=== PATIENT | female | born 1940 | race Caucasian/White ===

== ENCOUNTER → 2017-12-11 10:45 | Outpatient (CLI) | payer MEDICARE, SELFPAY ==
[2017-12-11 11:00] LABS: Prothrombin Time (Protime)PT. 37.8 SECONDS (11.7-14.9)
[2017-12-11 11:49] LABS: International Normalized Ratio 3.8
== END ==
PROVIDERS: Family Provider Family Medicine; PCP Family Medicine; Referring Provider Family Medicine; Visit Provider Family Medicine
DX: I48.0 Paroxysmal atrial fibrillation (principal)
CPT/HCPCS: 85610

== ENCOUNTER → 2018-01-21 10:02 | Outpatient (CLI) | payer MEDICARE, SELFPAY ==
[2018-01-21 10:23] VITALS: BP 171/85; PULSE 59; RESP 16; O2SAT 100; BMI 21.2
== END ==
PROVIDERS: Family Provider Family Medicine; PCP Family Medicine; Referring Provider Internal Medicine Hematology & Oncology; Visit Provider Internal Medicine Hematology & Oncology
DX: C85.90 Non-Hodgkin lymphoma, unspecified, unspecified site (principal); Z45.2 Encounter for adjustment and management of vascular access device
CPT/HCPCS: 36569

== ENCOUNTER 2018-01-29 15:02 | Emergency (ER) | payer MEDICARE, SELFPAY ==
[2018-01-21 10:23] VITALS: BMI 21.2
[2018-01-29 15:04] VITALS: BP 131/76; PULSE 67; RESP 14; TEMP 36.8; O2SAT 100; BMI 21.2
--- NOTE | 2018-01-29 15:27 | EKG12_ITS ---
Test Reason : SYNCOPE Blood Pressure : / mmHG Vent. Rate : 089 BPM Atrial Rate : 089 BPM P-R Int : 160 ms QRS Dur : 078 ms QT Int : 362 ms P-R-T Axes : 026 039 030 degrees QTc Int : 440 ms Normal sinus rhythm Normal ECG Confirmed by DIDI VILLALOBOS MD ([id number]), online content editor CHRISTAL LEE ([id number]) on 02/01/2018 1:34:06 PM Referred By: Confirmed By:DIDI VILLALOBOS MD
--- NOTE | 2018-01-29 15:33 | ED.DCSUM_ITS ---
- ER Visit Summary Date of Service: 01/29/18 Chief Complaint: Syncope History of Present Illness: The patient is a 77 F undergoing chemotherapy for T- cell lymphoma. Her last chemotherapy treatment was on January 22. Patient was sitting on the commode today having diarrhea. She felt lightheaded and sweaty. She had a brief syncopal episode and woke on the floor. Patient reports the episode occurred around noon, 3 hours prior to arrival. She has felt okay since that time. She is been having problems with nausea and diarrhea with her chemotherapy. Family called the oncology office and they wanted her lab work checked. Physical Examination: Vital signs are unremarkable. Patient sitting upright in bed no acute distress. Head neck examination unremarkable. Heart is regular rate and rhythm. Lung sounds are clear benign abdomen is soft nontender. Hypoactive bowel sounds are present. Neuro exam reveals no focal deficits. Test Results: EKG is sinus at 64 with no sign of acute ischemia. CBC was a white count of 0.3, hemoglobin 10.7, platelet count 66,000. Chemistry studies significant only for BUN of 28. INR is 1.7. Emergency Department Course and Treatment: Patient is given IV fluids. She has remained asymptomatic while in the emergency room. I did speak with Dr. Wen, covering for Dr. Castellanos. Because the patient is so neutropenic, he did request coverage with Levaquin for the next 5 days. First doses given here and patient is given a prescription. She is to call the office tomorrow with an update on her symptoms. Treatment Plan: [] Disposition: Discharge Impression: 1. Vasovagal syncope 2. Pancytopenia This note was generated with [employer] dictation software. It may contain incorrect words, spelling, and punctuation that were not noted in review of the chart prior to signing ED Disposition - Plan for ED Patient: Disposition: Home or Assisted Living Chief Complaint: Syncope Instructions: ED Syncope Vasovagal Prescriptions: Levofloxacin [Levaquin] 500 mg PO DAILY #4 tablet Referrals: Denae Castellanos MD [STAFF PHYSICIAN] - As soon as possible
[2018-01-29] MEDS: 0.9% Normal Saline 1,000 ML 150 ML IV (15:55)
[2018-01-29 16:10] LABS: Absolute Lymphocyte Count 0.29 X10^3/ul (0.83-4.51); Eosinophil# 0.04 X10^3/uL; Eosinophils% 11.8 % (0-5); Hematocrit 31.7 % (37-47); Hemoglobin 10.7 g/dl (12.0-15.0); Lymphocyte # 0.29 X10^3/ul (4.0); Lymphocyte % 85.3 % (19-41); Mean Corp Hgb Conc 33.8 g/gl (32-36); Mean Corpuscular Hgb 31.4 pg (27.0-32.0); Mean Platelet Vol. 10.5 fl (6.2-12.0); Monocyte# 0.01 X10^3/uL; Monocyte% 2.9 % (0-10); Platelet Count 66 K/mm3 (150-450); RBC Distribution Width CV 13.1 % (11.6-14.6); RBC Distribution Width SD 44.7 fl (35.1-43.9); Red Blood Count 3.41 M/mm3 (4.2-5.4)
[2018-01-29 16:13] LABS: Differential Indicated SCAN CRITERIA MET; POSITIVE COUNT YES; POSITIVE DIFFERENTIAL YES; POSITIVE MORPHOLOGY YES; White Blood Count 0.3 K/mm3 (4.4-11.0)
--- NOTE | 2018-01-29 16:13 | EKG12_ITS ---
Test Reason : SYNCOPE Blood Pressure : / mmHG Vent. Rate : 064 BPM Atrial Rate : 064 BPM P-R Int : 204 ms QRS Dur : 094 ms QT Int : 500 ms P-R-T Axes : 078 -50 050 degrees QTc Int : 515 ms Sinus rhythm with Premature atrial complexes Incomplete right bundle branch block Left anterior fascicular block Nonspecific ST and T wave abnormality Prolonged QT Abnormal ECG Confirmed by WILFREDO ANDERSON, DIDI ([id number]), editor publications CHRISTAL LEE ([id number]) on 02/01/2018 2:04:04 PM Referred By: Confirmed By:DIDI VILLALOBOS MD
[2018-01-29 16:20] LABS: Anion Gap 7 (5-15); BUN 28 mg/dL (7-18); Calcium,Total 7.9 mg/dL (8.5-10.1); Chloride 103 mmol/L (98-107); EST Glomerular Filtration Rate 74 mL/min (>60); Est Glom Filt Rate - Afr Amer 89 mL/min (>60); Glucose 102 mg/dL (74-106); Sodium Level 137 mmol/L (136-145)
--- NOTE | 2018-01-29 16:41 | ED.RN ---
lab called with critical lab results. WBC 0.3. Dr. Larson made aware. no new orders at this time
--- NOTE | 2018-01-29 16:44 | ED.RN ---
pt takes a dose of dramamine from home with dr. michael permission.
[2018-01-29 16:46] LABS: Differential Comment SCANNED
[2018-01-29 16:54] LABS: International Normalized Ratio 1.7; Prothrombin Time (Protime)PT. 19.9 SECONDS (11.7-14.9)
--- NOTE | 2018-01-29 17:43 | ED.DEP ---
ED Disposition - Plan for ED Patient: Disposition: Home or Assisted Living Chief Complaint: Syncope Instructions: ED Syncope Vasovagal Prescriptions: Levofloxacin [Levaquin] 500 mg PO DAILY #4 tablet Referrals: Denae Castellanos MD [STAFF PHYSICIAN] - As soon as possible
[2018-01-29 18:04] VITALS: BP 147/68; PULSE 71; RESP 16; O2SAT 98
[2018-01-29] MEDS: levoFLOXacin 500 MG Tablet PO (18:04)
[2018-01-29 18:16] VITALS: BP 145/87; PULSE 85; RESP 17; O2SAT 98
[2018-01-30 12:17] LABS: Pathologist Review Reviewed
--- OUTSIDE RECORDS SUMMARY | 2018-05-03 04:57 | XMS RPT_ITS ---
:1940 Author Organization OHIP Care Team Providers Name Role Phone REDD DOLAN Attending Unavailable REDD DOLAN Referring Unavailable SANTIAGO GREER Admitting Unavailable SANTIAGO GREER Attending Unavailable FARRAH WINN Referring Unavailable FARRAH WINN Referring Unavailable [place] FerryHenrique Attending Unavailable CarringtonHenrique Referring Unavailable CarringtonHenrique Primary Care Unavailable Farrah Winn Attending Unavailable Farrah Winn Referring Unavailable CarringtonHenrique Primary Care Unavailable [place] FerryHenrique Primary Care Unavailable Catherine Larson Attending Unavailable REDD DOLAN Referring Unavailable CARRINGTONHENRIQUE Attending Unavailable CARRINGTONHENRIQUE Referring Unavailable CARRINGTONHENRIQUE Referring Unavailable CARRINGTONHENRIQUE Referring Unavailable CARRINGTONHENRIQUE Referring Unavailable CARRINGTONHENRIQUE Referring Unavailable CARRINGTONHENRIQUE Referring Unavailable CARRINGTONHENRIQUE Referring Unavailable CARRINGTONHENRIQUE Attending Unavailable CARRINGTONHENRIQUE Referring Unavailable ANIKA, WILIAM Referring Unavailable ANIKA, WILIAM Attending Unavailable ANIKA, WILIAM Referring Unavailable CARRINGTONHENRIQUE Referring Unavailable CARRINGTONHENRIQUE Referring Unavailable CARRINGTONHENRIQUE Referring Unavailable CARRINGTONHENRIQUE Referring Unavailable CARRINGTONHENRIQUE Referring Unavailable CARRINGTONHENRIQUE Referring Unavailable CARRINGTONHENRIQUE Attending Unavailable CARRINGTONHENRIQUE Referring Unavailable CARRINGTONHENRIQUE Referring Unavailable CARRINGTONHENRIQUE Referring Unavailable CARRINGTONHENRIQUE Referring Unavailable CARRINGOTNHENRIQUE Referring Unavailable CARRINGTON, HENRIQUE J Referring Unavailable PA, LAPMAN Attending Unavailable Laci LIRIANO (KARTHIKC) Referring Unavailable PA, LAPMAN Referring Unavailable PA, LAPMAN Referring Unavailable PA, LAPMAN Admitting Unavailable PA, LAPMAN Attending Unavailable CARRINGTON, HENRIQUE J Referring Unavailable PA, LAPMAN Referring Unavailable CARRINGTON, HENRIQUE J Referring Unavailable CARRINGTON, HENRIQUE J Referring Unavailable PA, LAPMAN Attending Unavailable Laci LIRIANO (KARTHIKC) Referring Unavailable PA, LAPMAN Referring Unavailable PA, LAPMAN Referring Unavailable PA, LAPMAN Referring Unavailable PA, LAPMAN Referring Unavailable PA, LAPMAN Referring Unavailable CARRINGTON, HENRIQUE J Referring Unavailable REDD DOLAN Attending Unavailable REDD DOLAN Referring Unavailable KELSIREDD CRANDALL Referring Unavailable PA, LAPMAN Referring Unavailable KELSIREDD CRANDALL E Referring Unavailable REDD DOLAN Attending Unavailable REDD DOLAN E Referring Unavailable ROS DEL ROSARIO (SIGN BUILDER) Attending Unavailable ROS DEL ROSARIO (SIGN BUILDER) Referring Unavailable PA, LAPMAN Referring Unavailable CARRINGTON, HENRIQUE J Referring Unavailable PA, LAPMAN Referring Unavailable PA, LAPMAN Attending Unavailable PA, LAPMAN Referring Unavailable PA, LAPMAN Referring Unavailable CARRINGTON, HENRIQUE J Referring Unavailable PA, LAPMAN Referring Unavailable PA, LAPMAN Referring Unavailable CARRINGTON, HENRIQUE J Referring Unavailable PA, LAPMAN Referring Unavailable PA, LAPMAN Referring Unavailable PA, LAPMAN Referring Unavailable PA, LAPMAN Referring Unavailable PA, LAPMAN Attending Unavailable PA, LAPMAN Referring Unavailable PA, LAPMAN Referring Unavailable REDD DOLAN Attending Unavailable REDD DOLAN Referring Unavailable REDD DOLAN Attending Unavailable REDD DOLAN Referring Unavailable Henrique Shultz MD Primary Care Unavailable REDD DOLAN Attending Unavailable REDD DOLAN Referring Unavailable Henrique Shultz MD Primary Care Unavailable PROBLEMS PROBLEMS DATE TYPE CONDITION / CODE ATTENDING STATUS SOURCE 01/15/2018 Active Peripheral t-cell NA Active [facility] lymphoma, not Clinic Main classified, lymph [place] nodes of head, face, Repository and neck / C84.41(ICD-10) 01/18/2018 Active Encounter for NA Active [facility] follow-up Clinic Main examination after [place] completed treatment Repository for conditions other than malignant neoplasm / Z09(ICD-10) 12/26/2017 Active Family history of LIZZIE WINNMAN Active [facility] malignant neoplasm Clinic Main of digestive organs [place] / Z80.0(ICD-10) Repository 08/30/2017 Active Chronic kidney NA Active [facility] disease, stage 3 Clinic Other (moderate) / [place] N18.3(ICD-10) Repository 02/21/2011 Active 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, Clinic Other unspecified / [place] D17.9(ICD-10) Repository 12/25/2017 Active Cutaneous T-cell NA Active [facility] lymphoma, Clinic Other unspecified, [place] extranodal and solid Repository organ sites / C84.A9(ICD-10) 12/14/2017 Active Abnormal weight loss NA Active [facility] / R63.4(ICD-10) Clinic Main [place] Repository 12/14/2017 Active Unknown / NA Active [facility] UNK(Unknown) Clinic Main [place] Repository 12/11/2017 Unknown I48.0 - Paroxysmal Henrique Shultz Active [place] atrial fibrillation Community / I48.0(ICD-10) Hospital Repository 12/11/2017 Active Encounter for NA Active [facility] screening mammogram Clinic Main for malignant [place] neoplasm of breast / Repository Z12.31(ICD-10) 09/14/2017 Active Dermatochalasis of LOCASTRO, Active [facility] right upper eyelid / [facility] Other H02.831(ICD-10) [place] Repository 09/14/2017 Active Dermatochalasis of LOCASTRO, Active [place] left upper eyelid / [facility] Other H02.834(ICD-10) [place] Repository 09/04/2017 Active Atherosclerotic ANIKA, 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 / I25.10(ICD-10) 09/04/2017 Active Precordial pain / NA Active [facility] R07.2(ICD-10) Clinic Main [place] Repository 11/03/2013 Active Hypothyroidism, NA Active [facility] unspecified / Clinic Main E03.9(ICD-10) [place] Repository 07/25/2017 Active Diarrhea, NA Active [facility] unspecified / Clinic Main R19.7(ICD-10) [place] Repository 06/29/2017 Active Nonrheumatic mitral KELSI, Active [facility] (valve) [facility] Clinic Other insufficiency / [place] I34.0(ICD-10) Repository 06/29/2017 Active Paroxysmal atrial KELSI, Active [place] fibrillation / [facility] Clinic Other I48.0(ICD-10) [place] Repository 05/28/2017 Admitting Unknown / KELSI, Active [facility] diagnosis UNK(Unknown) [facility] Repository PROCEDURES PROCEDURES No Procedure Records FoundRESULTS RESULTS PROGRESS Observed: 03/04/2018 Status: COMPLETED Source: [place] 4:28 PM [facility] REPOSITORY HNO ID: [id number] Author: Farrah Winn Service: (none) Author Type: Physician Type: Progress Notes Filed: 03/05/2018 7:18 AM Note Text: PATIENT NAME: Martell Nascimento. CLINIC NO: [id number]. ATTENDING PHYSICIAN: Farrah Winn MD. DATE OF SERVICE:. ? 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 PERFORMANCE STATUS:100% ? HPI: 77-year-old female with history of atrial fibrillation presented with a skin lesion appear overnight on her lower chest area 6 weeks ago. ?patient has history of actinic keratosis on the face and nose, she was last seen and have removed all the sleep position in October. She appeared to have a raise (red/purplish) lesion on her lower chest. It is not painful, red or hot, but very itchy. ? 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 patient has no fever, chills or night sweats. She has a 10 pound weight loss over the last 6 months because of frequent diarrhea which started in recur late this summer. She had a colonoscopy last year and recent CT scan of abdomen and pelvis. Patient has no swallowing gland or adenopathy. She has no chest pain, cough or shortness of breath. No unusual bleeding or bruising on Coumadin for atrial fibrillation. ? current treatment: CHOP AND Neulasta ? interim history:?Patient is doing fairly well after her second cycle of chemotherapy for peripheral T-cell lymphoma. She had mild nausea after chemotherapy. She did not have problem with stomatitis on BMX suspension. She has worsening anemia with fatigue and dyspnea and exertion. She started iron last week. ? Patient has no fever, chills or any sign or symptom of infection after chemotherapy. She has no significant weight loss. No neuropathy. She has not noticed any recurrent adenopathy or skin nodules since starting chemotherapy treatment. PICC line site is fine. ? All medications AND allergies updated and reviewed by me. ? REVIEW OF SYSTEMS: ? CONSTITUTIONAL: ?No fevers, chills, nightsweats, unintended weight loss + fatigue HEENT: ?Denies frequent or severe heaches, nasal congestion/sinus symptoms, problematic allergy problems. EYES: ?No diplopia or blurry vision. CARDIOVASCULAR: ?No chest pain, dyspnea, palpitations, orthopnea, PND, ankle edema. PULM: ?No dyspnea, unexplained cough. GI: ?No dysphagia/odynophagia, problematic reflux, constipation, diarrhea, changes in stool habits, hematochezia, melena. : ?No new urinary complaints, including dysuria, gross hematuria or pyuria. NEURO: ?No new balance problems, peripheral weakness/paresthesias or numbness of concern. MUSC-SKEL: ?No new joint pain, swelling, or erythema. PSY: ?No concerns regarding depression, anxiety or panic. INTEGUMENTARY: ?No new skin changes (rash, new or changing mole, new growth) except for the growth on her left lower chest. ? PHYSICAL EXAMINATION: 77-year-old well-nourished well-developed female in no acute distress. Performance status 80% BP 119/72 Pulse 70 Temp (Src) 98.6 (Oral) Wt 140 lb 8 oz (63.7kg) HEENT: Head is normocephalic, atraumatic. Sclerae white, conjunctivae pink. PEERL. EOMs are intact. Oropharynx is benign. LYMPHATICS: There is no palpable adenopathy in the neck, supraclavicular region, axillae, or groin. LUNGS: Lungs are clear to percussion and auscultation. CHEST: well-healed scar in the left lower chest with slight discoloration. HEART: Heart is normal with grade 1/6 systolic?murmurs, no gallops, or rubs. ABDOMEN: Soft and nontender without organomegaly. No masses can be palpated. EXTREMITIES: Are without edema. NEUROLOGIC: Exam is physiologic, no sensory deficit ? LABORATORY DATA: Component Latest Ref Rng AND Units 03/04/2018 WBC, [place] 3.70 - 11.00 k/uL 8.47 RBC, [place] 3.90 - 5.20 m/uL 2.73 (L) Hemoglobin, [place] 11.5 - 15.5 g/dL 8.7 (L) Hematocrit, [place] 36.0 - 46.0 % 26.3 (L) MCV, [place] 80.0 - 100.0 fL 96.3 MCH, [place] 26.0 - 34.0 pg 31.9 MCHC, [place] 30.5 - 36.0 g/dL 33.1 RDW, [place] 11.5 - 15.0 % 14.4 Platelet Cnt, [place] 150 - 400 k/uL 570 (H) MPV, [place] 9.0 - 12.7 fL 8.6 (L) Absol Gran Count 1.45 - 7.50 k/uL 6.80 Component Latest Ref Rng AND Units 03/04/2018 Protein, Total 6.3 - 8.0 g/dL 6.1 (L) Albumin 3.9 - 4.9 g/dL 3.5 (L) Calcium 8.5 - 10.2 mg/dL 8.8 Bilirubin, Total 0.2 - 1.3 mg/dL 0.2 Alkaline Phosphatase 34 - 123 U/L 60 AST 13 - 35 U/L 15 Glucose 74 - 99 mg/dL 104 (H) BUN 7 - 21 mg/dL 15 Creatinine 0.58 - 0.96 mg/dL 0.90 Sodium 136 - 144 mmol/L 131 (L) Potassium 3.7 - 5.1 mmol/L 4.5 Chloride 97 - 105 mmol/L 99 CO2 22 - 30 mmol/L 24 Anion Gap mmol/L 8 ALT 7 - 38 U/L 8 eGFR- >60 eGFR-All Other Races . >60 LD 135 - 214 U/L 200 ASSESSMENT/PLAN: 1. 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 Chemotherapy-induced neutropenia (HCC) - ICD9: 288.03, E933.1, ICD10: D70.1, T45.1X5A 3. Anemia secondary to chemotherapy Plan: - ?Continue cycle 3 of CHOP AND Neulasta this week - Continue Phenergan for nausea AND BMX suspension for stomatitis - ?Rx Zyprexa 5mg daily at bedtime x 5 days after chemotherapy along with prednisone 50mg twice daily. - Repeat BMP and CT chest abdomen and pelvis OV in 2 weeks - If CT scans are normal, then proceed with bone marrow biopsy after her third cycle of chemotherapy for restaging. - Continue iron twice daily for anemia secondary to chemotherapy, and possible repeat 2-D echocardiogram if patient still have dyspnea with activity and tachycardia after chemotherapy with her anemia improving. I spent 25 minutes in the visit, with more than 50% of the total [id number]-rh-kyyn time of the visit in counseling / coordination of care. ? Farrah Winn MD CNOVSP Observed: 03/04/2018 Status: COMPLETED Source: [place] 4:00 PM [facility] REPOSITORY Visit (SP) Office ([place]) MARIA ESTHER NASCIMENTOAREObdulio Wetzel ([id number]) 1940 F Date Time Provider Department 03/04/18 4:00 PM FARRAH WINN During your visit today, we recorded the following information about you: Temperature Pulse Blood pressure Weight 98.6 degrees 70/minute 119/72 63.7 kg Farrah Winn MD 03/05/2018 7:18 AM Signed PATIENT NAME: Martell Nascimento. CLINIC NO: [id number]. ATTENDING PHYSICIAN: Farrah Winn MD. DATE OF SERVICE:. ? 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 PERFORMANCE STATUS:100% ? HPI: 77-year-old female with history of atrial fibrillation presented with a skin lesion appear overnight on her lower chest area 6 weeks ago. ?patient has history of actinic keratosis on the face and nose, she was last seen and have removed all the sleep position in October. She appeared to have a raise (red/purplish) lesion on her lower chest. It is not painful, red or hot, but very itchy. ? 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 patient has no fever, chills or night sweats. She has a 10 pound weight loss over the last 6 months because of frequent diarrhea which started in recur late this summer. She had a colonoscopy last year and recent CT scan of abdomen and pelvis. Patient has no swallowing gland or adenopathy. She has no chest pain, cough or shortness of breath. No unusual bleeding or bruising on Coumadin for atrial fibrillation. ? current treatment: CHOP AND Neulasta ? interim history:?Patient is doing fairly well after her second cycle of chemotherapy for peripheral T-cell lymphoma. She had mild nausea after chemotherapy. She did not have problem with stomatitis on BMX suspension. She has worsening anemia with fatigue and dyspnea and exertion. She started iron last week. ? Patient has no fever, chills or any sign or symptom of infection after chemotherapy. She has no significant weight loss. No neuropathy. She has not noticed any recurrent adenopathy or skin nodules since starting chemotherapy treatment. PICC line site is fine. ? All medications AND allergies updated and reviewed by me. ? REVIEW OF SYSTEMS: ? CONSTITUTIONAL: ?No fevers, chills, nightsweats, unintended weight loss + fatigue HEENT: ?Denies frequent or severe heaches, nasal congestion/sinus symptoms, problematic allergy problems. EYES: ?No diplopia or blurry vision. CARDIOVASCULAR: ?No chest pain, dyspnea, palpitations, orthopnea, PND, ankle edema. PULM: ?No dyspnea, unexplained cough. GI: ?No dysphagia/odynophagia, problematic reflux, constipation, diarrhea, changes in stool habits, hematochezia, melena. : ?No new urinary complaints, including dysuria, gross hematuria or pyuria. NEURO: ?No new balance problems, peripheral weakness/paresthesias or numbness of concern. MUSC-SKEL: ?No new joint pain, swelling, or erythema. PSY: ?No concerns regarding depression, anxiety or panic. INTEGUMENTARY: ?No new skin changes (rash, new or changing mole, new growth) except for the growth on her left lower chest. ? PHYSICAL EXAMINATION: 77-year-old well-nourished well-developed female in no acute distress. Performance status 80% BP 119/72 Pulse 70 Temp (Src) 98.6 (Oral) Wt 140 lb 8 oz (63.7kg) HEENT: Head is normocephalic, atraumatic. Sclerae white, conjunctivae pink. PEERL. EOMs are intact. Oropharynx is benign. LYMPHATICS: There is no palpable adenopathy in the neck, supraclavicular region, axillae, or groin. LUNGS: Lungs are clear to percussion and auscultation. CHEST: well-healed scar in the left lower chest with slight discoloration. HEART: Heart is normal with grade 1/6 systolic?murmurs, no gallops, or rubs. ABDOMEN: Soft and nontender without organomegaly. No masses can be palpated. EXTREMITIES: Are without edema. NEUROLOGIC: Exam is physiologic, no sensory deficit ? LABORATORY DATA: Component Latest Ref Rng AND Units 03/04/2018 WBC, [place] 3.70 - 11.00 k/uL 8.47 RBC, [place] 3.90 - 5.20 m/uL 2.73 (L) Hemoglobin, [place] 11.5 - 15.5 g/dL 8.7 (L) Hematocrit, [place] 36.0 - 46.0 % 26.3 (L) MCV, [place] 80.0 - 100.0 fL 96.3 MCH, [place] 26.0 - 34.0 pg 31.9 MCHC, [place] 30.5 - 36.0 g/dL 33.1 RDW, [place] 11.5 - 15.0 % 14.4 Platelet Cnt, [place] 150 - 400 k/uL 570 (H) MPV, [place] 9.0 - 12.7 fL 8.6 (L) Absol Gran Count 1.45 - 7.50 k/uL 6.80 Component Latest Ref Rng AND Units 03/04/2018 Protein, Total 6.3 - 8.0 g/dL 6.1 (L) Albumin 3.9 - 4.9 g/dL 3.5 (L) Calcium 8.5 - 10.2 mg/dL 8.8 Bilirubin, Total 0.2 - 1.3 mg/dL 0.2 Alkaline Phosphatase 34 - 123 U/L 60 AST 13 - 35 U/L 15 Glucose 74 - 99 mg/dL 104 (H) BUN 7 - 21 mg/dL 15 Creatinine 0.58 - 0.96 mg/dL 0.90 Sodium 136 - 144 mmol/L 131 (L) Potassium 3.7 - 5.1 mmol/L 4.5 Chloride 97 - 105 mmol/L 99 CO2 22 - 30 mmol/L 24 Anion Gap mmol/L 8 ALT 7 - 38 U/L 8 eGFR- >60 eGFR-All Other Races . >60 LD 135 - 214 U/L 200 ASSESSMENT/PLAN: 1. 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 Chemotherapy-induced neutropenia (HCC) - ICD9: 288.03, E933.1, ICD10: D70.1, T45.1X5A 3. Anemia secondary to chemotherapy Plan: - ?Continue cycle 3 of CHOP AND Neulasta this week - Continue Phenergan for nausea AND BMX suspension for stomatitis - ?Rx Zyprexa 5mg daily at bedtime x 5 days after chemotherapy along with prednisone 50mg twice daily. - Repeat BMP and CT chest abdomen and pelvis OV in 2 weeks - If CT scans are normal, then proceed with bone marrow biopsy after her third cycle of chemotherapy for restaging. - Continue iron twice daily for anemia secondary to chemotherapy, and possible repeat 2-D echocardiogram if patient still have dyspnea with activity and tachycardia after chemotherapy with her anemia improving. I spent 25 minutes in the visit, with more than 50% of the total [id number]-rd-[id number] time of the visit in counseling / coordination of care. ? 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 Discontinue saline lock post exam. If Pt. has a central line or IVAD, may access for administration according to line specific nursing protocol. Once exam is complete flush line and de-access according to line specific nursing protocol in the CT contrast administration guidelines link.Disp: 1 EachRfl: 0 enteric contrast (will be provided with radiology test)For CT CHESTABD/PEL W IVCON Routine order Administer, As Directed One Time Only, via Oral, Rectal, both Oral and Rectal, Enteric Tube, Stoma or Indwelling Catheter, Enteric Contrast as designated per enteric contrast guidelinesDisp: 1 EachRfl: 0 Level of Service: EST PATIENT VISIT LEVEL 4 [[id number]] Disposition: Return in about 2 weeks (around 03/18/2018). LOS history recorded Follow-up and Disposition History Recorded Prescriptions as of 03/04/2018 Sig: POLYSACCHARIDE IRON COMPLEX 1* Take 1 capsule by mouth twice* WARFARIN 5 MG TABLET Take 2.5 mg on F and 5 mg all* OLANZAPINE 5 MG TABLET Take 1 tablet by mouth daily * [id number]* Take 10 mL by mouth every 6 h* PROMETHAZINE 25 MG TABLET Take 1 tablet by mouth every * TIKOSYN 125 MCG CAPSULE Take 1 capsule by mouth once * PREDNISONE 50 MG TABLET Take 2 tablets by mouth daily* LOPERAMIDE 2 MG TABLET Take 2 mg by mouth as needed. GABAPENTIN 100 MG CAPSULE TAKE ONE CAPSULE BY MOUTH THR* LEVOTHYROXINE 75 MCG TABLET Take 1 tablet by mouth once d* METOPROLOL SUCCINATE ER 25 MG* Take 0.5 tablets by mouth onc* IV CONTRAST (RADIOLOGY PROCED* CT Chest ABD/PEL-Inject, intr* ENTERIC CONTRAST (RADIOLOGY P* For CT CHESTABD/PEL W IVCON R* COMPOUNDED PRESCRIPTION Standing order PATIENT/INR: * Problem List As Of Date 03/04/2018 Noted Resolved Chest pain [R07.9] INVALID FOR* Atrial fibrillation [I48.91] INVALID FOR* More... 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 Mitral valve regurgitation [I34.0] INVALID FOR* More... 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 CKD (chronic kidney disease) stage 3, GFR 30-59*INVALID FOR* Dermatochalasis of both upper eyelids [H02.831,*INVALID FOR*09/14/2017 Peripheral T cell lymphoma of lymph nodes of he*INVALID FOR* Chemotherapy-induced neutropenia (HCC) [D70.1, *INVALID FOR* Encounter Status:Closed by FARRAH WINN MD on 03/05/18 SHERI ABS GR + CBC Collected: 03/04/2018 Status: F Source: [place] 3:37 PM [facility] [place] REPOSITORY TYPE CODE TESTS RESULT OUT OF REFERENCE UNITS RANGE LAB WWBC 3.70-11.00 k/uL [place] WBC 8.47 LAB WRBC 3.90-5.20 m/uL Low [place] RBC 2.73 LAB WHGB 11.5-15.5 g/dL Low [place] Hemoglobin 8.7 LAB WHCT 36.0-46.0 % Low [place] Hematocrit 26.3 LAB WMCV 80.0-100.0 fL [place] MCV 96.3 LAB WMCH 26.0-34.0 pg [place] MCH 31.9 LAB WMCHC 30.5-36.0 g/dL [place] MCHC 33.1 LAB WRDW 11.5-15.0 % [place] RDW 14.4 LAB WPLT 150-400 k/uL [place] High Platelet Cnt 570 LAB WMPV 9.0-12.7 fL Low [place] MPV 8.6 Result Comment: Test performed at: [facility] [place], [address] [place] [address]. LAB ABGRAN 1.45-7.50 k/uL Absol Gran 6.80 Count COMP METABOLIC PANEL Collected: 03/04/2018 Status: F Source: [place] 3:37 PM [facility] REPOSITORY TYPE CODE TESTS RESULT OUT OF REFERENCE UNITS RANGE LAB TP 6.3-8.0 g/dL Protein, Low Total 6.1 LAB ALB 3.9-4.9 g/dL Albumin Low 3.5 LAB CA 8.5-10.2 mg/dL Calcium, Total 8.8 LAB TBIL 0.2-1.3 mg/dL Bilirubin, Total 0.2 LAB ALKP 34-123 U/L Alkaline Phosphatase 60 LAB AST 13-35 U/L AST 15 LAB GLU 74-99 mg/dL Glucose High 104 LAB BUN 7-21 mg/dL BUN 15 LAB CRET 0.58-0.96 mg/dL Creatinine 0.90 LAB NA 136-144 mmol/L Sodium Low 131 LAB K 3.7-5.1 mmol/L Potassium 4.5 LAB CL 97-105 mmol/L Chloride 99 LAB CO2 22-30 mmol/L CO2 24 LAB AGAP mmol/L Anion Gap 8 LAB ALT 7-38 U/L ALT 8 LAB GFRAA eGFR- >60 Amer. LAB GFRNAA . eGFR-All Other Races >60 Result Comment: eGFR (Estimated GFR) Units of measure: mL/min/1.73 meters squared eGFR is derived from the reexpressed MDRD Study equation using the following parameters: serum creatinine, age, gender and race. The creatinine assay has been calibrated to be traceable to IDMS. An eGFR <60 mL/min/1.73m2 for >3 months is consistent with chronic kidney disease. Refer to KDOQI guidelines for clinical interpretation. In patients with unstable renal function, e.g. those with acute kidney injury, the eGFR may not accurately reflect actual GFR. LD Collected: 03/04/2018 Status: F Source: [facility] 3:37 PM [facility] REPOSITORY TYPE CODE TESTS RESULT OUT OF RANGE REFERENCE UNITS LAB LD 135-214 U/L LD 200 PROGRESS Observed: 02/28/2018 Status: COMPLETED Source: [place] 12:39 PM [facility] REPOSITORY HNO ID: [id number] Author: Henrique Shultz Service: (none) Author Type: Physician Type: Progress Notes Filed: 02/28/2018 12:40 PM Note Text: Can we double check and make sure she got this PROGRESS Observed: 02/25/2018 Status: COMPLETED Source: [place] 5:31 PM [facility] REPOSITORY HNO ID: [id number] Author: Shavon Adkins LPN Service: (none) Author Type: (none) Type: Progress Notes Filed: 02/28/2018 12:40 PM Note Text: Left a detailed message as to same. Did ask that patient call back to confirm received message and schedule recheck. PROGRESS Observed: 02/25/2018 Status: COMPLETED Source: [place] 2:56 PM [facility] REPOSITORY HNO ID: [id number] Author: Henrique Shultz Service: (none) Author Type: Physician Type: Progress Notes Filed: 02/28/2018 12:40 PM Note Text: Change to 5 mg a day except 2.5 on Sunday. Recheck in one week. SHERI ABS GR + CBC Collected: 02/25/2018 Status: F Source: [place] 2:45 PM [facility] REPOSITORY TYPE CODE TESTS RESULT OUT OF REFERENCE UNITS RANGE LAB WWBC 3.70-11.00 k/uL [place] WBC 8.25 LAB WRBC 3.90-5.20 m/uL Low Sheri RBC 2.58 LAB WHGB 11.5-15.5 g/dL Low Sheri Hemoglobin 8.3 LAB WHCT 36.0-46.0 % Low Sheri Hematocrit 25.1 LAB WMCV 80.0-100.0 fL Sheri MCV 97.3 LAB WMCH 26.0-34.0 pg [place] MCH 32.2 LAB WMCHC 30.5-36.0 g/dL [place] MCHC 33.1 LAB WRDW 11.5-15.0 % [place] RDW 13.6 LAB WPLT 150-400 k/uL Low Sheri Platelet Cnt 105 LAB WMPV 9.0-12.7 fL Sheri MPV 10.5 Result Comment: Test performed at: [facility], [address] [place] [address]. LAB ABGRAN 1.45-7.50 k/uL Absol Gran 6.83 Count PROGRESS Observed: 02/25/2018 Status: COMPLETED Source: [place] 1:55 PM [facility] REPOSITORY HNO ID: [id number] Author: Lottie Angelo RN Service: (none) Author Type: (none) Type: Progress Notes Filed: 02/25/2018 1:57 PM Note Text: patient had inr completed at [facility] patients inr is 1.5 (patients inr range is 2.0-3.0) patient is currently taking 2.5mg Wed,Fri and 5mg all other days patients last dose change was on 02/11/18 due to a low level of 1.6 (dose at that time was 2.5mg Mon,Wed,Fri and 5mg all other days) patient has had no changes in medication and no missed doses and no change in diet Advised patient that they would be contacted regarding medication dose and when to follow up after information is reviewed by provider. After provider review please contact the patient with information and schedule follow up appointment with coumadin clinic. FYI - patient has been scheduled for a 2 week follow up inr on 03/11/18 (appt same day with specialty) PROGRESS Observed: 02/11/2018 Status: COMPLETED Source: [place] 12:46 PM [facility] REPOSITORY HNO ID: [id number] Author: Misty Mckeon Ma Service: (none) Author Type: (none) Type: Progress Notes Filed: 02/11/2018 12:49 PM Note Text: Patient notified of dosage change. Misty Mckeon Ma PROGRESS Observed: 02/11/2018 Status: COMPLETED Source: [place] 12:40 PM [facility] REPOSITORY HNO ID: [id number] Author: Farrah Winn Service: (none) Author Type: Physician Type: Progress Notes Filed: 02/13/2018 7:25 AM Note Text: PATIENT NAME: Martell Nascimento. CLINIC NO: [id number]. ATTENDING PHYSICIAN: Farrah Winn MD. DATE OF SERVICE:. ? 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 PERFORMANCE STATUS:100% ? HPI: 77-year-old female with history of atrial fibrillation presented with a skin lesion appear overnight on her lower chest area 6 weeks ago. ?patient has history of actinic keratosis on the face and nose, she was last seen and have removed all the sleep position in October. She appeared to have a raise (red/purplish) lesion on her lower chest. It is not painful, red or hot, but very itchy. ? 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 patient has no fever, chills or night sweats. She has a 10 pound weight loss over the last 6 months because of frequent diarrhea which started in recur late this summer. She had a colonoscopy last year and recent CT scan of abdomen and pelvis. Patient has no swallowing gland or adenopathy. She has no chest pain, cough or shortness of breath. No unusual bleeding or bruising on Coumadin for atrial fibrillation. ? current treatment: CHOP AND Neulasta interim history: Patient returns after her first cycle of chemotherapy for peripheral T-cell lymphoma. She had mild nausea after chemotherapy. She also has some stomatitis currently on BMX suspension. She was in the emergency room because of abnormal heart rate and EKG showed prolonged QT interval. Zofran discontinued because of QT prolongation Patient has no fever, chills or any significant infection after chemotherapy. She has some musculoskeletal pain in her right shoulder and chest area. Mild fatigue but no significant weight loss. No neuropathy. She has not noticed any recurrent adenopathy or skin nodules since starting chemotherapy treatment. All medications AND allergies updated and reviewed by me. REVIEW OF SYSTEMS: ? CONSTITUTIONAL: ?No fevers, chills, nightsweats, unintended weight loss HEENT: ?Denies frequent or severe heaches, nasal congestion/sinus symptoms, problematic allergy problems. EYES: ?No diplopia or blurry vision. CARDIOVASCULAR: ?No chest pain, dyspnea, palpitations, orthopnea, PND, ankle edema. PULM: ?No dyspnea, unexplained cough. GI: ?No dysphagia/odynophagia, problematic reflux, constipation, + diarrhea, changes in stool habits, hematochezia, melena. : ?No new urinary complaints, including dysuria, gross hematuria or pyuria. NEURO: ?No new balance problems, peripheral weakness/paresthesias or numbness of concern. MUSC-SKEL: ?No new joint pain, swelling, or erythema. PSY: ?No concerns regarding depression, anxiety or panic. INTEGUMENTARY: ?No new skin changes (rash, new or changing mole, new growth) except for the growth on her left lower chest. ? PHYSICAL EXAMINATION: 77-year-old well-nourished well-developed female in no acute distress. BP 130/78 Pulse 60 Temp (Src) 98.7 (Oral) Wt 140 lb (63.5kg) HEENT: Head is normocephalic, atraumatic. Sclerae white, conjunctivae pink. PEERL. EOMs are intact. Oropharynx is benign. LYMPHATICS: There is no palpable adenopathy in the neck, supraclavicular region, axillae, or groin. LUNGS: Lungs are clear to percussion and auscultation. CHEST: well-healed scar in the left lower chest with slight discoloration. HEART: Heart is normal with grade 1/6 systolic?murmurs, no gallops, or rubs. ABDOMEN: Soft and nontender without organomegaly. No masses can be palpated. EXTREMITIES: Are without edema. NEUROLOGIC: Exam is physiologic ? LABORATORY DATA: Component Latest Ref Rng AND Units 02/11/2018 WBC, Sheri 3.70 - 11.00 k/uL 5.60 RBC, Sheri 3.90 - 5.20 m/uL 3.16 (L) Hemoglobin, Sheri 11.5 - 15.5 g/dL 10.1 (L) Hematocrit, [place] 36.0 - 46.0 % 30.7 (L) MCV, Sheri 80.0 - 100.0 fL 97.2 MCH, Sheri 26.0 - 34.0 pg 32.0 MCHC, [place] 30.5 - 36.0 g/dL 32.9 RDW, [place] 11.5 - 15.0 % 13.9 Platelet Cnt, Sheri 150 - 400 k/uL 573 (H) MPV, [place] 9.0 - 12.7 fL 9.2 Absol Gran Count 1.45 - 7.50 k/uL 4.03 Component Latest Ref Rng AND Units 02/11/2018 Protein, Total 6.3 - 8.0 g/dL 6.2 (L) Albumin 3.9 - 4.9 g/dL 3.8 (L) Calcium 8.5 - 10.2 mg/dL 9.3 Bilirubin, Total 0.2 - 1.3 mg/dL 0.2 Alkaline Phosphatase 34 - 123 U/L 56 AST 13 - 35 U/L 17 Glucose 74 - 99 mg/dL 98 BUN 7 - 21 mg/dL 17 Creatinine 0.58 - 0.96 mg/dL 1.01 (H) Sodium 136 - 144 mmol/L 136 Potassium 3.7 - 5.1 mmol/L 4.1 Chloride 97 - 105 mmol/L 104 CO2 22 - 30 mmol/L 23 Anion Gap mmol/L 9 ALT 7 - 38 U/L 9 eGFR- >60 eGFR-All Other Races . 53 LD 135 - 214 U/L 208 Uric Acid 2.5 - 6.6 mg/dL 5.2 Component Latest Ref Rng AND Units 02/11/2018 Hep B Core Ab, Total Negative Negative Hep C Antibody IA Negative Negative Hep B Surface Ag Negative Negative Hep B Surface Ab, Qual Negative Negative ASSESSMENT/PLAN: 1. 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 Chemotherapy-induced neutropenia (HCC) - ICD9: 288.03, E933.1, ICD10: D70.1, T45.1X5A Plan: - Continue cycle 2 of CHOP AND Neulasta this week - Stop Zofran and substitute Phenergan for nausea - Rx Zyprexa 5mg daily at bedtime x 5 days after chemotherapy along with prednisone 50mg twice daily. - Repeat CBC, CMP, LDH OV in 3 weeks. - Repeat CT chest abdomen pelvis and bone marrow biopsy after her third cycle of chemotherapy for restaging. Farrah Winn MD PROGRESS Observed: 02/11/2018 Status: COMPLETED Source: [place] 12:22 PM [facility] REPOSITORY HNO ID: [id number] Author: Henrique Shultz Service: (none) Author Type: Physician Type: Progress Notes Filed: 02/11/2018 12:49 PM Note Text: 2.5 on WF, 5 mg a day rest of the week. Recheck in one week. TSH Collected: 02/11/2018 Status: F Source: [place] 11:50 AM [facility] REPOSITORY TYPE CODE TESTS RESULT OUT OF RANGE REFERENCE UNITS LAB TSH 0.400-5.500 uU/mL TSH 2.700 Performed By: #### TSH, PREALB, HREMOP #### [facility] [address] [place] [id number] PREALBUMIN Collected: 02/11/2018 Status: F Source: [place] 11:50 AM [facility] REPOSITORY TYPE CODE TESTS RESULT OUT OF REFERENCE UNITS RANGE LAB PREALB 17-36 mg/dL Prealbumin 18 Performed By: #### TSH, PREALB, HREMOP #### [facility] [employer] [address], [place] [address] HEPATITIS REMOTE PANEL Collected: 02/11/2018 Status: F Source: [place] 11:50 AM [facility] REPOSITORY TYPE CODE TESTS RESULT OUT OF REFERENCE UNITS RANGE LAB AHBCOT Negative Hep B Core Ab,Total Negative LAB AHCV Negative Hepatitis C Ab Negative IA LAB HBSAGR Negative HBsAg Negative LAB AHBSAG Negative HepB Surface Ab,Qual Negative Result Comment: NEGATIVE Performed By: #### TSH, PREALB, HREMOP #### [facility] [employer] [address] [place], [place] [address] CNOVSP Observed: 02/11/2018 Status: COMPLETED Source: [place] 11:50 AM [facility] REPOSITORY Visit (SP) Office (HEMAWS) MARTELL NASCIMENTO ([id number]) 1940 F Date Time Provider Department 02/11/18 11:50 AM FARRAH WINN During your visit today, we recorded the following information about you: Temperature Pulse Blood pressure Weight 98.7 degrees 60/minute 130/78 63.5 kg Farrah Winn MD 02/11/2018 12:15 PM Addendum Take Zyprexa 5mg each evening x 5 days after chemo AND prednisone 50mg twice daily x 5 days Phenergan as needed for nausea Farrah Winn MD 02/13/2018 7:25 AM Signed PATIENT NAME: Martell Nascimento. CLINIC NO: [id number]. ATTENDING PHYSICIAN: Farrah Winn MD. DATE OF SERVICE:. ? 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 PERFORMANCE STATUS:100% ? HPI: 77-year-old female with history of atrial fibrillation presented with a skin lesion appear overnight on her lower chest area 6 weeks ago. ?patient has history of actinic keratosis on the face and nose, she was last seen and have removed all the sleep position in October. She appeared to have a raise (red/purplish) lesion on her lower chest. It is not painful, red or hot, but very itchy. ? 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 patient has no fever, chills or night sweats. She has a 10 pound weight loss over the last 6 months because of frequent diarrhea which started in recur late this summer. She had a colonoscopy last year and recent CT scan of abdomen and pelvis. Patient has no swallowing gland or adenopathy. She has no chest pain, cough or shortness of breath. No unusual bleeding or bruising on Coumadin for atrial fibrillation. ? current treatment: CHOP AND Neulasta interim history: Patient returns after her first cycle of chemotherapy for peripheral T-cell lymphoma. She had mild nausea after chemotherapy. She also has some stomatitis currently on BMX suspension. She was in the emergency room because of abnormal heart rate and EKG showed prolonged QT interval. Zofran discontinued because of QT prolongation Patient has no fever, chills or any significant infection after chemotherapy. She has some musculoskeletal pain in her right shoulder and chest area. Mild fatigue but no significant weight loss. No neuropathy. She has not noticed any recurrent adenopathy or skin nodules since starting chemotherapy treatment. All medications AND allergies updated and reviewed by me. REVIEW OF SYSTEMS: ? CONSTITUTIONAL: ?No fevers, chills, nightsweats, unintended weight loss HEENT: ?Denies frequent or severe heaches, nasal congestion/sinus symptoms, problematic allergy problems. EYES: ?No diplopia or blurry vision. CARDIOVASCULAR: ?No chest pain, dyspnea, palpitations, orthopnea, PND, ankle edema. PULM: ?No dyspnea, unexplained cough. GI: ?No dysphagia/odynophagia, problematic reflux, constipation, + diarrhea, changes in stool habits, hematochezia, melena. : ?No new urinary complaints, including dysuria, gross hematuria or pyuria. NEURO: ?No new balance problems, peripheral weakness/paresthesias or numbness of concern. MUSC-SKEL: ?No new joint pain, swelling, or erythema. PSY: ?No concerns regarding depression, anxiety or panic. INTEGUMENTARY: ?No new skin changes (rash, new or changing mole, new growth) except for the growth on her left lower chest. ? PHYSICAL EXAMINATION: 77-year-old well-nourished well-developed female in no acute distress. BP 130/78 Pulse 60 Temp (Src) 98.7 (Oral) Wt 140 lb (63.5kg) HEENT: Head is normocephalic, atraumatic. Sclerae white, conjunctivae pink. PEERL. EOMs are intact. Oropharynx is benign. LYMPHATICS: There is no palpable adenopathy in the neck, supraclavicular region, axillae, or groin. LUNGS: Lungs are clear to percussion and auscultation. CHEST: well-healed scar in the left lower chest with slight discoloration. HEART: Heart is normal with grade 1/6 systolic?murmurs, no gallops, or rubs. ABDOMEN: Soft and nontender without organomegaly. No masses can be palpated. EXTREMITIES: Are without edema. NEUROLOGIC: Exam is physiologic ? LABORATORY DATA: Component Latest Ref Rng AND Units 02/11/2018 WBC, [place] 3.70 - 11.00 k/uL 5.60 RBC, [place] 3.90 - 5.20 m/uL 3.16 (L) Hemoglobin, Sheri 11.5 - 15.5 g/dL 10.1 (L) Hematocrit, Sheri 36.0 - 46.0 % 30.7 (L) MCV, Sheri 80.0 - 100.0 fL 97.2 MCH, [place] 26.0 - 34.0 pg 32.0 MCHC, [place] 30.5 - 36.0 g/dL 32.9 RDW, [place] 11.5 - 15.0 % 13.9 Platelet Cnt, [place] 150 - 400 k/uL 573 (H) MPV, [place] 9.0 - 12.7 fL 9.2 Absol Gran Count 1.45 - 7.50 k/uL 4.03 Component Latest Ref Rng AND Units 02/11/2018 Protein, Total 6.3 - 8.0 g/dL 6.2 (L) Albumin 3.9 - 4.9 g/dL 3.8 (L) Calcium 8.5 - 10.2 mg/dL 9.3 Bilirubin, Total 0.2 - 1.3 mg/dL 0.2 Alkaline Phosphatase 34 - 123 U/L 56 AST 13 - 35 U/L 17 Glucose 74 - 99 mg/dL 98 BUN 7 - 21 mg/dL 17 Creatinine 0.58 - 0.96 mg/dL 1.01 (H) Sodium 136 - 144 mmol/L 136 Potassium 3.7 - 5.1 mmol/L 4.1 Chloride 97 - 105 mmol/L 104 CO2 22 - 30 mmol/L 23 Anion Gap mmol/L 9 ALT 7 - 38 U/L 9 eGFR- >60 eGFR-All Other Races . 53 LD 135 - 214 U/L 208 Uric Acid 2.5 - 6.6 mg/dL 5.2 Component Latest Ref Rng AND Units 02/11/2018 Hep B Core Ab, Total Negative Negative Hep C Antibody IA Negative Negative Hep B Surface Ag Negative Negative Hep B Surface Ab, Qual Negative Negative ASSESSMENT/PLAN: 1. 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 Chemotherapy-induced neutropenia (HCC) - ICD9: 288.03, E933.1, ICD10: D70.1, T45.1X5A Plan: - Continue cycle 2 of CHOP AND Neulasta this week - Stop Zofran and substitute Phenergan for nausea - Rx Zyprexa 5mg daily at bedtime x 5 days after chemotherapy along with prednisone 50mg twice daily. - Repeat CBC, CMP, LDH OV in 3 weeks. - Repeat CT chest abdomen pelvis and bone marrow biopsy after her third cycle of chemotherapy for restaging. Farrah Winn MD Referring Provider: FARRAH WINN [[id number]] Allergies As of Date: 02/11/2018 (No Known Allergies) Date Reviewed: 02/11/2018 Reviewed by: Pinky Hernandez - Fully Assessed Reason for Visit: Established Patient [175] Primary Visit Diagnosis:Peripheral T cell lymphoma of lymph nodes of head, face, and neck (HCC) [C84.41] Other Visit Diagnosis:Chemotherapy-induced neutropenia (HCC) [D70.1, T45.1X5A] Order(s):OLANZapine (ZYPREXA) 5 mg tabletTake 1 tablet by mouth daily at bedtime. X 5 days after chemotherapyDisp: 10 tabletRfl: 0 Level of Service: EST PATIENT VISIT LEVEL 3 [[id number]] Disposition: Return in about 3 weeks (around 03/04/2018). Follow-up and Disposition History Recorded Prescriptions as of 02/11/2018 Sig: BIOTIN ORAL Take 5,000 mg by mouth once d* CHOLECALCIFEROL (VITAMIN D3) * Take 1 tablet by mouth once d* DEAYIJVVIICBBLB-EPRPHPW-FSWBY* Take 10 mL by mouth every 6 h* GABAPENTIN 100 MG CAPSULE TAKE ONE CAPSULE BY MOUTH THR* PROBIOTIC COMPLEX ORAL Take 1 capsule by mouth once * LEVOTHYROXINE 75 MCG TABLET Take 1 tablet by mouth once d* LOPERAMIDE 2 MG TABLET Take 2 mg by mouth as needed. METOPROLOL SUCCINATE ER 25 MG* Take 0.5 tablets by mouth onc* OTC PRODUCT Calcium Lactate 300 mg once d* PREDNISONE 50 MG TABLET Take 2 tablets by mouth daily* PROMETHAZINE 25 MG TABLET Take 1 tablet by mouth every * TIKOSYN 125 MCG CAPSULE Take 1 capsule by mouth once * EYE VITAMIN AND MINERALS ORAL Take 1 tablet by mouth once d* WARFARIN 5 MG TABLET Take 2.5 mg on M, W, F and 5 * Patient taking differently: Take 2.5 mg on W, F and 5 mg* COMPOUNDED PRESCRIPTION Standing order PATIENT/INR: * OLANZAPINE 5 MG TABLET Take 1 tablet by mouth daily * Medication notes this encounter BIOTIN ORAL >> Pinky Hernandez MA 02/11/2018 11:41 AM >> PINKY HERNANDEZ MA SunFeb 11, 2018 11:41 AM Resumed PROBIOTIC COMPLEX ORAL >> Pinky Hernandez MA 02/11/2018 11:42 AM >> PINKY HERNANDEZ MA SunFeb 11, 2018 11:42 AM Resumed OTC PRODUCT >> Pinky Hernandez MA 02/11/2018 11:42 AM >> PINKY HERNANDEZ MA SunFeb 11, 2018 11:42 AM Resumed EYE VITAMIN AND MINERALS ORAL >> Pikny Hernandez MA 02/11/2018 11:44 AM >> PINKY HERNANDEZ MA SunFeb 11, 2018 11:44 AM Resumed PERFLUTREN LIPID MICROSPHERES 1.1 MG/ML INTRAVENOUS SUSPENSION >> Pinky Hernandez MA 02/11/2018 11:43 AM >> PINKY HERNANDEZ MA Feb 11, 2018 11:43 AM Completed Problem List As Of Date 02/11/2018 Noted Resolved Chest pain [R07.9] INVALID FOR* Atrial fibrillation [I48.91] INVALID FOR* More... 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 Mitral valve regurgitation [I34.0] INVALID FOR* More... 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 REPOSITORY [facility] ID: [id number] Author: Lottie Angelo RN Service: (none) Author Type: (none) Type: Progress Notes Filed: 02/11/2018 12:05 PM Note Text: patient had inr completed at [facility] patients inr is 1.6 (patients inr range is 2.0-3.0) patient is currently taking 2.5mg Mon,Wed,Fri and 5mg all other days patients last dose change was on 12/11/17 due to a high level of 5.3 (dose at that time was 2.5mg Mon,Wed and 5mg all other days) patient has had no changes in medication and no missed doses and no change in diet Advised patient that they would be contacted regarding medication dose and when to follow up after information is reviewed by provider. After provider review please contact the patient with information and schedule follow up appointment with coumadin clinic. FYI - patient has been scheduled for a 2 week follow up in [place] 02/25/18 SHERI ABS GR + CBC Collected: 02/11/2018 Status: F Source: [place] 11:46 AM [facility] REPOSITORY TYPE CODE TESTS RESULT OUT OF REFERENCE UNITS RANGE LAB WWBC 3.70-11.00 k/uL [place] WBC 5.60 LAB WRBC 3.90-5.20 m/uL Low Sheri RBC 3.16 LAB WHGB 11.5-15.5 g/dL Low Sheri Hemoglobin 10.1 LAB WHCT 36.0-46.0 % Low Sheri Hematocrit 30.7 LAB WMCV 80.0-100.0 fL Sheri MCV 97.2 LAB WMCH 26.0-34.0 pg [place] MCH 32.0 LAB WMCHC 30.5-36.0 g/dL [place] MCHC 32.9 LAB WRDW 11.5-15.0 % Sheri RDW 13.9 LAB WPLT 150-400 k/uL Sheri High Platelet Cnt 573 LAB WMPV 9.0-12.7 fL [place] MPV 9.2 Result Comment: Test performed at: [facility], [address] [place] [address] Rd[address] [place] [address]. LAB ABGRAN 1.45-7.50 k/uL Absol Gran 4.03 Count COMP METABOLIC PANEL Collected: 02/11/2018 Status: F Source: [place] 11:46 AM [facility] REPOSITORY TYPE CODE TESTS RESULT OUT OF REFERENCE UNITS RANGE LAB TP 6.3-8.0 g/dL Protein, Low Total 6.2 LAB ALB 3.9-4.9 g/dL Albumin Low 3.8 LAB CA 8.5-10.2 mg/dL Calcium, Total 9.3 LAB TBIL 0.2-1.3 mg/dL Bilirubin, Total 0.2 LAB ALKP 34-123 U/L Alkaline Phosphatase 56 LAB AST 13-35 U/L AST 17 LAB GLU 74-99 mg/dL Glucose 98 LAB BUN 7-21 mg/dL BUN 17 LAB CRET 0.58-0.96 mg/dL Creatinine High 1.01 LAB NA 136-144 mmol/L Sodium 136 LAB K 3.7-5.1 mmol/L Potassium 4.1 LAB CL 97-105 mmol/L Chloride 104 LAB CO2 22-30 mmol/L CO2 23 LAB AGAP mmol/L Anion Gap 9 LAB ALT 7-38 U/L ALT 9 LAB GFRAA eGFR- >60 Amer. LAB GFRNAA . eGFR-All Other Races 53 Result Comment: eGFR (Estimated GFR) Units of measure: mL/min/1.73 meters squared eGFR is derived from the reexpressed MDRD Study equation using the following parameters: serum creatinine, age, gender and race. The creatinine assay has been calibrated to be traceable to IDMS. An eGFR <60 mL/min/1.73m2 for >3 months is consistent with chronic kidney disease. Refer to KDOQI guidelines for clinical interpretation. In patients with unstable renal function, e.g. those with acute kidney injury, the eGFR may not accurately reflect actual GFR. LD Collected: 02/11/2018 Status: F Source: [facility] 11:46 AM [facility] REPOSITORY TYPE CODE TESTS RESULT OUT OF RANGE REFERENCE UNITS LAB LD 135-214 U/L LD 208 URIC ACID Collected: 02/11/2018 Status: F Source: [place] 11:46 AM [facility] REPOSITORY TYPE CODE TESTS RESULT OUT OF RANGE REFERENCE UNITS LAB URIC 2.5-6.6 mg/dL Uric Acid 5.2 12 LEAD ELECTROCARDIOGRAM Observed: 02/01/2018 Status: F Source: [place] 2:04 PM [facility] REPOSITORY [facility] Cardiovascular Services [address] [place] [address] 12 Lead EKG 01/29/18 1613 MR#: [id number] Acct: [id number] Name: MARTELL NASCIMENTO Rep #: [id number] : 1940 77 From: Dieter Jimenez MD Attending Dr: Status: DEP ER Ordering Dr: Catherine Larson MD Date: 01/29/18 Location: ED Sex: F C Admitted: Test Reason : SYNCOPE Blood Pressure : / mmHG Vent. Rate : 064 BPM Atrial Rate : 064 BPM P-R Int : 204 ms QRS Dur : 094 ms QT Int : 500 ms P-R-T Axes : 078 -50 050 degrees QTc Int : 515 ms Sinus rhythm with Premature atrial complexes Incomplete right bundle branch block Left anterior fascicular block Nonspecific ST and T wave abnormality Prolonged QT Abnormal ECG Confirmed by DIETER JIMENEZ MD ([id number]), school photograph editor CHRISTAL LEE ([id number]) on 02/01/2018 2:04:04 PM Referred By: Confirmed By:DIETER JIMENEZ MD 02/01/18 1404 Date Dieter Jimenez MD CC: Catherine Larson MD; Henrique Shultz MD Signed 12 LEAD ELECTROCARDIOGRAM Observed: 02/01/2018 Status: F Source: [place] 1:34 PM [facility] Cardiovascular Services [address] [place] [id number] 12 Lead EKG 01/29/18 1637 MR#: [id number] Acct: [id number] Name: MARTELL NASCIMENTO Rep #: [id number] : 1940 77 From: Dieter Jimenez MD Attending Dr: Status: DEP ER Ordering Dr: Catherine Larson MD Date: 01/29/18 Location: ED Sex: F C Admitted: Test Reason : SYNCOPE Blood Pressure : / mmHG Vent. Rate : 089 BPM Atrial Rate : 089 BPM P-R Int : 160 ms QRS Dur : 078 ms QT Int : 362 ms P-R-T Axes : 026 039 030 degrees QTc Int : 440 ms Normal sinus rhythm Normal ECG Confirmed by DIETER JIMENEZ MD ([id number]), school photograph editor CHRISTAL LEE ([id number]) on 02/01/2018 1:34:06 PM Referred By: Confirmed By:DIETER JIMENEZ MD 02/01/18 1334 Date Dieter Jimenez MD CC: Catherine Larson MD; Henrique Shultz MD Signed PROGRESS Observed: 01/31/2018 Status: COMPLETED Source: [place] 1:43 PM [facility] REPOSITORY HNO ID: [id number] Author: Redd Isaac Kelsi Service: (none) Author Type: Physician Type: Progress Notes Filed: 01/31/2018 1:46 PM Note Text: PERTINENT CARDIAC HISTORY Atrial fib - persistent, attempted ablation 10/26 Mitral insufficiency - moderate ASHD - mild by cath 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 HTN HL AV fistula - traumatic CHF - diastolic ADHERENCE TO GUIDELINES JJ-I or ARB for HF with prior LVEF<40 (NQF 0081) - N/A ASA or Plavix for ASHD (NQF 0067) - N/A, on warfarin Beta yue for ASHD with prior MO or prior LVEF<40 (NQF 0070) - N/A Beta yue for HF with prior LVEF<40 (NQF 0083) - N/A JJ-I or ARB for ASHD with DM or prior LVEF<40 (NQF 0066) - N/A Statin therapy for ASHD or FHL or DM - mild, declines statin BMI documented and plan if >25 (NQF 0421) - lifestyle recommendation form Tobacco use screening and referral (NQF 0028) - lifestyle recommendation form Recommendation for whole food, plant based diet - lifestyle recommendation form CLINICAL IMPRESSION/PLAN: Martell Nascimento has had significant improvement in her EKG with the decrease in dofetilide. However, she is having increasing palpitations and is likely having some breakthrough atrial fibrillation. She has been advised to discontinue Zofran and try Dramamine. She will return to her previous dose of dofetilide. If this works for her, we will have her come in for an EKG to document that the QT interval has not prolonged. I asked her to contact me in the next few days to let me know how she's doing. Otherwise, she will be seen back as scheduled. Written and verbal health teaching given to patient, patient verbalizes understanding and agrees with treatment plan. DIAGNOSIS FOR VISIT: Prolonged QT interval HISTORY OF PRESENT ILLNESS Martell Nascimento returns for follow-up of her abnormal EKG. She has decreased dofetilide to once daily. She has been taking Zofran 3 times a day, but reports that she feels that she could eliminate this and take Dramamine on a when necessary basis instead with adequate response. She would like to return to her full dose of dofetilide, as she has had some breakthrough palpitations. She denies chest pain. She's had no orthopnea, edema, TIAs, amaurosis. She's had more frequent palpitations. ALLERGIES: ALLERGIES No Known Allergies CURRENT OUTPATIENT MEDICATIONS: BIOTIN ORAL Take 5,000 mg by mouth once daily. Cholecalciferol, Vitamin D3, 2,000 unit tab Take 1 tablet by mouth once daily. COMPOUNDED PRESCRIPTION Standing orderPATIENT/INR:DX: atrial fibFax results to [phone] owllpsicnvILESN-beijoz-lzckowmiw (BMX 1:1:1) 1:1:1 liqd Take 10 mL by mouth every 6 hours as needed. gabapentin (NEURONTIN) 100 mg capsule TAKE ONE CAPSULE BY MOUTH THREE TIMES DAILY LACTOBACILLUS COMBO NO.6 (PROBIOTIC COMPLEX ORAL) Take 1 capsule by mouth once daily. levothyroxine (SYNTHROID) 75 mcg tablet Take 1 tablet by mouth once daily. Loperamide HCl (IMODIUM A-D) 2 mg tab Take 2 mg by mouth as needed. metoprolol succinate ER (TOPROL XL) 25 mg 24 hr tablet Take 0.5 tablets by mouth once daily. OTC PRODUCT Calcium Lactate 300 mg once daily perflutren lipid microspheres (DEFINITY) 1.1 mg/mL injection (to be provided with echo procedure) Inject 1.3 mL intravenously as directed. predniSONE (DELTASONE) 50 mg tab Take 2 tablets by mouth daily with breakfast. Take for 5 days starting on the first day of each cycle (days 1-5). promethazine (PHENERGAN) 25 mg tablet Take 1 tablet by mouth every 6 hours as needed. FOR NAUSEA TIKOSYN 125 mcg capsule Take 1 capsule by mouth once daily. VIT A/C/E AC/ZNOX/CUPRIC OXIDE (EYE VITAMIN AND MINERALS ORAL) Take 1 tablet by mouth once daily. vitamin b complex tab Take 1 tablet by mouth 3 times a WEEK. warfarin (COUMADIN) 5 mg tablet Take 2.5 mg on M, , and 5 mg all other days or as directed PHYSICAL EXAMINATION: VITAL SIGNS: BP 151/84 Ht 5' 6.75 (1.70m) Wt 151 lb (68.5kg) BMI 23.84 kg/(m2). Chest: Clear to auscultation. Trachea is midline. Air entry is equal. Cardiac: Regular rhythm. S1 and S2 are normal. PMI is nondisplaced. There is a 2/6 mitral insufficiency murmur. Carotids are brisk without bruits. JVP is less than 10 cm. Abdomen: Soft and nontender. There are no pulsatile masses or bruits. No liver enlargement. Bowel sounds are active. Extremities: 1. edema. Pulses are intact and symmetrical. EKG shows sinus rhythm with occasional premature atrial depolarizations. QT interval has returned to normal. Electronically Signed: Redd Dolan MD January 31, 2018 1:43 PM CC: Henrique Shultz MD PROGRESS Observed: 01/30/2018 Status: COMPLETED Source: [place] 11:30 AM [facility] REPOSITORY HNO ID: [id number] Author: Ros Del Rosario Service: (none) Author Type: Nurse Practitioner Type: Progress Notes Filed: 01/30/2018 2:26 PM Note Text: Chief Complaint Patient presents with: Established Patient HPI: Martell Nascimento is a 77 year old female who presents here today for follow up [facility] ED visit yesterday. Per Dr. Winn's previous note: H/o atrial fibrillation presented with a skin lesion appear overnight on her lower chest area 6 weeks ago. ?patient has history of actinic keratosis on the face and nose. She appeared to have a raise (red/purplish) lesion on her lower chest. It is not painful, red or hot, but very itchy. ? 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 patient has no fever, chills or night sweats. She has a 10 pound weight loss over the last 6 months because of frequent diarrhea which started in recur late this summer. She had a colonoscopy last year and recent CT scan of abdomen and pelvis. Patient has no swallowing gland or adenopathy. She has no chest pain, cough or shortness of breath. No unusual bleeding or bruising on Coumadin for atrial fibrillation. ? Pathology review and PET CT scan for complete staging of her peripheral T-cell lymphoma. She is still asymptomatic, with no new skin nodule detected on her excision site. ? Current therapy:[facility] First cycle 01/22/18 I have been nauseated since treatment. I didn't have the diarrhea until yesterday-it was a lot. Pt. was seen by cardiology-medications changed-then seen again and changed back. Feels much better. She was also told to stop zofran and take dramamine which did not help at all. Appetite:poor Energy level:a little-fair Denies fevers. Mouth:+sores, my mouth was really dry this morning Resp:denies cough or sob Cardiac:denies chest pain/occ. palpitations this but hasn't felt any since them GI:denies abd pain it feels sore denies nausea today (has had since treatment), denies vomiting, as above-small soft BM today- no diarrhea today :denies dysuria/hematuria Extrem:denies pain Neuro:denies symptoms of neuropathy Skin:denies rashes/lesions Heme:denies bleeding The ROS is otherwise negative. Past medical history, appointments, medications, allergies reviewed. No changes. EXAM: BP 133/84 Pulse 62 Temp 37 ?C (98.6 ?F) (Oral) Wt 64.4 kg (142 lb) BMI 22.41 kg/m? APPEARANCE Well appearing, alert, in no acute distress, well-hydrated, well nourished. MOUTH +mucositis HEART irreg, no murmurs LUNG clear to auscultation LYMPH NODES No cervical lymphadenopathy, No supraclavicular lymphadenopathy and No axillary lymphadenopathy. ABDOMEN bowel sounds normoactive, soft, non-tender, non-distended, without organomegaly or palpable masses EXTREMITIES No edema NEURO Awake, alert and oriented x 3, Normal gait and No involuntary motions. SKIN Skin color, texture, turgor normal, no suspicious rashes or lesions ASSESSMENT/PLAN: 1. 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 Chemotherapy-induced neutropenia (HCC) - ICD9: 288.03, E933.1, ICD10: D70.1, T45.1X5A 3. Dehydration - ICD9: 276.51, ICD10: E86.0 - Reviewed ED reports from [facility]. - Rx phenergan/BMX. - Continue levaquin. - NS 500ml today. See [facility] orders. - Follow up as scheduled. - Pt. aware to call office with any questions/concerns. The patient indicates understanding of these issues and agrees with the plan. Ros Del Rosario APRN.CHARISSA CNOVSP Observed: 01/30/2018 Status: COMPLETED Source: [place] 11:30 AM [facility] REPOSITORY Visit (SP) Office (SHAZIA) PILYMARIA ESTHER VAUGHNMARTELL Rashard ([id number]) 1940 F Date Time Provider Department 01/30/18 11:30 AM ROS DEL ROSARIO During your visit today, we recorded the following information about you: Temperature Pulse Blood pressure Weight 98.6 degrees 62/minute 133/84 64.4 kg Usha Tariq LPN 01/30/2018 11:30 AM Signed Est patient. ED follow up. Treated at [facility] yesterday for syncopal episode and dehydration. Had one episode of loose stool this morning. Has had about 16 oz of H2O today, denies nausea today. Usha Del Rosario APRN.CNP 01/30/2018 2:26 PM Signed Chief Complaint Patient presents with: Established Patient HPI: Martell Carlosnger is a 77 year old female who presents here today for follow up [facility] ED visit yesterday. Per Dr. Winn's previous note: H/o atrial fibrillation presented with a skin lesion appear overnight on her lower chest area 6 weeks ago. ?patient has history of actinic keratosis on the face and nose. She appeared to have a raise (red/purplish) lesion on her lower chest. It is not painful, red or hot, but very itchy. ? 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 patient has no fever, chills or night sweats. She has a 10 pound weight loss over the last 6 months because of frequent diarrhea which started in recur late this summer. She had a colonoscopy last year and recent CT scan of abdomen and pelvis. Patient has no swallowing gland or adenopathy. She has no chest pain, cough or shortness of breath. No unusual bleeding or bruising on Coumadin for atrial fibrillation. ? Pathology review and PET CT scan for complete staging of her peripheral T-cell lymphoma. She is still asymptomatic, with no new skin nodule detected on her excision site. ? Current therapy:[facility] First cycle 01/22/18 I have been nauseated since treatment. I didn't have the diarrhea until yesterday-it was a lot. Pt. was seen by cardiology-medications changed-then seen again and changed back. Feels much better. She was also told to stop zofran and take dramamine which did not help at all. Appetite:poor Energy level:a little-fair Denies fevers. Mouth:+sores, my mouth was really dry this morning Resp:denies cough or sob Cardiac:denies chest pain/occ. palpitations this but hasn't felt any since them GI:denies abd pain it feels sore denies nausea today (has had since treatment), denies vomiting, as above-small soft BM today- no diarrhea today :denies dysuria/hematuria Extrem:denies pain Neuro:denies symptoms of neuropathy Skin:denies rashes/lesions Heme:denies bleeding The ROS is otherwise negative. Past medical history, appointments, medications, allergies reviewed. No changes. EXAM: BP 133/84 Pulse 62 Temp 37 ?C (98.6 ?F) (Oral) Wt 64.4 kg (142 lb) BMI 22.41 kg/m? APPEARANCE Well appearing, alert, in no acute distress, well- hydrated, well nourished. MOUTH +mucositis HEART irreg, no murmurs LUNG clear to auscultation LYMPH NODES No cervical lymphadenopathy, No supraclavicular lymphadenopathy and No axillary lymphadenopathy. ABDOMEN bowel sounds normoactive, soft, non-tender, non-distended, without organomegaly or palpable masses EXTREMITIES No edema NEURO Awake, alert and oriented x 3, Normal gait and No involuntary motions. SKIN Skin color, texture, turgor normal, no suspicious rashes or lesions ASSESSMENT/PLAN: 1. 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 Chemotherapy-induced neutropenia (HCC) - ICD9: 288.03, E933.1, ICD10: D70.1, T45.1X5A 3. Dehydration - ICD9: 276.51, ICD10: E86.0 - Reviewed ED reports from [facility]. - Rx phenergan/BMX. - Continue levaquin. - NS 500ml today. See [place] orders. - Follow up as scheduled. - Pt. aware to call office with any questions/concerns. The patient indicates understanding of these issues and agrees with the plan. 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 FOR NAUSEADisp: 20 tabletRfl: 2 NaCl 0.9% IV bolus 500 mLDisp: Rfl: Follow-up and Disposition History Recorded Prescriptions as of 01/30/2018 Sig: GABAPENTIN 100 MG CAPSULE TAKE ONE CAPSULE BY MOUTH THR* LEVOTHYROXINE 75 MCG TABLET Take 1 tablet by mouth once d* LOPERAMIDE 2 MG TABLET Take 2 mg by mouth as needed. METOPROLOL SUCCINATE ER 25 MG* Take 0.5 tablets by mouth onc* PREDNISONE 50 MG TABLET Take 2 tablets by mouth daily* TIKOSYN 125 MCG CAPSULE Take 1 capsule by mouth once * WARFARIN 5 MG TABLET Take 2.5 mg on M, W, and 5 * BIOTIN ORAL Take 5,000 mg by mouth once d* CHOLECALCIFEROL (VITAMIN D3) * Take 1 tablet by mouth once d* Patient not taking: Reported on 01/24/2018 COMPOUNDED PRESCRIPTION Standing order PATIENT/INR: * PMDFWILQMPNQOZW-KBQJFEU-XOEJL* Take 10 mL by mouth every 6 h* PROBIOTIC COMPLEX ORAL Take 1 capsule by mouth once * OTC PRODUCT Calcium Lactate 300 mg once d* PERFLUTREN LIPID MICROSPHERES* Inject 1.3 mL intravenously a* PROMETHAZINE 25 MG TABLET Take 1 tablet by mouth every * EYE VITAMIN AND MINERALS ORAL Take 1 tablet by mouth once d* VITAMIN B COMPLEX TABLET Take 1 tablet by mouth 3 time* Medication notes this encounter TIKOSYN 125 MCG CAPSULE >> Usha Tariq LPN 01/30/2018 11:22 AM >> USHA TARIQ LPN SunJan 30, 2018 11:22 AM Changed to twice a day 01/29/[address] Dolan PROBIOTIC COMPLEX ORAL >> Usha Tariq LPN 01/30/2018 11:20 AM >> USHA TARIQ LPN [facility] Jan 30, 2018 11:20 AM On hold OTC PRODUCT >> Usha Tariq LPN 01/30/2018 11:21 AM >> USHA TARIQ LPN [facility] Jan 30, 2018 11:21 AM On hold EYE VITAMIN AND MINERALS ORAL >> Usha Tariq LPN 01/30/2018 11:22 AM >> USHA TARIQ LPN [facility] Jan 30, 2018 11:22 AM On hold VITAMIN B COMPLEX TABLET >> Usha Tariq LPN 01/30/2018 11:22 AM >> USHA TARIQ LPN [facility] Jan 30, 2018 11:22 AM On hold ONDANSETRON HCL 8 MG TABLET >> Usha Tariq LPN 01/30/2018 11:21 AM >> USHA TARIQ LPN [facility] Jan 30, 2018 11:[address] Dolan per pt Problem List As Of Date 01/30/2018 Noted Resolved Chest pain [R07.9] INVALID FOR* Atrial fibrillation [I48.91] INVALID FOR* More... 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 Mitral valve regurgitation [I34.0] INVALID FOR* More... 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 CKD (chronic kidney disease) stage 3, GFR 30-59*INVALID FOR* Dermatochalasis of both upper eyelids [H02.831,*INVALID FOR*09/14/2017 Peripheral T cell lymphoma of lymph nodes of he*INVALID FOR* Chemotherapy-induced neutropenia (HCC) [D70.1, *INVALID FOR* Visit Notes: >> Usha Tariq LPN SunJan 30, 2018 11:22 AM Status: Signed Est patient. ED follow up. Treated at [facility] yesterday for syncopal episode and dehydration. Had one episode of loose stool this morning. Has had about 16 oz of H2O today, denies nausea today. Usha Tariq LPN Encounter Status:Closed by ROS DEL ROSARIO CNP on 01/30/18 EMERGENCY DEPARTMENT Observed: 01/30/2018 Status: F Source: [place] SUMMARY 1:58 AM [facility] REPOSITORY [facility] Medical Records Department [address] [place] [id number] Emergency Department Summary 01/29/18 1532 MR#: [id number] Acct: [id number] Name: MARTELL NASCIMENTO Rep #: [id number] : 1940 77 From: Catherine Larson MD PCP: Henrique Shultz MD Status: DEP ER - ER Visit Summary Date of Service: 01/29/18 Chief Complaint: Syncope History of Present Illness: The patient is a 77 F undergoing chemotherapy for T-cell lymphoma. Her last chemotherapy treatment was on January 22. Patient was sitting on the commode today having diarrhea. She felt lightheaded and sweaty. She had a brief syncopal episode and woke on the floor. Patient reports the episode occurred around noon, 3 hours prior to arrival. She has felt okay since that time. She is been having problems with nausea and diarrhea with her chemotherapy. Family called the oncology office and they wanted her lab work checked. Physical Examination: Vital signs are unremarkable. Patient sitting upright in bed no acute distress. Head neck examination unremarkable. Heart is regular rate and rhythm. Lung sounds are clear benign abdomen is soft nontender. Hypoactive bowel sounds are present. Neuro exam reveals no focal deficits. Test Results: EKG is sinus at 64 with no sign of acute ischemia. CBC was a white count of 0.3, hemoglobin 10.7, platelet count 66,000. Chemistry studies significant only for BUN of 28. INR is 1.7. Emergency Department Course and Treatment: Patient is given IV fluids. She has remained asymptomatic while in the emergency room. I did speak with Dr. Wen, covering for Dr. Winn. Because the patient is so neutropenic, he did request coverage with Levaquin for the next 5 days. First doses given here and patient is given a prescription. She is to call the office tomorrow with an update on her symptoms. Treatment Plan: [] Disposition: Discharge Impression: 1. Vasovagal syncope 2. Pancytopenia This note was generated with [employer] dictation software. It may contain incorrect words, spelling, and punctuation that were not noted in review of the chart prior to signing ED Disposition - Plan for ED Patient: Disposition: Home or Assisted Living Chief Complaint: Syncope Instructions: ED Syncope Vasovagal Prescriptions: Levofloxacin [Levaquin] 500 mg PO DAILY #4 tablet Referrals: Farrah Winn MD [STAFF PHYSICIAN] - As soon as possible What to do if you have Problems For any increased pain, shortness of breath, bleeding, nausea or vomiting, chest pain, or any unexpected problems, contact your Primary Care Provider. Call [facility] ([phone]) or report to the closest Emergency Room. Call 911 if necessary. 01/30/18 0158 <Electronically signed by Catherine Larson MD> Date Catherine Larson MD Cosigner Signature (If Indicated): Date CC: Henrique Shultz MD DISCHARGE INSTRUCTION Observed: 01/29/2018 Status: F Source: [place] 5:45 PM [facility] REPOSITORY [facility] Medical Records Department [address] [place] [address] Discharge Instruction 01/29/18 174 MR#: [id number] Acct: [id number] Name: MARTELL NASCIMENTO Rep #: [id number] : 1940 77 From: Catherine Larson MD PCP: Henrique Shultz MD Status: REG ER ED Disposition - Plan for ED Patient: Disposition: Home or Assisted Living Chief Complaint: Syncope Instructions: ED Syncope Vasovagal Prescriptions: Levofloxacin [Levaquin] 500 mg PO DAILY #4 tablet Referrals: Farrah Winn MD [STAFF PHYSICIAN] - As soon as possible What to do if you have Problems For any increased pain, shortness of breath, bleeding, nausea or vomiting, chest pain, or any unexpected problems, contact your Primary Care Provider. Call [facility] ([phone]) or report to the closest Emergency Room. Call 911 if necessary. 01/29/181744 <Electronically signed by Catherine Larson MD> Date Catherine Larson MD Cosigner Signature (If Indicated): Date CC: Henrique Shultz MD CBC W/DIFF, AUTOMATED Collected: 01/29/2018 Status: C Source: [place] 3:55 PM [facility] REPOSITORY TYPE CODE TESTS RESULT OUT OF RANGE REFERENCE UNITS LAB L100.1000 4.4-11.0 K/mm3 Low alert WBC 0.3 Result Comment: RESULTS CALLED TO RGRAHAM 01/29/18 1612 Jermaine Olsen Racquelkaylin. REPORT READ BACK BY SAME. LAB L100.1200 4.2-5.4 M/mm3 Low RBC 3.41 LAB L100.1300 12.0-15.0 g/dl Low HGB 10.7 LAB L100.1400 37-47 % Low HCT 31.7 LAB L100.1500 81-99 fL Normal MCV 93.0 LAB L100.1600 27.0-32.0 pg Normal MCH 31.4 LAB L100.1700 32-36 g/gl Normal MCHC 33.8 LAB L100.1810 11.6-14.6 % Normal RDW 13.1 CV LAB L100.1820 35.1-43.9 fl High RDW 44.7 SD LAB L100.1900 150-450 K/mm3 Low PLT 66 LAB L100.2000 6.2-12.0 fl Normal MPV 10.5 LAB L100.2100 47-70 % Low NEUT% 0.0 LAB L100.2200 19-41 % High LY% 85.3 LAB L100.2300 0-10 % Normal MONO% 2.9 LAB L100.2400 0-5 % High EO% 11.8 LAB L100.2500 0-1 % Normal BASO% 0.0 LAB L100.2550 0.0-0.9 % Normal IM 0.000 GRAN % Result Comment: IG% - Immature Granulocytes (promyelocytes, myelocytes and metamyelocytes) > 1% indicates that a LEFT SHIFT is Present. LAB L100.2620 2.0-7.7 X10 3/uL Low Absolute Neut 0.0 LAB L100.2720 0.83-4.51 X10 3/ul Low Absolute Lymph 0.29 LAB L100.4500 Normal SMEAR COMMENT SCANNED Result Comment: NEUTROPENIA NOTED LYMPHOCYTOSIS NOTED LAB L100.9900 Normal Reviewed PATH REV Result Comment: Pancytopenia. Clinical correlation necessary. Aram Quesada M.D. 01/30/18 AMENDED REPORT 01/30/18 1217 PATH REV previously reported as: June Performed By: #### L100.0100 #### [facility] [place], [address] BASIC METABOLIC Collected: 01/29/2018 Status: F Source: [place]ERI PROFILE (BMP) 3:55 PM [facility] REPOSITORY TYPE CODE TESTS RESULT OUT OF RANGE REFERENCE UNITS LAB L501.0100 74-106 mg/dL Normal GLU 102 Result Comment: Fasting Glucose result from 100 to 125 mg/dL suggests IMPAIRED HOMEOSTASIS per A.D.A. criteria. Please note revised GLUCOSE reference range effective 2017. LAB L501.1000 7-18 mg/dL High BUN 28 LAB L501.1100 0.55-1.02 mg/dL Normal CREAT,SERUM 0.80 Result Comment: The validity of the calculated GFR AND GFRAA in patients over 70 years has not been determined. Clinical correlation is essential. LAB L501.1110 >60 mL/min Normal EST GFR 74 Result Comment: Non- GFR Calc LAB L501.1115 >60 mL/min Normal EST GFR - AA 89 Result Comment: GFR Calc LAB L501.1255 ml/min Normal Estimated CRCL 58.10 LAB L501.1300 10-20 RATIO High BUN/CRE 35.0 LAB L501.2200 8.5-10 mg/dL Low .1 CA 7.9 LAB L501.5300 136-14 mmol/L Normal 5 NA 137 LAB L501.5600 3.5-5. mmol/L Normal 1 K 4.0 LAB L501.5900 98-107 mmol/L Normal CL 103 LAB L501.6100 21.0-3 mmol/L Normal 2.0 CO2 27.0 LAB L501.6200 5-15 Normal GAP 7 Performed By: #### L500.2500 #### [facility] [address] [place], [address] PROTHROMBIN TIME W/INR Collected: 01/29/2018 Status: F Source: SHERI 3:55 PM [facility] REPOSITORY TYPE CODE TESTS RESULT OUT OF RANGE REFERENCE UNITS LAB L300.4150 11.7-14.9 SECONDS High PROTIME 19.9 LAB L300.4200 Normal INR 1.7 Performed By: #### L300.3900 #### [facility] [address] [place], [address] CNNURSE Observed: 01/29/2018 Status: COMPLETED Source: [place] 11:15 AM [facility] REPOSITORY Nurse Visit (CAWSTR) MARTELL NASCIMENTO ([id number]) 1940 F Date Time Provider Department 01/29/18 11:15 AM NURSE CARD ADMIN [facility] WSTR CAWSTR During your visit today, we recorded the following information about you: Manjula Bhakta RN 01/29/2018 9:03 AM Signed Ekg completed per order. Pt tolerated procedure without distress. Manjula Bhakta RN Referring Provider: REDD DOLAN [[id number]] Allergies As of Date: 01/29/2018 (No Known Allergies) Date Reviewed: 01/29/2018 Reviewed by: Nicolle Benito MA - Fully Assessed Reason for Visit: Nurse Visit [792] Visit Diagnosis:PAF (paroxysmal atrial fibrillation) ([facility]) [I48.0] Order(s):ECG COMPLETE W INTERPRETATION [ECG01] Order #: [id number] Prescriptions as of 01/29/2018 Sig: BIOTIN ORAL Take 5,000 mg by mouth once d* CHOLECALCIFEROL (VITAMIN D3) * Take 1 tablet by mouth once d* Patient not taking: Reported on 01/24/2018 COMPOUNDED PRESCRIPTION Standing order PATIENT/INR: * GABAPENTIN 100 MG CAPSULE TAKE ONE CAPSULE BY MOUTH THR* PROBIOTIC COMPLEX ORAL Take 1 capsule by mouth once * LEVOTHYROXINE 75 MCG TABLET Take 1 tablet by mouth once d* LOPERAMIDE 2 MG TABLET Take 2 mg by mouth as needed. METOPROLOL SUCCINATE ER 25 MG* Take 0.5 tablets by mouth onc* ONDANSETRON HCL 8 MG TABLET Take 1 tablet by mouth every * OTC PRODUCT Calcium Lactate 300 mg once d* PERFLUTREN LIPID MICROSPHERES* Inject 1.3 mL intravenously a* PREDNISONE 50 MG TABLET Take 2 tablets by mouth daily* TIKOSYN 125 MCG CAPSULE Take 1 capsule by mouth once * EYE VITAMIN AND MINERALS ORAL Take 1 tablet by mouth once d* VITAMIN B COMPLEX TABLET Take 1 tablet by mouth 3 time* WARFARIN 5 MG TABLET Take 2.5 mg on M, W, F and 5 * Problem List As Of Date 01/29/2018 Noted Resolved Chest pain [R07.9] INVALID FOR* Atrial fibrillation [I48.91] INVALID FOR* More... 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 Mitral valve regurgitation [I34.0] INVALID FOR* More... 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 Pt tolerated procedure without distress. Manjula Bhakta RN Encounter Status:Closed by MANJULA BHAKTA RN on 01/29/18 EKG1 Observed: 01/29/2018 Status: F Source: [place] 9:31 AM [facility] REPOSITORY NAME : MARTELL NASCIMENTO PID : [id number] : 1940 Gender : Female Race : ORD : Procedure Date : Jan 29 2018 09:31:06 Edit Date : Jan 30 2018 14:58:27 Diagnosis:SINUS RHYTHM WITH PREMATURE SUPRAVENTRICULAR COMPLEXES INCOMPLETE RIGHT BUNDLE BRANCH BLOCK LEFT ANTERIOR FASCICULAR BLOCK NONSPECIFIC ST AND T WAVE ABNORMALITY ABNORMAL ECG QT HAS SHORTENED Confirmed by REDD DOLAN MD ([id number]) on 01/30/2018 2:58:17 PM Ventricular Rate : 65 BPM Atrial Rate : 65 BPM P-R Interval : 182 ms QRS Duration : 98 ms Q-T Interval : 434 ms QTC Calculation(Bezet) : 451 ms P Kenyon : 78 degrees R Kenyon : -55 degrees T Kenyon : 78 degrees Test Reason : Location : 136 : [facility] Overread By : REDD DOLAN MD Edited By : REDD DOLAN MD Referred By : REDD DOLAN Acquired by : HIEU GUZMAN Observed: 01/29/2018 Status: COMPLETED Source: [place] 9:00 AM 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 HTN HL AV fistula - traumatic CHF - diastolic ADHERENCE TO GUIDELINES JJ-I or ARB for HF with prior LVEF<40 (NQF 0081) - N/A ASA or Plavix for ASHD (NQF 0067) - N/A, on warfarin Beta yue for ASHD with prior MO or prior LVEF<40 (NQF 0070) - N/A Beta yue for HF with prior LVEF<40 (NQF 0083) - N/A JJ-I or ARB for ASHD with DM or prior LVEF<40 (NQF 0066) - N/A Statin therapy for ASHD or FHL or DM - mild, declines statin BMI documented and plan if >25 (NQF 0421) - lifestyle recommendation form Tobacco use screening and referral (NQF 0028) - lifestyle recommendation form Recommendation for whole food, plant based diet - lifestyle recommendation form CLINICAL IMPRESSION/PLAN: Martell Nascimento has had significant improvement in her EKG with the decrease in dofetilide. However, she is having increasing palpitations and is likely having some breakthrough atrial fibrillation. She has been advised to discontinue Zofran and try Dramamine. She will return to her previous dose of dofetilide. If this works for her, we will have her come in for an EKG to document that the QT interval has not prolonged. I asked her to contact me in the next few days to let me know how she's doing. Otherwise, she will be seen back as scheduled. Written and verbal health teaching given to patient, patient verbalizes understanding and agrees with treatment plan. DIAGNOSIS FOR VISIT: Prolonged QT interval HISTORY OF PRESENT ILLNESS Martell Nascimento returns for follow-up of her abnormal EKG. She has decreased dofetilide to once daily. She has been taking Zofran 3 times a day, but reports that she feels that she could eliminate this and take Dramamine on a when necessary basis instead with adequate response. She would like to return to her full dose of dofetilide, as she has had some breakthrough palpitations. She denies chest pain. She's had no orthopnea, edema, TIAs, amaurosis. She's had more frequent palpitations. ALLERGIES: ALLERGIES No Known Allergies CURRENT OUTPATIENT MEDICATIONS: BIOTIN ORAL Take 5,000 mg by mouth once daily. Cholecalciferol, Vitamin D3, 2,000 unit tab Take 1 tablet by mouth once daily. COMPOUNDED PRESCRIPTION Standing orderPATIENT/INR:DX: atrial fibFax results to [phone] wzjyqyvxqtHFODS-mxwpbf-umrtmwzaj (BMX 1:1:1) 1:1:1 liqd Take 10 mL by mouth every 6 hours as needed. gabapentin (NEURONTIN) 100 mg capsule TAKE ONE CAPSULE BY MOUTH THREE TIMES DAILY LACTOBACILLUS COMBO NO.6 (PROBIOTIC COMPLEX ORAL) Take 1 capsule by mouth once daily. levothyroxine (SYNTHROID) 75 mcg tablet Take 1 tablet by mouth once daily. Loperamide HCl (IMODIUM A-D) 2 mg tab Take 2 mg by mouth as needed. metoprolol succinate ER (TOPROL XL) 25 mg 24 hr tablet Take 0.5 tablets by mouth once daily. OTC PRODUCT Calcium Lactate 300 mg once daily perflutren lipid microspheres (DEFINITY) 1.1 mg/mL injection (to be provided with echo procedure) Inject 1.3 mL intravenously as directed. predniSONE (DELTASONE) 50 mg tab Take 2 tablets by mouth daily with breakfast. Take for 5 days starting on the first day of each cycle (days 1-5). promethazine (PHENERGAN) 25 mg tablet Take 1 tablet by mouth every 6 hours as needed. FOR NAUSEA TIKOSYN 125 mcg capsule Take 1 capsule by mouth once daily. VIT A/C/E AC/ZNOX/CUPRIC OXIDE (EYE VITAMIN AND MINERALS ORAL) Take 1 tablet by mouth once daily. vitamin b complex tab Take 1 tablet by mouth 3 times a WEEK. warfarin (COUMADIN) 5 mg tablet Take 2.5 mg on , , and 5 mg all other days or as directed PHYSICAL EXAMINATION: VITAL SIGNS: BP 151/84 Ht 5' 6.75 (1.70m) Wt 151 lb (68.5kg) BMI 23.84 kg/(m2). Chest: Clear to auscultation. Trachea is midline. Air entry is equal. Cardiac: Regular rhythm. S1 and S2 are normal. PMI is nondisplaced. There is a 2/6 mitral insufficiency murmur. Carotids are brisk without bruits. JVP is less than 10 cm. Abdomen: Soft and nontender. There are no pulsatile masses or bruits. No liver enlargement. Bowel sounds are active. Extremities: 1. edema. Pulses are intact and symmetrical. EKG shows sinus rhythm with occasional premature atrial depolarizations. QT interval has returned to normal. Electronically Signed: Redd Dolan MD January 31, 2018 1:43 PM CC: Henrique Shultz MD Referring Provider: REDD DOLAN [[id number]] Allergies As of Date: 01/29/2018 (No Known Allergies) Date Reviewed: 01/29/2018 Reviewed by: Nicolle Benito MA - Fully Assessed Primary Visit Diagnosis:PAF (paroxysmal atrial fibrillation) (HCC) [I48.0] Prescriptions as of 01/29/2018 Sig: BIOTIN ORAL Take 5,000 mg by mouth once d* CHOLECALCIFEROL (VITAMIN D3) * Take 1 tablet by mouth once d* Patient not taking: Reported on 01/24/2018 COMPOUNDED PRESCRIPTION Standing order PATIENT/INR: * GABAPENTIN 100 MG CAPSULE TAKE ONE CAPSULE BY MOUTH THR* PROBIOTIC COMPLEX ORAL Take 1 capsule by mouth once * LEVOTHYROXINE 75 MCG TABLET Take 1 tablet by mouth once d* LOPERAMIDE 2 MG TABLET Take 2 mg by mouth as needed. METOPROLOL SUCCINATE ER 25 MG* Take 0.5 tablets by mouth onc* OTC PRODUCT Calcium Lactate 300 mg once d* PERFLUTREN LIPID MICROSPHERES* Inject 1.3 mL intravenously a* PREDNISONE 50 MG TABLET Take 2 tablets by mouth daily* TIKOSYN 125 MCG CAPSULE Take 1 capsule by mouth once * EYE VITAMIN AND MINERALS ORAL Take 1 tablet by mouth once d* VITAMIN B COMPLEX TABLET Take 1 tablet by mouth 3 time* WARFARIN 5 MG TABLET Take 2.5 mg on M, W, F and 5 * X ONDANSETRON HCL 8 MG TABLET Take 1 tablet by mouth every * Patient not taking: Reported on 01/30/2018 Problem List As Of Date 01/29/2018 Noted Resolved Chest pain [R07.9] INVALID FOR* Atrial fibrillation [I48.91] INVALID FOR* More... 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 Mitral valve regurgitation [I34.0] INVALID FOR* More... 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 REPOSITORY Telephone (HEMAVN) PILYMARTELL ([id number]) 1940 F Date Time Provider Department 01/29/18 BHAVYA JIMENEZ (RN) RICHARD During your visit today, we recorded the following information about you: Bhavya Jimenez RN, RN 01/29/2018 3:07 PM Signed TOXICITY CHECK Call made to patient. Message left to call direct support professional caregiver. Bhavya Jimenez RN January 29, 2018 1:19 PM Unable to complete toxicity check as pt is in the ED presently. Bhavya Jimenez RN January 29, 2018 3:06 PM Yamile Thomson Psr 01/29/2018 1:47 PM Signed Martell called back, stating she just missed a call from [employer]. Could someone call her back, she said she will have her phone with her. [phone] Bhavya Jimenez RN, RN 01/29/2018 3:10 PM Signed Returned call to phone number provided. stated patient is in the ED presently at [facility]. Stated she had diarrhea and fainted off the toilet. stated pt did not hurt herself. Updated nurse rey and Dr. Winn. Bhavya Jimenez RN January 29, 2018 3:09 PM Usha Tariq LPN 01/30/2018 8:21 AM Signed Please schedule patient to see Ros today (ER follow up) @ 11:30- NO labs/possible hydration. Please call patient to notify. Usha Jerome Psr 01/30/2018 8:35 AM Signed Patient stated she is unsure if she will be able to make it, her is having eye surgery, but her stated he believes they will be done on time and wanted appt scheduled. Placed on scheduled. Allergies As of Date: 01/29/2018 (No Known Allergies) Date Reviewed: 01/29/2018 Reviewed by: Nicolle Benito MA - Fully Assessed Reason for Visit: Care Coordination [3491] Cmt: toxicity check Prescriptions as of 01/29/2018 Sig: BIOTIN ORAL Take 5,000 mg by mouth once d* CHOLECALCIFEROL (VITAMIN D3) * Take 1 tablet by mouth once d* Patient not taking: Reported on 01/24/2018 COMPOUNDED PRESCRIPTION Standing order PATIENT/INR: * GABAPENTIN 100 MG CAPSULE TAKE ONE CAPSULE BY MOUTH THR* PROBIOTIC COMPLEX ORAL Take 1 capsule by mouth once * LEVOTHYROXINE 75 MCG TABLET Take 1 tablet by mouth once d* LOPERAMIDE 2 MG TABLET Take 2 mg by mouth as needed. METOPROLOL SUCCINATE ER 25 MG* Take 0.5 tablets by mouth onc* ONDANSETRON HCL 8 MG TABLET Take 1 tablet by mouth every * OTC PRODUCT Calcium Lactate 300 mg once d* PERFLUTREN LIPID MICROSPHERES* Inject 1.3 mL intravenously a* PREDNISONE 50 MG TABLET Take 2 tablets by mouth daily* TIKOSYN 125 MCG CAPSULE Take 1 capsule by mouth once * EYE VITAMIN AND MINERALS ORAL Take 1 tablet by mouth once d* VITAMIN B COMPLEX TABLET Take 1 tablet by mouth 3 time* WARFARIN 5 MG TABLET Take 2.5 mg on M, W, F and 5 * Problem List As Of Date 01/29/2018 Noted Resolved Chest pain [R07.9] INVALID FOR* Atrial fibrillation [I48.91] INVALID FOR* More... 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 Mitral valve regurgitation [I34.0] INVALID FOR* More... 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 REPOSITORY NAME : MARTELL NASCIMENTO PID : [id number] : 1940 Gender : Female Race : ORD : Procedure Date : Jan 24 2018 16:37:02 Edit Date : Jan 25 2018 10:41:44 Diagnosis:SINUS BRADYCARDIA WITH 1ST DEGREE AV BLOCK WITH PREMATURE VENTRICULAR COMPLEXES LEFT AXIS DEVIATION INCOMPLETE RIGHT BUNDLE BRANCH BLOCK PROLONGED QT INTERVAL OR TU FUSION, CONSIDER HYPOKALEMIA NON-SPECIFIC ST AND T WAVE CHANGES ABNORMAL ECG QT HAS LENGTHENED Confirmed by REDD DOLAN MD ([id number]) on 01/25/2018 10:41:20 AM Ventricular Rate : 57 BPM Atrial Rate : 57 BPM P-R Interval : 220 ms QRS Duration : 106 ms Q-T Interval : 540 ms QTC Calculation(Bezet) : 525 ms P Kenyon : 84 degrees R Kenyon : -43 degrees T Kenyon : 1 degrees Test Reason : Location : 136 : [place] Overread By : REDD DOLAN MD Edited By : REDD DOLAN MD Referred By : REDD DOLAN Acquired by : , BASIC METABOLIC PANL Collected: 01/24/2018 Status: F Source: [place] 4:06 PM [facility] REPOSITORY TYPE CODE TESTS RESULT OUT OF REFERENCE UNITS RANGE LAB GLU 74-99 mg/dL Glucose High 124 LAB BUN 7-21 mg/dL BUN High 25 LAB CRET 0.58-0.96 mg/dL Creatinine 0.94 LAB NA 136-144 mmol/L Low Sodium 133 LAB K 3.7-5.1 mmol/L Potassium 4.7 LAB CL 97-105 mmol/L Chloride 100 LAB CO2 22-30 mmol/L CO2 24 LAB AGAP mmol/L Anion Gap 9 LAB CA 8.5-10.2 mg/dL Calcium, Total 9.0 LAB GFRAA eGFR- >60 Amer. LAB GFRNAA . eGFR-All Other Races 58 Result Comment: eGFR (Estimated GFR) Units of measure: mL/min/1.73 meters squared eGFR is derived from the reexpressed MDRD Study equation using the following parameters: serum creatinine, age, gender and race. The creatinine assay has been calibrated to be traceable to IDMS. An eGFR <60 mL/min/1.73m2 for >3 months is consistent with chronic kidney disease. Refer to KDOQI guidelines for clinical interpretation. In patients with unstable renal function, e.g. those with acute kidney injury, the eGFR may not accurately reflect actual GFR. MAGNESIUM Collected: 01/24/2018 Status: F Source: [place] 4:06 PM [facility] REPOSITORY TYPE CODE TESTS RESULT OUT OF REFERENCE UNITS RANGE LAB MG 1.7-2.3 mg/dL Magnesium 2.3 PROGRESS Observed: 01/24/2018 Status: COMPLETED Source: [place] 3:47 PM 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 HL AV fistula - traumatic CHF - diastolic ADHERENCE TO GUIDELINES JJ-I or ARB for HF with prior LVEF<40 (NQF 0081) - N/A ASA or Plavix for ASHD (NQF 0067) - N/A, on warfarin Beta yue for ASHD with prior MO or prior LVEF<40 (NQF 0070) - N/A Beta yue for HF with prior LVEF<40 (NQF 0083) - N/A JJ-I or ARB for ASHD with DM or prior LVEF<40 (NQF 0066) - N/A Statin therapy for ASHD or FHL or DM - mild, declines statin BMI documented and plan if >25 (NQF 0421) - lifestyle recommendation form Tobacco use screening and referral (NQF 0028) - lifestyle recommendation form Recommendation for whole food, plant based diet - lifestyle recommendation form CLINICAL IMPRESSION/PLAN: Martell Nascimento has mild volume overload, which is likely related to the steroid and discontinuation of Lasix. She is almost over her course of prednisone and prefers not to reinstitute Lasix. Her pulmonary hypertension is slightly worse, likely related to the volume overload. I asked her to contact me if shortness of breath does not improve once she is off the prednisone. Blood pressures at home have been in the 120/70 range. She's had no recent episodes of atrial fibrillation. I'm concerned about the apparent QT prolongation. We may have to back off on her dofetilide. She will have basic profile and magnesium. I will ask Dr. Winn whether she is taking any medications which could be prolonging her QT interval. I will also forward this note to Dr. Donaldson who follows her in [place]. We will come up with a plan on managing dofetilide. Repeat BMP and magnesium level today. I will see her in 3 months or as needed. If there is increased chest pain or shortness of breath, she has been advised to contact me. Written and verbal health teaching given to patient, patient verbalizes understanding and agrees with treatment plan. DIAGNOSIS FOR VISIT: PAF Mitral insufficiency HISTORY OF PRESENT ILLNESS Martell Nascimento returns for follow-up of her valvular heart disease, atrial fibrillation and ASHD. She has been found to have a non-Hodgkin's lymphoma which is being aggressively treated and she has been on prednisone. She stopped taking her diuretic. She's had some increase in peripheral edema. She's had rare palpitations. Her shortness of breath has been slightly worse. She's had no chest discomfort. She denies orthopnea, syncope, TIAs, amaurosis and claudication. ALLERGIES: ALLERGIES No Known Allergies CURRENT OUTPATIENT MEDICATIONS: levothyroxine (SYNTHROID) 75 mcg tablet Take 1 tablet by mouth once daily. Loperamide HCl (IMODIUM A-D) 2 mg tab Take 2 mg by mouth as needed. metoprolol succinate ER (TOPROL XL) 25 mg 24 hr tablet Take 0.5 tablets by mouth once daily. ondansetron (ZOFRAN) 8 mg tablet Take 1 tablet by mouth every 8 hours as needed. predniSONE (DELTASONE) 50 mg tab Take 2 tablets by mouth daily with breakfast. Take for 5 days starting on the first day of each cycle (days 1-5). TIKOSYN 125 mcg capsule TAKE ONE CAPSULE BY MOUTH TWICE DAILY warfarin (COUMADIN) 5 mg tablet Take 2.5 mg on M, , and 5 mg all other days or as directed BIOTIN ORAL Take 5,000 mg by mouth once daily. Cholecalciferol, Vitamin D3, 2,000 unit tab Take 1 tablet by mouth once daily. COMPOUNDED PRESCRIPTION Standing orderPATIENT/INR:DX: atrial fibFax results to [phone] gabapentin (NEURONTIN) 100 mg capsule TAKE ONE CAPSULE BY MOUTH THREE TIMES DAILY LACTOBACILLUS COMBO NO.6 (PROBIOTIC COMPLEX ORAL) Take 1 capsule by mouth once daily. OTC PRODUCT Calcium Lactate 300 mg once daily perflutren lipid microspheres (DEFINWandoujia) 1.1 mg/mL injection (to be provided with echo procedure) Inject 1.3 mL intravenously as directed. VIT A/C/E AC/ZNOX/CUPRIC OXIDE (EYE VITAMIN AND MINERALS ORAL) Take 1 tablet by mouth once daily. vitamin b complex tab Take 1 tablet by mouth 3 times a WEEK. PHYSICAL EXAMINATION: VITAL SIGNS: BP 155/74 Pulse 53 Wt 151 lb 8 oz (68.7kg) Chest: Clear to auscultation. Trachea is midline. Air entry is equal. Cardiac: Regular rhythm. S1 and S2 are normal. PMI is nondisplaced. There is a 2/6 mitral insufficiency following a late systolic click. Carotids are brisk without bruits. JVP is less than 10 cm. Abdomen: Soft and nontender. There are no pulsatile masses or bruits. No liver enlargement. Bowel sounds are active. Extremities: 1 plus edema. Pulses are intact and symmetrical. EKG shows sinus bradycardia with first-degree AV block and occasional ventricular ectopic. QT interval has prolonged since previous tracing. There are prominent U waves. QTC has increased to 525 Echocardiogram was recently done for assessment of LV function, which appears stable. Mitral insufficiency appears no worse. There is slight worsening of her ascending aorta dilatation and RVSP is slightly higher. Recent labs were reviewed. Renal function is no worse. Magnesium level was not done. Electronically Signed: Redd Dolan MD January 24, 2018 3:47 PM CC: Henrique Shultz MD CNOV Observed: 01/24/2018 Status: COMPLETED Source: [place] 3:15 PM 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 HL AV fistula - traumatic CHF - diastolic ADHERENCE TO GUIDELINES JJ-I or ARB for HF with prior LVEF<40 (NQF 0081) - N/A ASA or Plavix for ASHD (NQF 0067) - N/A, on warfarin Beta yue for ASHD with prior MO or prior LVEF<40 (NQF 0070) - N/A Beta yue for HF with prior LVEF<40 (NQF 0083) - N/A JJ-I or ARB for ASHD with DM or prior LVEF<40 (NQF 0066) - N/A Statin therapy for ASHD or FHL or DM - mild, declines statin BMI documented and plan if >25 (NQF 0421) - lifestyle recommendation form Tobacco use screening and referral (NQF 0028) - lifestyle recommendation form Recommendation for whole food, plant based diet - lifestyle recommendation form CLINICAL IMPRESSION/PLAN: Martell Nascimento has mild volume overload, which is likely related to the steroid and discontinuation of Lasix. She is almost over her course of prednisone and prefers not to reinstitute Lasix. Her pulmonary hypertension is slightly worse, likely related to the volume overload. I asked her to contact me if shortness of breath does not improve once she is off the prednisone. Blood pressures at home have been in the 120/70 range. She's had no recent episodes of atrial fibrillation. I'm concerned about the apparent QT prolongation. We may have to back off on her dofetilide. She will have basic profile and magnesium. I will ask Dr. Winn whether she is taking any medications which could be prolonging her QT interval. I will also forward this note to Dr. Donaldson who follows her in [place]. We will come up with a plan on managing dofetilide. Repeat BMP and magnesium level today. I will see her in 3 months or as needed. If there is increased chest pain or shortness of breath, she has been advised to contact me. Written and verbal health teaching given to patient, patient verbalizes understanding and agrees with treatment plan. DIAGNOSIS FOR VISIT: PAF Mitral insufficiency HISTORY OF PRESENT ILLNESS Martell Nascimento returns for follow-up of her valvular heart disease, atrial fibrillation and ASHD. She has been found to have a non-Hodgkin's lymphoma which is being aggressively treated and she has been on prednisone. She stopped taking her diuretic. She's had some increase in peripheral edema. She's had rare palpitations. Her shortness of breath has been slightly worse. She's had no chest discomfort. She denies orthopnea, syncope, TIAs, amaurosis and claudication. ALLERGIES: ALLERGIES No Known Allergies CURRENT OUTPATIENT MEDICATIONS: levothyroxine (SYNTHROID) 75 mcg tablet Take 1 tablet by mouth once daily. Loperamide HCl (IMODIUM A-D) 2 mg tab Take 2 mg by mouth as needed. metoprolol succinate ER (TOPROL XL) 25 mg 24 hr tablet Take 0.5 tablets by mouth once daily. ondansetron (ZOFRAN) 8 mg tablet Take 1 tablet by mouth every 8 hours as needed. predniSONE (DELTASONE) 50 mg tab Take 2 tablets by mouth daily with breakfast. Take for 5 days starting on the first day of each cycle (days 1-5). TIKOSYN 125 mcg capsule TAKE ONE CAPSULE BY MOUTH TWICE DAILY warfarin (COUMADIN) 5 mg tablet Take 2.5 mg on M, , and 5 mg all other days or as directed BIOTIN ORAL Take 5,000 mg by mouth once daily. Cholecalciferol, Vitamin D3, 2,000 unit tab Take 1 tablet by mouth once daily. COMPOUNDED PRESCRIPTION Standing orderPATIENT/INR:DX: atrial fibFax results to [phone] gabapentin (NEURONTIN) 100 mg capsule TAKE ONE CAPSULE BY MOUTH THREE TIMES DAILY LACTOBACILLUS COMBO NO.6 (PROBIOTIC COMPLEX ORAL) Take 1 capsule by mouth once daily. OTC PRODUCT Calcium Lactate 300 mg once daily perflutren lipid microspheres (DEFINITY) 1.1 mg/mL injection (to be provided with echo procedure) Inject 1.3 mL intravenously as directed. VIT A/C/E AC/ZNOX/CUPRIC OXIDE (EYE VITAMIN AND MINERALS ORAL) Take 1 tablet by mouth once daily. vitamin b complex tab Take 1 tablet by mouth 3 times a WEEK. PHYSICAL EXAMINATION: VITAL SIGNS: BP 155/74 Pulse 53 Wt 151 lb 8 oz (68.7kg) Chest: Clear to auscultation. Trachea is midline. Air entry is equal. Cardiac: Regular rhythm. S1 and S2 are normal. PMI is nondisplaced. There is a 2/6 mitral insufficiency following a late systolic click. Carotids are brisk without bruits. JVP is less than 10 cm. Abdomen: Soft and nontender. There are no pulsatile masses or bruits. No liver enlargement. Bowel sounds are active. Extremities: 1 plus edema. Pulses are intact and symmetrical. EKG shows sinus bradycardia with first-degree AV block and occasional ventricular ectopic. QT interval has prolonged since previous tracing. There are prominent U waves. QTC has increased to 525 Echocardiogram was recently done for assessment of LV function, which appears stable. Mitral insufficiency appears no worse. There is slight worsening of her ascending aorta dilatation and RVSP is slightly higher. Recent labs were reviewed. Renal function is no worse. Magnesium level was not done. Electronically Signed: Redd Dolan MD January 24, 2018 3:47 PM CC: MD Redd Pérez MD 01/24/2018 3:48 PM Signed LIFESTYLE CHANGE A healthy lifestyle is the most important component of your overall treatment plan. Please give serious thought to the following areas and commit to making snf changes. EAT A WHOLE FOOD, PLANT BASED DIET The nutrition your body gets is more important than the medicine you take. What matters most is the overall way you eat. We encourage you to minimize the use of animal products (which include dairy and all meats except fatty fish) and use whole, unprocessed plant foods to provide your protein, vitamins and other nutrients. We have a lot of information to share with you on this topic. This is not a diet. It is a way of life that you will keep with you. EXERCISE REGULARLY It is not important to spend hours in the gym, lifting weights and perspiring heavily. A total of 2-3 hours per week of aerobic (causing you to be moderately short of breath) exercise is sufficient to improve your health. Talk to us before you begin a new exercise program, if you have heart disease or experience shortness of breath or chest pain. REDUCE STRESS Chronic emotional and physical stress leads to disease. Ways of reducing stress include meditation, visualization, prayer, yoga and other forms of relaxation therapy. Consistency is the brandon. Find a technique that works for you and do it every day. CULTIVATE RELATIONSHIPS Loneliness and isolation have a major negative impact on health. Seek out others who can love, care for and nurture you. Avoid hurtful relationships. MAINTAIN IDEAL BODY WEIGHT The best way to do this is to do all the things above. Our bodies naturally find the right weight if we keep moving and feed ourselves the right food. If your BMI is greater than 25, we strongly recommend a referral to a weight management program. Please speak to us or your family physician about available programs. AVOID NICOTINE IN ALL FORMS This includes all tobacco products, whether chewed, smoked, vaped, or rubbed on the skin. Smoking cessation programs, which can make use of tobacco substitutes, medications to suppress cravings and behavior management, are available. Please contact your family physician about programs in your area. Referring Provider: REDD DOLAN [[id number]] Allergies As of Date: 01/24/2018 (No Known Allergies) Date Reviewed: 01/24/2018 Reviewed by: Manjula Bhakta RN - Fully Assessed Reason for Visit: Recheck [92] Primary Visit Diagnosis:PAF (paroxysmal atrial fibrillation) (HCC) [I48.0] Other Visit Diagnosis:ASHD (arteriosclerotic heart disease) [I25.10] Order(s):COMPLETE ECG [1632503] Order #: [id number]. #:[id number]--IASNkltThw: 1 BASIC METABOLIC PNL [SQBMP] Order #: [id number] FUTURE MAGNESIUM BLD [SQMG1] Order #: [id number] FUTURE Prescriptions as of 01/24/2018 Sig: LEVOTHYROXINE 75 MCG TABLET Take 1 tablet by mouth once d* LOPERAMIDE 2 MG TABLET Take 2 mg by mouth as needed. METOPROLOL SUCCINATE ER 25 MG* Take 0.5 tablets by mouth onc* ONDANSETRON HCL 8 MG TABLET Take 1 tablet by mouth every * PREDNISONE 50 MG TABLET Take 2 tablets by mouth daily* TIKOSYN 125 MCG CAPSULE TAKE ONE CAPSULE BY MOUTH TWI* WARFARIN 5 MG TABLET Take 2.5 mg on M, W, F and 5 * BIOTIN ORAL Take 5,000 mg by mouth once d* CHOLECALCIFEROL (VITAMIN D3) * Take 1 tablet by mouth once d* Patient not taking: Reported on 01/24/2018 COMPOUNDED PRESCRIPTION Standing order PATIENT/INR: * GABAPENTIN 100 MG CAPSULE TAKE ONE CAPSULE BY MOUTH THR* PROBIOTIC COMPLEX ORAL Take 1 capsule by mouth once * OTC PRODUCT Calcium Lactate 300 mg once d* PERFLUTREN LIPID MICROSPHERES* Inject 1.3 mL intravenously a* EYE VITAMIN AND MINERALS ORAL Take 1 tablet by mouth once d* VITAMIN B COMPLEX TABLET Take 1 tablet by mouth 3 time* Problem List As Of Date 01/24/2018 Noted Resolved Chest pain [R07.9] INVALID FOR* Atrial fibrillation [I48.91] INVALID FOR* More... 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 Mitral valve regurgitation [I34.0] INVALID FOR* More... 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 Please give serious thought to the following areas and commit to making exterminator helper changes. EAT A WHOLE FOOD, PLANT BASED DIET The nutrition your body gets is more important than the medicine you take. What matters most is the overall way you eat. We encourage you to minimize the use of animal products (which include dairy and all meats except fatty fish) and use whole, unprocessed plant foods to provide your protein, vitamins and other nutrients. We have a lot of information to share with you on this topic. This is not a diet. It is a way of life that you will keep with you. EXERCISE REGULARLY It is not important to spend hours in the gym, lifting weights and perspiring heavily. A total of 2-3 hours per week of aerobic (causing you to be moderately short of breath) exercise is sufficient to improve your health. Talk to us before you begin a new exercise program, if you have heart disease or experience shortness of breath or chest pain. REDUCE STRESS Chronic emotional and physical stress leads to disease. Ways of reducing stress include meditation, visualization, prayer, yoga and other forms of relaxation therapy. Consistency is the brandon. Find a technique that works for you and do it every day. CULTIVATE RELATIONSHIPS Loneliness and isolation have a major negative impact on health. Seek out others who can love, care for and nurture you. Avoid hurtful relationships. MAINTAIN IDEAL BODY WEIGHT The best way to do this is to do all the things above. Our bodies naturally find the right weight if we keep moving and feed ourselves the right food. If your BMI is greater than 25, we strongly recommend a referral to a weight management program. Please speak to us or your family physician about available programs. AVOID NICOTINE IN ALL FORMS This includes all tobacco products, whether chewed, smoked, vaped, or rubbed on the skin. Smoking cessation programs, which can make use of tobacco substitutes, medications to suppress cravings and behavior management, are available. Please contact your family physician about programs in your area. Follow-up and Disposition History Recorded Encounter Status:Closed by REDD DOLAN MD on 01/24/18 PROGRESS Observed: 01/24/2018 Status: COMPLETED Source: [facility] 2:52 PM [facility] RE[facility] O ID: [id number] Author: Henrique Shultz Service: (none) Author Type: Physician Type: Progress Notes Filed: 01/24/2018 2:52 PM Note Text: This note was created using [employer]. Subjective Martell Nascimento is a 77 year old female. Review of Systems Objective There were no vitals taken for this visit. Physical Exam Assessment and Plan agree PROGRESS Observed: 01/24/2018 Status: COMPLETED Source: [facility] 2:17 PM [facility] REPOSITORY HNO ID: [id number] Author: Lottie Angelo RN Service: (none) Author Type: (none) Type: Progress Notes Filed: 01/24/2018 2:19 PM Note Text: patient had inr completed at [facility] patients inr is 1.9 (patients inr range is 2.0-3.0) patient is currently taking 2.5mg Mon,Wed,Fri and 5mg all other days patients last dose change was on 12/11/17 due to a high level of 5.3 (dose at that time was 2.5mg Mon,Wed and 5mg all other days) patient has had no changes in medication and patient did miss 1 dose on Sunday and no change in diet Advised patient to continue on the same dose(s) and that they would only be contacted regarding dosage and follow up instructions after review with provider, if a change is needed. Written instructions given and patient verbalized understanding. Presently scheduled in 2 weeks (02/11/18 - appt with speciality also this day) for follow up INR since low level is most likely caused by the missed dose CNNURSE Observed: 01/24/2018 Status: COMPLETED Source: [facility] 11:45 AM [facility] REPOSITORY Nurse Visit (CAWSTR) MARTELL NASCIMENTO ([id number]) 1940 F Date Time Provider Department 01/24/18 11:45 AM NURSE CARD ADMIN [facility] CAWSTR During your visit today, we recorded the following information about you: Manjula Bhakta RN 01/25/2018 1:58 PM Signed Ekg completed per order. Pt tolerated procedure without distress. Manjula Bhakta RN Referring Provider: REDD DOLAN [[id number]] Allergies As of Date: 01/24/2018 (No Known Allergies) Date Reviewed: 01/24/2018 Reviewed by: Manjula Bhakta RN - Fully Assessed Reason for Visit: Nurse Visit [792] Visit Diagnosis:Paroxysmal atrial fibrillation (HCC) [I48.0] Problem List As Of Date 01/24/2018 Noted Resolved Chest pain [R07.9] INVALID FOR* Atrial fibrillation [I48.91] INVALID FOR* More... 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 Mitral valve regurgitation [I34.0] INVALID FOR* More... 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 Pt tolerated procedure without distress. Manjula Bhakta RN Encounter Status:Closed by MANJULA BHAKTA RN on 01/25/18 [facility] Observed: 01/23/2018 Status: COMPLETED Source: [facility] 12:00 AM [facility] REPOSITORY Telephone (HEMAVN) MARTELL NASCIMENTO ([id number]) 1940 F Date Time Provider Department 01/23/18 BHAVYA JIMENEZ) RICHARD During your visit today, we recorded the following information about you: Bhavya Jimenez RN, RN 01/23/2018 1:32 PM Signed CYCLE 1/DAY 1 POST TREATMENT CALL Today's date: January 23, 2018 Treatment Regimen: CHOP C1D1 Date: 01/22/18 Called patient to follow-up on symptom management. Spoke with patient. Patient reports treatment related symptoms: YES. Pt reported she had an episode of nausea last night followed by diarrhea x1. She had been taking Zofran every 8 hours scheduled as instructed. She took 2 imodium. She has had no further nausea or diarrhea since. Pt does complain of achy bones. Will be taking a Claritin later this afternoon as she will be receiving the Onpro injection. Pt reports she has noticed swelling of her right ankle and foot since this morning. Denies redness or pain. States has heart issues. Has shortness of breath on exertion, which is not new for her. Dr. Winn and nurse rey notified for follow up. Patient reports adequate fluid and nutrition intake: YES Pt stated the nurse who placed her PICC line called her today for follow up. Pt thought she was seeing fluid under the dressing. There has been no leakage of fluid and the dressing has remained dry. Pt thinks it is just a bruised area. Reinforced applicable treatment education based on current and anticipated symptoms. Patient instructed to contact office or after hours Hematology/Oncology fellow for: temperature ? 100.4; questions or concerns. Contact information provided. HELADIO Black MD 01/23/2018 3:52 PM Addendum she took prednisone and she has gotten a lot of fluids yesterday. Elevate her legs and call tomorrow She is probably retaining fluid. Farrah Winn MD Please see note for pt concerns. Pt has unilateral swelling of right ankle and foot. Please follow up. Thanks, Bhavya Jimenez (Routing comment) Usha Tariq LPN 01/23/2018 3:57 PM Signed Patient notified and verbalized understanding. Usha Tariq LPN Allergies As of Date: 01/23/2018 (No Known Allergies) Date Reviewed: 01/22/2018 Reviewed by: Jena Willis) HELADIO Benjamin - Fully Assessed Reason for Visit: Care Coordination [3491] Cmt: C1D1 call Prescriptions as of 01/23/2018 Sig: BIOTIN ORAL Take 5,000 mg by mouth once d* CHOLECALCIFEROL (VITAMIN D3) * Take 1 tablet by mouth once d* COMPOUNDED PRESCRIPTION Standing order PATIENT/INR: * GABAPENTIN 100 MG CAPSULE TAKE ONE CAPSULE BY MOUTH THR* PROBIOTIC COMPLEX ORAL Take 1 capsule by mouth once * LEVOTHYROXINE 75 MCG TABLET Take 1 tablet by mouth once d* LOPERAMIDE 2 MG TABLET Take 2 mg by mouth as needed. METOPROLOL SUCCINATE ER 25 MG* Take 0.5 tablets by mouth onc* ONDANSETRON HCL 8 MG TABLET Take 1 tablet by mouth every * OTC PRODUCT Calcium Lactate 300 mg once d* PERFLUTREN LIPID MICROSPHERES* Inject 1.3 mL intravenously a* PREDNISONE 50 MG TABLET Take 2 tablets by mouth daily* TIKOSYN 125 MCG CAPSULE TAKE ONE CAPSULE BY MOUTH TWI* EYE VITAMIN AND MINERALS ORAL Take 1 tablet by mouth once d* VITAMIN B COMPLEX TABLET Take 1 tablet by mouth 3 time* WARFARIN 5 MG TABLET Take 2.5 mg on M, W, F and 5 * Problem List As Of Date 01/23/2018 Noted Resolved Chest pain [R07.9] INVALID FOR* Atrial fibrillation [I48.91] INVALID FOR* More... 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 Mitral valve regurgitation [I34.0] INVALID FOR* More... 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 REPOSITORY Visit (SP) Office (HEMAWS) MARTELL NASCIMENTO ([id number]) 1940 F Date Time Provider Department 01/22/18 9:30 AM TREATMENT RM [address] [place] During your visit today, we recorded the following information about you: Temperature Pulse Respiration Blood pressure 97.7 degrees 56/minute 16/minute 151/81 Weight Height 65.8 kg 1.708 m Referring Provider: FARRAH WINN [[id number]] Allergies As of Date: 01/22/2018 (No Known Allergies) Date Reviewed: 01/22/2018 Reviewed by: Jena (Rn) HELADIO Benjamin - Fully Assessed Reason for Visit: Chemotherapy Treatment [771] Primary Visit Diagnosis:Encounter for antineoplastic chemotherapy [Z51.11] Other Visit Diagnoses: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 Take for 5 days starting on the first day of each cycle (days 1-5).Disp: 10 tabletRfl: 5 [] pegfilgrastim 6 mg wearable injection (NEULASTA ONPRO)Disp: Rfl: [] fosaprepitant 150 mg in NaCl 0.9% 250 mL iv piggybackDisp: Rfl: [] ondansetron (PF) 8 mg injection (ZOFRAN)Disp: Rfl: [] dexamethasone 10 mg/NS 50 mL (PYXIS) 10 mg ivpbDisp: Rfl: [] NaCl 0.9% IV bolus 1,000 mLDisp: Rfl: [] vinCRIStine 2 mg in NaCl 0.9% 50 mL (ONCOVIN)Disp: Rfl: [] DOXOrubicin 87.5 mg injection (ADRIAMYCIN)Disp: Rfl: [] cyclophosphamide 1,313 mg in NaCl 0.9% 250 mL (CYTOXAN)Disp: Rfl: Prescriptions as of 01/22/2018 Sig: LOPERAMIDE 2 MG TABLET Take 2 mg by mouth as needed. BIOTIN ORAL Take 5,000 mg by mouth once d* CHOLECALCIFEROL (VITAMIN D3) * Take 1 tablet by mouth once d* COMPOUNDED PRESCRIPTION Standing order PATIENT/INR: * GABAPENTIN 100 MG CAPSULE TAKE ONE CAPSULE BY MOUTH THR* PROBIOTIC COMPLEX ORAL Take 1 capsule by mouth once * LEVOTHYROXINE 75 MCG TABLET Take 1 tablet by mouth once d* METOPROLOL SUCCINATE ER 25 MG* Take 0.5 tablets by mouth onc* ONDANSETRON HCL 8 MG TABLET Take 1 tablet by mouth every * OTC PRODUCT Calcium Lactate 300 mg once d* PERFLUTREN LIPID MICROSPHERES* Inject 1.3 mL intravenously a* PREDNISONE 50 MG TABLET Take 1 tablet by mouth twice * PREDNISONE 50 MG TABLET Take 2 tablets by mouth daily* TIKOSYN 125 MCG CAPSULE TAKE ONE CAPSULE BY MOUTH TWI* EYE VITAMIN AND MINERALS ORAL Take 1 tablet by mouth once d* VITAMIN B COMPLEX TABLET Take 1 tablet by mouth 3 time* WARFARIN 5 MG TABLET Take 2.5 mg on M, W, F and 5 * Medication notes this encounter BIOTIN ORAL >> Jena Benjamin RN, RN 01/22/2018 11:17 AM >> JENA BENJAMIN Jan 22, 2018 11:17 AM Pt stopped this temporarily. Problem List As Of Date 01/22/2018 Noted Resolved Chest pain [R07.9] INVALID FOR* Atrial fibrillation [I48.91] INVALID FOR* More... 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 Mitral valve regurgitation [I34.0] INVALID FOR* More... 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 REPOSITORY TYPE CODE TESTS RESULT OUT OF REFERENCE UNITS RANGE LAB WWBC 3.70-11.00 k/uL [place] WBC 5.39 LAB WRBC 3.90-5.20 m/uL Low [place] RBC 3.71 LAB WHGB 11.5-15.5 g/dL [place] Hemoglobin 11.8 LAB WHCT 36.0-46.0 % Low [place] Hematocrit 35.8 LAB WMCV 80.0-100.0 fL [place] MCV 96.5 LAB WMCH 26.0-34.0 pg [place] MCH 31.8 LAB WMCHC 30.5-36.0 g/dL [place] MCHC 33.0 LAB WRDW 11.5-15.0 % [place] RDW 13.5 LAB WPLT 150-400 k/uL [place] Platelet Cnt 220 LAB WMPV 9.0-12.7 fL [place] MPV 10.4 Result Comment: Test performed at: [facility], [address] [place] [address]. LAB ABGRAN 1.45-7.50 k/uL Absol Gran 3.30 Count BASIC METABOLIC PANL Collected: 01/22/2018 Status: F Source: [facility] 9:15 AM [facility] REPOSITORY TYPE CODE TESTS RESULT OUT OF REFERENCE UNITS RANGE LAB GLU 74-99 mg/dL Glucose High 103 LAB BUN 7-21 mg/dL BUN 17 LAB CRET 0.58-0.96 mg/dL High Creatinine 1.07 LAB NA 136-144 mmol/L Sodium 137 LAB K 3.7-5.1 mmol/L Potassium 4.7 LAB CL 97-105 mmol/L Chloride 103 LAB CO2 22-30 mmol/L CO2 26 LAB AGAP mmol/L Anion Gap 8 LAB CA 8.5-10.2 mg/dL Calcium, Total 9.2 LAB GFRAA eGFR- >60 Amer. LAB GFRNAA . eGFR-All Other Races 50 Result Comment: eGFR (Estimated GFR) Units of measure: mL/min/1.73 meters squared eGFR is derived from the reexpressed MDRD Study equation using the following parameters: serum creatinine, age, gender and race. The creatinine assay has been calibrated to be traceable to IDMS. An eGFR <60 mL/min/1.73m2 for >3 months is consistent with chronic kidney disease. Refer to KDOQI guidelines for clinical interpretation. In patients with unstable renal function, e.g. those with acute kidney injury, the eGFR may not accurately reflect actual GFR. PROGRESS Observed: 01/18/2018 Status: COMPLETED Source: [place] 11:44 AM [facility] [place] REPOSITORY O ID: [id number] Author: Indira Izquierdo (Sw) Service: (none) Author Type: Electronic Heat Seal Operator Type: Progress Notes Filed: 01/18/2018 11:57 AM Note Text: PSYCHOSOCIAL ASSESSMENT Date of Service: January 18, 2018 Martell Nascimento is a 77 year old female being seen for initial social work assessment. 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 Winn Radiation Oncologist: DAPHNEY Goals of Care: Palliative care Today's visit includes: self/patient Family History of Cancer: Other *SUPPORT NETWORK: Marital status: Parent(s): Mother is and Father is Child/Children: Yes. How many? 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 No *EMPLOYMENT/FINANCIAL/HEALTH INSURANCE: Employment: Retired Income source: Social Security and Senior Living Pension Insurance: Medicare HMO Prescription coverage: Yes COBRA Is the patient appropriate for referral to [facility] COBRA Assistance program? No Financial Distress: No [place]: No *LIVING ARRANGEMENTS: Type: Condo-independent Resides with: Family spouse *FUNCTIONAL STATUS: Cognitive limitations: none Physical limitations: Patient has knee problems and as a result has some issues with stairs; patient also has Afib, heart murmur and an enlarged heart--the medication she takes for these conditions causes diarrhea, so she also takes Immodium Language barrier: No Hearing Impaired: No Speech Impaired: No Visual Impairments: Yes, had cataract surgery, uses reading glasses Literacy Issues: No Special considerations/accommodations needed: No MENTAL HEALTH HISTORY: No History of combat/trauma: No Substance Use and Treatment History: denied History of Abuse: No Issues with: ? Sleep:No ? Eating:No ? Exercising: No ? Stress Management: No *ADVANCE DIRECTIVES/LEGAL DOCUMENTS: Living Will: Yes Health Care Durable Power of Resource Protection Specialist: Yes Scanned into EPIC: No Guardianship: NA Scanned into EPIC:NA *COPING STATUS: Coping Strengths: supportive relationships with immediate family, with friends, with extended family, with neighbors and with jainism spirituality successful managing past crises hopefulness self advocate strong problem-solving skills ability to plan able to follow direction consistently over time able to communicate effectively Current affect/mood: appropriate History of Loss: Yes, mother, father Adjustment to diagnosis: reflecting understanding, responding appropriately and accepting help *BARRIERS/CARE CHALLENGES: None Are barriers/care challenges identified likely to have an impact on the patient's quality of life during treatment? NA *CLINICAL IMPRESSION: SW called patient on this day to monitor MH symptoms and to assess patient needs. Patient reports she has a strong support system and states she lives in a [employer]-style condo with her . Patient has a son, [id number] and three grandchildren locally who she is very close with. She also has a sister nearby whom she talks to regularly. Patient's daughter lives in [place], but she states their relationship is close as well and if needed, her daughter will come up to [place]. Patient reports some issues with her knees and states that she doesn't typically go down to the basement of her home because stairs bother her knees more. Patient also has some heart issues that are being well-controlled with her current medications. Patient also struggles with diarrhea from these medications, but states this is well-controlled with Immodium. Patient denies current MH issues and states there was a time many years ago when she was taking an anti-depressant and seeing a counselor, but she states this was due to situational stressors and she was able to work through it. Patient reports she is sleeping and eating well. She did lose 16 pounds around July, but is now taking Boost/Ensure to keep her weight stable. Patient reports she has Advance Directives and is agreeable to bringing these documents with her to her next appointment. KRYSTLE oriented patient to services and informed her that KRYSTLE will leave a list with local cancer resources with the nurse patient is meeting with this afternoon. Patient is agreeable. INTERVENTIONS/REFERRALS TO BE PROVIDED: Monitor patient response to treatment Communicate pertinent medical/psychosocial information to Cancer Center team Provide emotional support to patient/family Referral to community resource Assist with financial support applications Psychotherapy/Counseling Education Relaxation Techniques Provided education on distress and screening process Continue follow up as needed Resources and Referrals: ? Internal: [facility] ? External: [facility] PLAN: Follow up appointment with KRYSTLE in: JESÚS Houser CNSW Observed: 01/18/2018 Status: COMPLETED Source: [place] 12:00 AM [facility] REPOSITORY Social Work (SHAZIA) MARIA ESTHER NASCIMENTOAREObdulio Wetzel ([id number]) 1940 F Date Time Provider Department 01/18/18 INDIRA IZQUIERDO (SW) During your visit today, we recorded the following information about you: JESÚS Jane 01/18/2018 11:57 AM Signed PSYCHOSOCIAL ASSESSMENT Date of Service: January 18, 2018 Martell Nascimento is a 77 year old female being seen for initial social work assessment. 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 Winn Radiation Oncologist: DAPHNEY Goals of Care: Palliative care Today's visit includes: self/patient Family History of Cancer: Other *SUPPORT NETWORK: Marital status: Parent(s): Mother is and Father is Child/Children: Yes. How many? 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 No *EMPLOYMENT/FINANCIAL/HEALTH INSURANCE: Employment: Retired Income source: Social Security and Senior Living Pension Insurance: Medicare HMO Prescription coverage: Yes COBRA Is the patient appropriate for referral to [facility] COBRA Assistance program? No Financial Distress: No [place]: No *LIVING ARRANGEMENTS: Type: Condo-independent Resides with: Family spouse *FUNCTIONAL STATUS: Cognitive limitations: none Physical limitations: Patient has knee problems and as a result has some issues with stairs; patient also has Afib, heart murmur and an enlarged heart--the medication she takes for these conditions causes diarrhea, so she also takes Immodium Language barrier: No Hearing Impaired: No Speech Impaired: No Visual Impairments: Yes, had cataract surgery, uses reading glasses Literacy Issues: No Special considerations/accommodations needed: No MENTAL HEALTH HISTORY: No History of combat/trauma: No Substance Use and Treatment History: denied History of Abuse: No Issues with: ? Sleep:No ? Eating:No ? Exercising: No ? Stress Management: No *ADVANCE DIRECTIVES/LEGAL DOCUMENTS: Living Will: Yes Health Care Durable Power of Resource Protection Specialist: Yes Scanned into EPIC: No Guardianship: NA Scanned into EPIC:NA *COPING STATUS: Coping Strengths: supportive relationships with immediate family, with friends, with extended family, with neighbors and with jainism spirituality successful managing past crises hopefulness self advocate strong problem-solving skills ability to plan able to follow direction consistently over time able to communicate effectively Current affect/mood: appropriate History of Loss: Yes, mother, father Adjustment to diagnosis: reflecting understanding, responding appropriately and accepting help *BARRIERS/CARE CHALLENGES: None Are barriers/care challenges identified likely to have an impact on the patient's quality of life during treatment? NA *CLINICAL IMPRESSION: SW called patient on this day to monitor MH symptoms and to assess patient needs. Patient reports she has a strong support system and states she lives in a ranch-style condo with her . Patient has a son, [id number] and three grandchildren locally who she is very close with. She also has a sister nearby whom she talks to regularly. Patient's daughter lives in [place], but she states their relationship is close as well and if needed, her daughter will come up to [place]. Patient reports some issues with her knees and states that she doesn't typically go down to the basement of her home because stairs bother her knees more. Patient also has some heart issues that are being well-controlled with her current medications. Patient also struggles with diarrhea from these medications, but states this is well-controlled with Immodium. Patient denies current MH issues and states there was a time many years ago when she was taking an anti-depressant and seeing a counselor, but she states this was due to situational stressors and she was able to work through it. Patient reports she is sleeping and eating well. She did lose 16 pounds around July, but is now taking Boost/Ensure to keep her weight stable. Patient reports she has Advance Directives and is agreeable to bringing these documents with her to her next appointment. SW oriented patient to services and informed her that will leave a list with local cancer resources with the nurse patient is meeting with this afternoon. Patient is agreeable. INTERVENTIONS/REFERRALS TO BE PROVIDED: Monitor patient response to treatment Communicate pertinent medical/psychosocial information to Cancer Center team Provide emotional support to patient/family Referral to community resource Assist with financial support applications Psychotherapy/Counseling Education Relaxation Techniques Provided education on distress and screening process Continue follow up as needed Resources and Referrals: ? Internal: [facility] ? External: [facility] PLAN: Follow up appointment with KRYSTLE in: JESÚS Houser Allergies As of Date: 01/18/2018 (No Known Allergies) Date Reviewed: 01/15/2018 Reviewed by: Tameka Caldera (Den) DEN Navarrete - Fully Assessed Reason for Visit: Psychosocial Assessment [[id number]] Prescriptions as of 01/18/2018 Sig: PERFLUTREN LIPID MICROSPHERES* Inject 1.3 mL intravenously a* ONDANSETRON HCL 8 MG TABLET Take 1 tablet by mouth every * PREDNISONE 50 MG TABLET Take 1 tablet by mouth twice * GABAPENTIN 100 MG CAPSULE TAKE ONE CAPSULE BY MOUTH THR* VITAMIN B COMPLEX TABLET Take 1 tablet by mouth 3 time* WARFARIN 5 MG TABLET Take 2.5 mg on M, W, F and 5 * LEVOTHYROXINE 75 MCG TABLET Take 1 tablet by mouth once d* METOPROLOL SUCCINATE ER 25 MG* Take 0.5 tablets by mouth onc* TIKOSYN 125 MCG CAPSULE TAKE ONE CAPSULE BY MOUTH TWI* COMPOUNDED PRESCRIPTION Standing order PATIENT/INR: * BIOTIN ORAL Take 5,000 mg by mouth once d* EYE VITAMIN AND MINERALS ORAL Take 1 tablet by mouth once d* PROBIOTIC COMPLEX ORAL Take 1 capsule by mouth once * OTC PRODUCT Calcium Lactate 300 mg once d* CHOLECALCIFEROL (VITAMIN D3) * Take 1 tablet by mouth once d* Problem List As Of Date 01/18/2018 Noted Resolved Chest pain [R07.9] INVALID FOR* Atrial fibrillation [I48.91] INVALID FOR* More... 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 Mitral valve regurgitation [I34.0] INVALID FOR* More... 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 CKD (chronic kidney disease) stage 3, GFR 30-59*INVALID FOR* Dermatochalasis of both upper eyelids [H02.831,*INVALID FOR*09/14/2017 Peripheral T cell lymphoma of lymph nodes of he*INVALID FOR* Chemotherapy-induced neutropenia (HCC) [D70.1, *INVALID FOR* Encounter Status:Closed by INDIRA IZQUIERDO on 01/18/18 PROGRESS Observed: 01/15/2018 Status: COMPLETED Source: [place] 11:19 AM [facility] [place] REPOSITORY HNO ID: [id number] Author: Farrah Winn Service: (none) Author Type: Physician Type: Progress Notes Filed: 01/16/2018 8:44 AM Note Text: PATIENT NAME: Martell Nascimento. CLINIC NO: [id number]. ATTENDING PHYSICIAN: Farrah Winn MD. DATE OF SERVICE:01/15/2018. ? 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 PERFORMANCE STATUS:100% ? HPI: 77-year-old female with history of atrial fibrillation presented with a skin lesion appear overnight on her lower chest area 6 weeks ago. patient has history of actinic keratosis on the face and nose, she was last seen and have removed all the sleep position in October. She appeared to have a raise (red/purplish) lesion on her lower chest. It is not painful, red or hot, but very itchy. ? She was seen by dermatology last week and has a shave biopsy of the nodule lesion which came back positive for large T-cell lymphoma, BCL 6 negative, BCL-2 positive, ALK 1 negative, CD30 negative, Mum 1 negative, T-cell markers were positive. patient has no fever, chills or night sweats. She has a 10 pound weight loss over the last 6 months because of frequent diarrhea which started in recur late this summer. She had a colonoscopy last year and recent CT scan of abdomen and pelvis. Patient has no swallowing gland or adenopathy. She has no chest pain, cough or shortness of breath. No unusual bleeding or bruising on Coumadin for atrial fibrillation. interim history: Patient returns after a bone marrow biopsy, pathology review and PET CT scan for complete staging of her peripheral T-cell lymphoma. She is still asymptomatic, with no new skin nodule detected on her excision site. ? MEDICATIONS: CURRENT?MEDICATIONS Current Outpatient Prescriptions: vitamin b complex tab Take 1 tablet by mouth 3 times a WEEK. warfarin (COUMADIN) 5 mg tablet Take 2.5 mg on M, , and 5 mg all other days or as directed levothyroxine (SYNTHROID) 75 mcg tablet Take 1 tablet by mouth once daily. gabapentin (NEURONTIN) 100 mg capsule TAKE ONE CAPSULE BY MOUTH THREE TIMES DAILY metoprolol succinate ER (TOPROL XL) 25 mg 24 hr tablet Take 0.5 tablets by mouth once daily. TIKOSYN 125 mcg capsule TAKE ONE CAPSULE BY MOUTH TWICE DAILY BIOTIN ORAL Take 5,000 mg by mouth once daily. VIT A/C/E AC/ZNOX/CUPRIC OXIDE (EYE VITAMIN AND MINERALS ORAL) Take 1 tablet by mouth once daily. LACTOBACILLUS COMBO NO.6 (PROBIOTIC COMPLEX ORAL) Take 1 capsule by mouth once daily. OTC PRODUCT Calcium Lactate 300 mg once daily Cholecalciferol, Vitamin D3, 2,000 unit tab Take 1 tablet by mouth once daily. furosemide (LASIX) 20 mg tablet Take 0.5 tablets by mouth once daily. (Patient not taking: Reported on 12/07/2017 ) COMPOUNDED PRESCRIPTION Standing orderPATIENT/INR:DX: atrial fibFax results to [phone] ? No current facility-administered medications for this visit. . ALLERGIES: ALLERGIES ALLERGIES No Known Allergies . ? 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 - Atrial fibrillation (HCC) 09/2010 ? 6 months ago permanent - Cardiomegaly 2010 - Colon polyps 1994 - Cystoid macular degeneration of both eyes 2010 ? [place] cytogeneticist, (Right Eye) - Family history of malignant neoplasm of gastrointestinal tract ? - GERD (gastroesophageal reflux disease) ? - Heart murmur ? ? rheumatic fever - HTN (hypertension) ? - Hyperlipidemia ? - Hypothyroidism ? - Osteoporosis 2004 - PMH - PAST MEDICAL HISTORY OF ? ? PHTN - PMH - PAST MEDICAL HISTORY OF ? ? migraines . PAST SURGICAL HISTORY: PAST?SURGICAL?HISTORY PAST SURGICAL HISTORY Procedure Laterality Date - ATRIAL FIBRILLATION/FLUTTER ABLATION ? ? ? attempted ablation - CHOLECYSTECTOMY ? 65 - COLONOSCOP W/ OR W/O [facility] SPEC ? 05/03/11 ? repeat 5 years - COLONOSCOP W/ OR W/O [facility] SPEC ? 01/25/2017 ? repeat in [address] Rolle - HEMORRHOID;BAND LIGAT, SNGL/MUL ? ? ? Hemorrhoidectomy - PAST SURGICAL HISTORY OF ? [age] ? c section(x2) - PAST SURGICAL HISTORY OF ? 04/04/2006 ? colonoscopy - PAST SURGICAL HISTORY OF ? ? ? appendectomy - PAST SURGICAL HISTORY OF ? 2008 ? cataract - PAST SURGICAL HISTORY OF ? 2004 ? Repair of right wrist fx - PAST SURGICAL HISTORY OF ? 12/05/2017 ? Shave biopsy left rib cage - REMOVAL OF TONSILS,<12 Y/O ? ? ? Tonsillectomy . FAMILY HISTORY: FAMILY?HISTORY FAMILY HISTORY Problem Relation Age of Onset - Diabetes Mother ? - Heart Mother ? ? CHF - Stroke Mother 95 - Arthritis Mother ? - other (brain tumor) Father 54 - Ischemic Heart Disease Sister ? - other (Rectal Cancer) Sister ? . SOCIAL HISTORY: SOCIAL?HISTORY Social History Marital status: Spouse name: Sven Years of education: Number of children: 2 ? Occupational History Occupation Employer Comment Teacher - retired ? Social History Main Topics Smoking status: Never Smoker ? Smokeless tobacco: Never Used Alcohol use: No Drug use: No Sexual activity: Not Currently Partners with: Male Comment: Postmenopausal ? . REVIEW OF SYSTEMS: ? CONSTITUTIONAL: No fevers, chills, nightsweats, +unintended weight loss HEENT: Denies frequent or severe heaches, nasal congestion/sinus symptoms, problematic allergy problems. EYES: No diplopia or blurry vision. CARDIOVASCULAR: No chest pain, dyspnea, palpitations, orthopnea, PND, ankle edema. PULM: No dyspnea, unexplained cough. GI: No dysphagia/odynophagia, problematic reflux, constipation, + diarrhea, changes in stool habits, hematochezia, melena. : No new urinary complaints, including dysuria, gross hematuria or pyuria. NEURO: No new balance problems, peripheral weakness/paresthesias or numbness of concern. MUSC-SKEL: No new joint pain, swelling, or erythema. PSY: No concerns regarding depression, anxiety or panic. INTEGUMENTARY: No new skin changes (rash, new or changing mole, new growth) except for the growth on her left lower chest. ? PHYSICAL EXAMINATION: 77-year-old well-nourished well-developed female in no acute distress. BP 142/82 Pulse 60 Temp 97.5 Wt 143 lb (64.9kg) HEENT: Head is normocephalic, atraumatic. Sclerae white, conjunctivae pink. PEERL. EOMs are intact. Oropharynx is benign. LYMPHATICS: There is no palpable adenopathy in the neck, supraclavicular region, axillae, or groin. LUNGS: Lungs are clear to percussion and auscultation. CHEST: well-healed scar in the left lower chest with slight discoloration. HEART: Heart is normal with grade 1/6 systolic murmurs, no gallops, or rubs. ABDOMEN: Soft and nontender without organomegaly. No masses can be palpated. EXTREMITIES: Are without edema. NEUROLOGIC: Exam is physiologic ? LABORATORY DATA: Component Latest Ref Rng AND Units 12/20/2017 WBC, [place] 3.70 - 11.00 k/uL 6.31 RBC, Sheri 3.90 - 5.20 m/uL 4.06 Hemoglobin, [place] 11.5 - 15.5 g/dL 13.1 Hematocrit, [place] 36.0 - 46.0 % 39.2 MCV, Sheri 80.0 - 100.0 fL 96.6 MCH, Sheri 26.0 - 34.0 pg 32.3 MCHC, [place] 30.5 - 36.0 g/dL 33.4 RDW, [place] 11.5 - 15.0 % 13.1 Platelet Cnt, Sheri 150 - 400 k/uL 233 MPV, [place] 9.0 - 12.7 fL 10.8 Neut%, Sheri % 67.0 Lymp%, Sheri % 21.9 [place]%, Sheri % 8.9 Eos%, Sheri % 1.9 Baso%, Sheri % 0.3 Abs Neut, Sheri 1.45 - 7.50 k/uL 4.23 Abs Lymp, [place] 1.00 - 4.00 k/uL 1.38 Abs [place], [place] <0.87 k/uL 0.56 Abs Eos, Sheri <0.46 k/uL 0.12 Abs Baso, [place] <0.11 k/uL <0.03 ? Component Latest Ref Rng AND Units 12/20/2017 Protein, Total 6.3 - 8.0 g/dL 7.2 Albumin 3.9 - 4.9 g/dL 4.5 Calcium 8.5 - 10.2 mg/dL 10.0 Bilirubin, Total 0.2 - 1.3 mg/dL 0.4 Alkaline Phosphatase 34 - 123 U/L 68 AST 13 - 35 U/L 21 Glucose 74 - 99 mg/dL 102 (H) BUN 7 - 21 mg/dL 19 Creatinine 0.58 - 0.96 mg/dL 1.13 (H) Sodium 136 - 144 mmol/L 140 Potassium 3.7 - 5.1 mmol/L 4.2 Chloride 97 - 105 mmol/L 105 CO2 22 - 30 mmol/L 26 Anion Gap mmol/L 9 ALT 7 - 38 U/L 10 eGFR- ? 56 eGFR-All Other Races . 47 LD 135 - 214 U/L 214 B2 Microglobulin 0.8 - 2.2 mg/L 2.9 (H) WSR 0 - 20 mm/hr 9 CRP <0.9 mg/dL 0.2 Uric Acid 2.5 - 6.6 mg/dL 5.5 ? IMAGING: PET SCAN IMPRESSION: ?1. ?NECK: No FDG avid neoplastic process. No mass, adenopathy, or fluid collection. ?2. ?CHEST: No FDG avid neoplastic process. ?No mass, adenopathy, or fluid collection. ?3. ?ABDOMEN/PELVIS: No FDG avid neoplastic process. ?No mass, adenopathy, or fluid collection. ?4. ?EXTREMITIES/SKELETON: No FDG avid osseous process. No destructive/traumatic bony abnormality. PATHOLOGY: Skin of left rib cage, shave biopsy ([id number], 12/05/2017): ? - Positive for involvement by a peripheral T-cell lymphoma. See comment. EDH/dss 01/01/2018 COMMENT Histologic sections show a shave biopsy with a dense dermal infiltrate of atypical mononuclear cells, many of which are large with open chromatin and irregular nuclear contours. Occasional cells have prominent nucleoli. Numerous intermediate size cells as well as occasional small cells are also present. Scattered eosinophils can be seen. Submitted immunostains for CD20, CD3, CD4, CD5, CD8, CD30, ALK-1, Bcl-6, Bcl-2, MUM-1, CD10, PD1, CD21, and Ki-67 show that the great majority of cells are atypical T-cells expressing CD3, CD4, CD5, beta F1, and Bcl-2. A subset of the cells also express PD1 (approximately 20%). The Ki-67 labeling index is approximately 30%. CD30 is largely negative and seen in only approximately 5% of cells. The staining is weak and heterogeneous. Scattered B-cells are highlighted with a CD20 and appear to comprise approximately 10% of the overall infiltrate. Occasional larger cells are also highlighted. The cells are negative for the remaining stains. Additional stains performed at [facility] for CD7, CD56, TIA, and Granzyme B show that the T-cell loss of CD7. ?The remaining stains are negative. ?MARIE in situ hybridization was also performed at [facility] and is negative. Gene rearrangement studies were attempted but the DNA was of poor quality. Overall, the findings are consistent with involvement by a peripheral T-cell lymphoma. If after clinical investigation this appears to be primary cutaneous disease, this would be most consistent with a primary cutaneous peripheral T-cell lymphoma, not otherwise specified in the WHO classification. Correlation with the clinical findings is suggested. FINAL DIAGNOSIS BONE MARROW, BIOPSY CORE, ASPIRATE CLOT, TOUCH IMPRINT, ASPIRATE AND PERIPHERAL BLOOD SMEARS: - ?CELLULAR (40%) BONE MARROW WITH TRILINEAGE HEMATOPOIESIS. - ?ADEQUATE STAINABLE IRON. - ?NO MORPHOLOGIC EVIDENCE OF LYMPHOMA. - ?SEE COMMENT. COMMENT: ?The patient has a history of cutaneous T-cell lymphoma. The main findings in this case consist of unremarkable bone marrow with no definitive evidence of a neoplastic process. Correlation with clinical and conventional cytogenetic findings is recommended. T-cell Clonality PCR (Easel-2 Primers) Specimen Type: Bone Marrow DNA Quality: ?Good Results: TCRB A (V-J): ?Nonclonal TCRB B (V-J): ?Abnormal peak (257 bp) TCRB C (D-J): ?Abnormal peak (302 bp) TCRG A (V-J): ?Nonclonal TCRG B (V-J): ?Nonclonal Interpretation: ?INDETERMINATE for a clonal rearrangement (See comment) Comment: An abnormal peak on a polyclonal background was detected by PCR in one or more primer sets targeting the T-cell receptor beta (TCRB) or gamma (TCRG) chain loci. ?The possibility of a low level monoclonal T-cell population cannot be excluded. ASSESSMENT: 77-year-old otherwise healthy female presented with a cutaneous peripheral T-cell lymphoma ( ALK-1 AND CD30 negative ). stage 1 E; was possible reactive T-cell clones or changes in her bone marrow. PLAN: - scheduled 2-D echocardiogram for assessment of her baseline cardiac status before chemotherapy - PICC line placement prior to chemotherapy treatment - After discussion with doctors from [facility], we will like to proceed with standard CHOP and Neulasta as induction chemotherapy treatment for her peripheral T-cell lymphoma. - Repeat CT chest abdomen pelvis and bone marrow biopsy for T-cell receptor rearrangement. - If her CT scan and bone marrow showed no lymphoma involvement after his 3 cycle of chemotherapy, then proceed with localized radiation therapy on her chest wall. - However, if she still has residual disease either on CT scan of bone marrow, then 3 additional cycles of CHOP chemotherapy and consider clinical trials. I spent 25 minutes in the visit, with more than 50% of the total grhn-pf-eqfw time of the visit in counseling / coordination of care. Side effects and benefits of chemotherapy were discussed with the patient and family including nausea, vomiting, alopecia, fatigue, myelosuppression, peripheral neuropathy, kidney failure, mucositis, diarrhea, constipation, infection, bleeding. The patient and family were allowed enough time to ask questions. All questions were answered to their satisfaction. Patient and family verbalized understanding of treatment plan and agreed to proceed with therapy. Repeat CBC, BMP and prothrombin time next week before chemotherapy treatment. Farrah Winn MD Cc: Dr. Henrique Troncoso, [facility] CNOVSP Observed: 01/15/2018 Status: COMPLETED Source: [place] 9:50 AM [facility] REPOSITORY Visit (SP) Office ([place]) MARTELL NASCIMENTO ([id number]) 1940 F Date Time Provider Department 01/15/18 9:50 AM FARRAH WINN During your visit today, we recorded the following information about you: Temperature Pulse Blood pressure Weight 97.5 degrees 60/minute 142/82 64.9 kg Tameka Navarrete LPN, LPN 01/15/2018 10:12 AM Signed Est pt. Discuss additional results EDN Chao MD 01/16/2018 8:44 AM Signed PATIENT NAME: Martell Nascimento. CLINIC NO: [id number]. ATTENDING PHYSICIAN: Farrah Winn MD. DATE OF SERVICE:01/15/2018. ? 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 PERFORMANCE STATUS:100% ? HPI: 77-year-old female with history of atrial fibrillation presented with a skin lesion appear overnight on her lower chest area 6 weeks ago. patient has history of actinic keratosis on the face and nose, she was last seen and have removed all the sleep position in October. She appeared to have a raise (red/purplish) lesion on her lower chest. It is not painful, red or hot, but very itchy. ? She was seen by dermatology last week and has a shave biopsy of the nodule lesion which came back positive for large T-cell lymphoma, BCL 6 negative, BCL-2 positive, ALK 1 negative, CD30 negative, Mum 1 negative, T-cell markers were positive. patient has no fever, chills or night sweats. She has a 10 pound weight loss over the last 6 months because of frequent diarrhea which started in recur late this summer. She had a colonoscopy last year and recent CT scan of abdomen and pelvis. Patient has no swallowing gland or adenopathy. She has no chest pain, cough or shortness of breath. No unusual bleeding or bruising on Coumadin for atrial fibrillation. interim history: Patient returns after a bone marrow biopsy, pathology review and PET CT scan for complete staging of her peripheral T-cell lymphoma. She is still asymptomatic, with no new skin nodule detected on her excision site. ? MEDICATIONS: CURRENT?MEDICATIONS Current Outpatient Prescriptions: vitamin b complex tab Take 1 tablet by mouth 3 times a WEEK. warfarin (COUMADIN) 5 mg tablet Take 2.5 mg on M, W, F and 5 mg all other days or as directed levothyroxine (SYNTHROID) 75 mcg tablet Take 1 tablet by mouth once daily. gabapentin (NEURONTIN) 100 mg capsule TAKE ONE CAPSULE BY MOUTH THREE TIMES DAILY metoprolol succinate ER (TOPROL XL) 25 mg 24 hr tablet Take 0.5 tablets by mouth once daily. TIKOSYN 125 mcg capsule TAKE ONE CAPSULE BY MOUTH TWICE DAILY BIOTIN ORAL Take 5,000 mg by mouth once daily. VIT A/C/E AC/ZNOX/CUPRIC OXIDE (EYE VITAMIN AND MINERALS ORAL) Take 1 tablet by mouth once daily. LACTOBACILLUS COMBO NO.6 (PROBIOTIC COMPLEX ORAL) Take 1 capsule by mouth once daily. OTC PRODUCT Calcium Lactate 300 mg once daily Cholecalciferol, Vitamin D3, 2,000 unit tab Take 1 tablet by mouth once daily. furosemide (LASIX) 20 mg tablet Take 0.5 tablets by mouth once daily. (Patient not taking: Reported on 12/07/2017 ) COMPOUNDED PRESCRIPTION Standing orderPATIENT/INR:DX: atrial fibFax results to [phone] ? No current facility-administered medications for this visit. . ALLERGIES: ALLERGIES ALLERGIES No Known Allergies . ? 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 - Atrial fibrillation (HCC) 09/2010 ? 6 months ago permanent - Cardiomegaly 2010 - Colon polyps 1994 - Cystoid macular degeneration of both eyes 2010 ? [place] cytogeneticist, (Right Eye) - Family history of malignant neoplasm of gastrointestinal tract ? - GERD (gastroesophageal reflux disease) ? - Heart murmur ? ? rheumatic fever - HTN (hypertension) ? - Hyperlipidemia ? - Hypothyroidism ? - Osteoporosis 2005 - PMH - PAST MEDICAL HISTORY OF ? ? PHTN - PMH - PAST MEDICAL HISTORY OF ? ? migraines . PAST SURGICAL HISTORY: PAST?SURGICAL?HISTORY PAST SURGICAL HISTORY Procedure Laterality Date - ATRIAL FIBRILLATION/FLUTTER ABLATION ? ? ? attempted ablation - CHOLECYSTECTOMY ? 65 - COLONOSCOP W/ OR W/O [facility] SPEC ? 05/03/11 ? repeat 5 years - COLONOSCOP W/ OR W/O [facility]RS SPEC ? 01/25/2017 ? repeat in [address] Rolle - HEMORRHOID;BAND LIGAT, SNGL/MUL ? ? ? Hemorrhoidectomy - PAST SURGICAL HISTORY OF ? [age] ? c section(x2) - PAST SURGICAL HISTORY OF ? 04/04/2006 ? colonoscopy - PAST SURGICAL HISTORY OF ? ? ? appendectomy - PAST SURGICAL HISTORY OF ? 2008 ? cataract - PAST SURGICAL HISTORY OF ? 2004 ? Repair of right wrist fx - PAST SURGICAL HISTORY OF ? 12/05/2017 ? Shave biopsy left rib cage - REMOVAL OF TONSILS,<12 Y/O ? ? ? Tonsillectomy . FAMILY HISTORY: FAMILY?HISTORY FAMILY HISTORY Problem Relation Age of Onset - Diabetes Mother ? - Heart Mother ? ? CHF - Stroke Mother 95 - Arthritis Mother ? - other (brain tumor) Father 54 - Ischemic Heart Disease Sister ? - other (Rectal Cancer) Sister ? . SOCIAL HISTORY: SOCIAL?HISTORY Social History Marital status: Spouse name: Sven Years of education: Number of children: 2 ? Occupational History Occupation Employer Comment Teacher - retired ? Social History Main Topics Smoking status: Never Smoker ? Smokeless tobacco: Never Used Alcohol use: No Drug use: No Sexual activity: Not Currently Partners with: Male Comment: Postmenopausal ? . REVIEW OF SYSTEMS: ? CONSTITUTIONAL: No fevers, chills, nightsweats, +unintended weight loss HEENT: Denies frequent or severe heaches, nasal congestion/sinus symptoms, problematic allergy problems. EYES: No diplopia or blurry vision. CARDIOVASCULAR: No chest pain, dyspnea, palpitations, orthopnea, PND, ankle edema. PULM: No dyspnea, unexplained cough. GI: No dysphagia/odynophagia, problematic reflux, constipation, + diarrhea, changes in stool habits, hematochezia, melena. : No new urinary complaints, including dysuria, gross hematuria or pyuria. NEURO: No new balance problems, peripheral weakness/paresthesias or numbness of concern. MUSC-SKEL: No new joint pain, swelling, or erythema. PSY: No concerns regarding depression, anxiety or panic. INTEGUMENTARY: No new skin changes (rash, new or changing mole, new growth) except for the growth on her left lower chest. ? PHYSICAL EXAMINATION: 77-year-old well-nourished well-developed female in no acute distress. BP 142/82 Pulse 60 Temp 97.5 Wt 143 lb (64.9kg) HEENT: Head is normocephalic, atraumatic. Sclerae white, conjunctivae pink. PEERL. EOMs are intact. Oropharynx is benign. LYMPHATICS: There is no palpable adenopathy in the neck, supraclavicular region, axillae, or groin. LUNGS: Lungs are clear to percussion and auscultation. CHEST: well-healed scar in the left lower chest with slight discoloration. HEART: Heart is normal with grade 1/6 systolic murmurs, no gallops, or rubs. ABDOMEN: Soft and nontender without organomegaly. No masses can be palpated. EXTREMITIES: Are without edema. NEUROLOGIC: Exam is physiologic ? LABORATORY DATA: Component Latest Ref Rng AND Units 12/20/2017 WBC, Sheri 3.70 - 11.00 k/uL 6.31 RBC, [place] 3.90 - 5.20 m/uL 4.06 Hemoglobin, [place] 11.5 - 15.5 g/dL 13.1 Hematocrit, Sheri 36.0 - 46.0 % 39.2 MCV, [place] 80.0 - 100.0 fL 96.6 MCH, [place] 26.0 - 34.0 pg 32.3 MCHC, Sheri 30.5 - 36.0 g/dL 33.4 RDW, [place] 11.5 - 15.0 % 13.1 Platelet Cnt, Sheri 150 - 400 k/uL 233 MPV, Sheri 9.0 - 12.7 fL 10.8 Neut%, Sheri % 67.0 Lymp%, Sheri % 21.9 [place]%, Sheri % 8.9 Eos%, [place] % 1.9 Baso%, Sheri % 0.3 Abs Neut, Sheri 1.45 - 7.50 k/uL 4.23 Abs Lymp, [place] 1.00 - 4.00 k/uL 1.38 Abs [place], Sheri <0.87 k/uL 0.56 Abs Eos, [place] <0.46 k/uL 0.12 Abs Baso, Sheri <0.11 k/uL <0.03 ? Component Latest Ref Rng AND Units 12/20/2017 Protein, Total 6.3 - 8.0 g/dL 7.2 Albumin 3.9 - 4.9 g/dL 4.5 Calcium 8.5 - 10.2 mg/dL 10.0 Bilirubin, Total 0.2 - 1.3 mg/dL 0.4 Alkaline Phosphatase 34 - 123 U/L 68 AST 13 - 35 U/L 21 Glucose 74 - 99 mg/dL 102 (H) BUN 7 - 21 mg/dL 19 Creatinine 0.58 - 0.96 mg/dL 1.13 (H) Sodium 136 - 144 mmol/L 140 Potassium 3.7 - 5.1 mmol/L 4.2 Chloride 97 - 105 mmol/L 105 CO2 22 - 30 mmol/L 26 Anion Gap mmol/L 9 ALT 7 - 38 U/L 10 eGFR- ? 56 eGFR-All Other Races . 47 LD 135 - 214 U/L 214 B2 Microglobulin 0.8 - 2.2 mg/L 2.9 (H) WSR 0 - 20 mm/hr 9 CRP <0.9 mg/dL 0.2 Uric Acid 2.5 - 6.6 mg/dL 5.5 ? IMAGING: PET SCAN IMPRESSION: ?1. ?NECK: No FDG avid neoplastic process. No mass, adenopathy, or fluid collection. ?2. ?CHEST: No FDG avid neoplastic process. ?No mass, adenopathy, or fluid collection. ?3. ?ABDOMEN/PELVIS: No FDG avid neoplastic process. ?No mass, adenopathy, or fluid collection. ?4. ?EXTREMITIES/SKELETON: No FDG avid osseous process. No destructive/traumatic bony abnormality. PATHOLOGY: Skin of left rib cage, shave biopsy ([id number], 12/05/2017): ? - Positive for involvement by a peripheral T-cell lymphoma. See comment. EDH/dss 01/01/2018 COMMENT Histologic sections show a shave biopsy with a dense dermal infiltrate of atypical mononuclear cells, many of which are large with open chromatin and irregular nuclear contours. Occasional cells have prominent nucleoli. Numerous intermediate size cells as well as occasional small cells are also present. Scattered eosinophils can be seen. Submitted immunostains for CD20, CD3, CD4, CD5, CD8, CD30, ALK-1, Bcl-6, Bcl-2, MUM-1, CD10, PD1, CD21, and Ki-67 show that the great majority of cells are atypical T-cells expressing CD3, CD4, CD5, beta F1, and Bcl-2. A subset of the cells also express PD1 (approximately 20%). The Ki-67 labeling index is approximately 30%. CD30 is largely negative and seen in only approximately 5% of cells. The staining is weak and heterogeneous. Scattered B-cells are highlighted with a CD20 and appear to comprise approximately 10% of the overall infiltrate. Occasional larger cells are also highlighted. The cells are negative for the remaining stains. Additional stains performed at [facility] for CD7, CD56, TIA, and Granzyme B show that the T-cell loss of CD7. ?The remaining stains are negative. ?MARIE in situ hybridization was also performed at [facility] and is negative. Gene rearrangement studies were attempted but the DNA was of poor quality. Overall, the findings are consistent with involvement by a peripheral T-cell lymphoma. If after clinical investigation this appears to be primary cutaneous disease, this would be most consistent with a primary cutaneous peripheral T-cell lymphoma, not otherwise specified in the WHO classification. Correlation with the clinical findings is suggested. FINAL DIAGNOSIS BONE MARROW, BIOPSY CORE, ASPIRATE CLOT, TOUCH IMPRINT, ASPIRATE AND PERIPHERAL BLOOD SMEARS: - ?CELLULAR (40%) BONE MARROW WITH TRILINEAGE HEMATOPOIESIS. - ?ADEQUATE STAINABLE IRON. - ?NO MORPHOLOGIC EVIDENCE OF LYMPHOMA. - ?SEE COMMENT. COMMENT: ?The patient has a history of cutaneous T-cell lymphoma. The main findings in this case consist of unremarkable bone marrow with no definitive evidence of a neoplastic process. Correlation with clinical and conventional cytogenetic findings is recommended. T-cell Clonality PCR (BIOMED-2 Primers) Specimen Type: Bone Marrow DNA Quality: ?Good Results: TCRB A (V-J): ?Nonclonal TCRB B (V-J): ?Abnormal peak (257 bp) TCRB C (D-J): ?Abnormal peak (302 bp) TCRG A (V-J): ?Nonclonal TCRG B (V-J): ?Nonclonal Interpretation: ?INDETERMINATE for a clonal rearrangement (See comment) Comment: An abnormal peak on a polyclonal background was detected by PCR in one or more primer sets targeting the T-cell receptor beta (TCRB) or gamma (TCRG) chain loci. ?The possibility of a low level monoclonal T-cell population cannot be excluded. ASSESSMENT: 77-year-old otherwise healthy female presented with a cutaneous peripheral T-cell lymphoma ( ALK-1 AND CD30 negative ). stage 1 E; was possible reactive T-cell clones or changes in her bone marrow. PLAN: - scheduled 2-D echocardiogram for assessment of her baseline cardiac status before chemotherapy - PICC line placement prior to chemotherapy treatment - After discussion with doctors from [facility], we will like to proceed with standard CHOP and Neulasta as induction chemotherapy treatment for her peripheral T-cell lymphoma. - Repeat CT chest abdomen pelvis and bone marrow biopsy for T-cell receptor rearrangement. - If her CT scan and bone marrow showed no lymphoma involvement after his 3 cycle of chemotherapy, then proceed with localized radiation therapy on her chest wall. - However, if she still has residual disease either on CT scan of bone marrow, then 3 additional cycles of CHOP chemotherapy and consider clinical trials. I spent 25 minutes in the visit, with more than 50% of the total hqwf-ey-mqvo time of the visit in counseling / coordination of care. Side effects and benefits of chemotherapy were discussed with the patient and family including nausea, vomiting, alopecia, fatigue, myelosuppression, peripheral neuropathy, kidney failure, mucositis, diarrhea, constipation, infection, bleeding. The patient and family were allowed enough time to ask questions. All questions were answered to their satisfaction. Patient and family verbalized understanding of treatment plan and agreed to proceed with therapy. Repeat CBC, BMP and prothrombin time next week before chemotherapy treatment. Farrah Winn MD [facility] Referring Provider: Laci LIRIANO (YESI) [[id number]] Allergies As of Date: 01/15/2018 (No Known Allergies) Date Reviewed: 01/15/2018 Reviewed by: Tameka Caldera (Crowd Controller) DEN Navarrete - Fully Assessed Reason for Visit: Established Patient [175] Primary Visit Diagnosis:CKD (chronic kidney disease) stage 3, GFR 30-59 ml/min (HCC) [N18.3] Other Visit Diagnoses:Peripheral T cell lymphoma of lymph nodes of head, face, and neck (HCC) [C84.41] Chemotherapy follow-up examination [Z09] Chemotherapy-induced neutropenia (HCC) [D70.1, T45.1X5A] Order(s):ECHO [[id number]] Order #: [id number]: 1 FUTURE perflutren lipid microspheres (DEFINITY) 1.1 mg/mL injection (to be provided with echo procedure)Inject 1.3 mL intravenously as directed.Disp: 1.3 mLRfl: 0 ondansetron (ZOFRAN) 8 mg tabletTake 1 tablet by mouth every 8 hours as needed.Disp: 20 tabletRfl: 3 predniSONE (DELTASONE) 50 mg tabTake 1 tablet by mouth twice daily for 5 days. Start with chemotherapy x 5 daysDisp: 10 tabletRfl: 2 Level of Service: EST PATIENT VISIT LEVEL 4 [[id number]] Disposition: Return in about 4 weeks (around 02/13/2018). Follow-up and Disposition History Recorded Prescriptions as of 01/15/2018 Sig: GABAPENTIN 100 MG CAPSULE TAKE ONE CAPSULE BY MOUTH THR* VITAMIN B COMPLEX TABLET Take 1 tablet by mouth 3 time* WARFARIN 5 MG TABLET Take 2.5 mg on M, W, F and 5 * LEVOTHYROXINE 75 MCG TABLET Take 1 tablet by mouth once d* METOPROLOL SUCCINATE ER 25 MG* Take 0.5 tablets by mouth onc* TIKOSYN 125 MCG CAPSULE TAKE ONE CAPSULE BY MOUTH TWI* COMPOUNDED PRESCRIPTION Standing order PATIENT/INR: * BIOTIN ORAL Take 5,000 mg by mouth once d* EYE VITAMIN AND MINERALS ORAL Take 1 tablet by mouth once d* PROBIOTIC COMPLEX ORAL Take 1 capsule by mouth once * OTC PRODUCT Calcium Lactate 300 mg once d* CHOLECALCIFEROL (VITAMIN D3) * Take 1 tablet by mouth once d* PERFLUTREN LIPID MICROSPHERES* Inject 1.3 mL intravenously a* ONDANSETRON HCL 8 MG TABLET Take 1 tablet by mouth every * PREDNISONE 50 MG TABLET Take 1 tablet by mouth twice * Problem List As Of Date 01/15/2018 Noted Resolved Chest pain [R07.9] INVALID FOR* Atrial fibrillation [I48.91] INVALID FOR* More... 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 Mitral valve regurgitation [I34.0] INVALID FOR* More... 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 CKD (chronic kidney disease) stage 3, GFR 30-59*INVALID FOR* Dermatochalasis of both upper eyelids [H02.831,*INVALID FOR*09/14/2017 Peripheral T cell lymphoma of lymph nodes of he*INVALID FOR* Chemotherapy-induced neutropenia (HCC) [D70.1, *INVALID FOR* Visit Notes: >> DEN Chao Lpn Jan 15, 2018 9:51 AM Status: Signed Est pt. Discuss additional results Tameka Navarrete LPN Encounter Status:Closed by FARRAH WINN MD on 01/16/18 PROGRESS Observed: 01/09/2018 Status: COMPLETED Source: [place] 10:57 AM [facility] REPOSITORY HNO ID: [id number] Author: Henrique Shultz Service: (none) Author Type: Physician Type: Progress Notes Filed: 01/09/2018 10:57 AM Note Text: agree PROGRESS Observed: 01/09/2018 Status: COMPLETED Source: [place] 10:47 AM [facility] REPOSITORY HNO ID: [id number] Author: Kelsey Guallpa RN Service: (none) Author Type: (none) Type: Progress Notes Filed: 01/09/2018 10:50 AM Note Text: Patient had INR completed at [facility] Patient's INR is 2.2 Patient is currently taking 2.5 MWF and 5 mg all other days Patient's last dose change was 01/01/18 due to low INR at 1.4 Patient has had no medication and no change in diet. Advised patient to continue on same dose and they would only be contacted with different instructions after provider review. Written instructions were given to patient and patient verbalized understanding. Presently, patient has been scheduled for 01/24/18 for INR follow up. PROGRESS Observed: 01/01/2018 Status: COMPLETED Source: [place] 4:40 PM [facility] REPOSITORY HNO ID: [id number] Author: Shavon Adkins LPN Service: (none) Author Type: (none) Type: Progress Notes Filed: 01/01/2018 5:05 PM Note Text: PATIENT NOTIFIED OF SAME. Tracker updated. PROGRESS Observed: 01/01/2018 Status: COMPLETED Source: [place] 12:28 PM [facility] REPOSITORY HNO ID: [id number] Author: Laci Liriano Service: (none) Author Type: Physician Waterworks Supervisor Type: Progress Notes Filed: 01/01/2018 5:05 PM Note Text: Take extra 2.5mg today and continue same schedule. Recheck in 1 week., Thanks, Naldo Liriano PA-C PROGRESS Observed: 01/01/2018 Status: COMPLETED Source: [place] 12:24 PM [facility] REPOSITORY HNO ID: [id number] Author: Lottie Angelo RN Service: (none) Author Type: (none) Type: Progress Notes Filed: 01/01/2018 12:27 PM Note Text: patient had inr completed at [facility] patients inr is 1.4 (patients inr range is 2.0-3.0) patient is currently taking 2.5mg Mon,Wed,Fri and 5mg all other days patients last dose change was on 12/11/17 due to a high level of 5.3 (dose at that time was 2.5mg Mon,Wed and 5mg all other days) patient has had no changes in medication and no change in diet FYI - Patient was off coumadin for 5 days for testing. patient just restarted coumadin on 12/27/17 Advised patient that they would be contacted regarding medication dose and when to follow up after information is reviewed by provider. After provider review please contact the patient with information and schedule follow up appointment with coumadin clinic. FYI- patient has been scheduled for a 2 week follow up inr on 01/17/18 SURGICAL PATHOLOGY Observed: 12/30/2017 Status: C Source: [place] 12:00 AM [facility] REPOSITORY ADDITIONAL PROCEDURES PRESENT Specimen #: [id number]* Submitting Physician: REDD DOLAN ([id number]) FINAL DIAGNOSIS Skin of left rib cage, shave biopsy ([id number], 12/05/2017): - Positive for involvement by a peripheral T-cell lymphoma. See comment. EDH/dss 01/01/2018 COMMENT Histologic sections show a shave biopsy with a dense dermal infiltrate of atypical mononuclear cells, many of which are large with open chromatin and irregular nuclear contours. Occasional cells have prominent nucleoli. Numerous intermediate size cells as well as occasional small cells are also present. Scattered eosinophils can be seen. Submitted immunostains for CD20, CD3, CD4, CD5, CD8, CD30, ALK-1, Bcl-6, Bcl-2, MUM-1, CD10, PD1, CD21, and Ki-67 show that the great majority of cells are atypical T-cells expressing CD3, CD4, CD5, beta F1, and Bcl-2. A subset of the cells also express PD1 (approximately 20%). The Ki-67 labeling index is approximately 30%. CD30 is largely negative and seen in only approximately 5% of cells. The staining is weak and heterogeneous. Scattered B-cells are highlighted with a CD20 and appear to comprise approximately 10% of the overall infiltrate. Occasional larger cells are also highlighted. The cells are negative for the remaining stains. Additional stains performed at [facility] for CD7, CD56, TIA, and Granzyme B show that the T-cell loss of CD7. The remaining stains are negative. MARIE in situ hybridization was also performed at [facility] and is negative. Gene rearrangement studies were attempted but the DNA was of poor quality. Overall, the findings are consistent with involvement by a peripheral T-cell lymphoma. If after clinical investigation this appears to be primary cutaneous disease, this would be most consistent with a primary cutaneous peripheral T-cell lymphoma, not otherwise specified in the WHO classification. Correlation with the clinical findings is suggested. Laboratory Developed Test (LDT) Disclaimer: Positive and negative controls stain appropriately. Performance characteristics of immunohistochemical, immunofluorescent and chromogenic in-situ hybridization tests have been determined by [facility]'s [facility] [place] ([facility]) in a manner consistent with CLIA requirements. One or more of these tests have not been cleared or approved by the FDA. [facility] is regulated under CLIA as qualified to perform high-complexity testing. These tests are used for clinical purposes. They should not be regarded as investigational or for research. Dale Bella M.D. (Electronic Signature) SPECIMEN SUBMITTED A: 18 SLIDES & 1 BLOCK :A: ([id number]) ADDITIONAL PROCEDURE(S) T-Cell Clonality by BIOMED2 PCR Date Ordered: 01/02/2018 Date Reported: 01/08/2018 Procedure Results and Interpretation T-cell Clonality PCR (BIOMED-2 Primers) Specimen Type: Paraffin - Skin, left rib cage [id number] ([id number]) DNA Quality: Suboptimal Results: TCRB A (V-J): No specific products TCRB B (V-J): No specific products TCRB C (D-J): No specific products TCRG A (V-J): No specific products TCRG B (V-J): No specific products Interpretation: Clonal rearrangement NOT DETECTED (See comment) Comment: PCR using primer sets targeting the T-cell receptor beta (TCRB) and gamma (TCRG) chain loci shows no specific rearrangements. There is suboptimal amplification of control genes. This pattern of findings suggests few T-cells in this sample or insufficient quality DNA. The possibility of a T-cell neoplasm cannot be excluded. Clinical correlation is suggested. Method: DNA is isolated from the specimen provided and subjected to PCR amplification using a fluorescently labeled primers targeting the T-cell receptor beta (TCRB) and gamma (TCRG) chain loci ([employer], [place], [place]). Fluorescently labeled PCR products were analyzed by capillary gel electrophoresis. An additional PCR reaction directed at housekeeping genes was performed as a control for each sample to ensure adequate DNA quality. Limitations of the assay: 1. PCR may not detect all clonal rearrangements detectable by Southern blot analysis. 2. The sensitivity of the assay is affected by the intensity of the polyclonal background. The assay detects a clonal population of approximately 5% in a background of tonsil DNA. 3. Monoclonality is not equivalent to malignancy. Results of this test should be interpreted in the context of the clinical, histological, flow cytometric, and/or immunophenotypic information. 4. Detection of monoclonality with this assay usually indicates a monoclonal T-cell population; however, lineage assignment is not entirely reliable since some B-cell lymphomas and acute myeloid leukemias may have rearranged TCR genes. This test was developed and its performance characteristics determined by [facility] [place]. It has not been cleared or approved by the U.S. Food and Drug Administration. [facility] [place] is authorized under Clinical Laboratory Improvement Amendments (CLIA) to perform high-complexity testing. As Reviewed By: Xochitl Alston D.O. [facility]/ 01/07/18 ANALYTE SPECIFIC REAGENT (ASR) DISCLAIMER This test was developed and its performance characteristics determined by [facility] [place] ([facility]). It has not been cleared or approved by the FDA. [facility] is regulated under CLIA as qualified to perform high-complexity testing. This test is used for clinical purposes. It should not be regarded as investigational or for research. Procedure Pathologist: Xochitl Alston M.D./LONNIE Electronic Signature CLINICAL DATA None provided. Date of Report: 01/08/2018 Date of Procedure: 12/30/2017 Date of Receipt: 12/31/2017 Submitted by: REDD DOLAN ([id number]) Location: [facility] Diagnostic interpretation performed at [facility], [address] [place] [address]. NURSING PROG Observed: 12/26/2017 Status: COMPLETED Source: [place] 2:00 PM [facility] REPOSITORY HNO ID: [id number] Author: Keena Solis RN Service: (none) Author Type: Registered Nurse Type: Nursing Progress Note Filed: 12/26/2017 2:00 PM Note Text: Patient did not experience a fall prior to discharge. Patient did not experience a burn prior to discharge. Keena Solis RN PT ED Observed: 12/26/2017 Status: COMPLETED Source: [place] 1:40 PM [facility] REPOSITORY HNO ID: [id number] Author: [place] Solis RN Service: (none) Author Type: Registered Nurse Type: Patient Education Filed: 12/26/2017 2:00 PM Note Text: POST OP LEARNING RESPONSE INSTRUCTION PROVIDED TO: Patient and family member METHOD OF INSTRUCTION: Individual instruction Written instruction - handouts Verbal instruction PATIENT / FAMILY RESPONSE: Information received as demonstrated by interest and questions FOLLOW-UP PLAN: Follow up phone call. Contact information given. [address] Winn SUPPLEMENTAL MATERIAL: Procedure discharge instructions REFERRAL (RECOMMENDATION): None Electronically Signed By: Keena Solis RN In Department: AMBULATORY SURGERY NURSING PROG Observed: 12/26/2017 Status: COMPLETED Source: [place] 12:40 PM [facility] REPOSITORY HNO ID: [id number] Author: Keena Solis RN Service: (none) Author Type: Registered Nurse Type: Nursing Progress Note Filed: 12/26/2017 1:00 PM Note Text: Arrived in phase II via cart. Supine position. Sedated, but responds to verbal stimuli. Color normal; skin warm and dry. Respirations wnl and unlabored. Abdomen soft. Patient resting comfortably. Keena Solis RN NURSING PROG Observed: 12/26/2017 Status: COMPLETED Source: [place] 12:37 PM [facility] REPOSITORY HNO ID: [id number] Author: Jenni (Rn) HELADIO Adame Service: Nursing Author Type: Registered Nurse Type: Nursing Progress Note Filed: 12/26/2017 12:38 PM Note Text: Patient did not experience a fall within the Intraoperative area. Patient did not experience a burn within the Intraoperative area. Jenni Adame RN OPERATIVE NO Observed: 12/26/2017 Status: COMPLETED Source: [place] 12:37 PM [facility] REPOSITORY HNO ID: [id number] Author: Farrah Winn Service: Hematology/Oncology Author Type: Physician Type: Operative Report Filed: 12/26/2017 12:40 PM Note Text: Bone Marrow Aspirate and Biopsy Procedure: Martell Nascimento is a 77 year old female with T cell lymphoma who returns for bone marrow evaluation. Information was reviewed verbally over the phone, form(s) have been/will be consent was obtained. Rationale, procedure, personnel and risks were explained. Premedication with Versed 2 mg and Fentanyl 50mcg IV were given. Patient placed in left lateral decubitus position. right posterior iliac crest was swabbed with betadine and then with alcohol. 1% lidocaine, 9 cc was infiltrated to the posterior iliac crest in a sterile field. Bone marrow aspirate and biopsy was obtained under sterile techniques. Patient tolerated the procedure well with no complications. Aspirate smears and touch preps were made. Flow cytometry were ordered. Patient will return for follow up results. Start Time: 12:32 Stop Time: 12:36 E.B.L. 6 cc Specimen: ight posterior iliac crest bone marrow MD SHERI Stewart CBC AND DIFF Collected: 12/26/2017 Status: F Source: [place] 12:31 PM [facility] REPOSITORY TYPE CODE TESTS RESULT OUT OF REFERENCE UNITS RANGE LAB WWBC 3.70-11.00 k/uL [place] WBC 4.73 LAB WRBC 3.90-5.20 m/uL [place] RBC 4.07 LAB WHGB 11.5-15.5 g/dL [place] Hemoglobin 13.0 LAB WHCT 36.0-46.0 % [place] Hematocrit 39.6 LAB WMCV 80.0-100.0 fL [place] MCV 97.3 LAB WMCH 26.0-34.0 pg [place] MCH 31.9 LAB WMCHC 30.5-36.0 g/dL [place] MCHC 32.8 LAB WRDW 11.5-15.0 % [place] RDW 13.3 LAB WPLT 150-400 k/uL [place] Platelet Cnt 197 LAB WMPV 9.0-12.7 fL [place] MPV 11.1 Result Comment: Test performed at: [facility], [address] [place] [address] Rd., [place] [address]. LAB WNEUT % [place] Neut% 55.9 LAB WLYMP % [place] Lymp% 30.4 LAB WMONOC % [place] Osceola% 10.1 LAB WEOS % [place] Eos% 3.4 LAB WBASO % [place] Baso% 0.2 LAB WANEUT 1.45-7.50 k/uL [place] Abs Neut 2.64 LAB WALYMP 1.00-4.00 k/uL [place] Abs Lymp 1.44 LAB WAMONO <0.87 k/uL [place] Abs Osceola 0.48 LAB WAEOS <0.46 k/uL [place] Abs Eos 0.16 LAB WABASO <0.11 k/uL [place] Abs Baso <0.03 NURSING PROG Observed: 12/26/2017 Status: COMPLETED Source: [place] 12:29 PM [facility] REPOSITORY HNO ID: [id number] Author: Keena Willis) HELADIO Solis Service: (none) Author Type: Registered Nurse Type: Nursing Progress Note Filed: 12/26/2017 12:36 PM Note Text: [facility] [place] [facility] PRE-OP NURSING HAND OFF NOTE SBAR Hand off given to Jenni Adame RN. Hand off was communicated verbally and at the patient's bedside and all questions were answered. FALLS/LUNSFORD Patient did not experience a fall within the Preoperative area. Patient did not experience a burn within the Preoperative area. Keena Solis RN FLOW CYTO HOLD Collected: 12/26/2017 Status: F Source: [place] SAMPLE 12:20 PM [facility] REPOSITORY TYPE CODE TESTS RESULT OUT OF REFERENCE UNITS RANGE LAB RUDI A bone marrow sample was Flow received for potential Cyto Hold flow cytometry Sample studies. Following morphologic review of the bone marrow, flow cytometric studies will be ordered by the hematopathologist if testing is indicated. Please see the corresponding bone marrow surgical pathology report. Result Comment: [id number] Performed By: #### RUDI, TCRB #### [facility] [employer] [address] [place], [place] [address] T CELL RECEPTOR BETA Collected: 12/26/2017 Status: F Source: [place] 12:20 PM [facility] REPOSITORY TYPE CODE TESTS RESULT OUT OF REFERENCE UNITS RANGE LAB TCRBMD T Cell Receptor Incorrect test Beta ordered. Correct order placed. Results to follow. Result Comment: Account Credited TCBMD ORDER PLACED ON NEW ACCESSION. DMCKNIGHT 01 01 2018 Performed By: #### RUDI, TCRB #### [facility] [employer] [address] [place], [place] [address] SURGICAL PATHOLOGY Observed: 12/26/2017 Status: C Source: [place] 12:20 PM [facility] REPOSITORY ADDITIONAL PROCEDURES PRESENT Specimen originated from [facility] Specimen #: [id number] Submitting Physician: FARRAH WINN ([id number]) FINAL DIAGNOSIS BONE MARROW, BIOPSY CORE, ASPIRATE CLOT, TOUCH IMPRINT, ASPIRATE AND PERIPHERAL BLOOD SMEARS: - CELLULAR (40%) BONE MARROW WITH TRILINEAGE HEMATOPOIESIS. - ADEQUATE STAINABLE IRON. - NO MORPHOLOGIC EVIDENCE OF LYMPHOMA. - SEE COMMENT. COMMENT: The patient has a history of cutaneous T-cell lymphoma. The main findings in this case consist of unremarkable bone marrow with no definitive evidence of a neoplastic process. Correlation with clinical and conventional cytogenetic findings is recommended. PERIPHERAL BLOOD: CBC (12/26/2017): WBC 4.7 k/uL; Hgb 13 g/dL; MCV 97.3 fL; RDW 13.3%; Plts 197 k/uL Differential (%): Segs 61, Lymphs 29, Monos 9, Eos 1, Baso 0 Morphology/Interpretation: Unremarkable. BONE MARROW ASPIRATE Normal % (0-2) 0 % Blasts (1-5) 1 % Promyelo (32-72) 43 % Myelos/Metas/Bands/Segs (1-6) 6 % Eosinophils (0-1) 1 % Basophils (0-4) 3 % Monocytes (13-37) 31 % Erythroid precursors (7-23) 14 % Lymphocytes (0-2) 1 % Plasma cells Myeloid/Erythro (1.5-4): 1.7 Cells counted: 500 Iron stain result: 3+ (on a 0-4+ scale); no ring sideroblasts. Specimen Quality: Adequate. Megakaryocytes: Unremarkable. Erythropoiesis: Progressive maturation. Granulopoiesis: Unremarkable. Other: Small, mature lymphocytes. BONE MARROW BIOPSY: Adequacy: Adequate. Cellularity: Normal (30%). ME ratio: Normal. Hematopoiesis: Trilineage maturation. Megakaryocytes: Adequate. Megakaryocyte morphology: Unremarkable. Lymphoid infiltrate: None. Atypical infiltrate: None. Bone trabeculae: Normal. CLOT SECTION: Marrow particles: Many. Morphology: Similar to biopsy. ANCILLARY TESTS: Flow cytometry: Not indicated. Cytogenetics: Pending. FISH: N/A Molecular: N/A CVC/db 12/27/2017 Laboratory Developed Test (LDT) Disclaimer: Positive and negative controls stain appropriately. Performance characteristics of immunohistochemical, immunofluorescent and chromogenic in-situ hybridization tests have been determined by [facility]'s [facility] [place] ([facility]) in a manner consistent with CLIA requirements. One or more of these tests have not been cleared or approved by the FDA. [facility] is regulated under CLIA as qualified to perform high-complexity testing. These tests are used for clinical purposes. They should not be regarded as investigational or for research. Madhu Byrd M.D., PhD (Electronic Signature) SPECIMEN SUBMITTED A: BONE MARROW, ASPIRATE RPIC B: BONE MARROW, BIOPSY RPIC C: BONE MARROW, CLOT RPIC ADDITIONAL PROCEDURE(S) T-Cell Clonality by BIOMED2 PCR Date Ordered: 12/28/2017 Date Reported: 01/07/2018 Procedure Results and Interpretation T-cell Clonality PCR (BIOMED-2 Primers) Specimen Type: Bone Marrow DNA Quality: Good Results: TCRB A (V-J): Nonclonal TCRB B (V-J): Abnormal peak (257 bp) TCRB C (D-J): Abnormal peak (302 bp) TCRG A (V-J): Nonclonal TCRG B (V-J): Nonclonal Interpretation: INDETERMINATE for a clonal rearrangement (See comment) Comment: An abnormal peak on a polyclonal background was detected by PCR in one or more primer sets targeting the T-cell receptor beta (TCRB) or gamma (TCRG) chain loci. The possibility of a low level monoclonal T-cell population cannot be excluded. Method: DNA is isolated from the specimen provided and subjected to PCR amplification using a fluorescently labeled primers targeting the T-cell receptor beta (TCRB) and gamma (TCRG) chain loci ([employer], [place], [place]). Fluorescently labeled PCR products were analyzed by capillary gel electrophoresis. An additional PCR reaction directed at housekeeping genes was performed as a control for each sample to ensure adequate DNA quality. Limitations of the assay: 1. PCR may not detect all clonal rearrangements detectable by Southern blot analysis. 2. The sensitivity of the assay is affected by the intensity of the polyclonal background. The assay detects a clonal population of approximately 5% in a background of tonsil DNA. 3. Monoclonality is not equivalent to malignancy. Results of this test should be interpreted in the context of the clinical, histological, flow cytometric, and/or immunophenotypic information. 4. Detection of monoclonality with this assay usually indicates a monoclonal T-cell population; however, lineage assignment is not entirely reliable since some B-cell lymphomas and acute myeloid leukemias may have rearranged TCR genes. This test was developed and its performance characteristics determined by [facility] [place]. It has not been cleared or approved by the U.S. Food and Drug Administration. [facility] [place] is authorized under Clinical Laboratory Improvement Amendments (CLIA) to perform high-complexity testing. As Reviewed By: Jill Tineo/wilfrid 01/02/2018 ANALYTE SPECIFIC REAGENT (ASR) DISCLAIMER This test was developed and its performance characteristics determined by [facility] [place] ([facility]). It has not been cleared or approved by the FDA. [facility] is regulated under CLIA as qualified to perform high-complexity testing. This test is used for clinical purposes. It should not be regarded as investigational or for research. Procedure Pathologist: Dale Bella M.D./LITTLE Electronic Signature CLINICAL DATA CUTANEOUS T CELL LYMPHOMA GROSS DESCRIPTION A. Received are air-dried bone marrow aspirate smears. Submitted for light microscopy. B. Received in formalin are two segments of cylindrical tissue aggregating to 1.1 x 0.2 x 0.2 cm, barkley and of a firm consistency. Attached is a segment of hemorrhagic material measuring 5.2 x 0.2 x 0.2 cm. Totally submitted in formalin in one cassette after decalcification. C. Received in formalin is one segment of red, hemorrhagic material measuring 2.1 x 1.8 x 0.3 cm. Totally submitted in one cassette. Gross examination performed at [facility], [address] [place] [address] FF 12/26/2017 10:58:56 PM Date of Report: 12/28/2017 Date of Procedure: 12/26/2017 Date of Receipt: 12/26/2017 Submitted by: FARRAH WINN ([id number]) [facility] performed at [place] [address]. T-CELL CLONAL Collected: 12/26/2017 Status: F Source: [place] [id number] 12:20 PM [facility] REPOSITORY TYPE CODE TESTS RESULT OUT OF REFERENCE UNITS RANGE LAB TCBMD2 T-Cell Clonal (NOTE) [facility] Result Comment: Refer to [facility] Surgical Pathology report, case [id number] Performed By: #### TCBMD #### [facility] [address] [place], [place] [address] PT ED Observed: 12/26/2017 Status: COMPLETED Source: [place] 12:18 PM [facility] REPOSITORY HNO ID: [id number] Author: Keena Willis) HELADIO Solis Service: (none) Author Type: Registered Nurse Type: Patient Education Filed: 12/26/2017 12:20 PM Note Text: Discharge Instructions were reviewed pre-operatively with the patient. All questions and concerns were addressed. Ke[place] Solis RN PRE OP LEARNING ASSESSMENT PROCEDURE/SURGERY: SURGERY: Bone Marrow Biopsy READINESS TO LEARN COGNITIVE ABILITY: Alert and oriented MOTIVATION TO LEARN: Interested FAMILY SUPPORT: Unable to assess - Family not present PATIENT LEARNS BEST BY: Multiple Methods FACTORS AFFECTING LEARNING: None PHYSICAL LIMITATIONS AFFECTING LEARNING: None Electronically Signed By: [place] Solis RN In Department: AMBULATORY SURGERY NM PET/CT WHOLE Observed: 12/25/2017 Status: F Source: [place] BODY INIT 12:34 PM [facility]AMP[facility] REPOSITORY * * *Final Report* * * DATE OF EXAM: Dec 25 2017 12:34PM MDP 0061 - NM PET/CT WHOLE BODY INIT / PROCEDURE REASON: multiple diagnoses * * * * Physician Interpretation * * * * EXAMINATION: WHOLE BODY FDG PET/CT SCAN: (12/25/2017 1:04 PM) HISTORY: 77 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 INDICATION: Study performed for initial treatment strategy. TECHNIQUE: F18-FDG administered IV was followed about 60 minutes later by PET imaging from skull vertex to toes. Free breathing low dose CT was performed without contrast for attenuation correction and anatomic localization. Blood glucose before FDG injection: Not obtained FDG radionuclide dose: 7.[address] Dose-Length Product (DLP): 482 mGy*cm CT Dose Reduction Employed: Automatic exposure control used (AED) COMPARISON: None CORRELATION: CT scan of the abdomen and pelvis dated 12/24/2017. CT scan of the brain dated 09/08/2015. RESULT: HEAD AND NECK: Physiologic uptake seen in the visualized brain, parapharyngeal soft tissues, base of tongue, vocal cords, and salivary glands. No hypermetabolic cervical lymphadenopathy or hypermetabolic masses. No focal hypermetabolic thyroid lesion. CHEST: For reference mediastinal blood pool maximum SUV is 2.2. Physiologic uptake in the heart and mediastinum. Lungs, tracheobronchial tree and pleura: No hypermetabolic consolidation, mass or nodules. Linear atelectasis/scarring in the inferior lingula, right middle lobe and bibasilar lower lobes. Mediastinum and Lymph nodes: No hypermetabolic mediastinal lymphadenopathy. No suspicious hilar lymphadenopathy. No mediastinal mass. The heart appears mildly enlarged. Chest wall and axilla: No hypermetabolic lesions. No hypermetabolic axillary lymphadenopathy. ABDOMEN AND PELVIS: Physiologic uptake seen in the and GI tracts. Liver: No hypermetabolic mass. Biliary: No bile duct dilation. Spleen: No hypermetabolic mass. No splenomegaly. Pancreas: No hypermetabolic mass. Adrenals: No hypermetabolic lesions. Kidneys: No stones, hydronephrosis, or hypermetabolic lesions. Stable fat-containing lesion under the inner identified is a small fat-containing lesion in the lateral cortex of the right mid kidney measuring 14 x 17 mm compatible with an angiomyolipoma. GI tract: No dilation or wall thickening. Lymph nodes: No hypermetabolic abdominal or pelvic lymphadenopathy. Mesentery/Peritoneum: No ascites or hypermetabolic mass lesions. Vasculature: Vascular patency cannot be assessed due to lack of IV contrast. There are atherosclerotic calcifications without aneurysmal dilation. Pelvis: No hypermetabolic mass, ascites or fluid collection. BONES AND EXTREMITIES: No suspicious FDG avid foci are detected. The imaged portions of the skeleton disclose age-related degenerative changes, with no detectable destructive lytic or sclerotic lesions to suggest metastases. - IMPRESSION: 1. NECK: No FDG avid neoplastic process. No mass, adenopathy, or fluid collection. 2. CHEST: No FDG avid neoplastic process. No mass, adenopathy, or fluid collection. 3. ABDOMEN/PELVIS: No FDG avid neoplastic process. No mass, adenopathy, or fluid collection. 4. EXTREMITIES/SKELETON: No FDG avid osseous process. No destructive/traumatic bony abnormality. *Deauville score: 1 - score 1 : no uptake - score 2 : uptake <= mediastinum - score 3 : uptake > mediastinum, but <= liver - score 4 : uptake moderately higher than liver - score 5 : uptake markedly higher than liver and/or new lesions - score X : new areas of uptake unlikely to be related to lymphoma See Wheeler: SHAMIKA Transcribe Date/Time: Dec 25 2017 1:04P Dictated by : DELORIS WYMAN MD This examination was interpreted and the report reviewed and electronically signed by: DELORIS WYMAN MD on Dec 25 2017 1:25PM EST [id number] CBC AND DIFF Collected: 12/20/2017 Status: F Source: [place] 12:59 PM [facility] REPOSITORY TYPE CODE TESTS RESULT OUT OF REFERENCE UNITS RANGE LAB WWBC 3.70-11.00 k/uL [place] WBC 6.31 LAB WRBC 3.90-5.20 m/uL [place] RBC 4.06 LAB WHGB 11.5-15.5 g/dL [place] Hemoglobin 13.1 LAB WHCT 36.0-46.0 % [place] Hematocrit 39.2 LAB WMCV 80.0-100.0 fL [place] MCV 96.6 LAB WMCH 26.0-34.0 pg [place] MCH 32.3 LAB WMCHC 30.5-36.0 g/dL [place] MCHC 33.4 LAB WRDW 11.5-15.0 % [place] RDW 13.1 LAB WPLT 150-400 k/uL [place] Platelet Cnt 233 LAB WMPV 9.0-12.7 fL [place] MPV 10.8 Result Comment: Test performed at: [facility] [place], [address] [place] [address]. LAB WNEUT % [place] Neut% 67.0 LAB WLYMP % [place] Lymp% 21.9 LAB WMONOC % [place] Osceola% 8.9 LAB WEOS % [place] Eos% 1.9 LAB WBASO % [place] Baso% 0.3 LAB WANEUT 1.45-7.50 k/uL [place] Abs Neut 4.23 LAB WALYMP 1.00-4.00 k/uL [place] Abs Lymp 1.38 LAB WAMONO <0.87 k/uL [place] Abs Osceola 0.56 LAB WAEOS <0.46 k/uL [place] Abs Eos 0.12 LAB WABASO <0.11 k/uL [place] Abs Baso <0.03 COMP METABOLIC PANEL Collected: 12/20/2017 Status: F Source: [place] 12:59 PM [facility] REPOSITORY TYPE CODE TESTS RESULT OUT OF REFERENCE UNITS RANGE LAB TP 6.3-8.0 g/dL Protein, Total 7.2 LAB ALB 3.9-4.9 g/dL Albumin 4.5 LAB CA 8.5-10.2 mg/dL Calcium, Total 10.0 LAB TBIL 0.2-1.3 mg/dL Bilirubin, Total 0.4 LAB ALKP 34-123 U/L Alkaline Phosphatase 68 LAB AST 13-35 U/L AST 21 LAB GLU 74-99 mg/dL Glucose High 102 LAB BUN 7-21 mg/dL BUN 19 LAB CRET 0.58-0.96 mg/dL Creatinine High 1.13 LAB NA 136-144 mmol/L Sodium 140 LAB K 3.7-5.1 mmol/L Potassium 4.2 LAB CL 97-105 mmol/L Chloride 105 LAB CO2 22-30 mmol/L CO2 26 LAB AGAP mmol/L Anion Gap 9 LAB ALT 7-38 U/L ALT 10 LAB GFRAA eGFR- 56 Amer. LAB GFRNAA . eGFR-All Other Races 47 Result Comment: eGFR (Estimated GFR) Units of measure: mL/min/1.73 meters squared eGFR is derived from the reexpressed MDRD Study equation using the following parameters: serum creatinine, age, gender and race. The creatinine assay has been calibrated to be traceable to IDMS. An eGFR <60 mL/min/1.73m2 for >3 months is consistent with chronic kidney disease. Refer to KDOQI guidelines for clinical interpretation. In patients with unstable renal function, e.g. those with acute kidney injury, the eGFR may not accurately reflect actual GFR. Performed By: #### WSR, B2M, CRP #### [facility] [address] [place], [place] [address] LD Collected: 12/20/2017 Status: F Source: [facility] 12:59 PM [facility] [place] REPOSITORY TYPE CODE TESTS RESULT OUT OF RANGE REFERENCE UNITS LAB LD 135-214 U/L LD 214 Performed By: #### WSR, B2M, CRP #### [facility] [address] [place] [address] SED RATE WESTERGREN Collected: 12/20/2017 Status: F Source: [place] 12:59 PM [facility] REPOSITORY TYPE CODE TESTS RESULT OUT OF REFERENCE UNITS RANGE LAB WSR 0-20 mm/hr Sed Rate Westergren 9 Performed By: #### WSR, B2M, CRP #### [place] [address] B2 MICROGLOBULIN Collected: 12/20/2017 Status: F Source: [place] 12:59 PM [facility] REPOSITORY TYPE CODE TESTS RESULT OUT OF REFERENCE UNITS RANGE LAB B2M 0.8-2.2 mg/L B2 Microglobulin High 2.9 Performed By: #### WSR, B2M, CRP #### [place] [address] C-REACTIVE PROTEIN Collected: 12/20/2017 Status: F Source: [place] 12:59 PM [facility] REPOSITORY TYPE CODE TESTS RESULT OUT OF REFERENCE UNITS RANGE LAB CRP <0.9 mg/dL C-Reactive 0.2 Protein Performed By: #### WSR, B2M, CRP #### [place] [address] URIC ACID Collected: 12/20/2017 Status: F Source: [place] 12:59 PM [facility] REPOSITORY TYPE CODE TESTS RESULT OUT OF RANGE REFERENCE UNITS LAB URIC 2.5-6.6 mg/dL Uric Acid 5.5 PROGRESS Observed: 12/20/2017 Status: COMPLETED Source: [place] 12:47 PM [facility] REPOSITORY HNO ID: [id number] Author: Farrah Winn Service: (none) Author Type: Physician Type: Progress Notes Filed: 12/21/2017 7:18 AM Note Text: Hematology and Medical Oncology PATIENT NAME: Martell Nascimento. CLINIC NO: [id number]. ATTENDING PHYSICIAN: Farrah Winn MD. DATE OF SERVICE:12/20/2017. DIAGNOSIS: cutaneous diffuse large T-cell lymphoma PERFORMANCE STATUS:100% HPI: 77-year-old female with history of atrial fibrillation presented with a skin lesion appear overnight on her lower chest area 6 weeks ago. patient has history of actinic keratosis on the face and nose, she was last seen and have removed all the sleep position in October. She appeared to have a raise (red/purplish) lesion on her lower chest. It is not painful, red or hot, but very itchy. She was seen by dermatology last week and has a shave biopsy of the nodule lesion which came back positive for large T-cell lymphoma, BCL 6 negative, BCL-2 positive, ALK 1 negative, CD30 negative, Mum 1 negative, T-cell markers were positive. patient has no fever, chills or night sweats. She has a 10 pound weight loss over the last 6 months because of frequent diarrhea which started in recur late this summer. She had a colonoscopy last year and recent CT scan of abdomen and pelvis. Patient has no swallowing gland or adenopathy. She has no chest pain, cough or shortness of breath. No unusual bleeding or bruising on Coumadin for atrial fibrillation. MEDICATIONS: Current Outpatient Prescriptions: vitamin b complex tab Take 1 tablet by mouth 3 times a WEEK. warfarin (COUMADIN) 5 mg tablet Take 2.5 mg on , , and 5 mg all other days or as directed levothyroxine (SYNTHROID) 75 mcg tablet Take 1 tablet by mouth once daily. gabapentin (NEURONTIN) 100 mg capsule TAKE ONE CAPSULE BY MOUTH THREE TIMES DAILY metoprolol succinate ER (TOPROL XL) 25 mg 24 hr tablet Take 0.5 tablets by mouth once daily. TIKOSYN 125 mcg capsule TAKE ONE CAPSULE BY MOUTH TWICE DAILY BIOTIN ORAL Take 5,000 mg by mouth once daily. VIT A/C/E AC/ZNOX/CUPRIC OXIDE (EYE VITAMIN AND MINERALS ORAL) Take 1 tablet by mouth once daily. LACTOBACILLUS COMBO NO.6 (PROBIOTIC COMPLEX ORAL) Take 1 capsule by mouth once daily. OTC PRODUCT Calcium Lactate 300 mg once daily Cholecalciferol, Vitamin D3, 2,000 unit tab Take 1 tablet by mouth once daily. furosemide (LASIX) 20 mg tablet Take 0.5 tablets by mouth once daily. (Patient not taking: Reported on 12/07/2017 ) COMPOUNDED PRESCRIPTION Standing orderPATIENT/INR:DX: atrial fibFax results to [phone] No current facility-administered medications for this visit. . ALLERGIES:ALLERGIES No Known Allergies. 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 PAST SURGICAL HISTORY: PAST SURGICAL HISTORY Procedure Laterality Date - ATRIAL FIBRILLATION/FLUTTER ABLATION attempted ablation - CHOLECYSTECTOMY 65 - COLONOSCOP W/ OR W/O [facility] SPEC 05/03/11 repeat 5 years - COLONOSCOP W/ OR W/O [facility] SPEC 01/25/2017 repeat in [address] Rolle - HEMORRHOID;BAND LIGAT, SNGL/MUL Hemorrhoidectomy - PAST SURGICAL HISTORY OF 61 AND63 c section(x2) - PAST SURGICAL HISTORY OF 04/04/2006 colonoscopy - PAST SURGICAL HISTORY OF appendectomy - PAST SURGICAL HISTORY OF 2008 cataract - PAST SURGICAL HISTORY OF 2004 Repair of right wrist fx - PAST SURGICAL HISTORY OF 12/05/2017 Shave biopsy left rib cage - REMOVAL OF TONSILS,<12 Y/O Tonsillectomy . FAMILY HISTORY: FAMILY HISTORY Problem Relation Age of Onset - Diabetes Mother - Heart Mother CHF - Stroke Mother 95 - Arthritis Mother - other (brain tumor) Father 54 - Ischemic Heart Disease Sister - other (Rectal Cancer) Sister . SOCIAL HISTORY:Social History Marital status: Spouse name: Sven Years of education: Number of children: 2 Occupational History Occupation Employer Comment Teacher - retired Social History Main Topics Smoking status: Never Smoker Smokeless tobacco: Never Used Alcohol use: No Drug use: No Sexual activity: Not Currently Partners with: Male Comment: Postmenopausal . REVIEW OF SYSTEMS: CONSTITUTIONAL: No fevers, chills, nightsweats, +unintended weight loss HEENT: Denies frequent or severe heaches, nasal congestion/sinus symptoms, problematic allergy problems. EYES: No diplopia or blurry vision. CARDIOVASCULAR: No chest pain, dyspnea, palpitations, orthopnea, PND, ankle edema. PULM: No dyspnea, unexplained cough. GI: No dysphagia/odynophagia, problematic reflux, constipation, + diarrhea, changes in stool habits, hematochezia, melena. : No new urinary complaints, including dysuria, gross hematuria or pyuria. NEURO: No new balance problems, peripheral weakness/paresthesias or numbness of concern. MUSC-SKEL: No new joint pain, swelling, or erythema. PSY: No concerns regarding depression, anxiety or panic. INTEGUMENTARY: No new skin changes (rash, new or changing mole, new growth) except for the growth on her left lower chest. PHYSICAL EXAMINATION: 77-year-old well-nourished well-developed female in no acute distress. BP 140/85 Pulse 60 Temp (Src) 98.3 (Oral) Ht 5' 7.25[Ht verified with Elvira Navarrete LPN[ (1.71m) Wt 142 lb 8 oz (64.6kg) BMI 22.16 kg/(m2). HEENT: Head is normocephalic, atraumatic. Sclerae white, conjunctivae pink. PEERL. EOMs are intact. Oropharynx is benign. LYMPHATICS: There is no palpable adenopathy in the neck, supraclavicular region, axillae, or groin. LUNGS: Lungs are clear to percussion and auscultation. CHEST: well-healed scar in the left lower chest with slight discoloration. HEART: Heart is normal with grade 1/6 systolic murmurs, no gallops, or rubs. ABDOMEN: Soft and nontender without organomegaly. No masses can be palpated. EXTREMITIES: Are without edema. NEUROLOGIC: Exam is physiologic LABORATORY DATA: Component Latest Ref Rng AND Units 12/20/2017 WBC, [place] 3.70 - 11.00 k/uL 6.31 RBC, [place] 3.90 - 5.20 m/uL 4.06 Hemoglobin, [place] 11.5 - 15.5 g/dL 13.1 Hematocrit, Sheri 36.0 - 46.0 % 39.2 MCV, Sheri 80.0 - 100.0 fL 96.6 MCH, [place] 26.0 - 34.0 pg 32.3 MCHC, Sheri 30.5 - 36.0 g/dL 33.4 RDW, Sheri 11.5 - 15.0 % 13.1 Platelet Cnt, Sheri 150 - 400 k/uL 233 MPV, Sheri 9.0 - 12.7 fL 10.8 Neut%, [place] % 67.0 Lymp%, Sheri % 21.9 [place]%, Sheri % 8.9 Eos%, Sheri % 1.9 Baso%, Sheri % 0.3 Abs Neut, Sheri 1.45 - 7.50 k/uL 4.23 Abs Lymp, [place] 1.00 - 4.00 k/uL 1.38 Abs [place], Sheri <0.87 k/uL 0.56 Abs Eos, Sheri <0.46 k/uL 0.12 Abs Baso, Sheri <0.11 k/uL <0.03 Component Latest Ref Rng AND Units 12/20/2017 Protein, Total 6.3 - 8.0 g/dL 7.2 Albumin 3.9 - 4.9 g/dL 4.5 Calcium 8.5 - 10.2 mg/dL 10.0 Bilirubin, Total 0.2 - 1.3 mg/dL 0.4 Alkaline Phosphatase 34 - 123 U/L 68 AST 13 - 35 U/L 21 Glucose 74 - 99 mg/dL 102 (H) BUN 7 - 21 mg/dL 19 Creatinine 0.58 - 0.96 mg/dL 1.13 (H) Sodium 136 - 144 mmol/L 140 Potassium 3.7 - 5.1 mmol/L 4.2 Chloride 97 - 105 mmol/L 105 CO2 22 - 30 mmol/L 26 Anion Gap mmol/L 9 ALT 7 - 38 U/L 10 eGFR- 56 eGFR-All Other Races . 47 LD 135 - 214 U/L 214 B2 Microglobulin 0.8 - 2.2 mg/L 2.9 (H) WSR 0 - 20 mm/hr 9 CRP <0.9 mg/dL 0.2 Uric Acid 2.5 - 6.6 mg/dL 5.5 IMAGING: CT SCAN:COMPARISON: CT abdomen 10/22 Abdomen / Pelvis: Liver: Normal hepatic morphology. ?Subcentimeter low-density lesion in the lateral left lobe of the liver is too small to characterize, but statistically more likely benign. Biliary: The gallbladder is surgically absent. ?Stable ectasia of the central intrahepatic ducts. Spleen: No splenomegaly. Pancreas: Unremarkable. Adrenals: No mass. Kidneys: No hydronephrosis or renal calculi. ?Stable 1.4 x 1.7 cm fat density nodule in the interpolar region of the right kidney consistent with an angiomyolipoma. GI Tract: No bowel dilation. Lymph Nodes: No lymphadenopathy. Mesentery/peritoneum: No ascites. Retroperitoneum: No mass. Vasculature: No abdominal aortic aneurysm. Pelvis: No mass or ascites. ?The bladder has a normal appearance. Bones/Soft Tissues: No acute abnormality. Lower thorax: The heart is enlarged. ?No pleural effusion or consolidation. ?There are some linear areas of scarring or atelectasis in bilateral posterior lower lobes. IMPRESSION: 1. ?No acute pathology. ?No new mass or lymphadenopathy. 2. 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 - PET CT scan for staging and bone marrow biopsy next week - Patient should hold her Coumadin starting today and resume Coumadin after procedure. Indication and risks of bone marrow biopsy and aspiration were discussed with the patient and family including infection, bleeding. The patient and family were allowed enough time to ask questions. All questions were answered to their satisfaction. Patient and family verbalized understanding of treatment plan and agreed to proceed with her bone marrow biopsy evaluation. - I will see the patient in 3 weeks to go over her diagnosis, prognosis and treatment plans in greater detail. I spent 60 minutes in the visit, with more than 50% of the total [id number] time of the visit in counseling / coordination of care. Farrah Winn MD. ELECTRONICALLY SIGNED Cc: Pepito Chu CNOVSP Observed: 12/20/2017 Status: COMPLETED Source: [place] 11:50 AM [facility] REPOSITORY Visit (SP) Office ([place]) MARTELL NASCIMENTO ([id number]) 1940 F Date Time Provider Department 12/20/17 11:50 AM FARRAH WINN During your visit today, we recorded the following information about you: Temperature Pulse Blood pressure Weight 98.3 degrees 60/minute 140/85 64.6 kg Height 1.708 m Farrah Winn MD 12/21/2017 7:18 AM Signed Hematology and Medical Oncology PATIENT NAME: Martell Nascimento. CLINIC NO: [id number]. ATTENDING PHYSICIAN: Farrah Winn MD. DATE OF SERVICE:12/20/2017. DIAGNOSIS: cutaneous diffuse large T-cell lymphoma PERFORMANCE STATUS:100% HPI: 77-year-old female with history of atrial fibrillation presented with a skin lesion appear overnight on her lower chest area 6 weeks ago. patient has history of actinic keratosis on the face and nose, she was last seen and have removed all the sleep position in October. She appeared to have a raise (red/purplish) lesion on her lower chest. It is not painful, red or hot, but very itchy. She was seen by dermatology last week and has a shave biopsy of the nodule lesion which came back positive for large T-cell lymphoma, BCL 6 negative, BCL-2 positive, ALK 1 negative, CD30 negative, Mum 1 negative, T-cell markers were positive. patient has no fever, chills or night sweats. She has a 10 pound weight loss over the last 6 months because of frequent diarrhea which started in recur late this summer. She had a colonoscopy last year and recent CT scan of abdomen and pelvis. Patient has no swallowing gland or adenopathy. She has no chest pain, cough or shortness of breath. No unusual bleeding or bruising on Coumadin for atrial fibrillation. MEDICATIONS: Current Outpatient Prescriptions: vitamin b complex tab Take 1 tablet by mouth 3 times a WEEK. warfarin (COUMADIN) 5 mg tablet Take 2.5 mg on M, W, F and 5 mg all other days or as directed levothyroxine (SYNTHROID) 75 mcg tablet Take 1 tablet by mouth once daily. gabapentin (NEURONTIN) 100 mg capsule TAKE ONE CAPSULE BY MOUTH THREE TIMES DAILY metoprolol succinate ER (TOPROL XL) 25 mg 24 hr tablet Take 0.5 tablets by mouth once daily. TIKOSYN 125 mcg capsule TAKE ONE CAPSULE BY MOUTH TWICE DAILY BIOTIN ORAL Take 5,000 mg by mouth once daily. VIT A/C/E AC/ZNOX/CUPRIC OXIDE (EYE VITAMIN AND MINERALS ORAL) Take 1 tablet by mouth once daily. LACTOBACILLUS COMBO NO.6 (PROBIOTIC COMPLEX ORAL) Take 1 capsule by mouth once daily. OTC PRODUCT Calcium Lactate 300 mg once daily Cholecalciferol, Vitamin D3, 2,000 unit tab Take 1 tablet by mouth once daily. furosemide (LASIX) 20 mg tablet Take 0.5 tablets by mouth once daily. (Patient not taking: Reported on 12/07/2017 ) COMPOUNDED PRESCRIPTION Standing orderPATIENT/INR:DX: atrial fibFax results to [phone] No current facility-administered medications for this visit. . ALLERGIES:ALLERGIES No Known Allergies. 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 PAST SURGICAL HISTORY: PAST SURGICAL HISTORY Procedure Laterality Date - ATRIAL FIBRILLATION/FLUTTER ABLATION attempted ablation - CHOLECYSTECTOMY 65 - COLONOSCOP W/ OR W/O [facility] SPEC 05/03/11 repeat 5 years - COLONOSCOP W/ OR W/O [facility] SPEC 01/25/2017 repeat in [address] Rolle - HEMORRHOID;BAND LIGAT, SNGL/MUL Hemorrhoidectomy - PAST SURGICAL HISTORY OF 61 AND63 c section(x2) - PAST SURGICAL HISTORY OF 04/04/2006 colonoscopy - PAST SURGICAL HISTORY OF appendectomy - PAST SURGICAL HISTORY OF 2008 cataract - PAST SURGICAL HISTORY OF 2004 Repair of right wrist fx - PAST SURGICAL HISTORY OF 12/05/2017 Shave biopsy left rib cage - REMOVAL OF TONSILS,<12 Y/O Tonsillectomy . FAMILY HISTORY: FAMILY HISTORY Problem Relation Age of Onset - Diabetes Mother - Heart Mother CHF - Stroke Mother 95 - Arthritis Mother - other (brain tumor) Father 54 - Ischemic Heart Disease Sister - other (Rectal Cancer) Sister . SOCIAL HISTORY:Social History Marital status: Spouse name: Sven Years of education: Number of children: 2 Occupational History Occupation Employer Comment Teacher - retired Social History Main Topics Smoking status: Never Smoker Smokeless tobacco: Never Used Alcohol use: No Drug use: No Sexual activity: Not Currently Partners with: Male Comment: Postmenopausal . REVIEW OF SYSTEMS: CONSTITUTIONAL: No fevers, chills, nightsweats, +unintended weight loss HEENT: Denies frequent or severe heaches, nasal congestion/sinus symptoms, problematic allergy problems. EYES: No diplopia or blurry vision. CARDIOVASCULAR: No chest pain, dyspnea, palpitations, orthopnea, PND, ankle edema. PULM: No dyspnea, unexplained cough. GI: No dysphagia/odynophagia, problematic reflux, constipation, + diarrhea, changes in stool habits, hematochezia, melena. : No new urinary complaints, including dysuria, gross hematuria or pyuria. NEURO: No new balance problems, peripheral weakness/paresthesias or numbness of concern. MUSC-SKEL: No new joint pain, swelling, or erythema. PSY: No concerns regarding depression, anxiety or panic. INTEGUMENTARY: No new skin changes (rash, new or changing mole, new growth) except for the growth on her left lower chest. PHYSICAL EXAMINATION: 77-year-old well-nourished well-developed female in no acute distress. BP 140/85 Pulse 60 Temp (Src) 98.3 (Oral) Ht 5' 7.25[Ht verified with Elvira Navarrete LPN[ (1.71m) Wt 142 lb 8 oz (64.6kg) BMI 22.16 kg/(m2). HEENT: Head is normocephalic, atraumatic. Sclerae white, conjunctivae pink. PEERL. EOMs are intact. Oropharynx is benign. LYMPHATICS: There is no palpable adenopathy in the neck, supraclavicular region, axillae, or groin. LUNGS: Lungs are clear to percussion and auscultation. CHEST: well-healed scar in the left lower chest with slight discoloration. HEART: Heart is normal with grade 1/6 systolic murmurs, no gallops, or rubs. ABDOMEN: Soft and nontender without organomegaly. No masses can be palpated. EXTREMITIES: Are without edema. NEUROLOGIC: Exam is physiologic LABORATORY DATA: Component Latest Ref Rng AND Units 12/20/2017 WBC, [place] 3.70 - 11.00 k/uL 6.31 RBC, Sheri 3.90 - 5.20 m/uL 4.06 Hemoglobin, [place] 11.5 - 15.5 g/dL 13.1 Hematocrit, Sheri 36.0 - 46.0 % 39.2 MCV, [place] 80.0 - 100.0 fL 96.6 MCH, Sheri 26.0 - 34.0 pg 32.3 MCHC, Sheri 30.5 - 36.0 g/dL 33.4 RDW, [place] 11.5 - 15.0 % 13.1 Platelet Cnt, [place] 150 - 400 k/uL 233 MPV, [place] 9.0 - 12.7 fL 10.8 Neut%, [place] % 67.0 Lymp%, Sheri % 21.9 [place]%, [place] % 8.9 Eos%, Sheri % 1.9 Baso%, [place] % 0.3 Abs Neut, [place] 1.45 - 7.50 k/uL 4.23 Abs Lymp, Sheri 1.00 - 4.00 k/uL 1.38 Abs [place], [place] <0.87 k/uL 0.56 Abs Eos, [place] <0.46 k/uL 0.12 Abs Baso, Sheri <0.11 k/uL <0.03 Component Latest Ref Rng AND Units 12/20/2017 Protein, Total 6.3 - 8.0 g/dL 7.2 Albumin 3.9 - 4.9 g/dL 4.5 Calcium 8.5 - 10.2 mg/dL 10.0 Bilirubin, Total 0.2 - 1.3 mg/dL 0.4 Alkaline Phosphatase 34 - 123 U/L 68 AST 13 - 35 U/L 21 Glucose 74 - 99 mg/dL 102 (H) BUN 7 - 21 mg/dL 19 Creatinine 0.58 - 0.96 mg/dL 1.13 (H) Sodium 136 - 144 mmol/L 140 Potassium 3.7 - 5.1 mmol/L 4.2 Chloride 97 - 105 mmol/L 105 CO2 22 - 30 mmol/L 26 Anion Gap mmol/L 9 ALT 7 - 38 U/L 10 eGFR- 56 eGFR-All Other Races . 47 LD 135 - 214 U/L 214 B2 Microglobulin 0.8 - 2.2 mg/L 2.9 (H) WSR 0 - 20 mm/hr 9 CRP <0.9 mg/dL 0.2 Uric Acid 2.5 - 6.6 mg/dL 5.5 IMAGING: CT SCAN:COMPARISON: CT abdomen 10/22 Abdomen / Pelvis: Liver: Normal hepatic morphology. ?Subcentimeter low-density lesion in the lateral left lobe of the liver is too small to characterize, but statistically more likely benign. Biliary: The gallbladder is surgically absent. ?Stable ectasia of the central intrahepatic ducts. Spleen: No splenomegaly. Pancreas: Unremarkable. Adrenals: No mass. Kidneys: No hydronephrosis or renal calculi. ?Stable 1.4 x 1.7 cm fat density nodule in the interpolar region of the right kidney consistent with an angiomyolipoma. GI Tract: No bowel dilation. Lymph Nodes: No lymphadenopathy. Mesentery/peritoneum: No ascites. Retroperitoneum: No mass. Vasculature: No abdominal aortic aneurysm. Pelvis: No mass or ascites. ?The bladder has a normal appearance. Bones/Soft Tissues: No acute abnormality. Lower thorax: The heart is enlarged. ?No pleural effusion or consolidation. ?There are some linear areas of scarring or atelectasis in bilateral posterior lower lobes. IMPRESSION: 1. ?No acute pathology. ?No new mass or lymphadenopathy. 2. 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 - PET CT scan for staging and bone marrow biopsy next week - Patient should hold her Coumadin starting today and resume Coumadin after procedure. Indication and risks of bone marrow biopsy and aspiration were discussed with the patient and family including infection, bleeding. The patient and family were allowed enough time to ask questions. All questions were answered to their satisfaction. Patient and family verbalized understanding of treatment plan and agreed to proceed with her bone marrow biopsy evaluation. - I will see the patient in 3 weeks to go over her diagnosis, prognosis and treatment plans in greater detail. I spent 60 minutes in the visit, with more than 50% of the total dvjk-gn-[id number] time of the visit in counseling / coordination of care. Farrah Winn MD. ELECTRONICALLY SIGNED Cc: Dr. 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] Other Visit Diagnoses:CKD (chronic kidney disease) stage 3, GFR 30-59 ml/min (HCC) [N18.3] Cutaneous T-cell lymphoma, extranodal and solid organ sites (HCC) [C84.A9] Order(s):NM PET/CT WHOLE BODY [0328238] Order #: [id number] FUTURE SHERI CBC AND DIFF [SQWCBCDF] Order #: [id number] FUTURE COMP METABOLIC PANEL [SQCMP] Order #: [id number] FUTURE LD LACTATE DEHYDRO [SQLD6] Order #: [id number] FUTURE B2 MICROGLOBULIN B [SQB2M] Order #: [id number] FUTURE SED RATE WESTERGREN [SQWSR] Order #: [id number] FUTURE C-REACTIVE PROTEIN (CRP) [SQCRP] Order #: [id number] FUTURE URIC ACID BLOOD [SQURIC] Order #: [id number] FUTURE HEP REMOTE PANEL BL [SQHREMOP] Order #: [id number] FUTURE Level of Service: NEW PATIENT VISIT LEVEL 5 [03061] Disposition: Return in about 3 weeks (around 01/10/2018). Follow-up and Disposition History Recorded Prescriptions as of 12/20/2017 Sig: VITAMIN B COMPLEX TABLET Take 1 tablet by mouth 3 time* WARFARIN 5 MG TABLET Take 2.5 mg on M, W, F and 5 * LEVOTHYROXINE 75 MCG TABLET Take 1 tablet by mouth once d* GABAPENTIN 100 MG CAPSULE TAKE ONE CAPSULE BY MOUTH THR* METOPROLOL SUCCINATE ER 25 MG* Take 0.5 tablets by mouth onc* TIKOSYN 125 MCG CAPSULE TAKE ONE CAPSULE BY MOUTH TWI* BIOTIN ORAL Take 5,000 mg by mouth once d* EYE VITAMIN AND MINERALS ORAL Take 1 tablet by mouth once d* PROBIOTIC COMPLEX ORAL Take 1 capsule by mouth once * OTC PRODUCT Calcium Lactate 300 mg once d* CHOLECALCIFEROL (VITAMIN D3) * Take 1 tablet by mouth once d* FUROSEMIDE 20 MG TABLET Take 0.5 tablets by mouth onc* Patient not taking: Reported on 12/07/2017 COMPOUNDED PRESCRIPTION Standing order PATIENT/INR: * Problem List As Of Date 12/20/2017 Noted Resolved Chest pain [R07.9] INVALID FOR* Atrial fibrillation [I48.91] INVALID FOR* More... 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 Mitral valve regurgitation [I34.0] INVALID FOR* More... 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 CKD (chronic kidney disease) stage 3, GFR 30-59*INVALID FOR* Dermatochalasis of both upper eyelids [H02.831,*INVALID FOR*09/14/2017 Encounter Status:Closed by FARRAH WINN MD on 12/21/17 SHEILA Observed: 12/20/2017 Status: COMPLETED Source: [place] 12:00 AM [facility] REPOSITORY Telephone (ii4b) MARTELL NASCIMENTO ([id number]) 1940 F Date Time Provider Department 12/20/17 FARRAH WINN During your visit today, we recorded the following information about you: Nany Aguero Mt Psr 12/20/2017 1:15 PM Signed Patient has been scheduled for PET scan at [facility] on 12/25. This was their first available, also checked with [facility] and their first available is 12/24. Is the date of 12/25 ok? Kianna Schwartz 12/20/2017 1:18 PM Signed That should be fine. OV note states PET scan next week. Kianna Schwartz 12/21/2017 8:[address] Winn, please verify if this date is OK. Orders state ANDRÉS. PSR's wanted to make sure date scheduled is sufficient and it does not need to be done earlier. (See under patient instructions). Farrah Winn MD 12/21/2017 9:01 AM Signed Next week is fine. Farrah Winn MD Allergies As of Date: 12/20/2017 (No Known Allergies) Date Reviewed: 12/20/2017 Reviewed by: Pinky Hernandez - Fully Assessed Reason for Visit: PET SCAN DATE [Other] Prescriptions as of 12/20/2017 Sig: VITAMIN B COMPLEX TABLET Take 1 tablet by mouth 3 time* WARFARIN 5 MG TABLET Take 2.5 mg on M, W, F and 5 * LEVOTHYROXINE 75 MCG TABLET Take 1 tablet by mouth once d* GABAPENTIN 100 MG CAPSULE TAKE ONE CAPSULE BY MOUTH THR* FUROSEMIDE 20 MG TABLET Take 0.5 tablets by mouth onc* Patient not taking: Reported on 12/07/2017 METOPROLOL SUCCINATE ER 25 MG* Take 0.5 tablets by mouth onc* TIKOSYN 125 MCG CAPSULE TAKE ONE CAPSULE BY MOUTH TWI* COMPOUNDED PRESCRIPTION Standing order PATIENT/INR: * BIOTIN ORAL Take 5,000 mg by mouth once d* EYE VITAMIN AND MINERALS ORAL Take 1 tablet by mouth once d* PROBIOTIC COMPLEX ORAL Take 1 capsule by mouth once * OTC PRODUCT Calcium Lactate 300 mg once d* CHOLECALCIFEROL (VITAMIN D3) * Take 1 tablet by mouth once d* Problem List As Of Date 12/20/2017 Noted Resolved Chest pain [R07.9] INVALID FOR* Atrial fibrillation [I48.91] INVALID FOR* More... 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 Mitral valve regurgitation [I34.0] INVALID FOR* More... 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 CKD (chronic kidney disease) stage 3, GFR 30-59*INVALID FOR* Dermatochalasis of both upper eyelids [H02.831,*INVALID FOR*09/14/2017 Other instructions from your clinician: Patient has been scheduled for PET scan at [facility] on 12/25. This was their first available, also checked with [facility] and their first available is 12/24. Is the date of 12/25 ok? Encounter Status:Closed by NICOLLE DENNIS on 12/20/17 HOSP Observed: 12/20/2017 Status: COMPLETED Source: [place] 12:00 AM [facility] REPOSITORY Patient:Martell Nascimento MRN: <[id number]> Height:5' 7.25[Ht verified with Elvira Navarrete LPN[(1.708 m) Weight:142 lb 6.7 oz (64.6 kg) Outpatient Medications as of 12/26/17: vitamin b complex tab warfarin (COUMADIN) 5 mg tablet levothyroxine (SYNTHROID) 75 mcg tablet gabapentin (NEURONTIN) 100 mg capsule metoprolol succinate ER (TOPROL XL) 25 mg 24 hr tablet TIKOSYN 125 mcg capsule COMPOUNDED PRESCRIPTION BIOTIN ORAL VIT A/C/E AC/ZNOX/CUPRIC OXIDE (EYE VITAMIN AND MINERALS ORAL) LACTOBACILLUS COMBO NO.6 (PROBIOTIC COMPLEX ORAL) OTC PRODUCT Cholecalciferol, Vitamin D3, 2,000 unit tab Admission/Clinic Administered Medications as of 12/26/17: lactated ringers infusion lidocaine (PF) 10 mg/mL (1 %) injection (XYLOCAINE) Problem List: Chest pain [R07.9] Atrial fibrillation [I48.91] 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] Family history of malignant neoplasm of gastrointestinal tract [Z80.0] Hypothyroidism [E03.9] Osteoporosis [M81.0] Migraine with aura [G43.109] 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 This was their first available, also checked with [facility] and their first available is 12/24. Is the date of 12/25 ok? Kianna Schwartz 12/20/2017 1:18 PM Signed That should be fine. OV note states PET scan next week. Kianna Schwartz 12/21/2017 8:[address] Winn, please verify if this date is OK. Orders state ANDRÉS. PSR's wanted to make sure date scheduled is sufficient and it does not need to be done earlier. (See under patient instructions). Previous Version Farrah Winn MD 12/21/2017 9:01 AM Signed Next week is fine. Farrah Winn MD Progress Notes ([facility]): Farrah Winn MD 12/21/2017 7:18 AM Signed Hematology and Medical Oncology PATIENT NAME: Martell Nascimento. CLINIC NO: [id number]. ATTENDING PHYSICIAN: Farrah Winn MD. DATE OF SERVICE:12/20/2017. DIAGNOSIS: cutaneous diffuse large T-cell lymphoma PERFORMANCE STATUS:100% HPI: 77-year-old female with history of atrial fibrillation presented with a skin lesion appear overnight on her lower chest area 6 weeks ago. patient has history of actinic keratosis on the face and nose, she was last seen and have removed all the sleep position in October. She appeared to have a raise (red/purplish) lesion on her lower chest. It is not painful, red or hot, but very itchy. She was seen by dermatology last week and has a shave biopsy of the nodule lesion which came back positive for large T-cell lymphoma, BCL 6 negative, BCL-2 positive, ALK 1 negative, CD30 negative, Mum 1 negative, T- cell markers were positive. patient has no fever, chills or night sweats. She has a 10 pound weight loss over the last 6 months because of frequent diarrhea which started in recur late this summer. She had a colonoscopy last year and recent CT scan of abdomen and pelvis. Patient has no swallowing gland or adenopathy. She has no chest pain, cough or shortness of breath. No unusual bleeding or bruising on Coumadin for atrial fibrillation. MEDICATIONS: Current Outpatient Prescriptions: vitamin b complex tab Take 1 tablet by mouth 3 times a WEEK. warfarin (COUMADIN) 5 mg tablet Take 2.5 mg on M, W, and 5 mg all other days or as directed levothyroxine (SYNTHROID) 75 mcg tablet Take 1 tablet by mouth once daily. gabapentin (NEURONTIN) 100 mg capsule TAKE ONE CAPSULE BY MOUTH THREE TIMES DAILY metoprolol succinate ER (TOPROL XL) 25 mg 24 hr tablet Take 0.5 tablets by mouth once daily. TIKOSYN 125 mcg capsule TAKE ONE CAPSULE BY MOUTH TWICE DAILY BIOTIN ORAL Take 5,000 mg by mouth once daily. VIT A/C/E AC/ZNOX/CUPRIC OXIDE (EYE VITAMIN AND MINERALS ORAL) Take 1 tablet by mouth once daily. LACTOBACILLUS COMBO NO.6 (PROBIOTIC COMPLEX ORAL) Take 1 capsule by mouth once daily. OTC PRODUCT Calcium Lactate 300 mg once daily Cholecalciferol, Vitamin D3, 2,000 unit tab Take 1 tablet by mouth once daily. furosemide (LASIX) 20 mg tablet Take 0.5 tablets by mouth once daily. (Patient not taking: Reported on 12/07/2017 ) COMPOUNDED PRESCRIPTION Standing orderPATIENT/INR:DX: atrial fibFax results to [phone] No current facility-administered medications for this visit. . ALLERGIES:ALLERGIES No Known Allergies. 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 PAST SURGICAL HISTORY: PAST SURGICAL HISTORY Procedure Laterality Date - ATRIAL FIBRILLATION/FLUTTER ABLATION attempted ablation - CHOLECYSTECTOMY 65 - COLONOSCOP W/ OR W/O [facility] SPEC 05/03/11 repeat 5 years - COLONOSCOP W/ OR W/O [facility] SPEC 01/25/2017 repeat in [address] Rolle - HEMORRHOID;BAND LIGAT, SNGL/MUL Hemorrhoidectomy - PAST SURGICAL HISTORY OF 61 AND63 c section(x2) - PAST SURGICAL HISTORY OF 04/04/2006 colonoscopy - PAST SURGICAL HISTORY OF appendectomy - PAST SURGICAL HISTORY OF 2008 cataract - PAST SURGICAL HISTORY OF 2004 Repair of right wrist fx - PAST SURGICAL HISTORY OF 12/05/2017 Shave biopsy left rib cage - REMOVAL OF TONSILS,<12 Y/O Tonsillectomy . FAMILY HISTORY: FAMILY HISTORY Problem Relation Age of Onset - Diabetes Mother - Heart Mother CHF - Stroke Mother 95 - Arthritis Mother - other (brain tumor) Father 54 - Ischemic Heart Disease Sister - other (Rectal Cancer) Sister . SOCIAL HISTORY:Social History Marital status: Spouse name: Sven Years of education: Number of children: 2 Occupational History Occupation Employer Comment Teacher - retired Social History Main Topics Smoking status: Never Smoker Smokeless tobacco: Never Used Alcohol use: No Drug use: No Sexual activity: Not Currently Partners with: Male Comment: Postmenopausal . REVIEW OF SYSTEMS: CONSTITUTIONAL: No fevers, chills, nightsweats, +unintended weight loss HEENT: Denies frequent or severe heaches, nasal congestion/sinus symptoms, problematic allergy problems. EYES: No diplopia or blurry vision. CARDIOVASCULAR: No chest pain, dyspnea, palpitations, orthopnea, PND, ankle edema. PULM: No dyspnea, unexplained cough. GI: No dysphagia/odynophagia, problematic reflux, constipation, + diarrhea, changes in stool habits, hematochezia, melena. : No new urinary complaints, including dysuria, gross hematuria or pyuria. NEURO: No new balance problems, peripheral weakness/paresthesias or numbness of concern. MUSC-SKEL: No new joint pain, swelling, or erythema. PSY: No concerns regarding depression, anxiety or panic. INTEGUMENTARY: No new skin changes (rash, new or changing mole, new growth) except for the growth on her left lower chest. PHYSICAL EXAMINATION: 77-year-old well-nourished well-developed female in no acute distress. BP 140/85 Pulse 60 Temp (Src) 98.3 (Oral) Ht 5' 7.25[Ht verified with Elvira Navarrete ENVIRONMENTAL HEALTH SANITARIAN[ (1.71m) Wt 142 lb 8 oz (64.6kg) BMI 22.16 kg/(m2). HEENT: Head is normocephalic, atraumatic. Sclerae white, conjunctivae pink. PEERL. EOMs are intact. Oropharynx is benign. LYMPHATICS: There is no palpable adenopathy in the neck, supraclavicular region, axillae, or groin. LUNGS: Lungs are clear to percussion and auscultation. CHEST: well-healed scar in the left lower chest with slight discoloration. HEART: Heart is normal with grade 1/6 systolic murmurs, no gallops, or rubs. ABDOMEN: Soft and nontender without organomegaly. No masses can be palpated. EXTREMITIES: Are without edema. NEUROLOGIC: Exam is physiologic LABORATORY DATA: Component Latest Ref Rng AND Units 12/20/2017 WBC, Sheri 3.70 - 11.00 k/uL 6.31 RBC, Sheri 3.90 - 5.20 m/uL 4.06 Hemoglobin, Sheri 11.5 - 15.5 g/dL 13.1 Hematocrit, Sheri 36.0 - 46.0 % 39.2 MCV, [place] 80.0 - 100.0 fL 96.6 MCH, [place] 26.0 - 34.0 pg 32.3 MCHC, Sheri 30.5 - 36.0 g/dL 33.4 RDW, Sheri 11.5 - 15.0 % 13.1 Platelet Cnt, [place] 150 - 400 k/uL 233 MPV, [place] 9.0 - 12.7 fL 10.8 Neut%, Sheri % 67.0 Lymp%, Sheri % 21.9 [place]%, Sheri % 8.9 Eos%, [place] % 1.9 Baso%, [place] % 0.3 Abs Neut, [place] 1.45 - 7.50 k/uL 4.23 Abs Lymp, [place] 1.00 - 4.00 k/uL 1.38 Abs [place], [place] <0.87 k/uL 0.56 Abs Eos, Sheri <0.46 k/uL 0.12 Abs Baso, [place] <0.11 k/uL <0.03 Component Latest Ref Rng AND Units 12/20/2017 Protein, Total 6.3 - 8.0 g/dL 7.2 Albumin 3.9 - 4.9 g/dL 4.5 Calcium 8.5 - 10.2 mg/dL 10.0 Bilirubin, Total 0.2 - 1.3 mg/dL 0.4 Alkaline Phosphatase 34 - 123 U/L 68 AST 13 - 35 U/L 21 Glucose 74 - 99 mg/dL 102 (H) BUN 7 - 21 mg/dL 19 Creatinine 0.58 - 0.96 mg/dL 1.13 (H) Sodium 136 - 144 mmol/L 140 Potassium 3.7 - 5.1 mmol/L 4.2 Chloride 97 - 105 mmol/L 105 CO2 22 - 30 mmol/L 26 Anion Gap mmol/L 9 ALT 7 - 38 U/L 10 eGFR- 56 eGFR-All Other Races . 47 LD 135 - 214 U/L 214 B2 Microglobulin 0.8 - 2.2 mg/L 2.9 (H) WSR 0 - 20 mm/hr 9 CRP <0.9 mg/dL 0.2 Uric Acid 2.5 - 6.6 mg/dL 5.5 IMAGING: CT SCAN:COMPARISON: CT abdomen 10/22 Abdomen / Pelvis: Liver: Normal hepatic morphology. ?Subcentimeter low-density lesion in the lateral left lobe of the liver is too small to characterize, but statistically more likely benign. Biliary: The gallbladder is surgically absent. ?Stable ectasia of the central intrahepatic ducts. Spleen: No splenomegaly. Pancreas: Unremarkable. Adrenals: No mass. Kidneys: No hydronephrosis or renal calculi. ?Stable 1.4 x 1.7 cm fat density nodule in the interpolar region of the right kidney consistent with an angiomyolipoma. GI Tract: No bowel dilation. Lymph Nodes: No lymphadenopathy. Mesentery/peritoneum: No ascites. Retroperitoneum: No mass. Vasculature: No abdominal aortic aneurysm. Pelvis: No mass or ascites. ?The bladder has a normal appearance. Bones/Soft Tissues: No acute abnormality. Lower thorax: The heart is enlarged. ?No pleural effusion or consolidation. ?There are some linear areas of scarring or atelectasis in bilateral posterior lower lobes. IMPRESSION: 1. ?No acute pathology. ?No new mass or lymphadenopathy. 2. 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 - PET CT scan for staging and bone marrow biopsy next week - Patient should hold her Coumadin starting today and resume Coumadin after procedure. Indication and risks of bone marrow biopsy and aspiration were discussed with the patient and family including infection, bleeding. The patient and family were allowed enough time to ask questions. All questions were answered to their satisfaction. Patient and family verbalized understanding of treatment plan and agreed to proceed with her bone marrow biopsy evaluation. - I will see the patient in 3 weeks to go over her diagnosis, prognosis and treatment plans in greater detail. I spent 60 minutes in the visit, with more than 50% of the total [id number] time of the visit in counseling / coordination of care. Farrah Winn MD. ELECTRONICALLY SIGNED Cc: [facility] PROGRESS Observed: 12/18/2017 Status: COMPLETED Source: [place] 1:53 PM [facility] REPOSITORY HNO ID: [id number] Author: M Renardalirio Liriano Service: (none) Author Type: Physician Waterworks Supervisor Type: Progress Notes Filed: 12/18/2017 3:37 PM Note Text: Agree ThanksNaldo PA-C PROGRESS Observed: 12/18/2017 Status: COMPLETED Source: [place] 10:08 AM [facility] REPOSITORY HNO ID: [id number] Author: Lottie Angelo RN Service: (none) Author Type: (none) Type: Progress Notes Filed: 12/18/2017 10:10 AM Note Text: patient had inr completed at [facility] patients inr is 2.2 (patients inr range is 2.0-3.0) patient is currently taking 2.5mg Mon,Wed,Fri and 5mg all other days patients last dose change was on 12/11/17 due to a high level of 3.8 (dose at that time was 2.5mg Mon,Wed, and 5mg all other days) patient has had no changes in medication except for coumadin and no missed doses and no change in diet Advised patient to continue on the same dose(s) and that they would only be contacted regarding dosage and follow up instructions after review with provider, if a change is needed. Written instructions given and patient verbalized understanding. Presently scheduled in 2 weeks (01/01/18) for follow up INR since this is the first normal reading since dose change PROGRESS Observed: 12/14/2017 Status: COMPLETED Source: [place] 1:30 PM [facility] REPOSITORY HNO ID: [id number] Author: Giovana Kothari Service: (none) Author Type: (none) Type: Progress Notes Filed: 12/14/2017 1:31 PM Note Text: Radiology Service Progress Note PATIENT NAME: Martell Nascimento DATE OF SERVICE: December 14, 2017 TIME: 1:30 PM PATIENT IDENTITY VERIFICATION COMPLETED USING TWO (2) METHODS: Patient confirmed name verbally and Date of . PATIENT GENDER DATA: Female. status: : No status: NO. PATIENT RELEVANT IMPLANT DATA REVIEWED: Not Applicable RADIOLOGY DEPARTMENT: CT; Exam(s) Completed: Abdomen/Pelvis PERIPHERAL IV DATA: Not applicable SIGNED BY: Giovana Kothari December 14, 2017 1:[address] ABD/PEL WO IVCON Observed: 12/14/2017 Status: F Source: [place] 11:20 AM [facility] REPOSITORY * * *Final Report* * * DATE OF EXAM: Dec 14 2017 11:20AM [facility] 0531 - CT ABD/PEL WO IVCON / PROCEDURE REASON: multiple diagnoses * * * * Physician Interpretation * * * * EXAMINATION: CT ABDOMEN AND PELVIS WITHOUT IV CONTRAST CLINICAL HISTORY: Loss, chronic kidney disease TECHNIQUE: Non-IV contrast imaging of the abdomen and pelvis was performed using standard technique, scanning from just above the dome of the diaphragm to the symphysis pubis. Unenhanced imaging is limited for the evaluation of some intra-abdominal and pelvic pathology. MQ: [id number] Contrast: IV: None Oral: 50 ml of 50ML Omnipaque [address] Radiation dose: Integrated Dose-length product (DLP) for this visit = 348 mGy*cm. CT Dose Reduction Employed: Automated exposure control(AEC) and iterative recon COMPARISON: CT abdomen 10/22 RESULT: Abdomen / Pelvis: Liver: Normal hepatic morphology. Subcentimeter low-density lesion in the lateral left lobe of the liver is too small to characterize, but statistically more likely benign. Biliary: The gallbladder is surgically absent. Stable ectasia of the central intrahepatic ducts. Spleen: No splenomegaly. Pancreas: Unremarkable. Adrenals: No mass. Kidneys: No hydronephrosis or renal calculi. Stable 1.4 x 1.7 cm fat density nodule in the interpolar region of the right kidney consistent with an angiomyolipoma. GI Tract: No bowel dilation. Lymph Nodes: No lymphadenopathy. Mesentery/peritoneum: No ascites. Retroperitoneum: No mass. Vasculature: No abdominal aortic aneurysm. Pelvis: No mass or ascites. The bladder has a normal appearance. Bones/Soft Tissues: No acute abnormality. Lower thorax: The heart is enlarged. No pleural effusion or consolidation. There are some linear areas of scarring or atelectasis in bilateral posterior lower lobes. IMPRESSION: 1. No acute pathology. No new mass or lymphadenopathy. 2. Stable appearance of a fat density nodule in the interpolar region of the right kidney consistent with an angiomyolipoma See Wheeler: SHAMIKA Transcribe Date/Time: Dec 14 2017 3:26P Dictated by : CHAZ HERRERA MD This examination was interpreted and the report reviewed and electronically signed by: CHAZ HERRERA MD on Dec 14 2017 3:36PM EST [id number] PROGRESS Observed: 12/11/2017 Status: COMPLETED Source: [place] 2:58 PM [facility] REPOSITORY HNO ID: [id number] Author: Shavon Adkins LPN Service: (none) Author Type: (none) Type: Progress Notes Filed: 12/11/2017 2:59 PM Note Text: See telephone encounter dated 12/11/17 CNCO Observed: 12/11/2017 Status: COMPLETED Source: [place] 2:40 PM [facility] REPOSITORY HNO ID: [id number] Author: Mammography Coordinator Service: (none) Author Type: Physician Type: Letter Filed: 12/12/2017 11:32 PM Note Text: December 11, 2017 PID: [id number] Martell Nascimento [address] [place] [address] Dear Ms. Nascimento, Your recent breast imaging exam on 12/11/2017 showed a possible finding that requires additional imaging studies for a complete evaluation. Most such findings are probably benign (not cancer). Please call [phone] or [phone] to schedule an appointment for your additional imaging if you have not already done so. Your breast images and report will be kept on file here as part of your permanent medical record and are available for your continuing care. Thank you for allowing us to help in meeting your health care needs. Sincerely, Dr. Nelson Interpreting Radiologist [facility] (Additional imaging) PROGRESS Observed: 12/11/2017 Status: COMPLETED Source: [place] 12:08 PM [facility] REPOSITORY HNO ID: [id number] Author: Laci Liriano Service: (none) Author Type: Physician Waterworks Supervisor Type: Progress Notes Filed: 12/11/2017 2:59 PM Note Text: Hold Coumadin x 2 days the 2.5mg M-W-F and 5mg other days. Recheck in 1 week. Thanks, Naldo Liriano PA-C PROGRESS Observed: 12/11/2017 Status: COMPLETED Source: [place] 11:25 AM [facility] REPOSITORY HNO ID: [id number] Author: Lottie Angelo RN Service: (none) Author Type: (none) Type: Progress Notes Filed: 12/11/2017 11:27 AM Note Text: patient had inr completed at [facility] patients inr is 5.3 (patients inr range is 2.0-3.0) patient is currently taking 2.5mg Mon,Wed and 5mg all other days patients last dose change was on 09/27/17 due to a low level of 1.8 (dose at that time was 5mg-5mg-2.5mg cycle) patient has had no changes in medication and no missed doses and has had change in diet as with pts GI issues getting vitamin K vegetables is not doable at the time FYI - Patient has been sent to the lab for a stat lab draw pre new protocol with the current test strips we are using. Protocol right now states that any level over 4.5 must have a follow up lab draw to confirm out of range level. Patient has been been sent for a stat lab draw and notified he would be contacted later today with information. [facility] SCREENING Observed: 12/11/2017 Status: F Source: [place] 10:56 AM [facility] REPOSITORY * * *Final Report* * * DATE OF EXAM: Dec 11 2017 10:56AM [facility] 0581 - [facility] SCREENING / PROCEDURE REASON: Screening breast examination * * * * Physician Interpretation * * * * RESULT: #[id number] - [facility] SCREENING BILATERAL DIGITAL SCREENING MAMMOGRAM WITH CAD: 12/11/2017 HISTORY: Screening Breast Examination /Screening Mammogram - patient reports NO breast symptoms /Priors available for comparison. RESULT: TECHNIQUE: The study was acquired using full field digital technology and interpreted from soft copy. Current study was also evaluated with a Computer Aided Detection (CAD). Comparison is made to exam dated: 11/04/2014 mammogram - [facility]. There are scattered fibroglandular elements in both breasts. There is an asymmetry in the right breast superior lateral quadrant middle depth. No other significant masses, calcifications, or other findings are seen in either breast. IMPRESSION: INCOMPLETE: NEEDS ADDITIONAL IMAGING EVALUATION The asymmetry in the right breast is indeterminate. Additional views are recommended. Usha Nelson M.D., mc/daniel:12/11/2017 14:40:07 Custom Harvester: Su LOUISE)(M), [facility] letter sent: Additional Imaging Needed Mammogram BI-RADS: 0 Incomplete: needs additional imaging evaluation If this report indicates you need additional imaging, and it has NOT yet been performed, please call , to schedule. We sincerely thank you for choosing the [facility] for your breast imaging needs. Multiple national specialty organizations have released breast cancer screening guidelines for women at average risk for developing breast cancer - guidelines that are based on both evidence and opinion, yet differ on when to start and how often to screen for breast cancer. With representation from Breast Imaging, Internal Medicine, Women's Health, Family Medicine, and Medical/Surgical Oncology, the [facility] has carefully reviewed the data and reached the following consensus: 1) All women should engage in shared decision-making with their providers to decide when to start and how often to screen; 2) All women should have the opportunity to start screening mammography at age 40; 3) For women ages 45-55, we recommend annual screening mammograms; 4) For women ages 55 and over, we support both the transition from an annual to a biennial interval if this aligns more with patient's values and preferences, or continuation with annual screening; 5) All women should discuss with their providers when to stop screening mammograms. See Wheeler: Daniel Transcribe Date/Time: Dec 11 2017 10:56A Dictated by: USHA MALLOY MD This examination was interpreted and the report reviewed and electronically signed by: USHA MALLOY MD on Dec 11 2017 2:40PM EST [id number] PROTHROMBIN TIME W/INR Collected: 12/11/2017 Status: F Source: SHERI 10:10 AM [facility] REPOSITORY TYPE CODE TESTS RESULT OUT OF REFERENCE UNITS RANGE LAB L300.4150 11.7-14.9 SECONDS High PROTIME 37.8 LAB L300.4200 High alert INR 3.8 Result Comment: CRITICAL VALUE VERIFIED. CALLED TO RADHA LEIJA 12/11/17 1148 [address] Ahmadi. RESULTS READ BACK BY SAME. Performed By: #### L300.3900 #### [facility] [address] [place], [address] PROTIME Collected: 12/11/2017 Status: F Source: [place] 10:05 AM [facility] REPOSITORY TYPE CODE TESTS RESULT OUT OF REFERENCE UNITS RANGE LAB PSEC 9.7-13.0 sec Test PT sent to [facility]. Result Comment: Account Credited HIDE LAB INR 0.9-1.3 Test sent to PT INR [facility]. Result Comment: Account Credited HIDE PROGRESS Observed: 12/07/2017 Status: COMPLETED Source: [place] 8:26 AM [facility] REPOSITORY HNO ID: [id number] Author: Henrique Shultz Service: (none) Author Type: Physician Type: Progress Notes Filed: 12/07/2017 8:45 AM Note Text: Patient presents with: Diarrhea HPI: Patient presents today for office visit for follow up. Nursing Notes: Misty Mckeon Ma 12/07/2017 8:14 AM Signed DIARRHEA: Pt has bouts of diarrhea since July. Has been doing some research and thinks it might be IBS. Has lost about 18 lbs total. We had seen her in July and we had discussed having her see GASTROENTEROLOGY. She apparently tried to make an appointment with them and could not see anybody until February. Initially then thought it got better and seemed to improve for a month. Has always had loose stools on and off for some times. So she decided to wait. Gets gas pain after eating. Has been simmering down since then. No fever or chills. No vomiting. Occasional nausea. No black or bloody stools. Occasional cough. No heartburn. Has had weight loss. No bleeding issues. Tried to go on an IBS diet with little success. Had stool studies which were negative in July. No recent travel history or antibiotic usage. Has had decreased appetite Did have a colonoscopy last summer. No rashes. No urinary issues. No cough. Just had a mole on her abd biopsied by Dr. Lea yesterday. No breast lumps or bumps. No vaginal bleeding. MEDICATIONS: Current Outpatient Prescriptions: warfarin (COUMADIN) 5 mg tablet Take 2.5 mg on M, W, F and 5 mg all other days or as directed (10/03/[address] Dolan) levothyroxine (SYNTHROID) 75 mcg tablet Take 1 tablet by mouth once daily. metoprolol succinate ER (TOPROL XL) 25 mg 24 hr tablet Take 0.5 tablets by mouth once daily. TIKOSYN 125 mcg capsule TAKE ONE CAPSULE BY MOUTH TWICE DAILY BIOTIN ORAL Take 5,000 mg by mouth once daily. VIT A/C/E AC/ZNOX/CUPRIC OXIDE (EYE VITAMIN AND MINERALS ORAL) Take 1 capsule by mouth. LACTOBACILLUS COMBO NO.6 (PROBIOTIC COMPLEX ORAL) Take by mouth. OTC PRODUCT Calcium Lactate 300 mg once daily Cholecalciferol, Vitamin D3, 2,000 unit tab Take 1 tablet by mouth once daily. gabapentin (NEURONTIN) 100 mg capsule TAKE ONE CAPSULE BY MOUTH THREE TIMES DAILY furosemide (LASIX) 20 mg tablet Take 0.5 tablets by mouth once daily. (Patient not taking: Reported on 12/07/2017 ) COMPOUNDED PRESCRIPTION Standing orderPATIENT/INR:DX: atrial fibFax results to [phone] No current facility-administered medications for this visit. 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 - Arrhythmia - Atrial fibrillation (HCC) 09/2010 6 months ago permanent - Cardiomegaly 2010 - Colon polyps 1994 - Cystoid macular degeneration of both eyes 2010 [place] [facility], (Right Eye) - Family history of malignant neoplasm of gastrointestinal tract - GERD (gastroesophageal reflux disease) - Heart murmur rheumatic fever - HTN (hypertension) - Hyperlipidemia - Hypothyroidism - Osteoporosis 2004 - PMH - PAST MEDICAL HISTORY OF PHTN - PMH - PAST MEDICAL HISTORY OF migraines PAST SURGICAL HISTORY Procedure Laterality Date - ATRIAL FIBRILLATION/FLUTTER ABLATION attempted ablation - CHOLECYSTECTOMY 65 - COLONOSCOP W/ OR W/O [facility] SPEC 05/03/11 repeat 5 years - COLONOSCOP W/ OR W/O [facility] SPEC 01/25/2017 repeat in [address] Rolle - HEMORRHOID;BAND LIGAT, SNGL/MUL Hemorrhoidectomy - PAST SURGICAL HISTORY OF 61 AND63 c section(x2) - PAST SURGICAL HISTORY OF 04/04/2006 colonoscopy - PAST SURGICAL HISTORY OF appendectomy - PAST SURGICAL HISTORY OF 2008 cataract - PAST SURGICAL HISTORY OF 2004 Repair of right wrist fx - REMOVAL OF TONSILS,<12 Y/O Tonsillectomy FAMILY HISTORY Problem Relation Age of Onset - Diabetes Mother - Heart Mother CHF - Stroke Mother 95 - Arthritis Mother - other (brain tumor) Father 54 - Ischemic Heart Disease Sister - other (Rectal Cancer) Sister Social History Marital status: Spouse name: Sven Years of education: Number of children: 2 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 REVIEW OF SYSTEMS All other reviewed and negative other than HPI. VITALS: BP 126/78 Pulse 64 Resp 12 Wt 64.4 kg (142 lb) BMI 21.59 kg/m? Last 4 Encounter Wt Readings: Date: Wt: 12/07/2017 64.4 kg (142 lb) 09/04/2017 64.6 kg (142 lb 8 oz) 08/30/2017 66.2 kg (146 lb) 07/25/2017 67.6 kg (149 lb) PHYSICAL EXAMINATION: General appearance: Well appearing, alert, in no acute distress, well-hydrated, well nourished. Skin: Skin color, texture, turgor normal, no suspicious rashes or lesions Head: Normocephalic, no masses, lesions, tenderness or abnormalities Lungs: Lungs clear to auscultation. No wheezing, rhonchi, rales Heart: RRR without murmur, gallop, or rubs. No ectopy Abdomen: Normal abdominal exam, Abdomen soft, non-tender. Bowel sounds normal. No masses, organomegaly Extremities: No deformities, edema, skin discoloration, clubbing or cyanosis. Good capillary refill. Musculoskeletal: No joint swelling, deformity, or tenderness ASSESSMENT/PLAN: 1. Weight loss - ICD9: 783.21, ICD10: R63.4 (primary diagnosis) - discussed that I am more concerned with other etiologies. Add supplement like ensure. Do mammogram. See gi and get labs. Follow closely - CBC + DIFF - COMP METABOLIC PANEL - TSH BLD - CONSULT TO GASTROENTEROLOGY - CT ABD/PEL WO IVCON - ENTERIC CONTRAST (RADIOLOGY PROCEDURE) - PREALBUMIN BLD 2. Hypothyroidism, unspecified type - ICD9: 244.9, ICD10: E03.9 - Instructed patient on importance of taking on an empty stomach either first thing in the morning or at bedtime. - TSH BLD 3. Paroxysmal atrial fibrillation (HCC) - ICD9: 427.31, ICD10: I48.0 4. CKD (chronic kidney disease) stage 3, GFR 30-59 ml/min ([facility]) - ICD9: 585.3, ICD10: N18.3 - CT ABD/PEL WO IVCON Henrique Shultz MD CNOV Observed: 12/07/2017 Status: COMPLETED Source: [place] 8:00 AM [facility] REPOSITORY Office Visit (FAMPWS) MARTELL NASCIMENTO ([id number]) 1940 F Date Time Provider Department 12/07/17 8:00 AM HENRIQUE SHULTZ FAMPWS During your visit today, we recorded the following information about you: Pulse Respiration Blood pressure Weight 64/minute 12/minute 126/78 64.4 kg Misty Mckeon Ma 12/07/2017 8:14 AM Signed DIARRHEA: Pt has bouts of diarrhea since July. Has been doing some research and thinks it might be IBS. Has lost about 18 lbs total. Henrique Shultz MD 12/07/2017 8:45 AM Signed Patient presents with: Diarrhea HPI: Patient presents today for office visit for follow up. Nursing Notes: Misty Mckeon Ma 12/07/2017 8:14 AM Signed DIARRHEA: Pt has bouts of diarrhea since July. Has been doing some research and thinks it might be IBS. Has lost about 18 lbs total. We had seen her in July and we had discussed having her see GASTROENTEROLOGY. She apparently tried to make an appointment with them and could not see anybody until February. Initially then thought it got better and seemed to improve for a month. Has always had loose stools on and off for some times. So she decided to wait. Gets gas pain after eating. Has been simmering down since then. No fever or chills. No vomiting. Occasional nausea. No black or bloody stools. Occasional cough. No heartburn. Has had weight loss. No bleeding issues. Tried to go on an IBS diet with little success. Had stool studies which were negative in July. No recent travel history or antibiotic usage. Has had decreased appetite Did have a colonoscopy last summer. No rashes. No urinary issues. No cough. Just had a mole on her abd biopsied by Dr. Lea yesterday. No breast lumps or bumps. No vaginal bleeding. MEDICATIONS: Current Outpatient Prescriptions: warfarin (COUMADIN) 5 mg tablet Take 2.5 mg on M, W, and 5 mg all other days or as directed (10/03/[address] Dolan) levothyroxine (SYNTHROID) 75 mcg tablet Take 1 tablet by mouth once daily. metoprolol succinate ER (TOPROL XL) 25 mg 24 hr tablet Take 0.5 tablets by mouth once daily. TIKOSYN 125 mcg capsule TAKE ONE CAPSULE BY MOUTH TWICE DAILY BIOTIN ORAL Take 5,000 mg by mouth once daily. VIT A/C/E AC/ZNOX/CUPRIC OXIDE (EYE VITAMIN AND MINERALS ORAL) Take 1 capsule by mouth. LACTOBACILLUS COMBO NO.6 (PROBIOTIC COMPLEX ORAL) Take by mouth. OTC PRODUCT Calcium Lactate 300 mg once daily Cholecalciferol, Vitamin D3, 2,000 unit tab Take 1 tablet by mouth once daily. gabapentin (NEURONTIN) 100 mg capsule TAKE ONE CAPSULE BY MOUTH THREE TIMES DAILY furosemide (LASIX) 20 mg tablet Take 0.5 tablets by mouth once daily. (Patient not taking: Reported on 12/07/2017 ) COMPOUNDED PRESCRIPTION Standing orderPATIENT/INR:DX: atrial fibFax results to [phone] No current facility-administered medications for this visit. 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 - Arrhythmia - Atrial fibrillation (HCC) 09/2010 6 months ago permanent - Cardiomegaly 2010 - Colon polyps 1994 - Cystoid macular degeneration of both eyes 2010 [place] [facility], (Right Eye) - Family history of malignant neoplasm of gastrointestinal tract - GERD (gastroesophageal reflux disease) - Heart murmur rheumatic fever - HTN (hypertension) - Hyperlipidemia - Hypothyroidism - Osteoporosis 2004 - PMH - PAST MEDICAL HISTORY OF PHTN - PMH - PAST MEDICAL HISTORY OF migraines PAST SURGICAL HISTORY Procedure Laterality Date - ATRIAL FIBRILLATION/FLUTTER ABLATION attempted ablation - CHOLECYSTECTOMY 65 - COLONOSCOP W/ OR W/O [facility] SPEC 05/03/11 repeat 5 years - COLONOSCOP W/ OR W/O [facility] SPEC 01/25/2017 repeat in [address] Rolle - HEMORRHOID;BAND LIGAT, SNGL/MUL Hemorrhoidectomy - PAST SURGICAL HISTORY OF [age] c section(x2) - PAST SURGICAL HISTORY OF 04/04/2006 colonoscopy - PAST SURGICAL HISTORY OF appendectomy - PAST SURGICAL HISTORY OF 2008 cataract - PAST SURGICAL HISTORY OF 2004 Repair of right wrist fx - REMOVAL OF TONSILS,<12 Y/O Tonsillectomy FAMILY HISTORY Problem Relation Age of Onset - Diabetes Mother - Heart Mother CHF - Stroke Mother 95 - Arthritis Mother - other (brain tumor) Father 54 - Ischemic Heart Disease Sister - other (Rectal Cancer) Sister Social History Marital status: Spouse name: Sven Years of education: Number of children: 2 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 REVIEW OF SYSTEMS All other reviewed and negative other than HPI. VITALS: BP 126/78 Pulse 64 Resp 12 Wt 64.4 kg (142 lb) BMI 21.59 kg/m? Last 4 Encounter Wt Readings: Date: Wt: 12/07/2017 64.4 kg (142 lb) 09/04/2017 64.6 kg (142 lb 8 oz) 08/30/2017 66.2 kg (146 lb) 07/25/2017 67.6 kg (149 lb) PHYSICAL EXAMINATION: General appearance: Well appearing, alert, in no acute distress, well-hydrated, well nourished. Skin: Skin color, texture, turgor normal, no suspicious rashes or lesions Head: Normocephalic, no masses, lesions, tenderness or abnormalities Lungs: Lungs clear to auscultation. No wheezing, rhonchi, rales Heart: RRR without murmur, gallop, or rubs. No ectopy Abdomen: Normal abdominal exam, Abdomen soft, non-tender. Bowel sounds normal. No masses, organomegaly Extremities: No deformities, edema, skin discoloration, clubbing or cyanosis. Good capillary refill. Musculoskeletal: No joint swelling, deformity, or tenderness ASSESSMENT/PLAN: 1. Weight loss - ICD9: 783.21, ICD10: R63.4 (primary diagnosis) - discussed that I am more concerned with other etiologies. Add supplement like ensure. Do mammogram. See gi and get labs. Follow closely - CBC + DIFF - COMP METABOLIC PANEL - TSH BLD - CONSULT TO GASTROENTEROLOGY - CT ABD/PEL WO IVCON - ENTERIC CONTRAST (RADIOLOGY PROCEDURE) - PREALBUMIN BLD 2. Hypothyroidism, unspecified type - ICD9: 244.9, ICD10: E03.9 - Instructed patient on importance of taking on an empty stomach either first thing in the morning or at bedtime. - TSH BLD 3. Paroxysmal atrial fibrillation (HCC) - ICD9: 427.31, ICD10: I48.0 4. CKD (chronic kidney disease) stage 3, GFR 30-59 ml/min (HCC) - ICD9: 585.3, ICD10: N18.3 - CT ABD/PEL WO IVCON Henrique Shultz MD Referring Provider: SELF [200] Allergies As of Date: 12/07/2017 (No Known Allergies) Date Reviewed: 12/07/2017 Reviewed by: Misty Mckeon Ma - Fully Assessed Reason for Visit: Diarrhea [35] Primary Visit Diagnosis:Weight loss [R63.4] Other Visit Diagnoses:Hypothyroidism, unspecified type [E03.9] Paroxysmal atrial fibrillation (HCC) [I48.0] CKD (chronic kidney disease) stage 3, GFR 30-59 ml/min (HCC) [N18.3] Screening breast examination [Z12.31] Order(s):CBC + DIFF [SQCBCDIF] Order #: [id number] FUTURE COMP METABOLIC PANEL [SQCMP] Order #: [id number] FUTURE TSH BLD [SQTSH] Order #: [id number] FUTURE CONSULT TO GASTROENTEROLOGY [9010] Order #: [id number]: 1 CT ABD/PEL WO IVCON [6817848] Order #: [id number] FUTURE enteric contrast (will be provided with radiology test)Take 1 Each by mouth one time only for [address] ABD/PEL WO Routine order Administer, As Directed One Time Only, via Oral, Rectal, both Oral and Rectal, Enteric Tube, Stoma or Indwelling Catheter, Enteric Contrast as designated per enteric contrast guidelinesDisp: 1 EachRfl: 0 PREALBUMIN BLD [SQPREALB] Order #: [id number] FUTURE SANYA SCREENING [2068390] Order #: [id number] FUTURE Prescriptions as of 12/07/2017 Sig: WARFARIN 5 MG TABLET Take 2.5 mg on M, W, F and 5 * LEVOTHYROXINE 75 MCG TABLET Take 1 tablet by mouth once d* METOPROLOL SUCCINATE ER 25 MG* Take 0.5 tablets by mouth onc* TIKOSYN 125 MCG CAPSULE TAKE ONE CAPSULE BY MOUTH TWI* BIOTIN ORAL Take 5,000 mg by mouth once d* EYE VITAMIN AND MINERALS ORAL Take 1 capsule by mouth. PROBIOTIC COMPLEX ORAL Take by mouth. OTC PRODUCT Calcium Lactate 300 mg once d* CHOLECALCIFEROL (VITAMIN D3) * Take 1 tablet by mouth once d* ENTERIC CONTRAST (RADIOLOGY P* Take 1 Each by mouth one time* GABAPENTIN 100 MG CAPSULE TAKE ONE CAPSULE BY MOUTH THR* FUROSEMIDE 20 MG TABLET Take 0.5 tablets by mouth onc* Patient not taking: Reported on 12/07/2017 COMPOUNDED PRESCRIPTION Standing order PATIENT/INR: * Problem List As Of Date 12/07/2017 Noted Resolved Chest pain [R07.9] INVALID FOR* Atrial fibrillation [I48.91] INVALID FOR* More... 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 Mitral valve regurgitation [I34.0] INVALID FOR* More... 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 CKD (chronic kidney disease) stage 3, GFR 30-59*INVALID FOR* Dermatochalasis of both upper eyelids [H02.831,*INVALID FOR*09/14/2017 Visit Notes: >> Misty Mckeon Ma SunDec 07, 2017 8:06 AM Status: Signed DIARRHEA: Pt has bouts of diarrhea since July. Has been doing some research and thinks it might be IBS. Has lost about 18 lbs total. Prescriptions ordered this encounter Disp Refills Start End ENTERIC CONTRAST (RADIOLOGY PROCEDUR* 1 Ea* 0 12/07/2017 12/07/2017 Class: In Office Route: ORAL Sig: Take 1 Each by mouth one time only for [address] ABD/PEL WO Routine order Administer, As Directed One Time Only, via Oral, Rectal, both Oral and Rectal, Enteric Tube, Stoma or Indwelling Catheter, Enteric Contrast as designated per enteric contrast guidelines Disposition: Return in about 2 weeks (around 12/21/2017). Follow-up and Disposition History Recorded Encounter Status:Closed by HENRIQUE SHULTZ MD on 12/07/17 PROGRESS Observed: 11/13/2017 Status: COMPLETED Source: [place] 3:22 PM [facility] REPOSITORY HNO ID: [id number] Author: Henrique Shultz Service: (none) Author Type: Physician Type: Progress Notes Filed: 11/13/2017 3:23 PM Note Text: This note was created using [employer]. Subjective Martell Nascimento is a 77 year old female. Review of Systems Objective There were no vitals taken for this visit. Physical Exam Assessment and Plan agree PROGRESS Observed: 11/13/2017 Status: COMPLETED Source: [place] 1:35 PM [facility] REPOSITORY HNO ID: [id number] Author: Lottie Angelo RN Service: (none) Author Type: (none) Type: Progress Notes Filed: 11/13/2017 1:36 PM Note Text: patient had inr completed at [facility] patients inr is 2.7 (patients inr range is 2.0-3.0) patient is currently taking 2.5mg Mon,Wed and 5mg all other days patients last dose change was on 09/27/17 due to a low level of 1.8 (dose at that time was 7lm9nv6.5mg cycle) patient has had no changes in medication and no missed doses and no change in diet Advised patient to continue on the same dose(s) and that they would only be contacted regarding dosage and follow up instructions after review with provider, if a change is needed. Written instructions given and patient verbalized understanding. Presently scheduled in 4 weeks (12/11/17) for follow up INR. PROGRESS Observed: 10/17/2017 Status: COMPLETED Source: [place] 10:35 AM [facility] REPOSITORY HNO ID: [id number] Author: Henrique Shultz Service: (none) Author Type: Physician Type: Progress Notes Filed: 10/17/2017 10:35 AM Note Text: This note was created using [employer]. Bhavin Nascimento is a 77 year old female. Review of Systems Objective There were no vitals taken for this visit. Physical Exam Assessment and Plan agree PROGRESS Observed: 10/17/2017 Status: COMPLETED Source: [place] 10:19 AM [facility] REPOSITORY HNO ID: [id number] Author: Lottie Angelo RN Service: (none) Author Type: (none) Type: Progress Notes Filed: 10/17/2017 10:20 AM Note Text: patient had inr completed at [facility] patients inr is 2.6 (patients inr range is 2.0-3.0) patient is currently taking 2.5mg Mon,Wed, and 5mg all other days patients last dose change was on 09/27/17 due to a low level of 1.8 (dose at that time was 5mg-5mg-2.5mg cycle) patient has had no changes in medication and no missed doses and no change in diet Advised patient to continue on the same dose(s) and that they would only be contacted regarding dosage and follow up instructions after review with provider, if a change is needed. Written instructions given and patient verbalized understanding. Presently scheduled in 4 weeks (11/13/17) for follow up INR. PROGRESS Observed: 10/03/2017 Status: COMPLETED Source: [place] 10:40 AM [facility] REPOSITORY HNO ID: [id number] Author: Henrique Shultz Service: (none) Author Type: Physician Type: Progress Notes Filed: 10/03/2017 10:41 AM Note Text: This note was created using [employer]. Bhavin Nascimento is a 77 year old female. Review of Systems Objective There were no vitals taken for this visit. Physical Exam Assessment and Plan agree PROGRESS Observed: 10/03/2017 Status: COMPLETED Source: [place] 10:27 AM [facility] REPOSITORY HNO ID: [id number] Author: Lottie Angelo RN Service: (none) Author Type: (none) Type: Progress Notes Filed: 10/03/2017 10:28 AM Note Text: patient had inr completed at [facility] patients inr is 2.3 (patients inr range is 2.0-3.0) patient is currently taking 2.5mg Sun,Sun and 5mg all other days patients last dose change was on 09/27/17 due to a low level of 1.8 (dose at that time was 5mg-5mg-2.5mg cycle) patient has had no changes in medication except for coumadin and no missed doses and no change in diet Advised patient to continue on the same dose(s) and that they would only be contacted regarding dosage and follow up instructions after review with provider, if a change is needed. Written instructions given and patient verbalized understanding. Presently scheduled in 2 weeks (10/17/17) for follow up INR. PROGRESS Observed: 09/27/2017 Status: COMPLETED Source: [place] 5:52 PM [facility] REPOSITORY HNO ID: [id number] Author: Shavon Adkins LPN Service: (none) Author Type: (none) Type: Progress Notes Filed: 09/28/2017 8:17 AM Note Text: PATIENT NOTIFIED OF SAME. Tracker and med list updated. PROGRESS Observed: 09/27/2017 Status: COMPLETED Source: [place] 4:10 PM [facility] REPOSITORY HNO ID: [id number] Author: Henrique Shultz Service: (none) Author Type: Physician Type: Progress Notes Filed: 09/28/2017 8:17 AM Note Text: 5 mg a day. Except 2.5 on M W. Recheck in one week PROGRESS Observed: 09/27/2017 Status: COMPLETED Source: [place] 3:58 PM [facility] REPOSITORY HNO ID: [id number] Author: Lottie Angelo RN Service: (none) Author Type: (none) Type: Progress Notes Filed: 09/27/2017 3:59 PM Note Text: patient had inr completed at [facility] patients inr is 1.8 (patients inr range is 2.0-3.0) patient is currently taking 5mg-5mg-2.5mg cycle patients last dose change was on 09/18/17 due to a low level of 1.1 (dose at that time was 2.5mg alternating with 5mg) patient has had no changes in medication except for coumadin and no missed doses and no change in diet Advised patient that they would be contacted regarding medication dose and when to follow up after information is reviewed by provider. After provider review please contact the patient with information and schedule follow up appointment with coumadin clinic. FYI - patient has been scheduled for a 2 week follow up inr on 10/11/17 PROGRESS Observed: 09/18/2017 Status: COMPLETED Source: [place] 4:38 PM [facility] [place] REPOSITORY HNO ID: [id number] Author: Lottie Angelo RN Service: (none) Author Type: (none) Type: Progress Notes Filed: 09/18/2017 4:38 PM Note Text: PATIENT NOTIFIED OF INFORMATION PROGRESS Observed: 09/18/2017 Status: COMPLETED Source: [place] 2:39 PM [facility] REPOSITORY HNO ID: [id number] Author: Henrique Shultz Service: (none) Author Type: Physician Type: Progress Notes Filed: 09/18/2017 4:39 PM Note Text: This note was created using Spark[employer]. Subjective Martell Nascimento is a 77 year old female. Review of Systems Objective There were no vitals taken for this visit. Physical Exam Assessment and Plan 5 mg today and tomorrow then resume 2.5 alternating with 5 a day. Recheck on Sunday PROGRESS Observed: 09/18/2017 Status: COMPLETED Source: [place] 2:18 PM [facility] REPOSITORY HNO ID: [id number] Author: Lottie Angelo RN Service: (none) Author Type: (none) Type: Progress Notes Filed: 09/18/2017 2:21 PM Note Text: patient had inr completed at [facility] patients inr is 1.1 (patients inr range is 2.0-3.0) patient is currently taking 2.5mg alternating with 5mg (since Sun - 09/16/17) patients last dose change was on 08/27/17 due to a high level of 4.8 (dose at that time was 2.5mg Wed and 5mg all other days) patient has had no changes in medication and had missed doses from -Sun and no change in diet FYI - patient was holding her coumadin from last - Sat and just restarted coumadin on Sun due to having eye surgery. Patient started with a 5mg tablet. Advised patient that they would be contacted regarding medication dose and when to follow up after information is reviewed by provider. After provider review please contact the patient with information and schedule follow up appointment with coumadin clinic. Patient is leaving for a trip on and will not return until Sunday. ANES POST Observed: 09/14/2017 Status: COMPLETED Source: [place] 8:42 AM [facility] REPOSITORY HNO ID: [id number] Author: Samuel Vera Service: Anesthesiology Author Type: Anesthesiologist Type: Anesthesia PostOp Filed: 09/14/2017 11:59 AM Note Text: POST ANESTHESIA EVALUATION NOTE SERVICE DATE: 09/14/2017 SERVICE TIME: : 1940 Vitals: 09/14/17 0706 09/14/17 0820 Temp: 36.5 ?C (97.7 ?F) 36.6 ?C (97.9 ?F) 09/14/17 0706 09/14/17 0717 09/14/17 0820 09/14/17 0837 BP: 146/103 145/83 137/70 153/74 09/14/17 0706 09/14/17 0717 09/14/17 0820 09/14/17 0837 Pulse: (!) 59 (!) 58 60 (!) 52 09/14/17 0706 09/14/17 0820 09/14/17 0837 Resp: 16 16 16 09/14/17 0706 09/14/17 0820 09/14/17 0837 SpO2: 98% 99% 100% Validated Vital Signs: Yes POST ANES STATUS: No apparent anesthetic complications. The patient is appropriately hydrated with stable respiratory and cardiovascular status. Patient has safe and adequate airway control. The patient has appropriate pain relief and no significant post operative nausea or vomiting. The patient has achieved baseline mental status. Further assessment by Anesthesia Service: None Other Remarks: SIGNATURE: Samuel Vera MD PATIENT NAME: Martell Nascimento DATE: September 14, 2017 TIME: 11:58 AM PAGER/CONTACT #: anesthesia OPERATIVE NO Observed: 09/14/2017 Status: COMPLETED Source: [place] 8:14 AM [facility] REPOSITORY HNO ID: [id number] Author: Santiago Greer Service: Ophthalmology Author Type: Physician Type: Operative Report Filed: 09/14/2017 8:15 AM Note Text: OPERATIVE/PROCEDURE REPORT OPHTHAMOLOGY LOG ID: [id number] Surgery/Procedure Date: 09/14/2017 Incision/Procedure Start Time: 7:47 AM Incision Close/Procedure End Time: 8:13 AM Surgeon(s)/Proceduralist(s) and Waterworks Supervisor(s): Surgeon(s) and Role: * Santiago Greer - Primary Procedure(s): Procedure(s) (LRB): BLEPHAROPLASTY UPPER MEDICALLY NECESSARY (Bilateral) Preoperative Diagnosis: Dermatochalasis of both upper eyelids [H02.831, H02.834] Postoperative Diagnosis: Dermatochalasis of both upper eyelids [H02.831, H02.834] Operative Indications: The patient has a history of upper eyelid skin blocking their vision resulting in a visually significant scotoma of greater than 25 degrees which improves on eyelid taping. The skin hangs over the lid margins resulting in limited peripheral vision and difficulty with driving, along with fatigue with reading. Based on their symptoms, the surgery was planned. Blurry vision, fatigue with reading Anesthesia: Monitored Anesthesia Care Procedure Details: The patient was brought into the operating room, and placed under adequate local anesthesia following demarcation of the upper eyelids in the sitting position. A skin incision was made with a #15 blade, and the skin muscle flap was dissected from the temporal to nasal direction using unipolar cautery. Bleeding was controlled with bipolar cautery. Middle and medial fat pads were debulked. Several dog-ear adjustments were made along the medial aspect of the upper lid to achieve a good contour to the crease. Once this was done, the incision was closed using a combination of interrupted and running suture of 6- 0 Prolene. A similar procedure was carried out on the opposite upper eyelid. Antibiotic ointment and ice compresses were placed over the eyes at the end of the case. The patient was returned to the recovery room in satisfactory condition. Estimated Blood Loss: Minimal unless noted here. Specimens: * No specimens in log * Implantable Devices: * No implants in log * Drains: None unless noted here. Complications: None I performed the entire procedure. SIGNATURE: Santiago Greer MD PATIENT NAME: Martell Nascimento DATE: September 14, 2017 TIME: 8:15 AM PAGER/CONTACT #: CIELO PREOP Observed: 09/14/2017 Status: COMPLETED Source: [place] 7:45 AM [facility] REPOSITORY O ID: [id number] Author: Samuel Vera Service: Anesthesiology Author Type: Anesthesiologist Type: Anesthesia PreOp Filed: 09/14/2017 7:45 AM Note Text: ANESTHESIOLOGY DAY OF SURGERY NOTE SERVICE DATE: 09/14/2017 SERVICE TIME:7.10 : 1940 Procedure(s) (LRB): BLEPHAROPLASTY UPPER MEDICALLY NECESSARY (Bilateral) Surgeon(s): Santiago Greer Estimated body mass index is 22.2 kg/m? as calculated from the following: Height as of this encounter: 172.7 cm (5' 8). Weight as of this encounter: 66.2 kg (146 lb). 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] Summary Mitral Valve Regurgitation A-V Fistula ([facility]) Visit for Monitoring Tikosyn Therapy CKD (chronic kidney disease) stage 3, GFR 30-59 ml/min ([facility]) Dermatochalasis of Both Upper Eyelids 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 - Arrhythmia - Atrial fibrillation (HCC) 09/2010 6 months ago permanent - Cardiomegaly 2010 - Colon polyps 1994 - Cystoid macular degeneration of both eyes 2010 [place] cyt[facility], (Right Eye) - Family history of malignant neoplasm of gastrointestinal tract - GERD (gastroesophageal reflux disease) - Heart murmur rheumatic fever - HTN (hypertension) - Hyperlipidemia - Hypothyroidism - Osteoporosis 2004 - PMH - PAST MEDICAL HISTORY OF PHTN - PMH - PAST MEDICAL HISTORY OF migraines PAST SURGICAL HISTORY Procedure Laterality Date - ATRIAL FIBRILLATION/FLUTTER ABLATION attempted ablation - CHOLECYSTECTOMY - COLONOSCOP W/ OR W/O [facility] SPEC 05/03/11 repeat 5 years - COLONOSCOP W/ OR W/O [facility] SPEC 01/25/2017 repeat in [address] Rolle - HEMORRHOID;BAND LIGAT, SNGL/MUL Hemorrhoidectomy - PAST SURGICAL HISTORY OF [age] c section(x2) - PAST SURGICAL HISTORY OF 04/04/2006 colonoscopy - PAST SURGICAL HISTORY OF appendectomy - PAST SURGICAL HISTORY OF 2008 cataract - PAST SURGICAL HISTORY OF 2004 Repair of right wrist fx - REMOVAL OF TONSILS,<12 Y/O Tonsillectomy FAMILY HISTORY Problem Relation Age of Onset - Diabetes Mother - Heart Mother CHF - Stroke Mother 95 - Arthritis Mother - brain tumor [OTHER] Father 54 - Ischemic Heart Disease Sister - Rectal Cancer [OTHER] Sister Social History: Social History Substance Use Topics - Smoking status: Never Smoker - Smokeless tobacco: Never Used - Alcohol use No No current facility-administered medications on file prior to encounter. Current Outpatient Prescriptions on File Prior to Encounter: TIKOSYN 125 mcg capsule TAKE ONE CAPSULE BY MOUTH TWICE DAILY BIOTIN ORAL Take 5,000 mg by mouth once daily. VIT A/C/E AC/ZNOX/CUPRIC OXIDE (EYE VITAMIN AND MINERALS ORAL) Take 1 capsule by mouth. LACTOBACILLUS COMBO NO.6 (PROBIOTIC COMPLEX ORAL) Take by mouth. Cholecalciferol, Vitamin D3, 2,000 unit tab Take 1 tablet by mouth once daily. COMPOUNDED PRESCRIPTION Standing orderPATIENT/INR:DX: atrial fibFax results to [phone] OTC PRODUCT Calcium Lactate 300 mg once daily Current Facility-Administered Medications: lactated ringers infusion 30 mL/hr INTRAVENOUS CONTINUOUS Santiago rGeer Last Rate: 30 mL/hr at 09/14/17713 30 mL/hr at 09/14/17713 Allergies: ALLERGIES No Known Allergies DOS EXAM: Adequate NPO status: Yes Anesthetic risks, benefits, alternatives, personnel and consent discussed: Yes Patient agrees to proceed: Yes Previous Anesthesia: No history of adverse event. Airway Assessment: MP 2; Neck ROM: Full ROM without neurologic symptoms; Airway Evaluation: No significant abnormalities Symptoms of Sleep Apnea: None Dentition: Poor dentition Additional Physical Exam: Lungs: Patient health status unchanged since recent history and physical. See history and physical for exam findings. Lungs clear to auscultation. Good diaphragmatic excursion. Cardiac: Patient health status unchanged since recent history and physical. See history and physical for exam findings. normal S1 and S2; no rubs, no murmurs, and no gallops Additional Pertinent Findings: N/A Blood Products: Not anticipated for this procedure. Anesthetic Plan: MAC with Sedation Pain Management Plan: Parenteral or Oral ASA Class: 3 Other Medical Problems: None Chronic Beta Yue medication administered within 24 hours: N/A I have interviewed and examined the patient. I have reviewed the medical record and/or the pre-anesthesia evaluation, pertinent labs, and test results. Significant changes in the patient's condition since the History and Physical, not otherwise documented in primary service progress notes: No This contains updated information obtained within 48 hours of Surgery/Procedure. SIGNATURE: Samuel Vera MD PATIENT NAME: Martell Nascimento DATE: September 14, 2017 TIME: 7:45 AM CSN: [id number] HISTORY PHYSICAL Observed: 09/14/2017 Status: COMPLETED Source: [place] 7:41 AM [facility] REPOSITORY HNO ID: [id number] Author: Santiago Greer Service: Ophthalmology Author Type: Physician Type: HANDP Filed: 09/14/2017 7:42 AM Note Text: UPDATED HISTORY AND PHYSICAL EXAMINATION SERVICE DATE: 09/14/2017 SERVICE TIME: 7:42 AM PHYSICAL EXAM MUST BE COMPLETED ON ADMISSION The History and Physical (completed in the past 30 days) has been reviewed and the patient has been examined. The contents accurately reflect the patient's condition with the following additions or revisions since the HANDP was completed. Examination indicates no changes. This HANDP can be found in the scanned documents dated 08/31/17. SIGNATURE: Santiago Greer MD PATIENT NAME: Martell Nascimento DATE: September 14, 2017 TIME: 7:42 AM PAGER: PROGRESS Observed: 09/05/2017 Status: COMPLETED Source: [place] 2:43 PM [facility] [place] REPOSITORY HNO ID: [id number] Author: Linnette Ingram Ma Service: (none) Author Type: (none) Type: Progress Notes Filed: 09/05/2017 2:44 PM Note Text: Pt notified, tracker updated. Linnette Ingram Ma PROGRESS Observed: 09/05/2017 Status: COMPLETED Source: [place] 2:41 PM [facility] REPOSITORY HNO ID: [id number] Author: Shavon Adkins LPN Service: (none) Author Type: (none) Type: Progress Notes Filed: 09/05/2017 2:44 PM Note Text: This note was created using Sparkcloud. Subjective Martell Nascimento is a 77 year old female. Review of Systems Objective There were no vitals taken for this visit. Physical Exam Assessment and Plan Left a detailed message as to same and tracker updated. PROGRESS Observed: 09/05/2017 Status: COMPLETED Source: [place] 2:31 PM [facility] REPOSITORY HNO ID: [id number] Author: Henrique Shultz Service: (none) Author Type: Physician Type: Progress Notes Filed: 09/05/2017 2:44 PM Note Text: SThis note was created using [employer]. Subjective Martell Nascimento is a 77 year old female. Review of Systems Objective There were no vitals taken for this visit. Physical Exam Assessment and Plan Same. Recheck in one week PROGRESS Observed: 09/05/2017 Status: COMPLETED Source: [place] 2:00 PM [facility] REPOSITORY HNO ID: [id number] Author: Katerine Wyman RN Service: (none) Author Type: (none) Type: Progress Notes Filed: 09/05/2017 2:44 PM Note Text: INR 2.1-results reviewed with patient. Current Coumadin dose is 2.5 mg alt. With 5 mg with last dose change on 08/27/17 and previous dose of 2.5 mg Wed and 5 mg all other days with INR of 4.8. Last INR on 08/29/17 was 2.7 (coumdin held 2 days prior). Patient states due to irritable bowel aggravated by raw vegetables, she cut out a lot of greens out of her diet. Advised patient would be contacted regarding dosage and followup instructions after review by provider. Written instructions given and patient verbalized understanding. Katerine Wyman RN CNOV Observed: 09/04/2017 Status: COMPLETED Source: [place] 4:00 PM [facility] REPOSITORY Office Visit (CARIMN) MARTELL NASCIMENTO ([id number]) 1940 F Date Time Provider Department 09/04/17 4:00 PM WILIAM DONALDSON During your visit today, we recorded the following information about you: Pulse Blood pressure Weight Height 54/minute 150/77 64.6 kg 1.74 m Wiliam Donaldson MD 09/09/2017 9:22 AM Signed [facility] [place] [facility] Department of Cardiovascular Medicine SECTION OF CARDIOVASCULAR IMAGING OUTPATIENT VISIT DATE September 04, 2017 OUTPATIENT VISIT TYPE ESTABLISHED PRIMARY CARE PHYSICIAN: Henrique Shultz MD [address] [place] [address] CHIEF COMPLAINT: paroxysmal atrial fibrillation HISTORY OF PRESENT ILLNESS: Ms. Nascimento is a 77 year old female who presents today for follow-up visit. Since her last visit, she states that she has felt quite well with no admissions or deterioration in her quality of life. She has MVP with moderate MR and had one brief breakthrough episode of atrial fibrillation that converted back to SR She denies chest pain, shortness of breath, orthopnea, cough, edema, palpitations, PND, lightheadedness or syncope. NURSING INTAKE:She has been seen in the past for mitral regurgitation,MR, atrial fibrillation (on Coumadin and Tikosyn, Pulmonary HTN (mild, RVSP is 46mmHg)Diastolic dysfunction (currently on furosemide 10mg qD) She was last seen on 09/05/16 She feels well. No hospitaliations or ER visits. Walks the [employer] /-3/4 miles. 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 - Arrhythmia - Atrial fibrillation (HCC) 09/2010 6 months ago permanent - Cardiomegaly 2010 - Colon polyps 1994 - Cystoid macular degeneration of both eyes 2010 [place] [facility], (Right Eye) - Family history of malignant neoplasm of gastrointestinal tract - GERD (gastroesophageal reflux disease) - Heart murmur rheumatic fever - HTN (hypertension) - Hyperlipidemia - Hypothyroidism - Osteoporosis 2004 - PMH - PAST MEDICAL HISTORY OF PHTN - PMH - PAST MEDICAL HISTORY OF migraines PAST SURGICAL HISTORY Procedure Laterality Date - ATRIAL FIBRILLATION/FLUTTER ABLATION attempted ablation - CHOLECYSTECTOMY 65 - COLONOSCOP W/ OR W/O [facility] SPEC 05/03/11 repeat 5 years - COLONOSCOP W/ OR W/O [facility] SPEC 01/25/2017 Colonoscopy - HEMORRHOID;BAND LIGAT, SNGL/MUL Hemorrhoidectomy - PAST SURGICAL HISTORY OF 61 AND63 c section(x2) - PAST SURGICAL HISTORY OF 04/04/2006 colonoscopy - PAST SURGICAL HISTORY OF appendectomy - PAST SURGICAL HISTORY OF 2008 cataract - PAST SURGICAL HISTORY OF 2004 Repair of right wrist fx - REMOVAL OF TONSILS,<12 Y/O Tonsillectomy SOCIAL HISTORY Social History Substance Use Topics - Smoking status: Never Smoker - Smokeless tobacco: Never Used - Alcohol use No FAMILY HISTORY Problem Relation Age of Onset - Diabetes Mother - Heart Mother CHF - Stroke Mother 95 - Arthritis Mother - brain tumor [OTHER] Father 54 - Ischemic Heart Disease Sister - Rectal Cancer [OTHER] Sister ALLERGIES: ALLERGIES Not on File MEDICATIONS: gabapentin (NEURONTIN) 100 mg capsule TAKE ONE CAPSULE BY MOUTH THREE TIMES DAILY warfarin (COUMADIN) 5 mg tablet Take 1 tablet by mouth once daily. Take 2.5 mg on Wed and 5 mg all other days or as directed warfarin (COUMADIN) 1 mg tablet Take 2.5 mg on Wed and 5 mg all other days or as directed furosemide (LASIX) 20 mg tablet Take 0.5 tablets by mouth once daily. metoprolol succinate ER (TOPROL XL) 25 mg 24 hr tablet Take 0.5 tablets by mouth once daily. BIOTIN ORAL Take 5,000 mg by mouth once daily. VIT A/C/E AC/ZNOX/CUPRIC OXIDE (EYE VITAMIN AND MINERALS ORAL) Take 1 capsule by mouth. LACTOBACILLUS COMBO NO.6 (PROBIOTIC COMPLEX ORAL) Take by mouth. OTC PRODUCT Calcium Lactate 300 mg once daily Cholecalciferol, Vitamin D3, 2,000 unit tab Take 1 tablet by mouth once daily. levothyroxine (SYNTHROID) 75 mcg tablet Take 1 tablet by mouth once daily. TIKOSYN 125 mcg capsule TAKE ONE CAPSULE BY MOUTH TWICE DAILY COMPOUNDED PRESCRIPTION Standing orderPATIENT/INR:DX: atrial fibFax results to [phone] PHYSICAL EXAMINATION: BP 150/77 (BP Site: Left Arm, BP Position: Sitting, BP Cuff Size: Regular Adult) Ht 174 cm (5' 8.5) Wt 64.6 kg (142 lb 8 oz) BMI 21.35 kg/m? General: Well appearing, in no acute distress. Skin: No clubbing, no cyanosis. Eyes: Extra ocular movements intact Oropharynx: Teeth in good repair. Neck: No jugular venous distention, no carotid bruits, carotids have a normal upstroke, no palpable thyromegaly. Lungs: Clear to auscultation bilaterally, no wheezing or rhonchi. Heart: Regular rhythm, PMI not displaced, S1, S2 normal, no S3, no S4,murmur of MR Abdomen: Soft, nontender, bowel sounds normal, no palpable organomegaly, no bruits. Extremities: No peripheral edema . Grade 2/4 distal pulses bilaterally. Neuro: Oriented to person, place and time, alert, cooperative, gait coordinated. CARDIOVASCULAR MEDICINE TESTING: ECHO - The left ventricle is normal in size. There is mild concentric left ventricular hypertrophy. Left ventricular systolic function is normal. EF = 62 ? 5% (2D biplane) Left ventricular diastolic function was not evaluated due to severe MAC. - The right ventricle is normal in size. Right ventricular systolic function is normal. - The left atrial cavity is severely dilated. - The right atrial cavity is dilated. - There is moderate (2+) mitral valve regurgitation. - There is moderate (2+) tricuspid valve regurgitation. - There is 1+ AI. - Mid ascending aorta 4.2 cm. - Exam was compared with the prior echocardiographic exam performed on 12/21/2015. Similar findings noted. Recent EKG reviewed IMPRESSION: Ms. Nascimento is a 77 year old female who is in stable health PLAN AND RECOMMENDATIONS: atrial fibrillation: continue on tikosyn, follow up EKG, follow electrolytes and renal function: she feels well in SR MR: this is moderate and can continue to be monitored I personally interviewed, confirmed and edited the above information as obtained by others. CONTACT INFORMATION: Andrea Donaldson MD, [facility], [facility] Department of Cardiovascular Medicine [facility] [place] [facility] Desk [id number] [id number] Office ? [phone] extension [phone] Office Appointments: [phone] extension [phone] Referring Provider: WILIAM DONALDSON [[id number]] Allergies As of Date: 09/04/2017 (Not on File) Date Reviewed: 09/04/2017 Reviewed by: Maricruz Cortes RN - Fully Assessed Primary Visit Diagnosis:Paroxysmal atrial fibrillation (HCC) [I48.0] Other Visit Diagnosis:Non-rheumatic mitral regurgitation [I34.0] Prescriptions as of 09/04/2017 Sig: GABAPENTIN 100 MG CAPSULE TAKE ONE CAPSULE BY MOUTH THR* WARFARIN 5 MG TABLET Take 1 tablet by mouth once d* WARFARIN 1 MG TABLET Take 2.5 mg on Sun and 5 mg a* FUROSEMIDE 20 MG TABLET Take 0.5 tablets by mouth onc* METOPROLOL SUCCINATE ER 25 MG* Take 0.5 tablets by mouth onc* BIOTIN ORAL Take 5,000 mg by mouth once d* EYE VITAMIN AND MINERALS ORAL Take 1 capsule by mouth. PROBIOTIC COMPLEX ORAL Take by mouth. OTC PRODUCT Calcium Lactate 300 mg once d* CHOLECALCIFEROL (VITAMIN D3) * Take 1 tablet by mouth once d* LEVOTHYROXINE 75 MCG TABLET Take 1 tablet by mouth once d* TIKOSYN 125 MCG CAPSULE TAKE ONE CAPSULE BY MOUTH TWI* COMPOUNDED PRESCRIPTION Standing order PATIENT/INR: * Problem List As Of Date 09/04/2017 Noted Resolved Chest pain [R07.9] INVALID FOR* Atrial fibrillation [I48.91] INVALID FOR* More... 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 Mitral valve regurgitation [I34.0] INVALID FOR* More... 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 CKD (chronic kidney disease) stage 3, GFR 30-59*INVALID FOR* Medications Discontinued During This Encounter KRILL OIL ORAL 09/04/2017 Class: Historical Med Route: ORAL Sig: Take by mouth once daily. Disc: Reason for discontinue is not on file. levothyroxine (SYNTHROID) 75 mcg tab* 90 t* 3 07/31/2017 09/04/2017 Route: ORAL Sig: Take 1 tablet by mouth once daily. on an empty stomach 1/2 hour before meal , for thyroid. Disc: Reason for discontinue is not on file. Disposition: Return in about 1 year (around 09/04/2018). Follow-up and Disposition History Recorded Encounter Status:Closed by WILIAM DONALDSON MD on 09/09/17 PROGRESS Observed: 09/04/2017 Status: COMPLETED Source: [place] 3:16 PM [facility] [place] REPOSITORY O ID: [id number] Author: Wiliam Donaldson Service: (none) Author Type: Physician Type: Progress Notes Filed: 09/09/2017 9:22 AM Note Text: [facility] [place] [facility] Department of Cardiovascular Medicine SECTION OF CARDIOVASCULAR IMAGING OUTPATIENT VISIT DATE September 04, 2017 OUTPATIENT VISIT TYPE ESTABLISHED PRIMARY CARE PHYSICIAN: Henrique Shultz MD [address] [id number] CHIEF COMPLAINT: paroxysmal atrial fibrillation HISTORY OF PRESENT ILLNESS: Ms. Nascimento is a 77 year old female who presents today for follow-up visit. Since her last visit, she states that she has felt quite well with no admissions or deterioration in her quality of life. She has MVP with moderate MR and had one brief breakthrough episode of atrial fibrillation that converted back to SR She denies chest pain, shortness of breath, orthopnea, cough, edema, palpitations, PND, lightheadedness or syncope. NURSING INTAKE:She has been seen in the past for mitral regurgitation,MR, atrial fibrillation (on Coumadin and Tikosyn, Pulmonary HTN (mild, RVSP is 46mmHg)Diastolic dysfunction (currently on furosemide 10mg qD) She was last seen on 09/05/16 She feels well. No hospitaliations or ER visits. Walks the [place]ail[place] 1/2-3/4 miles. 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 - Arrhythmia - Atrial fibrillation (HCC) 09/2010 6 months ago permanent - Cardiomegaly 2010 - Colon polyps 1994 - Cystoid macular degeneration of both eyes 2010 [place] [facility], (Right Eye) - Family history of malignant neoplasm of gastrointestinal tract - GERD (gastroesophageal reflux disease) - Heart murmur rheumatic fever - HTN (hypertension) - Hyperlipidemia - Hypothyroidism - Osteoporosis 2004 - PMH - PAST MEDICAL HISTORY OF PHTN - PMH - PAST MEDICAL HISTORY OF migraines PAST SURGICAL HISTORY Procedure Laterality Date - ATRIAL FIBRILLATION/FLUTTER ABLATION attempted ablation - CHOLECYSTECTOMY 65 - COLONOSCOP W/ OR W/O [facility] SPEC 05/03/11 repeat 5 years - COLONOSCOP W/ OR W/O [facility] SPEC 01/25/2017 Colonoscopy - HEMORRHOID;BAND LIGAT, SNGL/MUL Hemorrhoidectomy - PAST SURGICAL HISTORY OF 61 AND63 c section(x2) - PAST SURGICAL HISTORY OF 04/04/2006 colonoscopy - PAST SURGICAL HISTORY OF appendectomy - PAST SURGICAL HISTORY OF 2008 cataract - PAST SURGICAL HISTORY OF 2004 Repair of right wrist fx - REMOVAL OF TONSILS,<12 Y/O Tonsillectomy SOCIAL HISTORY Social History Substance Use Topics - Smoking status: Never Smoker - Smokeless tobacco: Never Used - Alcohol use No FAMILY HISTORY Problem Relation Age of Onset - Diabetes Mother - Heart Mother CHF - Stroke Mother 95 - Arthritis Mother - brain tumor [OTHER] Father 54 - Ischemic Heart Disease Sister - Rectal Cancer [OTHER] Sister ALLERGIES: ALLERGIES Not on File MEDICATIONS: gabapentin (NEURONTIN) 100 mg capsule TAKE ONE CAPSULE BY MOUTH THREE TIMES DAILY warfarin (COUMADIN) 5 mg tablet Take 1 tablet by mouth once daily. Take 2.5 mg on Wed and 5 mg all other days or as directed warfarin (COUMADIN) 1 mg tablet Take 2.5 mg on Wed and 5 mg all other days or as directed furosemide (LASIX) 20 mg tablet Take 0.5 tablets by mouth once daily. metoprolol succinate ER (TOPROL XL) 25 mg 24 hr tablet Take 0.5 tablets by mouth once daily. BIOTIN ORAL Take 5,000 mg by mouth once daily. VIT A/C/E AC/ZNOX/CUPRIC OXIDE (EYE VITAMIN AND MINERALS ORAL) Take 1 capsule by mouth. LACTOBACILLUS COMBO NO.6 (PROBIOTIC COMPLEX ORAL) Take by mouth. OTC PRODUCT Calcium Lactate 300 mg once daily Cholecalciferol, Vitamin D3, 2,000 unit tab Take 1 tablet by mouth once daily. levothyroxine (SYNTHROID) 75 mcg tablet Take 1 tablet by mouth once daily. TIKOSYN 125 mcg capsule TAKE ONE CAPSULE BY MOUTH TWICE DAILY COMPOUNDED PRESCRIPTION Standing orderPATIENT/INR:DX: atrial fibFax results to [phone] PHYSICAL EXAMINATION: BP 150/77 (BP Site: Left Arm, BP Position: Sitting, BP Cuff Size: Regular Adult) Ht 174 cm (5' 8.5) Wt 64.6 kg (142 lb 8 oz) BMI 21.35 kg/m? General: Well appearing, in no acute distress. Skin: No clubbing, no cyanosis. Eyes: Extra ocular movements intact Oropharynx: Teeth in good repair. Neck: No jugular venous distention, no carotid bruits, carotids have a normal upstroke, no palpable thyromegaly. Lungs: Clear to auscultation bilaterally, no wheezing or rhonchi. Heart: Regular rhythm, PMI not displaced, S1, S2 normal, no S3, no S4,murmur of MR Abdomen: Soft, nontender, bowel sounds normal, no palpable organomegaly, no bruits. Extremities: No peripheral edema . Grade 2/4 distal pulses bilaterally. Neuro: Oriented to person, place and time, alert, cooperative, gait coordinated. CARDIOVASCULAR MEDICINE TESTING: ECHO - The left ventricle is normal in size. There is mild concentric left ventricular hypertrophy. Left ventricular systolic function is normal. EF = 62 ? 5% (2D biplane) Left ventricular diastolic function was not evaluated due to severe MAC. - The right ventricle is normal in size. Right ventricular systolic function is normal. - The left atrial cavity is severely dilated. - The right atrial cavity is dilated. - There is moderate (2+) mitral valve regurgitation. - There is moderate (2+) tricuspid valve regurgitation. - There is 1+ AI. - Mid ascending aorta 4.2 cm. - Exam was compared with the prior echocardiographic exam performed on 12/21/2015. Similar findings noted. Recent EKG reviewed IMPRESSION: Ms. Nascimento is a 77 year old female who is in stable health PLAN AND RECOMMENDATIONS: atrial fibrillation: continue on tikosyn, follow up EKG, follow electrolytes and renal function: she feels well in SR MR: this is moderate and can continue to be monitored I personally interviewed, confirmed and edited the above information as obtained by others. CONTACT INFORMATION: Andrea Donaldson MD, FAC, VIPIN [facility] and Sarah Silverman Department of Cardiovascular Medicine Heart and V[facility] [place] [facility] Desk [id number], [place] [address] Office ? [phone] extension [phone] Office Appointments: [phone] extension [phone] CBC AND DIFFERENTIAL Collected: 08/30/2017 Status: F Source: [facility] 2:05 PM [facility] REPOSITORY TYPE CODE TESTS RESULT OUT OF REFERENCE UNITS RANGE LAB WBC 3.70-11.00 k/uL WBC 4.51 LAB RBC 3.90-5.20 m/uL Low RBC 3.84 LAB HGB 11.5-15.5 g/dL Hemoglobin 12.1 LAB HCT 36.0-46.0 % Hematocrit 37.7 LAB MCV 80.0-100.0 fL MCV 98.2 LAB MCH 26.0-34.0 pG MCH 31.5 LAB MCHC 30.5-36.0 g/dL MCHC 32.1 LAB RDWCV 11.5-15.0 % RDW-CV 13.5 LAB PLTCT 150-400 k/uL Platelet Count 222 LAB MPV 9.0-12.7 fL MPV 11.1 LAB ANEUT % Neut% 57.6 LAB AANEUT 1.45-7.50 k/uL Abs Neut 2.59 LAB ALYMP % Lymph% 28.2 LAB AALYMP 1.00-4.00 k/uL Abs Lymph 1.27 LAB AMONO % [place]% 9.8 LAB AAMONO <0.87 k/uL Abs [place] 0.44 LAB AEOS % Eosin% 3.5 LAB AAEOS <0.46 k/uL Abs Eosin 0.16 LAB ABASO % Baso% 0.9 LAB AABASO <0.11 k/uL Abs Baso 0.04 LAB AUNRBC 0 /100 WBC NRBCs 0.0 LAB ABNRBC <0.01 k/uL Absolute nRBC <0.01 LAB DTYP DTYPE Auto Diff Performed By: #### CBCDIF, BMP, TSH #### [facility] [address] [id number] BASIC METABOLIC PANL Collected: 08/30/2017 Status: F Source: MCLEAN 2:05 PM [facility] REPOSITORY TYPE CODE TESTS RESULT OUT OF REFERENCE UNITS RANGE LAB GLU 74-99 mg/dL High Glucose 112 Result Comment: The [place] [employer] (ADA) provides guidance for cutoff values for fasting glucose and random glucose. The ADA defines fasting as no caloric intake for at least 8 hours. Fas ting plasma glucose results between 100 to 125 mg/dL indicate increased risk for diabetes (prediabetes). Fasting plasma glucose results greater than or equal to 126 mg/dL meet the criteria for diagnosis of diabetes. In the absence of unequivocal hyperglycemia, results should be confirmed by repeat testing. In a patient with classic symptoms of hyperglycemia or hyperglycemic crisis, random plasma glucose results greater than or equal to 200 mg/dL meet the criteria for diagnosis of diabetes. Reference: Standards of Medical Care in Diabetes 2016, [place] Diabetes Association. Diabetes Care. 2016.39(Suppl 1). LAB BUN 7-21 mg/dL BUN High 23 LAB CRET 0.58-0.96 mg/dL Creatinine High 1.27 LAB NA 136-144 mmol/L Sodium 141 LAB K 3.7-5.1 mmol/L Potassium 3.8 LAB CL 97-105 mmol/L Chloride 104 LAB CO2 22-30 mmol/L CO2 26 LAB AGAP 9-18 mmol/L Anion Gap 11 LAB CA 8.5-10.2 mg/dL Calcium, Total 9.1 LAB GFRAA eGFR- Amer. 49 LAB GFRNAA . eGFR-All Other Races 41 Result Comment: eGFR (Estimated GFR) Units of measure: mL/min/1.73 meters squared eGFR is derived from the reexpressed MDRD Study equation using the following parameters: serum creatinine, age, gender and race. The creatinine assay has been calibrated to be traceable to IDMS. An eGFR <60 mL/min/1.73m2 for >3 months is consistent with chronic kidney disease. Refer to KDOQI guidelines for clinical interpretation. In patients with unstable renal function, e.g. those with acute kidney injury, the eGFR may not accurately reflect actual GFR. Performed By: #### CBCDIF, BMP, TSH #### [facility] [address] [place], [place] [address] TSH Collected: 08/30/2017 Status: F Source: MCLEAN 2:05 PM [facility] REPOSITORY TYPE CODE TESTS RESULT OUT OF RANGE REFERENCE UNITS LAB TSH 0.400-5.500 uU/mL TSH 1.240 Performed By: #### CBCDIF, BMP, TSH #### [facility] [address] [place], [place] [address] PROGRESS Observed: 08/30/2017 Status: COMPLETED Source: [facility] 1:47 PM [facility] REPOSITORY HNO ID: [id number] Author: Henrique Shultz Service: (none) Author Type: Physician Type: Progress Notes Filed: 08/30/2017 1:58 PM Note Text: Patient presents with: Pre-Op Exam HPI: Patient presents today for office visit for follow up. Delayed surgery. Getting blepharoplasty of both lids. Just saw Dr. Dolan. No recent changes. Had ekg done. Nursing Notes: Misty Mckeon Ma 08/30/2017 1:34 PM Signed Patient presents for preop clearance. Upcoming surgery for: Blepharoplasty upper on by Dr Greer. Hx of previous anesthesia problems: No. Family hx of anesthesia problems: No. Current signs of infection: No. Chest pain: No. Shortness of breath: No. Known sleep apnea: No. Hx of clotting issues: No Current bleeding or bruising: No. Currently on Warfarin for atrial fibrillation. Surgery is September 14. She will hold coumadin before surgery. Thyroid: no changes in energy. No changes in hair or skin from baseline. No palpitations. MEDICATIONS: Current Outpatient Prescriptions: gabapentin (NEURONTIN) 100 mg capsule TAKE ONE CAPSULE BY MOUTH THREE TIMES DAILY warfarin (COUMADIN) 5 mg tablet Take 1 tablet by mouth once daily. Take 2.5 mg on Sun and 5 mg all other days or as directed warfarin (COUMADIN) 1 mg tablet Take 2.5 mg on Wed and 5 mg all other days or as directed levothyroxine (SYNTHROID) 75 mcg tablet Take 1 tablet by mouth once daily. on an empty stomach 1/2 hour before meal , for thyroid. furosemide (LASIX) 20 mg tablet Take 0.5 tablets by mouth once daily. metoprolol succinate ER (TOPROL XL) 25 mg 24 hr tablet Take 0.5 tablets by mouth once daily. TIKOSYN 125 mcg capsule TAKE ONE CAPSULE BY MOUTH TWICE DAILY COMPOUNDED PRESCRIPTION Standing orderPATIENT/INR:DX: atrial fibFax results to [phone] BIOTIN ORAL Take 5,000 mg by mouth once daily. KRILL OIL ORAL Take by mouth once daily. VIT A/C/E AC/ZNOX/CUPRIC OXIDE (EYE VITAMIN AND MINERALS ORAL) Take 1 capsule by mouth. LACTOBACILLUS COMBO NO.6 (PROBIOTIC COMPLEX ORAL) Take by mouth. OTC PRODUCT Calcium Lactate 300 mg once daily Cholecalciferol, Vitamin D3, 2,000 unit tab Take 1 tablet by mouth once daily. No current facility-administered medications for this visit. 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 - Arrhythmia - Atrial fibrillation (HCC) 09/2010 6 months ago permanent - Cardiomegaly 2010 - Colon polyps 1994 - Cystoid macular degeneration of both eyes 2010 [place] [facility], (Right Eye) - Family history of malignant neoplasm of gastrointestinal tract - GERD (gastroesophageal reflux disease) - Heart murmur rheumatic fever - HTN (hypertension) - Hyperlipidemia - Hypothyroidism - Osteoporosis 2004 - PMH - PAST MEDICAL HISTORY OF PHTN - PM - PAST MEDICAL HISTORY OF migraines PAST SURGICAL HISTORY Procedure Laterality Date - ATRIAL FIBRILLATION/FLUTTER ABLATION attempted ablation - CHOLECYSTECTOMY 65 - COLONOSCOP W/ OR W/O [facility] SPEC 05/03/11 repeat 5 years - COLONOSCOP W/ OR W/O [facility] SPEC 01/25/2017 Colonoscopy - HEMORRHOID;BAND LIGAT, SNGL/MUL Hemorrhoidectomy - PAST SURGICAL HISTORY OF 61 AND63 c section(x2) - PAST SURGICAL HISTORY OF 04/04/2006 colonoscopy - PAST SURGICAL HISTORY OF appendectomy - PAST SURGICAL HISTORY OF 2008 cataract - PAST SURGICAL HISTORY OF 2004 Repair of right wrist fx - REMOVAL OF TONSILS,<12 Y/O Tonsillectomy FAMILY HISTORY Problem Relation Age of Onset - Diabetes Mother - Heart Mother CHF - Stroke Mother 95 - Arthritis Mother - brain tumor [OTHER] Father 54 - Ischemic Heart Disease Sister - Rectal Cancer [OTHER] Sister Social History Marital status: Spouse name: Sven Years of education: Number of children: 2 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 REVIEW OF SYSTEMS All other reviewed and negative other than HPI. VITALS: BP 122/64 Pulse 64 Resp 16 Wt 66.2 kg (146 lb) BMI 22.20 kg/m? Last 4 Encounter Wt Readings: Date: Wt: 08/30/2017 66.2 kg (146 lb) 07/25/2017 67.6 kg (149 lb) 06/29/2017 69.5 kg (153 lb 3.2 oz) 01/30/2017 69.4 kg (153 lb) PHYSICAL EXAMINATION: General appearance: Well appearing, alert, in no acute distress, well-hydrated, well nourished. Skin: Skin color, texture, turgor normal, no suspicious rashes or lesions Neck: Supple, no adenopathy; thyroid symmetric, normal size, no bruits Lungs: Lungs clear to auscultation. No wheezing, rhonchi, rales Heart: RRR without murmur, gallop, or rubs. No ectopy Abdomen: Normal abdominal exam, Abdomen soft, non-tender. Bowel sounds normal. No masses, organomegaly Extremities: No deformities, edema, skin discoloration, clubbing or cyanosis. Good capillary refill. ASSESSMENT/PLAN: 1. Ptosis of eyelid, unspecified laterality - ICD9: 374.30, ICD10: H02.409 (primary diagnosis) - ok for surgery. Call if any isssue 2. Paroxysmal atrial fibrillation (HCC) - ICD9: 427.31, ICD10: I48.0 - check labs. - CBC + DIFF 3. Hypothyroidism, unspecified type - ICD9: 244.9, ICD10: E03.9 - Instructed patient on importance of taking on an empty stomach either first thing in the morning or at bedtime. - TSH BLD 4. CKD (chronic kidney disease) stage 3, GFR 30-59 ml/min (HCC) - ICD9: 585.3, ICD10: N18.3 - follow labs. - BASIC METABOLIC PNL Henrique Shultz MD RTO in six months and prn. CNOV Observed: 08/30/2017 Status: COMPLETED Source: MCLEAN 1:20 PM [facility] REPOSITORY Office Visit (FAMPWS) MARTELL NASCIMENTO ([id number]) 1940 F Date Time Provider Department 08/30/17 1:20 PM HENRIQUE SHULTZ During your visit today, we recorded the following information about you: Pulse Respiration Blood pressure Weight 64/minute 16/minute 122/64 66.2 kg Misty Mckeon Ma 08/30/2017 1:34 PM Signed Patient presents for preop clearance. Upcoming surgery for: Blepharoplasty upper on by Dr Greer. Hx of previous anesthesia problems: No. Family hx of anesthesia problems: No. Current signs of infection: No. Chest pain: No. Shortness of breath: No. Known sleep apnea: No. Hx of clotting issues: No Current bleeding or bruising: No. Currently on Warfarin for atrial fibrillation. Henrique Shultz MD 08/30/2017 1:58 PM Signed Patient presents with: Pre-Op Exam HPI: Patient presents today for office visit for follow up. Delayed surgery. Getting blepharoplasty of both lids. Just saw Dr. Dolan. No recent changes. Had ekg done. Nursing Notes: Misty Mckeon Ma 08/30/2017 1:34 PM Signed Patient presents for preop clearance. Upcoming surgery for: Blepharoplasty upper on by Dr Greer. Hx of previous anesthesia problems: No. Family hx of anesthesia problems: No. Current signs of infection: No. Chest pain: No. Shortness of breath: No. Known sleep apnea: No. Hx of clotting issues: No Current bleeding or bruising: No. Currently on Warfarin for atrial fibrillation. Surgery is September 14. She will hold coumadin before surgery. Thyroid: no changes in energy. No changes in hair or skin from baseline. No palpitations. MEDICATIONS: Current Outpatient Prescriptions: gabapentin (NEURONTIN) 100 mg capsule TAKE ONE CAPSULE BY MOUTH THREE TIMES DAILY warfarin (COUMADIN) 5 mg tablet Take 1 tablet by mouth once daily. Take 2.5 mg on Sun and 5 mg all other days or as directed warfarin (COUMADIN) 1 mg tablet Take 2.5 mg on Sun and 5 mg all other days or as directed levothyroxine (SYNTHROID) 75 mcg tablet Take 1 tablet by mouth once daily. on an empty stomach 1/2 hour before meal , for thyroid. furosemide (LASIX) 20 mg tablet Take 0.5 tablets by mouth once daily. metoprolol succinate ER (TOPROL XL) 25 mg 24 hr tablet Take 0.5 tablets by mouth once daily. TIKOSYN 125 mcg capsule TAKE ONE CAPSULE BY MOUTH TWICE DAILY COMPOUNDED PRESCRIPTION Standing orderPATIENT/INR:DX: atrial fibFax results to [phone] BIOTIN ORAL Take 5,000 mg by mouth once daily. KRILL OIL ORAL Take by mouth once daily. VIT A/C/E AC/ZNOX/CUPRIC OXIDE (EYE VITAMIN AND MINERALS ORAL) Take 1 capsule by mouth. LACTOBACILLUS COMBO NO.6 (PROBIOTIC COMPLEX ORAL) Take by mouth. OTC PRODUCT Calcium Lactate 300 mg once daily Cholecalciferol, Vitamin D3, 2,000 unit tab Take 1 tablet by mouth once daily. No current facility-administered medications for this visit. 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 - Arrhythmia - Atrial fibrillation (HCC) 09/2010 6 months ago permanent - Cardiomegaly 2010 - Colon polyps 1994 - Cystoid macular degeneration of both eyes 2010 [place] [facility], (Right Eye) - Family history of malignant neoplasm of gastrointestinal tract - GERD (gastroesophageal reflux disease) - Heart murmur rheumatic fever - HTN (hypertension) - Hyperlipidemia - Hypothyroidism - Osteoporosis 2004 - PMH - PAST MEDICAL HISTORY OF PHTN - PMH - PAST MEDICAL HISTORY OF migraines PAST SURGICAL HISTORY Procedure Laterality Date - ATRIAL FIBRILLATION/FLUTTER ABLATION attempted ablation - CHOLECYSTECTOMY 65 - COLONOSCOP W/ OR W/O [facility] SPEC 05/03/11 repeat 5 years - COLONOSCOP W/ OR W/O [facility] SPEC 01/25/2017 Colonoscopy - HEMORRHOID;BAND LIGAT, SNGL/MUL Hemorrhoidectomy - PAST SURGICAL HISTORY OF [age] c section(x2) - PAST SURGICAL HISTORY OF 04/04/2006 colonoscopy - PAST SURGICAL HISTORY OF appendectomy - PAST SURGICAL HISTORY OF 2008 cataract - PAST SURGICAL HISTORY OF 2004 Repair of right wrist fx - REMOVAL OF TONSILS,<12 Y/O Tonsillectomy FAMILY HISTORY Problem Relation Age of Onset - Diabetes Mother - Heart Mother CHF - Stroke Mother 95 - Arthritis Mother - brain tumor [OTHER] Father 54 - Ischemic Heart Disease Sister - Rectal Cancer [OTHER] Sister Social History Marital status: Spouse name: Sven Years of education: Number of children: 2 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 REVIEW OF SYSTEMS All other reviewed and negative other than HPI. VITALS: BP 122/64 Pulse 64 Resp 16 Wt 66.2 kg (146 lb) BMI 22.20 kg/m? Last 4 Encounter Wt Readings: Date: Wt: 08/30/2017 66.2 kg (146 lb) 07/25/2017 67.6 kg (149 lb) 06/29/2017 69.5 kg (153 lb 3.2 oz) 01/30/2017 69.4 kg (153 lb) PHYSICAL EXAMINATION: General appearance: Well appearing, alert, in no acute distress, well-hydrated, well nourished. Skin: Skin color, texture, turgor normal, no suspicious rashes or lesions Neck: Supple, no adenopathy; thyroid symmetric, normal size, no bruits Lungs: Lungs clear to auscultation. No wheezing, rhonchi, rales Heart: RRR without murmur, gallop, or rubs. No ectopy Abdomen: Normal abdominal exam, Abdomen soft, non-tender. Bowel sounds normal. No masses, organomegaly Extremities: No deformities, edema, skin discoloration, clubbing or cyanosis. Good capillary refill. ASSESSMENT/PLAN: 1. Ptosis of eyelid, unspecified laterality - ICD9: 374.30, ICD10: H02.409 (primary diagnosis) - ok for surgery. Call if any isssue 2. Paroxysmal atrial fibrillation (HCC) - ICD9: 427.31, ICD10: I48.0 - check labs. - CBC + DIFF 3. Hypothyroidism, unspecified type - ICD9: 244.9, ICD10: E03.9 - Instructed patient on importance of taking on an empty stomach either first thing in the morning or at bedtime. - TSH BLD 4. CKD (chronic kidney disease) stage 3, GFR 30-59 ml/min (HCC) - ICD9: 585.3, ICD10: N18.3 - follow labs. - BASIC METABOLIC PNL Henrique Shultz MD RTO in six months and prn. Referring Provider: SELF [200] Allergies As of Date: 08/30/2017 (No Known Allergies) Date Reviewed: 08/13/2017 Reviewed by: Lottie Angelo RN - Fully Assessed Reason for Visit: Pre-Op Exam [87] Primary Visit Diagnosis:Ptosis of eyelid, unspecified laterality [H02.409] Other Visit Diagnoses:Paroxysmal atrial fibrillation (HCC) [I48.0] Hypothyroidism, unspecified type [E03.9] CKD (chronic kidney disease) stage 3, GFR 30-59 ml/min (HCC) [N18.3] Order(s):CBC + DIFF [SQCBCDIF] Order #: [id number] FUTURE BASIC METABOLIC PNL [SQBMP] Order #: [id number] FUTURE TSH BLD [SQTSH] Order #: [id number] FUTURE Prescriptions as of 08/30/2017 Sig: GABAPENTIN 100 MG CAPSULE TAKE ONE CAPSULE BY MOUTH THR* WARFARIN 5 MG TABLET Take 1 tablet by mouth once d* WARFARIN 1 MG TABLET Take 2.5 mg on Sun and 5 mg a* LEVOTHYROXINE 75 MCG TABLET Take 1 tablet by mouth once d* FUROSEMIDE 20 MG TABLET Take 0.5 tablets by mouth onc* METOPROLOL SUCCINATE ER 25 MG* Take 0.5 tablets by mouth onc* TIKOSYN 125 MCG CAPSULE TAKE ONE CAPSULE BY MOUTH TWI* COMPOUNDED PRESCRIPTION Standing order PATIENT/INR: * BIOTIN ORAL Take 5,000 mg by mouth once d* KRILL OIL ORAL Take by mouth once daily. EYE VITAMIN AND MINERALS ORAL Take 1 capsule by mouth. PROBIOTIC COMPLEX ORAL Take by mouth. OTC PRODUCT Calcium Lactate 300 mg once d* CHOLECALCIFEROL (VITAMIN D3) * Take 1 tablet by mouth once d* Problem List As Of Date 08/30/2017 Noted Resolved Chest pain [R07.9] INVALID FOR* Atrial fibrillation [I48.91] INVALID FOR* More... 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 Mitral valve regurgitation [I34.0] INVALID FOR* More... 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 CKD (chronic kidney disease) stage 3, GFR 30-59*INVALID FOR* Visit Notes: >> Misty Mckeon Ma Alma Delia Aug 30, 2017 1:27 PM Status: Signed Patient presents for preop clearance. Upcoming surgery for: Blepharoplasty upper on by Dr Greer. Hx of previous anesthesia problems: No. Family hx of anesthesia problems: No. Current signs of infection: No. Chest pain: No. Shortness of breath: No. Known sleep apnea: No. Hx of clotting issues: No Current bleeding or bruising: No. Currently on Warfarin for atrial fibrillation. Disposition: Return in about 6 months (around 03/02/2018). Follow-up and Disposition History Recorded Encounter Status:Closed by HENRIQUE SHULTZ MD on 08/30/17 PROGRESS Observed: 08/29/2017 Status: COMPLETED Source: [facility] 2:02 PM [facility] REPOSITORY HNO ID: [id number] Author: Kelsey Guallpa RN Service: (none) Author Type: (none) Type: Progress Notes Filed: 08/29/2017 2:06 PM Note Text: Patient notified of PCP instructions. Verbalized understanding. Was not available on Sunday and requested to be scheduled on Sunday. PROGRESS Observed: 08/29/2017 Status: COMPLETED Source: MCLEAN 10:09 AM [facility] REPOSITORY HNO ID: [id number] Author: Henrique Shultz Service: (none) Author Type: Physician Type: Progress Notes Filed: 08/29/2017 2:06 PM Note Text: This note was created using FamilyFindsriter. Subjective Martell Nascimento is a 77 year old female. Review of Systems Objective There were no vitals taken for this visit. Physical Exam Assessment and Plan 2.5 alternating with 5 mg a day. Recheck next sunday PROGRESS Observed: 08/29/2017 Status: COMPLETED Source: [place] 9:59 AM [facility] REPOSITORY HNO ID: [id number] Author: Kelsey Guallpa RN Service: (none) Author Type: (none) Type: Progress Notes Filed: 08/29/2017 10:01 AM Note Text: Patient had INR completed at [facility] Patient's INR is 2.7 Patient is currently holding medication since Sunday08/27/17 Patient's last dose change was 08/27/17 due to high INR at 4.8 Patient has had no medication and no change in diet. Advised patient that they would be contacted regarding medication dose and follow-up once reviewed by provider. After provider review, please contact patient with information and schedule follow-up appointment with coumadin clinic. PROGRESS Observed: 08/27/2017 Status: COMPLETED Source: [place] 4:36 PM [facility] REPOSITORY HNO ID: [id number] Author: Misty Mckeon Ma Service: (none) Author Type: (none) Type: Progress Notes Filed: 08/28/2017 1:18 PM Note Text: This note was created using Sparkcloud. Subjective Martell Nascimento is a 77 year old female. Review of Systems Objective There were no vitals taken for this visit. Physical Exam Assessment and Plan Pt made aware and appt was made PROGRESS Observed: 08/27/2017 Status: COMPLETED Source: [place] 3:06 PM [facility] REPOSITORY HNO ID: [id number] Author: Henrique Shultz Service: (none) Author Type: Physician Type: Progress Notes Filed: 08/28/2017 1:18 PM Note Text: This note was created using Sparkcloud. Subjective Martell Nascimento is a 77 year old female. Review of Systems Objective There were no vitals taken for this visit. Physical Exam Assessment and Plan Hold x 2 days. Recheck on sun PROGRESS Observed: 08/27/2017 Status: COMPLETED Source: [place] 2:46 PM [facility] REPOSITORY HNO ID: [id number] Author: Lottie Angelo RN Service: (none) Author Type: (none) Type: Progress Notes Filed: 08/27/2017 2:47 PM Note Text: patient had inr completed at [facility] patients inr is 4.8 (patients inr range is 2.0-3.0) patient is currently taking 2.5mg Wed and 5mg all other days patients last dose change was on 08/06/17 due to a low level of 1.6 (dose at that time was 5mg daily) patient has had no changes in medication and no missed doses and no change in diet Advised patient that they would be contacted regarding medication dose and when to follow up after information is reviewed by provider. After provider review please contact the patient with information and schedule follow up appointment with coumadin clinic. ok to leave a detailed message if no answer PROGRESS Observed: 08/13/2017 Status: COMPLETED Source: [place] 2:12 PM [facility] REPOSITORY HNO ID: [id number] Author: Henrique Shultz Service: (none) Author Type: Physician Type: Progress Notes Filed: 08/13/2017 2:13 PM Note Text: This note was created using Sparkcloud. Subjective Martell Nascimento is a 77 year old female. Review of Systems Objective There were no vitals taken for this visit. Physical Exam Assessment and Plan agree PROGRESS Observed: 08/13/2017 Status: COMPLETED Source: [place] 11:57 AM [facility] REPOSITORY HNO ID: [id number] Author: Lottie Angelo RN Service: (none) Author Type: (none) Type: Progress Notes Filed: 08/13/2017 11:59 AM Note Text: patient had inr completed at [facility] patients inr is 2.4 (patients inr range is 2.0-3.0) patient is currently taking 2.5mg Wed and 5mg all other days patients last dose change was on 08/06/17 due to a low level of 1.6 (dose at that time was 5mg daily) patient has had no changes in medication except for coumadin and no missed doses and no change in diet Advised patient to continue on the same dose(s) and that they would only be contacted regarding dosage and follow up instructions after review with provider, if a change is needed. Written instructions given and patient verbalized understanding. Presently scheduled in 2 weeks (08/27/17) for follow up INR since this is the first normal reading since dose change. PROGRESS Observed: 08/06/2017 Status: COMPLETED Source: [place] 4:10 PM [facility] REPOSITORY HNO ID: [id number] Author: Savana Chen Ma Service: (none) Author Type: (none) Type: Progress Notes Filed: 08/06/2017 4:55 PM Note Text: Pt notified. Tracker and med list updated. Pt scheduled in 1 week for recheck with coumadin clinic. Savana Chen Ma PROGRESS Observed: 08/06/2017 Status: COMPLETED Source: [place] 4:03 PM [facility] REPOSITORY HNO ID: [id number] Author: Henrique Shultz Service: (none) Author Type: Physician Type: Progress Notes Filed: 08/06/2017 4:55 PM Note Text: This note was created using Sparkcloud. Subjective Martell Nascimento is a 77 year old female. Review of Systems Objective There were no vitals taken for this visit. Physical Exam Assessment and Plan Take 5 mg a day except 2.5 on Sun recheck in one week PROGRESS Observed: 08/06/2017 Status: COMPLETED Source: [place] 2:34 PM [facility] REPOSITORY HNO ID: [id number] Author: Lottie Angelo RN Service: (none) Author Type: (none) Type: Progress Notes Filed: 08/06/2017 2:36 PM Note Text: patient had inr completed at [facility] patients inr is 1.6 (patients inr range is 2.0-3.0) patient is currently taking 5mg times 1 dose only patients last dose change was on 08/02/17 due to a high level of 5.2 (dose at that time was 5mg-5mg-6mg cycle) patient has had no changes in medication except for coumadin and no missed doses and no change in diet Advised patient to continue on the same dose(s) and that they would only be contacted regarding dosage and follow up instructions after review with provider, if a change is needed. Written instructions given and patient verbalized understanding. Presently scheduled in 1 week (08/13/17) for follow up INR since patient has been holding coumadin and has only been back on the medication for 1 dose. PROGRESS Observed: 08/03/2017 Status: COMPLETED Source: [place] 10:41 AM [facility] REPOSITORY HNO ID: [id number] Author: Linnette Ingram Ma Service: (none) Author Type: (none) Type: Progress Notes Filed: 08/03/2017 10:42 AM Note Text: Pt notified and verbalized understanding. Tracker updated and scheduled for CC. Linnette Ingram Ma PROGRESS Observed: 08/03/2017 Status: COMPLETED Source: [place] 9:58 AM [facility] REPOSITORY HNO ID: [id number] Author: Henrique Shultz Service: (none) Author Type: Physician Type: Progress Notes Filed: 08/03/2017 10:42 AM Note Text: This note was created using NoteWriter. Subjective Martell Nascimento is a 77 year old female. Review of Systems Objective There were no vitals taken for this visit. Physical Exam Assessment and Plan Hold x 2 days, then 5 mg a day. Recheck on Sunday PROGRESS Observed: 08/03/2017 Status: COMPLETED Source: [place] 9:21 AM [facility] REPOSITORY HNO ID: [id number] Author: Lottie Angelo RN Service: (none) Author Type: (none) Type: Progress Notes Filed: 08/03/2017 9:22 AM Note Text: patient had inr completed at [facility] patients inr is 4.8 (patients inr range is 2.0-3.0) patient is currently holding [id number] cycle since yesterday patients last dose change was on 08/02/17 due to a high level of 5.2 (dose at that time was 5mg-5mg-6mg cycle) patient has had no changes in medication except for coumadin and no change in diet Advised patient that they would be contacted regarding medication dose and when to follow up after information is reviewed by provider. After provider review please contact the patient with information and schedule follow up appointment with coumadin clinic. PROGRESS Observed: 08/02/2017 Status: COMPLETED Source: [place] 3:13 PM [facility] REPOSITORY HNO ID: [id number] Author: Lottie Angelo RN Service: (none) Author Type: (none) Type: Progress Notes Filed: 08/02/2017 3:13 PM Note Text: PATIENT NOTIFIED OF INFORMATION PROGRESS Observed: 08/02/2017 Status: COMPLETED Source: [place] 3:05 PM [facility] REPOSITORY HNO ID: [id number] Author: Lottie Angelo RN Service: (none) Author Type: (none) Type: Progress Notes Filed: 08/02/2017 3:05 PM Note Text: PATIENT NOTIFIED OF INFORMATION PROGRESS Observed: 08/02/2017 Status: COMPLETED Source: [place] 12:02 PM [facility] REPOSITORY HNO ID: [id number] Author: Henrique Shultz Service: (none) Author Type: Physician Type: Progress Notes Filed: 08/02/2017 3:13 PM Note Text: This note was created using FamilyFindsriter. Subjective Martell Nascimento is a 77 year old female. Review of Systems Objective There were no vitals taken for this visit. Physical Exam Assessment and Plan Hold and recheck in am. PROGRESS Observed: 08/02/2017 Status: COMPLETED Source: [place] 11:12 AM [facility] REPOSITORY HNO ID: [id number] Author: Lottie Angelo RN Service: (none) Author Type: (none) Type: Progress Notes Filed: 08/02/2017 11:14 AM Note Text: patient had inr completed at [facility] patients inr is 5.2 (patients inr range is 2.0-3.0) patient is currently taking 5mg-5mg-6mg cycle patients last dose change unknown as this is the doses that patient was on when starting with the CC in Dec 2016 from cardio patient has had no changes in medication and no missed doses and has had a change in diet as patient has been dealing with diarrhea for 2.5 weeks and has not really been able to eat solid foods or veggies (pt is scheduled with gastro already for this) FYI - patient has been instructed to hold coumadin until notified by the office Advised patient that they would be contacted regarding medication dose and when to follow up after information is reviewed by provider. After provider review please contact the patient with information and schedule follow up appointment with coumadin clinic. ENTERIC BACT PNL PCR Collected: 07/26/2017 Status: F Source: [place] 3:09 PM [facility] REPOSITORY TYPE CODE TESTS RESULT OUT OF REFERENCE UNITS RANGE LAB PCRSHG Shigella/EIEC Not Detected DNA LAB PCRCMP Campy jejun/coli DNA Not Detected LAB PCRSTX Shiga toxin gene(s) Not Detected LAB PCRSAL Salmonella spp. Not Detected DNA Performed By: #### STLPCR #### [facility] [address], [place] [address] C DIFFICILE PCR Collected: 07/26/2017 Status: F Source: [place] 3:08 PM [facility] REPOSITORY TYPE CODE TESTS RESULT OUT OF REFERENCE UNITS RANGE LAB CDFRES C difficile PCR Negative for C. difficile toxin by PCR Performed By: #### CDPCR #### [facility] [employer] [address] [place], [place] [address] Observed: 07/26/2017 Status: F Source: [place] [facility] PARASITE SCR 3:08 PM [facility] REPOSITORY Sp. Request/Comment: - Specimen received in sterile container. Culture Result - Negative for Giardia lamblia and Cryptosporidium species by EIA. Performed By: #### OVAPSC #### [facility] [employer] [address] [place], [place] [address] CBC AND DIFFERENTIAL Collected: 07/25/2017 Status: F Source: [place] 3:00 PM [facility] REPOSITORY TYPE CODE TESTS RESULT OUT OF REFERENCE UNITS RANGE LAB WBC 3.70-11.00 k/uL WBC 4.73 LAB RBC 3.90-5.20 m/uL RBC 3.99 LAB HGB 11.5-15.5 g/dL Hemoglobin 12.6 LAB HCT 36.0-46.0 % Hematocrit 39.1 LAB MCV 80.0-100.0 fL MCV 98.0 LAB MCH 26.0-34.0 pG MCH 31.6 LAB MCHC 30.5-36.0 g/dL MCHC 32.2 LAB RDWCV 11.5-15.0 % RDW-CV 13.5 LAB PLTCT 150-400 k/uL Platelet Count 235 LAB MPV 9.0-12.7 fL MPV 10.8 LAB ANEUT % Neut% 58.6 LAB AANEUT 1.45-7.50 k/uL Abs Neut 2.75 LAB ALYMP % Lymph% 28.8 LAB AALYMP 1.00-4.00 k/uL Abs Lymph 1.36 LAB AMONO % [place]% 9.5 LAB AAMONO <0.87 k/uL Abs [place] 0.45 LAB AEOS % Eosin% 2.5 LAB AAEOS <0.46 k/uL Abs Eosin 0.12 LAB ABASO % Baso% 0.6 LAB AABASO <0.11 k/uL Abs Baso 0.03 LAB AUNRBC 0 /100 WBC NRBCs 0.0 LAB ABNRBC <0.01 k/uL Absolute nRBC <0.01 LAB DTYP DTYPE Auto Diff Performed By: #### CBCDIF, SHARI #### [facility] [address] [place], [place] [address] BASIC METABOLIC PANL Collected: 07/25/2017 Status: F Source: [place] 3:00 PM [facility] REPOSITORY TYPE CODE TESTS RESULT OUT OF REFERENCE UNITS RANGE LAB GLU 74-99 mg/dL Glucose 90 Result Comment: The [place] [employer] (ADA) provides guidance for cutoff values for fasting glucose and random glucose. The ADA defines fasting as no caloric intake for at least 8 hours. Fas ting plasma glucose results between 100 to 125 mg/dL indicate increased risk for diabetes (prediabetes). Fasting plasma glucose results greater than or equal to 126 mg/dL meet the criteria for diagnosis of diabetes. In the absence of unequivocal hyperglycemia, results should be confirmed by repeat testing. In a patient with classic symptoms of hyperglycemia or hyperglycemic crisis, random plasma glucose results greater than or equal to 200 mg/dL meet the criteria for diagnosis of diabetes. Reference: Standards of Medical Care in Diabetes 2016, [place] Diabetes Association. Diabetes Care. 2016.39(Suppl 1). LAB BUN 7-21 mg/dL BUN 16 LAB CRET 0.58-0.96 mg/dL Creatinine High 1.11 LAB NA 136-144 mmol/L Sodium 143 LAB K 3.7-5.1 mmol/L Potassium 4.6 LAB CL 97-105 mmol/L Chloride 103 LAB CO2 22-30 mmol/L CO2 25 LAB AGAP 9-18 mmol/L Anion Gap 15 LAB CA 8.5-10.2 mg/dL Calcium, Total 9.4 LAB GFRAA eGFR- Amer. 58 LAB GFRNAA . eGFR-All Other Races 48 Result Comment: eGFR (Estimated GFR) Units of measure: mL/min/1.73 meters squared eGFR is derived from the reexpressed MDRD Study equation using the following parameters: serum creatinine, age, gender and race. The creatinine assay has been calibrated to be traceable to IDMS. An eGFR <60 mL/min/1.73m2 for >3 months is consistent with chronic kidney disease. Refer to KDOQI guidelines for clinical interpretation. In patients with unstable renal function, e.g. those with acute kidney injury, the eGFR may not accurately reflect actual GFR. Performed By: #### CBCDIF, BMP #### [facility] [address] [place], [place] [address] PROGRESS Observed: 07/25/2017 Status: COMPLETED Source: [place] 2:15 PM [facility] REPOSITORY HNO ID: [id number] Author: Henrique Shultz Service: (none) Author Type: Physician Type: Progress Notes Filed: 07/25/2017 2:29 PM Note Text: Patient presents with: Diarrhea HPI: Patient presents today for office visit for acute visit. Nursing Notes: Ailyn Whatley ENVIRONMENTAL HEALTH SANITARIAN 07/25/2017 1:19 PM Signed Having diarrhea for about 1 week. Is on 4th day of BRAT diet. Has used OTC Imodium. Is going 4-5 times per day. Denies abd pain or cramping. No recent travel. She was on antibiotics recently for a dental procedure two weeks ago. No one at home is ill. No nausea or vomiting. No black or bloody stools. Appetite is fair. Drinking well. No dizziness. No chest pain or shortness of breath. Bowels usually working four or five times in the morning. MEDICATIONS: Current Outpatient Prescriptions: TIKOSYN 125 mcg capsule TAKE ONE CAPSULE BY MOUTH TWICE DAILY gabapentin (NEURONTIN) 100 mg capsule TAKE ONE CAPSULE BY MOUTH THREE TIMES DAILY COMPOUNDED PRESCRIPTION Standing orderPATIENT/INR:DX: atrial fibFax results to [phone] warfarin (COUMADIN) 5 mg tablet TAKE ONE TABLET BY MOUTH EVERY DAY DIRECTED levothyroxine (SYNTHROID) 75 mcg tablet Take 1 tablet by mouth once daily. furosemide (LASIX) 20 mg tablet Take 0.5 tablets by mouth once daily. BIOTIN ORAL Take 5,000 mg by mouth once daily. metoprolol succinate ER (TOPROL XL) 25 mg 24 hr tablet TAKE ONE-HALF TABLET BY MOUTH EVERY DAY warfarin (COUMADIN) 1 mg tablet TAKE ONE TABLET BY MOUTH ONCE DAILY ,as directd KRILL OIL ORAL Take by mouth once daily. VIT A/C/E AC/ZNOX/CUPRIC OXIDE (EYE VITAMIN AND MINERALS ORAL) Take 1 capsule by mouth. LACTOBACILLUS COMBO NO.6 (PROBIOTIC COMPLEX ORAL) Take by mouth. OTC PRODUCT Calcium Lactate 300 mg once daily Cholecalciferol, Vitamin D3, 2,000 unit tab Take 1 tablet by mouth once daily. No current facility-administered medications for this visit. 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 - Arrhythmia - Atrial fibrillation (HCC) 09/2010 6 months ago permanent - Cardiomegaly 2010 - Colon polyps 1994 - Cystoid macular degeneration of both eyes 2010 [place] [facility], (Right Eye) - Family history of malignant neoplasm of gastrointestinal tract - GERD (gastroesophageal reflux disease) - Heart murmur rheumatic fever - HTN (hypertension) - Hyperlipidemia - Hypothyroidism - Osteoporosis 2005 - PMH - PAST MEDICAL HISTORY OF PHTN - PMH - PAST MEDICAL HISTORY OF migraines PAST SURGICAL HISTORY Procedure Laterality Date - ATRIAL FIBRILLATION/FLUTTER ABLATION attempted ablation - CHOLECYSTECTOMY 65 - COLONOSCOP W/ OR W/O [facility] SPEC 05/03/11 repeat 5 years - COLONOSCOP W/ OR W/O [facility] SPEC 01/25/2017 Colonoscopy - HEMORRHOID;BAND LIGAT, SNGL/MUL Hemorrhoidectomy - PAST SURGICAL HISTORY OF 61 AND63 c section(x2) - PAST SURGICAL HISTORY OF 04/04/2006 colonoscopy - PAST SURGICAL HISTORY OF appendectomy - PAST SURGICAL HISTORY OF 2008 cataract - PAST SURGICAL HISTORY OF 2004 Repair of right wrist fx - REMOVAL OF TONSILS,<11 Y/O Tonsillectomy FAMILY HISTORY Problem Relation Age of Onset - Diabetes Mother - Heart Mother CHF - Stroke Mother 95 - Arthritis Mother - brain tumor [OTHER] Father 54 - Ischemic Heart Disease Sister - Rectal Cancer [OTHER] Sister Social History Marital status: Spouse name: Sven Years of education: Number of children: 2 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 REVIEW OF SYSTEMS All other reviewed and negative other than HPI. HEALTH MAINTENANCE: Reviewed health maintenance issues today and recommended the following in detail. VITALS: BP 142/82 Pulse 60 Temp 36.3 ?C (97.3 ?F) (Tympanic) Resp 14 Wt 67.6 kg (149 lb) BMI 22.66 kg/m? Last 4 Encounter Wt Readings: Date: Wt: 07/25/2017 67.6 kg (149 lb) 06/29/2017 69.5 kg (153 lb 3.2 oz) 01/30/2017 69.4 kg (153 lb) 01/11/2017 69.4 kg (153 lb) PHYSICAL EXAMINATION: General appearance: Well appearing, alert, in no acute distress, well-hydrated, well nourished. Skin: Skin color, texture, turgor normal, no suspicious rashes or lesions Head: Normocephalic, no masses, lesions, tenderness or abnormalities Oropharynx: Lips, mucosa, and tongue normal, teeth and gums normal, oropharynx normal Lungs: Lungs clear to auscultation. No wheezing, rhonchi, rales Heart: RRR without murmur, gallop, or rubs. No ectopy Abdomen: Normal abdominal exam, Abdomen soft, non-tender. Bowel sounds normal. No masses, organomegaly Has a raised skin lesion on left face. Started in the last month. ASSESSMENT/PLAN: 1. Diarrhea, unspecified type - ICD9: 787.91, ICD10: R19.7 (primary diagnosis) - light diet. Limit dairy. - check labs and stool studies. - consider gi if continues. Call if symptoms worsen at all or if not better in one to two weeks 2. 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 Paroxysmal atrial fibrillation (HCC) - ICD9: 427.31, ICD10: I48.0 - stable. 4, skin lesion - see derm. Henrique Shultz MD CNOV Observed: 07/25/2017 Status: COMPLETED Source: [place] 1:20 PM [facility] REPOSITORY Office Visit (FAMPWS) MARTELL NASCIMENTO ([id number]) 1940 F Date Time Provider Department 07/25/17 1:20 PM HENRIQUE SHULTZWS During your visit today, we recorded the following information about you: Temperature Pulse Respiration Blood pressure 97.3 degrees 60/minute 14/minute 142/82 Weight 67.6 kg Ailyn Whatley DEN 07/25/2017 1:19 PM Signed Having diarrhea for about 1 week. Is on 4th day of BRAT diet. Has used OTC Imodium. Is going 4-5 times per day. Denies abd pain or cramping. Henrique Shultz MD 07/25/2017 2:29 PM Signed Patient presents with: Diarrhea HPI: Patient presents today for office visit for acute visit. Nursing Notes: Ailyn Whatley DEN 07/25/2017 1:19 PM Signed Having diarrhea for about 1 week. Is on 4th day of BRAT diet. Has used OTC Imodium. Is going 4-5 times per day. Denies abd pain or cramping. No recent travel. She was on antibiotics recently for a dental procedure two weeks ago. No one at home is ill. No nausea or vomiting. No black or bloody stools. Appetite is fair. Drinking well. No dizziness. No chest pain or shortness of breath. Bowels usually working four or five times in the morning. MEDICATIONS: Current Outpatient Prescriptions: TIKOSYN 125 mcg capsule TAKE ONE CAPSULE BY MOUTH TWICE DAILY gabapentin (NEURONTIN) 100 mg capsule TAKE ONE CAPSULE BY MOUTH THREE TIMES DAILY COMPOUNDED PRESCRIPTION Standing orderPATIENT/INR:DX: atrial fibFax results to [phone] warfarin (COUMADIN) 5 mg tablet TAKE ONE TABLET BY MOUTH EVERY DAY DIRECTED levothyroxine (SYNTHROID) 75 mcg tablet Take 1 tablet by mouth once daily. furosemide (LASIX) 20 mg tablet Take 0.5 tablets by mouth once daily. BIOTIN ORAL Take 5,000 mg by mouth once daily. metoprolol succinate ER (TOPROL XL) 25 mg 24 hr tablet TAKE ONE-HALF TABLET BY MOUTH EVERY DAY warfarin (COUMADIN) 1 mg tablet TAKE ONE TABLET BY MOUTH ONCE DAILY ,as directd KRILL OIL ORAL Take by mouth once daily. VIT A/C/E AC/ZNOX/CUPRIC OXIDE (EYE VITAMIN AND MINERALS ORAL) Take 1 capsule by mouth. LACTOBACILLUS COMBO NO.6 (PROBIOTIC COMPLEX ORAL) Take by mouth. OTC PRODUCT Calcium Lactate 300 mg once daily Cholecalciferol, Vitamin D3, 2,000 unit tab Take 1 tablet by mouth once daily. No current facility-administered medications for this visit. 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 - Arrhythmia - Atrial fibrillation (HCC) 09/2010 6 months ago permanent - Cardiomegaly 2010 - Colon polyps 1994 - Cystoid macular degeneration of both eyes 2010 [place] [facility], (Right Eye) - Family history of malignant neoplasm of gastrointestinal tract - GERD (gastroesophageal reflux disease) - Heart murmur rheumatic fever - HTN (hypertension) - Hyperlipidemia - Hypothyroidism - Osteoporosis 2004 - PMH - PAST MEDICAL HISTORY OF PHTN - PMH - PAST MEDICAL HISTORY OF migraines PAST SURGICAL HISTORY Procedure Laterality Date - ATRIAL FIBRILLATION/FLUTTER ABLATION attempted ablation - CHOLECYSTECTOMY 65 - COLONOSCOP W/ OR W/O [facility] SPEC 05/03/11 repeat 5 years - COLONOSCOP W/ OR W/O [facility] SPEC 01/25/2017 Colonoscopy - HEMORRHOID;BAND LIGAT, SNGL/MUL Hemorrhoidectomy - PAST SURGICAL HISTORY OF [age] c section(x2) - PAST SURGICAL HISTORY OF 04/04/2006 colonoscopy - PAST SURGICAL HISTORY OF appendectomy - PAST SURGICAL HISTORY OF 2008 cataract - PAST SURGICAL HISTORY OF 2004 Repair of right wrist fx - REMOVAL OF TONSILS,<12 Y/O Tonsillectomy FAMILY HISTORY Problem Relation Age of Onset - Diabetes Mother - Heart Mother CHF - Stroke Mother 95 - Arthritis Mother - brain tumor [OTHER] Father 54 - Ischemic Heart Disease Sister - Rectal Cancer [OTHER] Sister Social History Marital status: Spouse name: Sven Years of education: Number of children: 2 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 REVIEW OF SYSTEMS All other reviewed and negative other than HPI. HEALTH MAINTENANCE: Reviewed health maintenance issues today and recommended the following in detail. VITALS: BP 142/82 Pulse 60 Temp 36.3 ?C (97.3 ?F) (Tympanic) Resp 14 Wt 67.6 kg (149 lb) BMI 22.66 kg/m? Last 4 Encounter Wt Readings: Date: Wt: 07/25/2017 67.6 kg (149 lb) 06/29/2017 69.5 kg (153 lb 3.2 oz) 01/30/2017 69.4 kg (153 lb) 01/11/2017 69.4 kg (153 lb) PHYSICAL EXAMINATION: General appearance: Well appearing, alert, in no acute distress, well-hydrated, well nourished. Skin: Skin color, texture, turgor normal, no suspicious rashes or lesions Head: Normocephalic, no masses, lesions, tenderness or abnormalities Oropharynx: Lips, mucosa, and tongue normal, teeth and gums normal, oropharynx normal Lungs: Lungs clear to auscultation. No wheezing, rhonchi, rales Heart: RRR without murmur, gallop, or rubs. No ectopy Abdomen: Normal abdominal exam, Abdomen soft, non-tender. Bowel sounds normal. No masses, organomegaly Has a raised skin lesion on left face. Started in the last month. ASSESSMENT/PLAN: 1. Diarrhea, unspecified type - ICD9: 787.91, ICD10: R19.7 (primary diagnosis) - light diet. Limit dairy. - check labs and stool studies. - consider gi if continues. Call if symptoms worsen at all or if not better in one to two weeks 2. 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 Paroxysmal atrial fibrillation (HCC) - ICD9: 427.31, ICD10: I48.0 - stable. 4, skin lesion - see derm. Henrique Shultz MD Referring Provider: SELF [200] Allergies As of Date: 07/25/2017 (No Known Allergies) Date Reviewed: 06/29/2017 Reviewed by: Joan Sewell - Fully Assessed Reason for Visit: Diarrhea [35] Primary Visit Diagnosis:Diarrhea, unspecified type [R19.7] Other Visit Diagnoses:A-V fistula (HCC) [I77.0] Paroxysmal atrial fibrillation (HCC) [I48.0] Skin lesion [L98.9] Order(s):CBC + DIFF [SQCBCDIF] Order #: [id number] FUTURE BASIC METABOLIC PNL [SQBMP] Order #: [id number] FUTURE C. DIFFICILE PCR [SQCDPCR] Order #: [id number] CRYPTOSPORIDIUM AND GIARDIA ANTIGENS BY EIA [SQOVAPSC] Order #: [id number] ENTERIC BACTERIAL PANEL BY PCR [SQSTLPCR] Order #: [id number] FUTURE CONSULT TO DERMATOLOGY [9006] Order #: [id number]: 1 Prescriptions as of 07/25/2017 Sig: TIKOSYN 125 MCG CAPSULE TAKE ONE CAPSULE BY MOUTH TWI* GABAPENTIN 100 MG CAPSULE TAKE ONE CAPSULE BY MOUTH THR* COMPOUNDED PRESCRIPTION Standing order PATIENT/INR: * WARFARIN 5 MG TABLET TAKE ONE TABLET BY MOUTH EVER* LEVOTHYROXINE 75 MCG TABLET Take 1 tablet by mouth once d* FUROSEMIDE 20 MG TABLET Take 0.5 tablets by mouth onc* BIOTIN ORAL Take 5,000 mg by mouth once d* METOPROLOL SUCCINATE ER 25 MG* TAKE ONE-HALF TABLET BY MOUTH* WARFARIN 1 MG TABLET TAKE ONE TABLET BY MOUTH ONCE* KRILL OIL ORAL Take by mouth once daily. EYE VITAMIN AND MINERALS ORAL Take 1 capsule by mouth. PROBIOTIC COMPLEX ORAL Take by mouth. OTC PRODUCT Calcium Lactate 300 mg once d* CHOLECALCIFEROL (VITAMIN D3) * Take 1 tablet by mouth once d* Problem List As Of Date 07/25/2017 Noted Resolved Chest pain [R07.9] INVALID FOR* Atrial fibrillation [I48.91] INVALID FOR* More... 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 Mitral valve regurgitation [I34.0] INVALID FOR* More... 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 Visit Notes: >> Ailyn Whatley LPN SunJul 25, 2017 1:15 PM Status: Signed Having diarrhea for about 1 week. Is on 4th day of BRAT diet. Has used OTC Imodium. Is going 4-5 times per day. Denies abd pain or cramping. Encounter Status:Closed by HENRIQUE SHULTZ MD on 07/25/17 HOSP Observed: 07/24/2017 Status: COMPLETED Source: [facility] 12:00 AM [facility] OTHER CAMPUS REPOSITORY Patient:Martell Nascimento MRN: <[id number]> Height:5' 8.5(1.74 m) Weight:142 lb 8 oz (64.638 kg) Outpatient Medications as of 09/14/17: levothyroxine (SYNTHROID) 75 mcg tablet gabapentin (NEURONTIN) 100 mg capsule warfarin (COUMADIN) 5 mg tablet warfarin (COUMADIN) 1 mg tablet furosemide (LASIX) 20 mg tablet metoprolol succinate ER (TOPROL XL) 25 mg 24 hr tablet TIKOSYN 125 mcg capsule COMPOUNDED PRESCRIPTION BIOTIN ORAL VIT A/C/E AC/ZNOX/CUPRIC OXIDE (EYE VITAMIN AND MINERALS ORAL) LACTOBACILLUS COMBO NO.6 (PROBIOTIC COMPLEX ORAL) OTC PRODUCT Cholecalciferol, Vitamin D3, 2,000 unit tab Admission/Clinic Administered Medications as of 09/14/17: lactated ringers infusion Problem List: Chest pain [R07.9] Atrial fibrillation [I48.91] 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0 Progress Notes ([facility]): Aditi Harris, PSR 09/10/2017 4:03 PM Signed Patient calling in saying she is having surgery this Thursday 09/14 and will need to be off her coumadin beginning 09/11 in the evening in preparation for surgery - please advise patient on when she can begin taking this again Henrique Shultz MD 09/10/2017 5:31 PM Signed Resume next day if ok with surgeon. Indira Eng 09/11/2017 9:01 AM Signed Patient was informed to resume coumadin day after surgery if okay by surgeon. Patient is asking when she should come back in to have INR checked after starting coumadin following the surgery? Please advise. Indira Shultz MD 09/11/2017 12:03 PM Signed Recheck four days after Chika Duggan Ma 09/11/2017 12:32 PM Signed Patient notified of results, verbalizes understanding of instructions. Apt made Chika Duggan Ma Progress Notes ([facility]): Katerine Wyman RN 09/05/2017 2:44 PM Signed INR 2.1-results reviewed with patient. Current Coumadin dose is 2.5 mg alt. With 5 mg with last dose change on 08/27/17 and previous dose of 2.5 mg Wed and 5 mg all other days with INR of 4.8. Last INR on 08/29/17 was 2.7 (coumdin held 2 days prior). Patient states due to irritable bowel aggravated by raw vegetables, she cut out a lot of greens out of her diet. Advised patient would be contacted regarding dosage and followup instructions after review by provider. Written instructions given and patient verbalized understanding. HELADIO Lacy MD 09/05/2017 2:44 PM Signed SThis note was created using Sparkcloud. Subjective Martell Nascimento is a 77 year old female. Review of Systems Objective There were no vitals taken for this visit. Physical Exam Assessment and Plan Same. Recheck in one week Shavon Adkins LPN 09/05/2017 2:44 PM Signed This note was created using Sparkcloud. Subjective Martell Nascimento is a 77 year old female. Review of Systems Objective There were no vitals taken for this visit. Physical Exam Assessment and Plan Left a detailed message as to same and tracker updated. Linnette Ingram Ma 09/05/2017 2:44 PM Signed Pt notified, tracker updated. Linnette Ingram Ma BASIC METABOLIC PANL Collected: 06/29/2017 Status: F Source: [facility] 10:48 AM [facility] REPOSITORY TYPE CODE TESTS RESULT OUT OF REFERENCE UNITS RANGE LAB GLU 74-99 mg/dL Glucose 78 Result Comment: The [place] [employer] (ADA) provides guidance for cutoff values for fasting glucose and random glucose. The ADA defines fasting as no caloric intake for at least 8 hours. Fas ting plasma glucose results between 100 to 125 mg/dL indicate increased risk for diabetes (prediabetes). Fasting plasma glucose results greater than or equal to 126 mg/dL meet the criteria for diagnosis of diabetes. In the absence of unequivocal hyperglycemia, results should be confirmed by repeat testing. In a patient with classic symptoms of hyperglycemia or hyperglycemic crisis, random plasma glucose results greater than or equal to 200 mg/dL meet the criteria for diagnosis of diabetes. Reference: Standards of Medical Care in Diabetes 2016, [place] [employer] Association. Diabetes Care. 2016.39(Suppl 1). LAB BUN 7-21 mg/dL BUN High 23 LAB CRET 0.58-0.96 mg/dL Creatinine High 1.18 LAB NA 136-144 mmol/L Sodium 142 LAB K 3.7-5.1 mmol/L Potassium 4.2 LAB CL 97-105 mmol/L Chloride 103 LAB CO2 22-30 mmol/L CO2 27 LAB AGAP 9-18 mmol/L Anion Gap 12 LAB CA 8.5-10.2 mg/dL Calcium, Total 8.9 LAB GFRAA eGFR- Amer. 54 LAB GFRNAA . eGFR-All Other Races 44 Result Comment: eGFR (Estimated GFR) Units of measure: mL/min/1.73 meters squared eGFR is derived from the reexpressed MDRD Study equation using the following parameters: serum creatinine, age, gender and race. The creatinine assay has been calibrated to be traceable to IDMS. An eGFR <60 mL/min/1.73m2 for >3 months is consistent with chronic kidney disease. Refer to KDOQI guidelines for clinical interpretation. In patients with unstable renal function, e.g. those with acute kidney injury, the eGFR may not accurately reflect actual GFR. Performed By: #### BMP, MG1 #### [facility] [address] [place], [place] [address] MAGNESIUM Collected: 06/29/2017 Status: F Source: [facility] 10:48 AM [facility] REPOSITORY TYPE CODE TESTS RESULT OUT OF REFERENCE UNITS RANGE LAB MG 1.7-2.3 mg/dL High Magnesium 2.4 Performed By: #### BMP, MG1 #### [facility] [employer] [address] [place], [place] [address] PROTIME Collected: 06/29/2017 Status: F Source: [facility] 10:47 AM [facility] REPOSITORY TYPE CODE TESTS RESULT OUT OF RANGE REFERENCE UNITS LAB PSEC 9.7-13.0 sec High PT Sec 24.8 LAB INR 0.9-1.3 High PT INR 2.5 Result Comment: Vitamin K Antagonist (VKA) Therapeutic Range: INR 2 to 3 (Target INR of 2.5) Note: For patients treated with VKA drugs, such as warfarin, the [place] [employer] 2012 Guideline recommends a therapeutic INR range of 2 to 3 (target INR of 2.5). This recommendation includes high-risk patients with antiphospholipid syndrome with previous arterial or venous thromboembolism, current-generation mechanical or bioprosthetic aortic heart valve replacement. Note: Patients with mechanical aortic valve replacement and additional risk factors for thromboembolic events (atrial fibrillation, previous thromboembolism, LV dysfunction, hypercoagulable conditions) or an older generation mechanical AVR (i.e., ball in-Cage) or any mechanical MVR should have a INR therapeutic range of 2.5 to 3.5 (target INR of 3). Loraine GH, et al. Chest 2012, 141:7S-47S Kaela RA, et al. 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 HTN HL AV fistula - traumatic CHF - diastolic ADHERENCE TO GUIDELINES JJ-I or ARB for HF with prior LVEF<40 (NQF 0081) - N/A ASA or Plavix for ASHD (NQF 0067) - N/A, on warfarin Beta yue for ASHD with prior MO or prior LVEF<40 (NQF 0070) - N/A Beta yue for HF with prior LVEF<40 (NQF 0083) - N/A JJ-I or ARB for ASHD with DM or prior LVEF<40 (NQF 0066) - N/A Statin therapy for ASHD or FHL or DM - mild, declines statin BMI documented and plan if >25 (NQF 0421) - lifestyle recommendation form Tobacco use screening and referral (NQF 0028) - lifestyle recommendation form Recommendation for whole food, plant based diet - lifestyle recommendation form CLINICAL IMPRESSION/PLAN: Martell Nascimento is doing reasonably well. She is still having some intermittent atrial fibrillation, but tolerating Tikosyn well. She has had no pauses or ventricular arrhythmia. She has moderate mitral insufficiency which is being followed by echocardiogram in [place]. She will be seeing electrophysiology in August. She is reminded of the importance of basic profile and magnesium checks. I've asked her to contact me periodically with her vital signs. I will see her again in 6 months prior to her return to [place]. Written and verbal health teaching given to patient, patient verbalizes understanding and agrees with treatment plan. DIAGNOSIS FOR VISIT: PAF HISTORY OF PRESENT ILLNESS Martell Nascimento returns for follow-up of her atrial fibrillation and mitral valve disease. She recently returned from [place] where she has no significant issues. She has no change in medication and underwent no diagnostic studies. She's had minimal palpitations, which can sometimes last a few hours. She's had no chest discomfort and no orthopnea. She has minimal edema and wears compression stockings. She has had no syncope, TIAs, amaurosis or claudication. Blood pressures at home have been in the 120/70 range. ALLERGIES: ALLERGIES No Known Allergies CURRENT OUTPATIENT MEDICATIONS: TIKOSYN 125 mcg capsule TAKE ONE CAPSULE BY MOUTH TWICE DAILY gabapentin (NEURONTIN) 100 mg capsule TAKE ONE CAPSULE BY MOUTH THREE TIMES DAILY COMPOUNDED PRESCRIPTION Standing orderPATIENT/INR:DX: atrial fibFax results to [phone] warfarin (COUMADIN) 5 mg tablet TAKE ONE TABLET BY MOUTH EVERY DAY DIRECTED levothyroxine (SYNTHROID) 75 mcg tablet Take 1 tablet by mouth once daily. furosemide (LASIX) 20 mg tablet Take 0.5 tablets by mouth once daily. BIOTIN ORAL Take 5,000 mg by mouth once daily. metoprolol succinate ER (TOPROL XL) 25 mg 24 hr tablet TAKE ONE-HALF TABLET BY MOUTH EVERY DAY warfarin (COUMADIN) 1 mg tablet TAKE ONE TABLET BY MOUTH ONCE DAILY ,as directd KRILL OIL ORAL Take by mouth once daily. VIT A/C/E AC/ZNOX/CUPRIC OXIDE (EYE VITAMIN AND MINERALS ORAL) Take 1 capsule by mouth. LACTOBACILLUS COMBO NO.6 (PROBIOTIC COMPLEX ORAL) Take by mouth. OTC PRODUCT Calcium Lactate 300 mg once daily Cholecalciferol, Vitamin D3, 2,000 unit tab Take 1 tablet by mouth once daily. PHYSICAL EXAMINATION: VITAL SIGNS: BP 147/86 Pulse 56 Wt 153 lb 3.2 oz (69.5kg) Chest: Clear to percussion and auscultation. Trachea is midline. Air entry is equal. Cardiac: Regular rhythm. S1 and S2 are normal. PMI is nondisplaced. There is a systolic click and a 2/6 late systolic murmur of mitral insufficiency. Carotids are brisk without bruits. JVP is less than 10 cm. Abdomen: Soft and nontender. There are no pulsatile masses or bruits. No liver enlargement. Bowel sounds are active. Extremities: No edema. Pulses are intact and symmetrical. EKG shows sinus bradycardia. There is first-degree AV block. No change is seen since 09/05/16. Recent labs were reviewed. Catecholamines were all normal. 30 day event monitor showed no abnormal pauses. There was rare atrial fibrillation. Electronically Signed: Redd Dolan MD June 29, 2017 10:27 AM CC: Henrique Shultz MD CNOV Observed: 06/29/2017 Status: COMPLETED Source: [facility] 10:00 AM CLINIC OTHER CAMPUS REPOSITORY Office Visit ([facility]ARD[facility]) MARTELL NASCIMENTO ([id number]) 1940 F Date Time Provider Department 5/18/18 10:00 AM REDD DOLAN AGCARDWST During your visit today, we recorded the following information about you: Pulse Blood pressure Weight 56/minute 147/86 69.5 kg Redd Dolan MD 06/29/2017 6:11 PM Signed PERTINENT CARDIAC HISTORY Atrial fib - persistent, attempted ablation 10/26 Mitral insufficiency - moderate ASHD - mild by cath 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 HTN HL AV fistula - traumatic CHF - diastolic ADHERENCE TO GUIDELINES JJ-I or ARB for HF with prior LVEF<40 (NQF 0081) - N/A ASA or Plavix for ASHD (NQF 0067) - N/A, on warfarin Beta yue for ASHD with prior MO or prior LVEF<40 (NQF 0070) - N/A Beta yue for HF with prior LVEF<40 (NQF 0083) - N/A JJ-I or ARB for ASHD with DM or prior LVEF<40 (NQF 0066) - N/A Statin therapy for ASHD or FHL or DM - mild, declines statin BMI documented and plan if >25 (NQF 0421) - lifestyle recommendation form Tobacco use screening and referral (NQF 0028) - lifestyle recommendation form Recommendation for whole food, plant based diet - lifestyle recommendation form CLINICAL IMPRESSION/PLAN: Martell Nascimento is doing reasonably well. She is still having some intermittent atrial fibrillation, but tolerating Tikosyn well. She has had no pauses or ventricular arrhythmia. She has moderate mitral insufficiency which is being followed by echocardiogram in [place]. She will be seeing electrophysiology in August. She is reminded of the importance of basic profile and magnesium checks. I've asked her to contact me periodically with her vital signs. I will see her again in 6 months prior to her return to [place]. Written and verbal health teaching given to patient, patient verbalizes understanding and agrees with treatment plan. DIAGNOSIS FOR VISIT: PAF HISTORY OF PRESENT ILLNESS Martell Nascimento returns for follow-up of her atrial fibrillation and mitral valve disease. She recently returned from [place] where she has no significant issues. She has no change in medication and underwent no diagnostic studies. She's had minimal palpitations, which can sometimes last a few hours. She's had no chest discomfort and no orthopnea. She has minimal edema and wears compression stockings. She has had no syncope, TIAs, amaurosis or claudication. Blood pressures at home have been in the 120/70 range. ALLERGIES: ALLERGIES No Known Allergies CURRENT OUTPATIENT MEDICATIONS: TIKOSYN 125 mcg capsule TAKE ONE CAPSULE BY MOUTH TWICE DAILY gabapentin (NEURONTIN) 100 mg capsule TAKE ONE CAPSULE BY MOUTH THREE TIMES DAILY COMPOUNDED PRESCRIPTION Standing orderPATIENT/INR:DX: atrial fibFax results to [phone] warfarin (COUMADIN) 5 mg tablet TAKE ONE TABLET BY MOUTH EVERY DAY DIRECTED levothyroxine (SYNTHROID) 75 mcg tablet Take 1 tablet by mouth once daily. furosemide (LASIX) 20 mg tablet Take 0.5 tablets by mouth once daily. BIOTIN ORAL Take 5,000 mg by mouth once daily. metoprolol succinate ER (TOPROL XL) 25 mg 24 hr tablet TAKE ONE-HALF TABLET BY MOUTH EVERY DAY warfarin (COUMADIN) 1 mg tablet TAKE ONE TABLET BY MOUTH ONCE DAILY ,as directd KRILL OIL ORAL Take by mouth once daily. VIT A/C/E AC/ZNOX/CUPRIC OXIDE (EYE VITAMIN AND MINERALS ORAL) Take 1 capsule by mouth. LACTOBACILLUS COMBO NO.6 (PROBIOTIC COMPLEX ORAL) Take by mouth. OTC PRODUCT Calcium Lactate 300 mg once daily Cholecalciferol, Vitamin D3, 2,000 unit tab Take 1 tablet by mouth once daily. PHYSICAL EXAMINATION: VITAL SIGNS: BP 147/86 Pulse 56 Wt 153 lb 3.2 oz (69.5kg) Chest: Clear to percussion and auscultation. Trachea is midline. Air entry is equal. Cardiac: Regular rhythm. S1 and S2 are normal. PMI is nondisplaced. There is a systolic click and a 2/6 late systolic murmur of mitral insufficiency. Carotids are brisk without bruits. JVP is less than 10 cm. Abdomen: Soft and nontender. There are no pulsatile masses or bruits. No liver enlargement. Bowel sounds are active. Extremities: No edema. Pulses are intact and symmetrical. EKG shows sinus bradycardia. There is first-degree AV block. No change is seen since 09/05/16. Recent labs were reviewed. Catecholamines were all normal. 30 day event monitor showed no abnormal pauses. There was rare atrial fibrillation. Electronically Signed: Redd Dolan MD June 29, 2017 10:27 AM CC: MD Redd Pérez MD 06/29/2017 10:27 AM Signed LIFESTYLE CHANGE A healthy lifestyle is the most important component of your overall treatment plan. Please give serious thought to the following areas and commit to making snf changes. EAT A WHOLE FOOD, PLANT BASED DIET The nutrition your body gets is more important than the medicine you take. What matters most is the overall way you eat. We encourage you to minimize the use of animal products (which include dairy and all meats except fatty fish) and use whole, unprocessed plant foods to provide your protein, vitamins and other nutrients. We have a lot of information to share with you on this topic. This is not a diet. It is a way of life that you will keep with you. EXERCISE REGULARLY It is not important to spend hours in the gym, lifting weights and perspiring heavily. A total of 2-3 hours per week of aerobic (causing you to be moderately short of breath) exercise is sufficient to improve your health. Talk to us before you begin a new exercise program, if you have heart disease or experience shortness of breath or chest pain. REDUCE STRESS Chronic emotional and physical stress leads to disease. Ways of reducing stress include meditation, visualization, prayer, yoga and other forms of relaxation therapy. Consistency is the brandon. Find a technique that works for you and do it every day. CULTIVATE RELATIONSHIPS Loneliness and isolation have a major negative impact on health. Seek out others who can love, care for and nurture you. Avoid hurtful relationships. MAINTAIN IDEAL BODY WEIGHT The best way to do this is to do all the things above. Our bodies naturally find the right weight if we keep moving and feed ourselves the right food. If your BMI is greater than 25, we strongly recommend a referral to a weight management program. Please speak to us or your family physician about available programs. AVOID NICOTINE IN ALL FORMS This includes all tobacco products, whether chewed, smoked, vaped, or rubbed on the skin. Smoking cessation programs, which can make use of tobacco substitutes, medications to suppress cravings and behavior management, are available. Please contact your family physician about programs in your area. Referring Provider: REDD DOLAN [[id number]] Allergies As of Date: 06/29/2017 (No Known Allergies) Date Reviewed: 06/29/2017 Reviewed by: Joan (Crowd Controller) Melodie - Fully Assessed Reason for Visit: Recheck [92] Primary Visit Diagnosis:Non-rheumatic mitral regurgitation [I34.0] Other Visit Diagnosis:PAF (paroxysmal atrial fibrillation) (HCC) [I48.0] Order(s):ECG B/O W INTERP (MED OFFICE) [ECG06] Order #: [id number] Prescriptions as of 06/29/2017 Sig: TIKOSYN 125 MCG CAPSULE TAKE ONE CAPSULE BY MOUTH TWI* GABAPENTIN 100 MG CAPSULE TAKE ONE CAPSULE BY MOUTH THR* COMPOUNDED PRESCRIPTION Standing order PATIENT/INR: * WARFARIN 5 MG TABLET TAKE ONE TABLET BY MOUTH EVER* LEVOTHYROXINE 75 MCG TABLET Take 1 tablet by mouth once d* FUROSEMIDE 20 MG TABLET Take 0.5 tablets by mouth onc* BIOTIN ORAL Take 5,000 mg by mouth once d* METOPROLOL SUCCINATE ER 25 MG* TAKE ONE-HALF TABLET BY MOUTH* WARFARIN 1 MG TABLET TAKE ONE TABLET BY MOUTH ONCE* KRILL OIL ORAL Take by mouth once daily. EYE VITAMIN AND MINERALS ORAL Take 1 capsule by mouth. PROBIOTIC COMPLEX ORAL Take by mouth. OTC PRODUCT Calcium Lactate 300 mg once d* CHOLECALCIFEROL (VITAMIN D3) * Take 1 tablet by mouth once d* Problem List As Of Date 06/29/2017 Noted Resolved Chest pain [R07.9] INVALID FOR* Atrial fibrillation [I48.91] INVALID FOR* More... 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 Mitral valve regurgitation [I34.0] INVALID FOR* More... A-V fistula (HCC) [I77.0] INVALID FOR* Ptosis of eyelid, left [H02.402] INVALID FOR*02/02/2017 Other instructions from your clinician: LIFESTYLE CHANGE A healthy lifestyle is the most important component of your overall treatment plan. Please give serious thought to the following areas and commit to making snf changes. EAT A WHOLE FOOD, PLANT BASED DIET The nutrition your body gets is more important than the medicine you take. What matters most is the overall way you eat. We encourage you to minimize the use of animal products (which include dairy and all meats except fatty fish) and use whole, unprocessed plant foods to provide your protein, vitamins and other nutrients. We have a lot of information to share with you on this topic. This is not a diet. It is a way of life that you will keep with you. EXERCISE REGULARLY It is not important to spend hours in the gym, lifting weights and perspiring heavily. A total of 2-3 hours per week of aerobic (causing you to be moderately short of breath) exercise is sufficient to improve your health. Talk to us before you begin a new exercise program, if you have heart disease or experience shortness of breath or chest pain. REDUCE STRESS Chronic emotional and physical stress leads to disease. Ways of reducing stress include meditation, visualization, prayer, yoga and other forms of relaxation therapy. Consistency is the brandon. Find a technique that works for you and do it every day. CULTIVATE RELATIONSHIPS Loneliness and isolation have a major negative impact on health. Seek out others who can love, care for and nurture you. Avoid hurtful relationships. MAINTAIN IDEAL BODY WEIGHT The best way to do this is to do all the things above. Our bodies naturally find the right weight if we keep moving and feed ourselves the right food. If your BMI is greater than 25, we strongly recommend a referral to a weight management program. Please speak to us or your family physician about available programs. AVOID NICOTINE IN ALL FORMS This includes all tobacco products, whether chewed, smoked, vaped, or rubbed on the skin. Smoking cessation programs, which can make use of tobacco substitutes, medications to suppress cravings and behavior management, are available. Please contact your family physician about programs in your area. Encounter Status:Closed by REDD DOLAN MD on 06/29/17 ALLERGIES ALLERGIES DATE TYPE / CODE NAME / CODE REACTION SEVERITY SOURCE 01/29/2018 Drug No Known Unknown [facility] Allergy/416 Allergies/K45763 Hospital 527404(SNOM 0388(RXNORM) Repository ED CT) Drug NO KNOWN [facility] Class/80831 ALLERGIES Other [place] 1003(SNOMED Repository CT) NG/16959683 NO KNOWN [facility] 6(SNOMED ALLERGIES Health [facility] CT) Repository ENCOUNTERS ENCOUNTERS ADMIT/DISCHARGE ACCOUNT NUMBER ADMITTING ENCOUNTER LOCATION SOURCE CLASS 03/05/2018/03/06/19 [id number] [facility] [place] Repository 03/04/2018/03/05/19 [id number] [facility] [place] Repository 03/04/2018 [id number] [facility] [place] Repository 03/04/2018/03/04/19 [id number] [facility] [place] Repository 02/25/2018/02/25/19 [id number] [facility] [place] Repository 02/25/2018/02/26/19 [id number] [facility] [place] Repository 02/25/2018/02/28/19 [id number] [facility] [place] Repository 02/18/2018/02/19/19 [id number] [facility] [place] Repository 02/13/2018/02/14/19 [id number] [facility] [place] Repository 02/11/2018/02/13/19 [id number] [facility] [place] Repository 02/11/2018/02/12/20 [id number] [facility] [place] Repository 02/11/2018/02/12/20 [id number] [facility] [place] Repository 02/11/2018/02/12/20 [id number] [facility] [place] Repository 02/11/2018/02/13/19 [id number] [facility] [place] Repository 02/04/2018/02/07/20 [id number] [facility] [place] Repository 01/30/2018/02/01/20 [id number] [facility] [place] Repository 01/30/2018/02/01/20 [id number] [facility] [place] Repository 01/29/2018/01/30/20 [id number] Emergency [facility]ri [place] [address] [place] [address] ding:ED Repository 01/29/2018/01/31/20 [id number] [facility] [place] Repository 01/29/2018/02/02/20 [id number] [facility] [place] Repository 01/28/2018/01/30/20 [id number] [facility] [place] Repository 01/24/2018/01/26/20 [id number] [facility] [place] Repository 01/24/2018/01/26/20 [id number] [facility] [place] Repository 01/24/2018/01/26/20 [id number] [facility] [place] Repository 01/22/2018/01/24/20 [id number] [facility] [place] Repository 01/22/2018/01/24/20 [id number] [facility] [place] Repository 01/22/2018/01/23/20 [id number] [facility] [place] Repository 01/21/2018 [id number] Ambulatory [facility] ding:RAD Repository 01/18/2018/01/22/20 [id number] [facility] [place] Repository 01/18/2018/01/19/20 [id number] [facility] [place] Repository 01/15/2018/01/17/20 [id number] [facility] [place] Repository 01/10/2018 [id number] Ambulatory [facility] MEDICAL Repository CENTERBuildi ng:CAGWS 01/09/2018/01/11/20 [id number] [facility] [place] Repository 01/01/2018/01/03/20 [id number] [facility] [place] Repository 12/26/2017/12/27/19 [id number] [facility] [place] Repository 12/26/2017/12/27/19 [id number] FARRAH WINN Ambulatory [facility] [place] Repository 12/25/2017 [id number] [facility] [place] Repository 12/25/2017 [id number] [facility] [place] Repository 12/20/2017/12/21/19 [id number] [facility] [place] Repository 12/20/2017/12/22/19 [id number] [facility] [place] Repository 12/20/2017/12/22/19 [id number] [facility] [place] Repository 12/18/2017/12/20/19 [id number] [facility] [place] Repository 12/14/2017/12/15/19 [id number] [facility] [place] Repository 12/14/2017/11/02 [id number] [facility] [place] Repository 12/11/2017 [id number] Ambulatory [facility] ding:LABSPEC Repository 12/11/2017/12/12/19 [id number] [facility] [place] Repository 12/11/2017/12/12/19 [id number] [facility] [place] Repository 12/11/2017/12/13/19 [id number] [facility] [place] Repository 12/07/2017/12/11/19 [id number] [facility] [place] Repository 11/13/2017/11/15/19 [id number] [facility] [place] Repository 10/17/2017/10/19/19 [id number] [facility] [place] Repository 10/03/2017/10/05/19 [id number] [facility] [place] Repository 09/27/2017/09/29/19 [id number] [facility] [place] Repository 09/18/2017/09/20/19 [id number] [facility] [place] Repository 09/14/2017/09/15/19 [id number] LOCOBDULIAO, Ambulatory [address] Repository 09/05/2017/09/07/19 [id number] [facility] [place] Repository 09/04/2017/09/05/19 [id number] [facility] [place] Repository 09/04/2017/09/05/19 [id number] [facility] [place] Repository 08/30/2017/08/31/19 [id number] [facility] [place] Repository 08/30/2017/09/01/19 [id number] [facility] [place] Repository 08/29/2017/08/31/19 [id number] [facility] [place] Repository 08/27/2017/08/30/19 [id number] Ambulatory [facility] [place] Repository 08/13/2017/08/15/19 [id number] Amb[address] [facility] [place] Repository 08/06/2017/08/08/19 [id number] [facility] [place] Repository 08/03/2017/08/07/19 [id number] Ambulatory [address] Main [place] Repository 08/02/2017/08/04/19 [id number] Ambulatory [address] Main [place] Repository 07/25/2017 [id number] Ambulatory [facility] Repository 07/25/2017/07/28/19 [id number] Ambulatory [address] Main [place] Repository 06/29/2017/06/30/19 [id number] Ambulatory [address] Main [place] Repository 06/29/2017/06/30/19 [id number] Ambulatory [address] Other [place] Repository 06/29/2017/06/30/19 [id number] Ambulatory [address] [id number] [facility] PA[facility] PAYERS ENCOUNTER GUARANTOR PAYER SUBSCRIBER SOURCE 01/29/2018 MARTELL W Primary MARTELL W [place] [id number] Insurance:ANTHTOMI PHILLIPSB: Community [employer] MEDICARE [facility] [id number] Number: Repository [address]Ots: 330 [id number] [phone] () Date:[id number] [address] [place] [address] 66761LX: 01/29/2018 Secondary NOT GIVENUNK Sheri Insurance:SELF PAY [facility] Number: Effective Repository Date:2018-01-29 01/21/2018 MARTELL Wetzel Primary MARTELL W [place] [id number] Insurance:ANTHEM KALIERB: Community [employer] MEDICARE [facility] [id number], [place] Number: Repository [address]Yik: 330 [id number] [phone] () Date:[id number] [id number] [place] [id number]: 01/21/2018 Secondary NOT GIVENUNK [place] Insurance:SELF PAY [facility] Number: Effective Repository Date:2018-01-15 01/10/2018 MARTELL W Primary MARTELL W [facility] WENGERDOB: Insurance:ANTHEM WENGERDOB: [facility] MEDIBLUE ACCESS [id number] Repository [place], [place] Number: [id number]: (330) [id number] [phone] (HP) Date: 12/11/2017 Martell W Primary Martell W [place] [id number] Insurance:ANTHEM WengerDOB: [facility] [employer] MEDICARE PPOPolicy [id number] [place], [place] Number: Repository [id number]: [phone]) [id number] [phone] (HP) Date:[id number] [address]NN: 12/11/2017 Secondary NOT GIVENUNK [place] Insurance:SELF PAY [facility] Number: Effective Repository Date:2017-12-11 06/29/2017 MARTELL W Primary MARTELL W [facility] WENGERDOB: Insurance:ANTHEM WENGERDOB: [facility] MEDIBLUE ACCESS [id number] Repository [facility], [place] Number: [id number]: [phone]) [id number] [phone] (HP) Date: 05/28/2017 MARTELL W Primary MARTELL W [facility] WENGERDOB: Insurance:ANTHEM WENGERDOB: [facility] MEDIBLUE ACCESS [id number] Repository [facility] [place] Number: [id number]: (330) [id number] [phone] (HP) Date:
== END 2018-01-29 18:17 | disposition home or self-care (01) ==
PROVIDERS: Emergency Provider Emergency Medicine; Family Provider Family Medicine; PCP Family Medicine
DX: R55 Syncope and collapse (principal); D61.818 Other pancytopenia; C85.90 Non-Hodgkin lymphoma, unspecified, unspecified site; I48.0 Paroxysmal atrial fibrillation; E03.9 Hypothyroidism, unspecified; Z79.01 Long term (current) use of anticoagulants; Z79.899 Other long term (current) drug therapy
CPT/HCPCS: 36592; 80048; 85025; 85610; 93005; 96360; 96361; 99284; J7030; A4216

== ENCOUNTER → 2018-03-14 11:00 | Outpatient (CLI) | payer MEDICARE, SELFPAY ==
[2018-03-14 11:10] VITALS: BP 121/75; PULSE 74; RESP 16; TEMP 36.9; O2SAT 100; BMI 21.2
[2018-03-14] MEDS: Acetaminophen 325 MG Tablet 650 MG PO (11:16)
[2018-03-14 11:59] VITALS: BP 114/61; TEMP 37.1
[2018-03-14 12:04] VITALS: BP 114/61; PULSE 79; RESP 16; TEMP 37.1; O2SAT 100
[2018-03-14 12:59] VITALS: BP 129/71; PULSE 70; RESP 16; TEMP 36.8; O2SAT 98
[2018-03-14 14:34] VITALS: BP 118/62; PULSE 72; RESP 16; TEMP 36.7
== END ==
PROVIDERS: Family Provider Family Medicine; PCP Family Medicine; Referring Provider Internal Medicine Hematology & Oncology; Visit Provider Internal Medicine Hematology & Oncology
DX: Z51.89 Encounter for other specified aftercare (principal); C83.30 Diffuse large B-cell lymphoma, unspecified site; D64.9 Anemia, unspecified
CPT/HCPCS: 36430; 86850; 86900; 86920; 86922; J7040; P9040; A4216

== ENCOUNTER → 2018-04-02 10:51 | Outpatient (CLI) | payer MEDICARE, SELFPAY ==
[2018-03-14 11:10] VITALS: BMI 21.2
== END ==
PROVIDERS: Family Provider Family Medicine; PCP Family Medicine; Referring Provider Internal Medicine Hematology & Oncology; Visit Provider Internal Medicine Hematology & Oncology
DX: R05 Cough (principal); R50.9 Fever, unspecified; C85.90 Non-Hodgkin lymphoma, unspecified, unspecified site
CPT/HCPCS: 87633; 87804

== ENCOUNTER → 2018-04-10 10:30 | Outpatient (CLI) | payer MEDICARE, SELFPAY ==
[2018-03-14 11:10] VITALS: BMI 21.2
[2018-04-10 11:05] LABS: International Normalized Ratio 2.4; Prothrombin Time (Protime)PT. 26.2 SECONDS (11.7-14.9)
== END ==
PROVIDERS: Family Provider Family Medicine; PCP Family Medicine; Referring Provider Physician Assistant; Visit Provider Physician Assistant
DX: I48.0 Paroxysmal atrial fibrillation (principal)
CPT/HCPCS: 85610

== ENCOUNTER 2020-04-15 12:10 | Emergency (ER) | payer MEDICARE, SELFPAY ==
[2018-03-14 11:10] VITALS: BMI 21.2
[2020-04-15 12:11] VITALS: BP 160/97; PULSE 72; RESP 18; TEMP 35.6; O2SAT 98; BMI 21.2
--- NOTE | 2020-04-15 12:26 | CT_ITS ---
STUDY: CT BRAIN WITHOUT CONTRAST REASON FOR EXAM: Female, 79 years old. Headache with visual disturbance RADIATION DOSAGE (If Supplied By Facility): CTDIvol = ( 44.99 ) mGy, DLP = ( 779.24 ) mGycm TECHNIQUE: Transaxial CT imaging of the brain was performed without administration of intravenous contrast material. Individualized dose optimization techniques were used for this CT. COMPARISON: No relevant priors. FINDINGS: Normal soft tissue structures. Normal calvarium. There is mild cerebral atrophy with widening of the extra-axial spaces and ventricular dilatation. There are areas of decreased attenuation within the white matter tracts of the supratentorial brain, consistent with microvascular disease changes. Focal encephalomalacia in the left frontal temporal parietal lobe suggests a bone infarct. Normal basal ganglia and thalami. Normal brainstem. There is mild cerebellar atrophy. There is no intracranial hemorrhage. There are no findings of an acute ischemic infarction. Normal visualized paranasal sinuses. CT/Brain/Head without Contrast IMPRESSION: Chronic involutional changes of the brain. Electronically Signed: Keo Davila MD at 13:24 EST , Service support ,
--- NOTE | 2020-04-15 12:44 | ED.DCSUM_ITS ---
History of Present Illness Chief Complaint: Headache Informant: Patient, Significant Other, - - To ER by primary care physician for CT of the head per the patient Onset: Weeks - Onset approximately 3 weeks ago. Headache was intermittent until last evening. Context: Sudden, Onset Timing: Continuous - Since last evening, Intermittent - Prior 2 to 3 weeks Quality: Sharp Location: Right side of forehead and temporal region Current Severity: Moderate Maximum Severity: Severe Worsened by: Nothing specific Relieved by: Better with 2 Tylenol Associated Symptoms: Nausea - States nausea is unusual with headaches., Visual Changes - Starts in left eye and then moves to right eye. Negative for: Fever, Vomiting, Sore Throat, Sinus Pressure, Numbness, Tingling, Preceding Aura, Photophobia, Visual Loss Injury: - - Is no history of trauma Narrative: Patient is an 79-year-old woman who has history of migraine headaches since she was a teenager. She has not had a migraine headache in 10 years. Headache started approximately 3 weeks ago. The headaches were initially intermittent and improved markedly with one Tylenol. She states the headache is located on the right side. She reports a sense of cloud over her left vision that moves to the right and the right visual changes associated with pain that she localizes over the right brow and right methodist area. There is no history of glaucoma. There is no history of subarachnoid hemorrhage. There is no history in the family or patient of autoimmune disorder. She does report nausea which is unusual with prior headaches. She denies photophobia or sonophobia. She denies neck pain or neck stiffness. She denies problems with speech or swallowing. She has had problems with balance since 2018, which was attributed to chemotherapy for skin cancer. She denies dysuria, frequency, urgency or hematuria. There is been no history of recent head trauma. Prior similar symptoms: Yes Recent Illness/Hospitalization: No - Past Medical History (1) History of migraine headaches Status: Acute (2) GERD (gastroesophageal reflux disease) Status: Chronic Comment: infrequent (3) History of colon polyps Status: Chronic (4) History of rheumatic fever Status: Chronic (5) Hypothyroidism Status: Chronic (6) LAE (left atrial enlargement) Status: Chronic (7) Mitral valve disease, rheumatic Status: Chronic (8) Osteoarthritis Status: Chronic (9) PAF (paroxysmal atrial fibrillation) Status: Chronic Comment: on TIkosyn Past Medical History - Allergies and Home Meds Allergies/Adverse Reactions: Allergies No Known Allergies Allergy (Verified 04/15/20 12:11) Primary Care Physician: Henrique Gordon MD [Primary Care Provider] - Prior records reviewed: Yes Surgical History: cholecystectomy, - - section ?2 Lives: Spouse/ Significant Other Smoking Status: Never smoker Alcohol: Rare Drugs: None - Family History Maternal Family History: Reports: No pertinent history Paternal Family History: Reports: No pertinent history Review of Systems General: Denies: Chills, Fever, Malaise, Subjective, Sweats, Weight loss Eyes: Reports: Visual changes - bilaterally. Denies: Blurred Vision - bilaterally, Diplopia ENT: Denies: Bilateral ear pain, Rhinorrhea, Sore throat Cardiovascular: Denies: Chest pain, Palpitations Respiratory: Denies: Dyspnea, Cough, Dyspnea on exertion Gastrointestinal: Reports: Nausea. Denies: Abdominal pain, Vomiting, Diarrhea, Constipation, Melena, Hematochezia, -, - Genitourinary: Denies: Dysuria, Hematuria, Frequency Musculoskeletal: Denies: Myalgias, Arthralgias, Neck pain, Back pain, Swelling, Extremity Pain, -, - Skin: Denies: Rash, Wounds Neurological: Reports: Headache. Denies: Weakness, Parasthesia, Numbness Endocrine: Denies: Polyuria, Polydipsia Hematologic: Denies: Easy bruising Physical Exam Vital Signs/Narrative: Vital Signs Temp Pulse Resp BP Pulse Ox 04/15/20 12:11 96.1 F L 72 18 160/97 H 98 Inital Vital Signs reviewed: Yes General: Well nourished, Well developed Head: NC, AT, Temporary Artery Tenderness. Negative for: Trauma, Tenderness, Vesicular Rash, Sinus Tenderness Eyes: Perrl, EOMI, - - On funduscopic exam there is no papilledema and the cup-to-disc ratio is normal. There is evidence of AV nicking. Patient is not compliant with treatment of her hypertension for several years.. Negative for: Pale conjunctiva, Scleral icterus ENT: Moist mucous membranes, No rhinorrhea Neck: Supple, No Lymphadenopathy, No JVD, Nontender, No Meningismus Cardiovascular: Regular rate, Regular rhythm, No murmurs, Normal S1, Normal S2 Respiratory: No distress, CTA bilaterally, Chest nontender Abdomen: Soft, Nontender, Nondistended, Normal bowel sounds Back: Nontender, Normal Inspection Extremities: Nontender, No edema. Negative for: Tenderness, Edema Skin: Normal color, No rash, No Trauma. Negative for: Cyanosis, Diaphoresis, Jaundice Neuro: Alert, Oriented x3, Cranial nerves II-XII grossly intact, Normal Strength, Normal Sensation, Normal DTR, Normal Gait, - - DTR 2+ and symmetric upper and lower extremity. There is no clonus or Babinski sign. Psychological: Normal affect Diagnostic/Tx/Re-eval Impressions Brain CT 04/15/20 12:26 IMPRESSION: Chronic involutional changes of the brain. Electronically Signed: Keo Davila MD at 13:24 EST , Service support , 04/15/20 12:26 Brain/Head without Contrast [CT] Stat Laboratory Results 04/15/20 04/15/20 12:45 12:45 WBC 5.3 RBC 3.95 L Hgb 13.3 Hct 40.3 MCV 102.0 H MCH 33.7 H MCHC 33.0 RDW Std Deviation 49.6 H RDW Coeff of Adin 13.0 Plt Count 182 MPV 9.5 Immature Gran % (Auto) 0.600 Neut % (Auto) 82.7 H Lymph % (Auto) 10.1 L Miller % (Auto) 5.3 Eos % (Auto) 0.9 Baso % (Auto) 0.4 Absolute Neuts (auto) 4.4 Absolute Lymphs (auto) 0.53 L Nucleated RBC % 0 Differential Comment SCANNED ESR 5 Sodium 133 L Potassium 4.2 Chloride 101 Carbon Dioxide 27.0 Anion Gap 5 BUN 19 H Creatinine 1.20 H Estim Creat Clear Calc 37.36 Est GFR (MDRD) Af Amer 56 L Est GFR (MDRD) Non-Af 46 L BUN/Creatinine Ratio 15.8 Glucose 123 H Calcium 8.7 White count and H&H unremarkable. Basic metabolic panel reveals slight elevation of creatinine. ESR is normal. CT of the head was reviewed by me and interpreted by radiologist as negative. Patient was reassessed at 1 3 5 PM and states her headache is only a 3 or 4. Her nausea resolved. - Medical Decision Making With severe headache associated with nausea and ocular disturbances may represent intractable ocular migraine versus intracranial bleed versus vasculitis. CT, appropriate labs including ESR was obtained. Since this has been going on for several days 1 would expect the ESR to be elevated if she has evidence of temporal arteritis. ED Disposition - Plan for ED Patient: Disposition: Home or Assisted Living Diagnosis: Intractable ophthalmic migraine Instructions: ED, Migraine (Classical) Prescriptions: Ondansetron [Zofran Odt] 4 mg PO Q8H PRN PRN #10 tab PRN Reason: Headache with nausea and vomiting Transmission Status: Pending [id number] Referrals: Henrique Gordon MD [Primary Care Provider] - As Needed
[2020-04-15] MEDS: Ondansetron 4 MG/2 ML Vial IV (12:52)
[2020-04-15 12:54] LABS: Erythrocyte Sedimentation Rate 5 mm/hr (0-30)
[2020-04-15 12:56] LABS: Absolute Lymphocyte Count 0.53 X10^3/uL (0.83-4.51); Absolute Neutrophil Count 4.4 X10^3/uL (2.0-7.7); Basophil# 0.02 X10^3/uL; Basophil% 0.4 % (0-1); Eosinophil# 0.05 X10^3/uL; Eosinophils% 0.9 % (0-5); Hematocrit 40.3 % (37-47); Hemoglobin 13.3 g/dL (12.0-15.0); Lymphocyte # 0.53 X10^3/ul (4.0); Lymphocyte % 10.1 % (19-41); Mean Corpuscular Hgb 33.7 pg (27.0-32.0); Mean Platelet Vol. 9.5 fl (6.2-12.0); Monocyte# 0.28 X10^3/uL; Monocyte% 5.3 % (0-10); NRBC Flagged by Analyzer 0 % (0-5); Neutrophil # 4.36 X10^3/uL (2.7-7.7); Neutrophil % 82.7 % (47-70); POSITIVE DIFFERENTIAL YES; Platelet Count 182 K/mm3 (150-450); RBC Distribution Width SD 49.6 fl (35.1-43.9); Red Blood Count 3.95 M/mm3 (4.2-5.4); White Blood Count 5.3 K/mm3 (4.4-11.0)
[2020-04-15 13:00] LABS: Differential Indicated SCAN CRITERIA MET
[2020-04-15 13:03] LABS: Anion Gap 5 (5-15); BUN 19 mg/dL (7-18); BUN/Creat Ratio 15.8 RATIO (10-20); Calcium,Total 8.7 mg/dL (8.5-10.1); Chloride 101 mmol/L (98-107); EST Glomerular Filtration Rate 46 mL/min (>60); Est Glom Filt Rate - Afr Amer 56 mL/min (>60); Estimated Creatinine Clearance 37.36 ml/min; Glucose 123 mg/dL (74-106); Potassium 4.2 mmol/L (3.5-5.1); Sodium Level 133 mmol/L (136-145)
[2020-04-15 13:25] LABS: Differential Comment SCANNED
== END 2020-04-15 13:58 | disposition home or self-care (01) ==
PROVIDERS: Emergency Provider Emergency Medicine; PCP Family Medicine
DX: G43.B1 Ophthalmoplegic migraine, intractable (principal); E03.9 Hypothyroidism, unspecified; I48.0 Paroxysmal atrial fibrillation; K21.9 Gastro-esophageal reflux disease without esophagitis; I05.9 Rheumatic mitral valve disease, unspecified; M19.90 Unspecified osteoarthritis, unspecified site; Z92.21 Personal history of antineoplastic chemotherapy; Z86.010 Personal history of colon polyps; Z85.828 Personal history of other malignant neoplasm of skin; Z79.01 Long term (current) use of anticoagulants; Z79.899 Other long term (current) drug therapy
CPT/HCPCS: 70450; 80048; 85025; 85652; 96374; 99283; A4216; J2405

== ENCOUNTER 2021-04-19 16:58 | Emergency (ER) | payer MEDICARE, SELFPAY ==
[2021-04-19 16:59] VITALS: BP 170/103; PULSE 87; RESP 16; TEMP 36.4; O2SAT 98; BMI 20.7
--- NOTE | 2021-04-19 17:20 | EKG12_ITS ---
Test Reason : Blood Pressure : / mmHG Vent. Rate : 099 BPM Atrial Rate : 330 BPM P-R Int : 000 ms QRS Dur : 100 ms QT Int : 430 ms P-R-T Axes : 091 -72 106 degrees QTc Int : 551 ms Atrial flutter with variable A-V block with premature ventricular or aberrantly conducted complexes Left axis deviation Inferior infarct , age undetermined Anteroseptal infarct , age undetermined ST & T wave abnormality, consider lateral ischemia Prolonged QT Abnormal ECG Confirmed by DIDI VILLALOBOS MD ([id number]), purchasing expeditor SRI WOO ([id number]) on 04/20/2021 9:52:49 AM Referred By: BELGICA Confirmed By:DIDI VILLALOBOS MD
--- NOTE | 2021-04-19 17:21 | EX.ED.VIS.UR ---
HPI HPI - URI History of Present Illness Chief Complaint: Cough Informant: patient Onset/Context/Timing Onset: Days Context: Gradual Onset Timing: Continuous Current Severity: Mild Maximum Severity: Mild Associated Symptoms Associated Symptoms: Positive for Diarrhea and Productive Cough; Negative for Myalgias, Nausea and Vomiting Narrative Narrative: 80-year-old female history of A. fib for which she is on Eliquis, hypothyroidism and end-stage renal insufficiency. States since Sunday she has had a cough of clear phlegm. Had a negative home COVID test which she got from [facility]. Was seen in the [facility] urgent care earlier today and they did not do any further testing. States she has mild shortness of breath. No chest pain unless coughing. No hemoptysis. No fever. She did have diarrhea after taking a Mucinex. Prior similar symptoms: Yes Recent Illness/Hospitalization: No ROS ROS ED ROS Narrative Cough. Review of Systems ROS Unobtainable: Denies due to encephalopathy Constitutional Constitutional ED: Denies fever(s) Eyes Eyes: Denies change in vision ENT ENT ED: Denies ear pain or rhinorrhea Cardiovascular Cardiovascular: Denies chest pain Respiratory/Chest Respiratory/Chest: Reports cough, dyspnea and sputum Gastrointestinal Gastrointestinal: Reports diarrhea; Denies abdominal pain, nausea or vomiting Genitourinary Genitourinary ED: Denies dysuria Musculoskeletal Musculoskeletal: Denies myalgias Integumentary Denies rash Neurologic Neurologic: Denies headache(s) Psychiatric Psychiatric: Denies depression Endocrine Endocrinology: Denies polyuria Hematologic/Lymphatic Hematologic/Lymphatic: Denies easy bruising Allergic/Immunologic Allergic/Immunologic ED: Denies urticaria PFSH PFSH Home Medications Biotin 5,000 mg PO DAILY 08/07/14 [History Last Taken 08/06/14] L.acidoph, paracasei,B. lactis 1 ea PO DAILY 08/07/14 [History Last Taken 08/06/14] calcium carbonate 300 mg PO DAILY 08/07/14 [History Last Taken 08/06/14] gabapentin 1 cap PO QHS 08/07/14 [History Last Taken 08/06/14 2200] levothyroxine 75 mcg PO DAILY 08/07/14 [History Last Taken 08/07/14] cholecalciferol (vitamin D3) [Vitamin D] 2,000 unit PO DAILY 01/29/18 [History Last Taken Unknown] cyanocobalamin (vitamin B-12) 500 mcg PO QWEEK 01/29/18 [History Last Taken Unknown] loperamide 2 mg PO Q6H PRN PRN 01/29/18 [History Last Taken Unknown] ondansetron 4 mg PO Q8H PRN PRN #10 tab 04/15/20 [Rx Last Taken Unknown] apixaban [Eliquis] 5 mg PO BID 04/19/21 [History Last Taken Unknown] azithromycin [Zithromax] 250 mg PO DAILY 4 Days #4 tab 04/19/21 [Rx Last Taken Unknown] furosemide 20 mg PO DAILY 04/19/21 [History Last Taken Unknown] Allergy/AdvReac Type Severity Reaction Status Date / Time No Known Allergies Allergy Verified 04/15/20 12:11 Social History Smoking Status: Never smoker EXAM Physical Exam Narrative Exam Narrative: 80-year-old female no acute distress. Vital signs are stable afebrile. Pulse ox 90% on room air no signs of hypoxia. She does not look septic or toxic. H EENT exam unremarkable. Moist extremities. Neck nontender. No JVD. No lymphadenopathy. Lungs. Diminished breath sounds in the left base. No rales or wheezing. No rhonchi. Heart irregularly irregular consistent with A. fib rate about 90. Abdomen soft and nontender. Normal bowel sounds no peritoneal signs. Moving all 4 extremities. Minimal trace edema both lower extremities which is her baseline. Calves are nontender. Neurologically she is awake and alert. Const Vital Signs: 04/19/21 16:59 04/19/21 17:30 Temperature 97.6 F L Temperature Source Temporal Pulse Rate 87 Respiratory Rate 16 Respiratory Effort Normal Non-Labored Respiratory Depth Normal Respiratory Pattern Normal Blood Pressure 170/103 H Blood Pressure Mean 125 Pulse Ox 98 Oxygen Delivery Method Room Air Positive well nourished and well developed; Negative for obese, cachectic or contractures General Appearance ED: well developed and NAD; Negative for cachectic, contractures, cyanotic, diaphoretic or pallor Nutritional Appearance: Negative for cachectic or obese HEENT Reports moist mucous membranes; Denies dry mucous membranes normocephalic and atraumatic External Ear: external ears normal Mouth ED: No dry mucous membranes Mouth: No dry mucous membranes Throat: posterior oropharynx normal Eyes PERRL and EOMs intact bilaterally General Eye ED: Negative for pale conjunctiva or scleral icterus Neck no lymphadenopathy, supple, no meningeal signs and no JVD General: Negative for anterior neck swelling or lymphadenopathy Resp normal respiratory effort and No clear to auscultation bilaterally Auscultation: diminished lung sounds; Negative for rales, rhonchi or wheezes Cardio no murmurs Cardio Narrative: A. fib rate about 90. Rate: Negative for regular rate Rhythm: Negative for regular rhythm GI non-tender, non-distended and no masses Inspection: Negative for abdominal distention Auscultation: normoactive bowel sounds Palpation: soft; Negative for tender or guarding Back/Spine no CVA tenderness General Back: Negative for CVA tenderness Cervical Spine: Negative for cervical spine tenderness Thoracic Spine / Upper Back: Negative for thoracic spinal tenderness Extremity normal to inspection; Negative for full ROM Extremity Narrative: Trace edema bilaterally. Nontender. General Extremety ED: Negative for cyanosis or tenderness General Extremity: Negative for cyanosis Neuro oriented x3 Sensorium / Orientation: alert, oriented to person, oriented to place and oriented to time; Negative for orientation impaired, lethargic or stuporous Motor Exam: strength 5/5 throughout Psych mental status grossly normal Mood & Affect: Negative for depressed or tearful Skin General Skin Exam: Negative for jaundice or pallor Lesions: no lesions Rashes: no rashes MDM MDM MDM Narrative Medical decision making narrative: 80-year-old female complaining of cough mild shortness of breath. Does not look toxic. She has a history of A. fib. Differential would include pneumonia rule out Covid but she is a negative home Covid test. Versus CHF or other etiologies. Chest x-ray, EKG and screening labs are being obtained. She is on chronic anticoagulant Eliquis and has been taking it as prescribed. Repeat exam patient is doing well at 6:08 PM. We went over her chest x-ray and CBC and EKG. Awaiting other test results. Patient doing well 6:29 PM will be discharged home. Given a dose of Zithromax here and then 1 pill a day for the next 4 days. Lab Data Attestation: I reviewed the patient's lab results. Lab results narrative: CBC is unremarkable white count 4.8. H&H of 13 and 39. Chemistry sodium 134. Gap of 5 BUN and creatinine 26 and 1 years. Glucose 117. Troponin XI. Labs: Laboratory Results - last 24 hr 04/19/21 04/19/21 17:35 17:35 WBC 4.8 RBC 4.05 L Hgb 13.9 Hct 39.2 MCV 96.8 MCH 34.3 H MCHC 35.5 RDW Std Deviation 45.8 H RDW Coeff of Adin 12.8 Plt Count 168 MPV 10.0 Immature Gran % (Auto) 0.600 Neut % (Auto) 80.0 H Lymph % (Auto) 11.7 L [place] % (Auto) 7.3 Eos % (Auto) 0.2 Baso % (Auto) 0.2 Absolute Neuts (auto) 3.8 Absolute Lymphs (auto) 0.56 L Nucleated RBC % 0 Differential Comment SCANNED Sodium 134 L Potassium 4.0 Chloride 103 Carbon Dioxide 26.0 Anion Gap 5 BUN 26 H Creatinine 1.09 H Estim Creat Clear Calc 39.42 Est GFR (MDRD) Af Amer 62 Est GFR (MDRD) Non-Af 51 L BUN/Creatinine Ratio 23.9 H Glucose 117 H Calcium 8.8 Troponin I High Sens 11 Radiography Diagnostic Testing: Clinical Impression(s) from Imaging Studies Chest X-Ray 04/19/21 17:50 IMPRESSION: There are no acute findings. Electronically Signed: Trever Arriaga MD at 18:14 EST Reading Location ID and State: [facility] / [place] , Service support , Chest x-ray, 2 views, AP and lateral interpreted by myself shows no acute abnormality. No infiltrate. Normal cardiac silhouette. Kyphosis of the thoracic spine. No acute process. Chronic changes. Radiologist also interpreted film and agrees with my interpretation. Rhythm Strip Rhythm Strip: A-fib Rate: 99 Ectopy: PVC(s) EKG Initial EKG: Attestation: I personally reviewed and interpreted this EKG as follows: Interpretation: No Acute Injury Pattern and Atrial Flutter Comments: Atrial flutter rate of 99 no signs of NV or ischemia. PACs. Discharge Plan Triage Chief Complaint: Cough ED Provider: Gilberto Sweeney Dx/Rx/DC Orders Clinical Impression: Bronchitis Instructions: ED Upper Resp Infec Abx Tx Prescriptions: New azithromycin [Zithromax] 250 mg tablet 250 mg PO DAILY 4 Days Qty: 4 RF: 0 No Action levothyroxine 75 MCG tablet 75 mcg PO DAILY RF: 0 calcium carbonate 600 MG tablet 300 mg PO DAILY RF: 0 L.acidoph, paracasei,B. lactis 1 EACH capsule 1 ea PO DAILY RF: 0 Biotin 1,000 MG tablet 5,000 mg PO DAILY RF: 0 gabapentin 100 MG capsule 1 cap PO QHS RF: 0 loperamide 2 MG capsule 2 mg PO Q6H PRN PRN (Reason: Diarrhea) RF: 0 cyanocobalamin (vitamin B-12) 500 MCG tablet 500 mcg PO QWEEK RF: 0 cholecalciferol (vitamin D3) [Vitamin D3] 1,000 UNIT tablet 2,000 unit PO DAILY RF: 0 ondansetron 4 MG tablet 4 mg PO Q8H PRN PRN (Reason: Headache with nausea and vomiting) Qty: 10 RF: 0 furosemide 20 mg tablet 20 mg PO DAILY RF: 0 Eliquis 5 mg tablet 5 mg PO BID RF: 0 Primary Care Provider: Henrique Gordon Referrals: Henrique Gordon MD [Primary Care Provider] - 1 Week if not improving Activity Restrictions/Additional Instructions: Your labs and chest x-ray look good today. Plenty of fluids and rest. Tylenol for any body aches or fever. Zithromax once a day after lunch for the next 4 days starting tomorrow. Follow-up with your doctor if not improving return if feeling a lot worse. Disposition Disposition: Home, Self Care
[2021-04-19 17:50] LABS: Absolute Lymphocyte Count 0.56 X10^3/uL (0.83-4.51); Absolute Neutrophil Count 3.8 X10^3/uL (2.0-7.7); Basophil# 0.01 X10^3/uL; Basophil% 0.2 % (0-1); Eosinophil# 0.01 X10^3/uL; Eosinophils% 0.2 % (0-5); Hematocrit 39.2 % (37-47); Hemoglobin 13.9 g/dL (12.0-15.0); Lymphocyte # 0.56 X10^3/ul (0.83-4.51); Lymphocyte % 11.7 % (19-41); Mean Corp Hgb Conc 35.5 g/dL (32-36); Mean Corpuscular Hgb 34.3 pg (27.0-32.0); Mean Corpuscular Volume 96.8 fL (81-99); Monocyte# 0.35 X10^3/uL; Monocyte% 7.3 % (0-10); NRBC Flagged by Analyzer 0 % (0-5); Neutrophil # 3.83 X10^3/uL (2.7-7.7); POSITIVE DIFFERENTIAL YES; Platelet Count 168 K/mm3 (150-450); RBC Distribution Width CV 12.8 % (11.6-14.6); RBC Distribution Width SD 45.8 fl (35.1-43.9); Red Blood Count 4.05 M/mm3 (4.2-5.4); White Blood Count 4.8 K/mm3 (4.4-11.0)
--- NOTE | 2021-04-19 17:50 | RAD_ITS ---
STUDY: X-RAY CHEST REASON FOR EXAM: Female, 80 years old. COUGH COMPARISON: 6.5.13 TECHNIQUE: XR Chest 2 Views FINDINGS: There is no demonstrated pleural abnormality. The lung joshi are hyperexpanded. Enlarged heart size. Normal mediastinum and osmany. Normal visualized pulmonary arteries. There is atherosclerotic calcification of the aortic arch with tortuosity. There are diffuse degenerative changes of the visualized thoracic spine. There is degenerative osteoarthritis of the bilateral shoulders. There is no demonstrated abnormality of the visualized soft tissue structures of the upper abdomen. RAD/Chest PA and Lateral IMPRESSION: There are no acute findings. Electronically Signed: Trever Arriaga MD at 18:14 EST ,
[2021-04-19 17:52] LABS: Differential Indicated SCAN CRITERIA MET
[2021-04-19 18:16] LABS: Anion Gap 5 (5-15); BUN 26 mg/dL (7-18); BUN/Creat Ratio 23.9 RATIO (10-20); Calcium,Total 8.8 mg/dL (8.5-10.1); Chloride 103 mmol/L (98-107); Creatinine, Serum 1.09 mg/dL (0.55-1.02); EST Glomerular Filtration Rate 51 mL/min (>60); Est Glom Filt Rate - Afr Amer 62 mL/min (>60); Estimated Creatinine Clearance 39.42 ml/min; Glucose 117 mg/dL (74-106); Sodium Level 134 mmol/L (136-145); Troponin-I HS 11 pg/mL (3.0-54.0)
[2021-04-19 18:17] LABS: Differential Comment SCANNED
[2021-04-19] MEDS: Azithromycin 250 MG Tablet 500 MG PO (18:40)
== END 2021-04-19 18:52 | disposition home or self-care (01) ==
PROVIDERS: Emergency Provider Emergency Medicine; PCP Family Medicine; Visit Provider Emergency Medicine
DX: J40 Bronchitis, not specified as acute or chronic (principal); I48.91 Unspecified atrial fibrillation; E03.9 Hypothyroidism, unspecified; Z79.01 Long term (current) use of anticoagulants; R19.7 Diarrhea, unspecified; Z79.899 Other long term (current) drug therapy; I49.1 Atrial premature depolarization; M40.204 Unspecified kyphosis, thoracic region; R60.0 Localized edema
CPT/HCPCS: 71046; 80048; 84484; 85025; 87426; 93005; 99284; A4216

== ENCOUNTER 2024-02-02 09:42 | Emergency (ER) | payer MEDICARE, SELFPAY ==
[2024-02-02 09:44] VITALS: BP 141/99; PULSE 99; RESP 12; TEMP 36.6; O2SAT 92; BMI 22.4
--- NOTE | 2024-02-02 10:09 | CT_ITS ---
STUDY: CT CERVICAL SPINE WITHOUT CONTRAST REASON FOR EXAM: Female, 83 years old. Trauma RADIATION DOSAGE (If Supplied By Facility): CTDIvol = ( 13.90 ) mGy, DLP = ( 280.29 ) mGycm TECHNIQUE: High resolution transaxial imaging was performed without contrast material. Sagittal and coronal images were reconstructed. Individualized dose optimization techniques were used for this CT. COMPARISON: None FINDINGS: Normal craniovertebral junction. There are degenerative changes of the anterior atlantoaxial articulation. Normal odontoid process. Normal cervical lordosis. There is no acute fracture. There is demineralization of the vertebral bodies and posterior osseous elements. C2-3: Mild spurring to the left. Facets spurring on the left more than the right. No canal stenosis. Mild left foraminal narrowing. C3-4: Spurring to the right. Facet spurring the right more than the left. Mild canal stenosis. Right foraminal narrowing. C4-5: Spurring on the right more than the left. Facet spurring. Mild canal stenosis. Bilateral foraminal narrowing. C5-6: Disc space narrowing. Spurring asymmetric to the right. Facet spurring. No canal stenosis. Left greater than right foraminal narrowing. C6-7: Disc space narrowing. Spurring asymmetric to the right. Mild canal stenosis. Mild right foraminal narrowing. C7-T1: Normal endplates. Normal disc height and morphology. Normal central canal and intervertebral neuroforamina. Normal visualized soft tissue structures. CT/Spine Cervical without Contras IMPRESSION: Multilevel degenerative changes, as described above. Electronically Signed: Koko Porter MD at 11:27 EST ,
--- NOTE | 2024-02-02 10:09 | CT_ITS ---
STUDY: CT BRAIN WITHOUT CONTRAST REASON FOR EXAM: Female, 83 years old. Trauma RADIATION DOSAGE (If Supplied By Facility): CTDIvol = ( 44.99 ) mGy, DLP = ( 776.11 ) mGycm TECHNIQUE: Transaxial CT imaging of the brain was performed without administration of intravenous contrast material. Individualized dose optimization techniques were used for this CT. COMPARISON: April 15, 2020 FINDINGS: There is posterior soft tissue swelling. Normal calvarium. There is mild cerebral atrophy with widening of the extra-axial spaces and ventricular dilatation. There are areas of decreased attenuation within the white matter tracts of the supratentorial brain, consistent with microvascular disease changes. Normal basal ganglia and thalami. Normal brainstem. Normal cerebellum. There is no intracranial hemorrhage. There are no findings of an acute ischemic infarction. Normal visualized paranasal sinuses. CT/Brain/Head without Contrast IMPRESSION: Chronic involutional changes of the brain. Soft tissue swelling. No hemorrhage. Electronically Signed: Koko Porter MD at 11:21 [facility] ,
--- NOTE | 2024-02-02 10:10 | EDS_ITS ---
HPI HPI - Fall History of Present Illness Chief Complaint: Fall Narrative Narrative: 83-year-old female presents with via EMS status post mechanical fall. She relates history that she went to sit down to brush her teeth, on her rollator, when she forgot to lock it and it slipped backwards. She fell underneath her walker and hit the back of her head on the door. She denies loss of consciousness. No neck pain above her baseline chronic neck pain. No other injury. She sustained lacerations to her occiput. She has slight headache. Of significance she is on Eliquis as a blood thinner that she takes twice a day. She is unsure of her last tetanus immunization. She presents via EMS with lacerations to her occiput status post mechanical fall. She was eventually able to crawl and stand up, because she did not want to get blood on her carpet. She currently lives in assisted living. [facility] Medical History History of left heart catheterization (LHC) (~08/06/13) CKD (chronic kidney disease) stage 3, GFR 30-59 ml/min Moderate pulmonary hypertension Thoracic aortic aneurysm without rupture Pure hypercholesterolemia Essential hypertension Angiolipoma of right kidney Valvular heart disease Chronic diastolic heart failure Mitral valve regurgitation, rheumatic Persistent atrial fibrillation Atherosclerotic heart disease of [place] coronary artery without angina pectoris History of migraine headaches Paronychia History of colon polyps Osteoarthritis Mitral valve disease, rheumatic Paronychia of fifth finger of left hand PAF (paroxysmal atrial fibrillation) History of rheumatic fever Cellulitis Home Medications ?Medication ?Instructions ?Recorded ?Last Taken ?Type calcium carbonate 300 mg PO DAILY 08/07/14 08/06/14 History furosemide 20 mg tablet 20 mg PO DAILY 04/19/21 Unknown History biotin 1 mg tablet 1 mg PO DAILY 07/05/21 Unknown History cholecalciferol (vitamin D3) 50 50 mcg PO DAILY 07/05/21 Unknown History mcg (2,000 unit) tablet gabapentin 100 mg capsule 100 mg PO BID 07/05/21 Unknown History levothyroxine 88 mcg tablet 88 mcg PO DAILY 07/05/21 Unknown History vitamins A,C,I-suym-savkey 4,296 1 cap PO DAILY 07/05/21 Unknown History mcg-226 mg-90 mg capsule (PreserVision AREDS) apixaban 5 mg tablet (Eliquis) 5 mg PO BID #180 tabs 08/02/21 Unknown Rx Allergy/AdvReac Type Severity Reaction Status Date / Time No Known Allergies Allergy Verified 02/02/24 09:48 Family History Mother Diabetes Heart disease Congestive heart failure CVA (cerebral vascular accident) Father Brain tumor Sister Ischemic heart disease Cancer Rectal Surgical History History of delivery History of tonsillectomy H/O right wrist surgery History of hemorrhoidectomy History of appendectomy Social History Smoking Status: Never smoker alcohol intake: never substance use type: does not use caffeine: No ROS ROS ED ROS Narrative Constitutional: No fever, no chills. HEENT: No sore throat. No increase neck pain. No loss of vision. No rhinorrhea. Cardiovascular: No chest pain. No palpitations. No pedal edema. Respiratory: No cough, no shortness of breath. Abdominal: No abdominal pain. No nausea. No vomiting. Genitourinary: No dysuria. No hematuria. Musculoskeletal: No myalgias. No arthralgias. Neurologic: Mild headaches. No dizziness. No lightheadedness. Skin: No rash. No change in color. Psychiatric: No depression. No anxiety. EXAM Physical Exam Narrative Exam Narrative: GCS 15. ABCs intact. Inspection of the occiput does show a flap-like laceration that is approximately 1 cm on her occiput. There is another area that has a small underlying hematoma and abrasion. Neck is soft and supple without meningismus. No vertebral point tenderness or bony step-off. PERRL, EOMI. Cardiovascular examination regular rate and rhythm. Lungs are clear to auscultation bilaterally. Abdomen soft nontender with normoactive bowel sounds. Neurological examination shows her to be awake, alert, oriented. Able to raise arms above head without difficulty. Const Vital Signs: 02/02/24 09:44 02/02/24 09:49 02/02/24 12:07 Temperature 97.9 F 97.9 F Temperature Source Oral Pulse Rate 99 99 Respiratory Rate 12 12 Respiratory Effort Normal Non-Labored Respiratory Depth Normal Respiratory Pattern Normal Blood Pressure 141/99 H 141/99 H Blood Pressure Mean 113 113 Pulse Ox 92 92 Oxygen Delivery Method Room Air Room Air MDM MDM MDM Narrative Medical decision making narrative: Given that she is on blood thinners, differential diagnosis includes but not limited to closed head injury versus intracranial hemorrhage versus skull fracture. There is 1 area that can be anesthetized with lidocaine and stable inserted. As far as the abrasion and underlying hematoma, I do not feel that it is necessarily amenable to skin closure. CT of the brain and of the C-spine were obtained to rule out fractures or intracranial hemorrhage. She declined any analgesia currently. I reviewed the radiology report of the CT of the brain and there is soft tissue swelling but no evidence of a skull fracture or intracranial hemorrhage. Additionally I reviewed the radiology report of the CT of the cervical spine and there are multilevel degenerative changes. No fracture. After cleansing her wounds, there is the flap-like laceration with skin closure performed after lidocaine 1% was used as a local anesthetic. The area was recleansed and 2 surgical christie were inserted for skin closure. The occipital hematoma that she has has more of a skin avulsion which I do not feel is amenable to closure. Hemostasis has been achieved. At this point in time, patient stated that she had pressure on the right side of her low back/sacrum when she was lying on the CT table. She states that when she is not on it it does not hurt but that is where she landed when she fell. Patient will be ambulated. Through shared decision making, I had offered to x-ray or CT her lower spine and sacrum, but her son felt that as long as she can ambulate that they would forego any imaging. Patient will be ambulated. She was told to have her christie removed in 10 to 14 days by her primary care provider. I offered her analgesia and an ice pack but she declined stating she would like to do that at her assisted living facility. I feel she can be discharged safely home with follow-up. Return instructions reviewed. Disposition is discharged home in stable condition. Patient and son are agreeable to the plan. History & Record Review Discussion w/independent historian: Patient and Family Radiography Diagnostic Testing: Clinical Impression(s) from Imaging Studies Brain CT 02/02/24 10:09 IMPRESSION: Chronic involutional changes of the brain. Soft tissue swelling. No hemorrhage. Electronically Signed: Koko Porter MD at 11:21 EST , Cervical Spine CT 02/02/24 10:09 IMPRESSION: Multilevel degenerative changes, as described above. Electronically Signed: Koko Porter MD at 11:27 EST , Procedures Lacerations Occipital: Length: 0.39 in Depth: Skin (No apparent galeal involvement) Shape: Flap Prep: Shure-Clens Laceration repair: Lidocaine Number of Sutures/Christie: 2 Suture Information: - (Christie) Discharge Plan Triage Chief Complaint: Fall ED Provider: Aries Villar Dx/Rx/DC Orders Clinical Impression: Fall, Closed head injury, care home (current) use of anticoagulants, Laceration of occipital scalp, Hematoma Instructions: ED Head Injury (Adult), ED Hematoma, ED Laceration Scalp Stitches or Christie Prescriptions: No Action levothyroxine 88 mcg tablet 88 mcg PO DAILY PreserVision AREDS [id number] capsule 1 cap PO DAILY biotin 1 mg tablet 1 mg PO DAILY cholecalciferol (vitamin D3) 50 mcg (2,000 unit) tablet 50 mcg PO DAILY calcium carbonate 600 MG tablet 300 mg PO DAILY Patient Comments: supplement gabapentin 100 mg capsule 100 mg PO BID Patient Comments: PT TAKES DOSE AT HS furosemide 20 mg tablet 20 mg PO DAILY Patient Comments: TAKE 1 TABLET BY MOUTH NEEDED. WEIGHT GAIN OR INCREASED SHORTNESS OF BREATH Eliquis 5 mg tablet 5 mg PO BID Qty: 180 3RF Primary Care Provider: Amairani Sheppard Referrals: Amairani Sheppard MD [Primary Care Provider] - 10 Day for suture removal Activity Restrictions/Additional Instructions: [id number] medications as needed for pain. Have the christie removed from your scalp in approximately 10 days. Return with fever, new or worsening symptoms. Make sure you lock the wheels on your rollator when going to sit in it. Print Language: Jordanian Disposition Disposition: Home, Self Care Discharge Date/Time: 02/02/24 12:07
[2024-02-02] MEDS: Lidocaine 1% (20 ml mdv) 20 ML Vial 5 ML INFILT (10:20)
[2024-02-02] MEDS: Diphth,Pertuss(Acell),Tet Vac 0.5 ML Vial IM (10:23)
[2024-02-02 12:07] VITALS: BP 141/99; PULSE 99; RESP 12; TEMP 36.6; O2SAT 92
== END 2024-02-02 12:07 | disposition home or self-care (01) ==
PROVIDERS: Emergency Provider Emergency Medicine; PCP Internal Medicine; Visit Provider Emergency Medicine
DX: S01.01XA Laceration without foreign body of scalp, initial encounter (principal); I13.0 Hypertensive heart and chronic kidney disease with heart failure and stage 1 through stage 4 chronic kidney disease, or unspecified chronic kidney disease; I50.32 Chronic diastolic (congestive) heart failure; I48.0 Paroxysmal atrial fibrillation; N18.30 Chronic kidney disease, stage 3 unspecified; E78.00 Pure hypercholesterolemia, unspecified; I25.10 Atherosclerotic heart disease of native coronary artery without angina pectoris; Z79.01 Long term (current) use of anticoagulants; V00.181A Fall from other rolling-type pedestrian conveyance, initial encounter; Y92.099 Unspecified place in other non-institutional residence as the place of occurrence of the external cause; Z79.899 Other long term (current) drug therapy; Z90.49 Acquired absence of other specified parts of digestive tract; S09.90XA Unspecified injury of head, initial encounter
CPT/HCPCS: 12001; 70450; 72125; 90715; 99284

== ENCOUNTER → 2024-10-27 | Outpatient (CLI) | payer MEDICARE, OTHER, SELFPAY | END | disposition home or self-care (01) | LOC: LAB 11:52 → LABSPEC 11:52 | PROVIDERS: PCP Internal Medicine; Referring Provider Internal Medicine; Visit Provider Internal Medicine | DX: E03.9 Hypothyroidism, unspecified (principal) | CPT/HCPCS: 84439; 84443 ==

== ENCOUNTER → 2024-11-13 | Outpatient (CLI) | payer MEDICARE, SELFPAY ==
--- NOTE | 2024-11-13 15:52 | CT_ITS ---
PROCEDURE: CTA HEAD W/WO CONTRAST 11/13/2024 REASON FOR EXAM: AORTIC ECTASIA, THORACIC TIA TECHNIQUE: Procedure Code: [id number] Modality: CT Procedure: CTA HEAD W/WO CONTRAST Multiplanar Sagittal and Coronal images were obtained. CONTRAST: VOLUME: mL One or more dose reduction techniques were used (e.g., Automated exposure control, adjustment of the mA and/or kV according to patient size, use of iterative reconstruction technique). FINDINGS: Atherosclerotic calcifications within the cavernous and supraclinoid segments of the bilateral ICAs result in less than 50% luminal narrowing. Otherwise the intracranial segments of the bilateral ICAs appear unremarkable. The bilateral ACAs appear unremarkable. The anterior communicating artery is patent. The bilateral MCAs appear unremarkable. The intracranial segments of the bilateral vertebral arteries (V4) appear unremarkable. The basilar artery is unremarkable. The right [employer]GRAM DEVELOPMENT MANAGER appears unremarkable. The P1 segment of the left PROGRAM DEVELOPMENT MANAGER is markedly hypoplastic and barely visible. A prominent patent left posterior communicating artery is noted, compatible with a origin of the left PROGRAM DEVELOPMENT MANAGER. The remainder of the left PROGRAM DEVELOPMENT MANAGER appears unremarkable. CT/CTA Head W/WO Contrast IMPRESSION: No hemodynamically significant stenosis, major vessel occlusion, or aneurysm gr eater than 3 mm. Reading [id number]
--- NOTE | 2024-11-13 15:52 | US_ITS ---
PROCEDURE: KIDNEY AND BLADDER 11/13/2024 REASON FOR EXAM: ABNORMAL FINDING ON DIAGNOSTIC IMAGING TECHNIQUE: Procedure Code: USKI Modality: US Procedure: KIDNEY AND BLADDER COMPARISON: None FINDINGS: Kidneys: Normal renal sizes, parenchymal thicknesses, and echotextures. [place]: No evidence of hydronephrosis. Cysts or [place]: There is a 1.6 cm 1.6 cm x 0.8 cm fat containing nodule in the upper pole of the right kidney suggestive of a angiomyolipoma. There is also evidence of a 1.4 cm 1.5 cm 1.3 cm right renal cyst. 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 Reading Location: [id number]
[2024-11-13 16:16] LABS: CREATININE FINGERSTICK < 1.0 mg/dL (0.55-1.02); EGFR FINGERSTICK > 60.0000 mL/min (>60)
== END | disposition home or self-care (01) ==
PROVIDERS: PCP Internal Medicine; Referring Provider Internal Medicine; Visit Provider Internal Medicine
DX: R93.421 Abnormal radiologic findings on diagnostic imaging of right kidney (principal); G45.9 Transient cerebral ischemic attack, unspecified; I77.810 Thoracic aortic ectasia
CPT/HCPCS: 70496; 76770; Q9967; A4216